=== PATIENT | female | born 1935 | race Caucasian/White ===

== ENCOUNTER 2017-06-28 10:56 | Inpatient (IN) | payer MEDICARE, BC ==
[2017-06-28] VITALS (40 sets, daily range): BP systolic 79–138; BP diastolic 46–86; PULSE 74–148; RESP 24–41; TEMP 97–100; O2SAT 89–98
[~2017-06-28] VITALS: Ht 152.4 cm; Wt 72.2 kg
--- NOTE | 2017-06-28 11:18 | PD ---
HPI Chief Complaint: Shortness of breath Time Seen by Provider: 11:01 Travel History International Travel<30 days: No Contact w/Intl Traveler<30days: No Traveled to known affect area: No History of Present Illness HPI 81-year-old female is here on vacation. She has had some trouble breathing since he had an episode of pneumonia about 4 5 years ago. She was told she had some scarring on her lungs. She has been on oxygen since then. She is on oxygen continuously at 3-4 L and her saturation was about 95-96%. She is here on vacation and using an oxygen concentrator. Last night the oxygen concentrator malfunctioned and she was short of breath at the night and was having some substernal chest pain. He got the concentrator effects which he continued to be short of breath so he paramedics were called. She is not having chest pain right now. She did smoke many years ago. She is not aware of any history of heart disease. She has been coughing a lot this morning. She does take aspirin every day but has not had it today PFSH Social History Tobacco Use: No Allergies-Medications (Allergen,Severity, Reaction): Coded Allergies: No Known Allergies (Unverified , 06/28/17) Reported Meds & Prescriptions Reported Meds & Active Scripts Active Reported Allopurinol 100 Mg Tab 100 Mg PO DAILY Detrol LA (Tolterodine Tartrate) 4 Mg Cap 4 Mg PO DAILY Melatonin 10 Mg-1 Mg Tab 10 Mg PO HS PRN Zolpidem (Zolpidem Tartrate) 5 Mg Tab 5 Mg PO HS PRN Cephalexin 250 Mg Cap 250 Mg PO BID Calcium 600 with Vitamin D (Calcium Carbonate-Cholecalciferol) 600-400 mg-Unit Tab 2 Tab PO DAILY Lasix (Furosemide) 20 Mg Tab 20 Mg PO DAILY Prednisone 5 Mg Tab 5 Mg PO DAILY Pramipexole (Pramipexole Dihydrochloride) 0.25 Mg Tab 0.25 Mg PO TID Proair Hfa 8.5 GM Inh (Albuterol Sulfate) 90 Mcg/Act Aer 2 Puff INH Q4-6H PRN 108 mcg/actuation Metoprolol Succinate ER 24 HR (Metoprolol Succinate) 50 Mg Tab 50 Mg PO DAILY Simvastatin 20 Mg Tab 20 Mg PO DAILY Amlodipine (Amlodipine Besylate) 10 Mg Tab 10 Mg PO DAILY Metformin (Metformin HCl) 500 Mg Tab 500 Mg PO BIDPC Review of Systems General / Constitutional: No: Fever, Chills Eyes: No: Diploplia, Blurred Vision HENT: No: Headaches Cardiovascular: Positive: Chest Pain or Discomfort, Tachycardia Respiratory: Positive: Cough Genitourinary: No: Frequency, Dysuria Musculoskeletal: No: Myalgias, Arthralgias Skin: No Rash, No Itching Endocrine: No: Heat Intolerance, Cold Intolerance Hematologic/Lymphatic: No: Easy Bruising Physical Exam Narrative GENERAL: Elderly female in moderate respiratory distress SKIN: Focused skin assessment warm/dry. Multiple purpuric areas HEAD: Atraumatic. Normocephalic. EYES: Pupils equal and round. No scleral icterus. No injection or drainage. ENT: No nasal bleeding or discharge. Mucous membranes pink and moist. NECK: Trachea midline. No JVD. CARDIOVASCULAR: Rapid irregular rate and rhythm. No murmur appreciated. RESPIRATORY: Coarse rales bilaterally GASTROINTESTINAL: Abdomen soft, non-tender, nondistended. Hepatic and splenic margins not palpable. MUSCULOSKELETAL: No obvious deformities. No clubbing. No cyanosis. No edema. NEUROLOGICAL: Awake and alert. No obvious cranial nerve deficits. Motor grossly within normal limits. Normal speech. PSYCHIATRIC: Appropriate mood and affect; insight and judgment normal. Data Data Last Documented VS Vital Signs Date Time Temp Pulse Resp B/P (MAP) Pulse Ox O2 Delivery O2 Flow Rate FiO2 06/28/17 11:30 94 90 06/28/17 11:22 Non-Rebreather 15.00 Orders Orders Electrocardiogram (06/28/17 11:03) Complete Blood Count With Diff (06/28/17 11:03) Comprehensive Metabolic Panel (06/28/17 11:03) Troponin I (06/28/17 11:03) B-Type Natriuretic Peptide (06/28/17 11:03) Prothrombin Time / Inr (Pt) (06/28/17 11:03) Act Partial Throm Time (Ptt) (06/28/17 11:03) Urinalysis - C+S If Indicated (06/28/17 11:03) Chest, Single Ap (06/28/17 11:03) Arterial Blood Gas (Abg) (06/28/17 ) Lactic Acid Sepsis Protocol (06/28/17 11:09) Blood Culture (06/28/17 11:09) Resp Bipap / Cpap Non Invas Vt (06/28/17 ) Ecg Monitoring (06/28/17 11:32) Blood Pressure (06/28/17 11:32) Iv Access Insert/Monitor (06/28/17 11:32) Oximetry (06/28/17 11:32) Vital Signs (06/28/17 11:32) Diltiazem Inj (Cardizem Inj) (06/28/17 11:45) Diltiazem Inj (Cardizem Inj) (06/28/17 11:45) Sodium Chloride 0.9% Flush (Ns Flush) (06/28/17 11:45) Admit Order (Ed Use Only) (06/28/17 11:39) Labs Laboratory Tests Test 06/28/17 11:00 06/28/17 11:16 White Blood Count 16.5 TH/MM3 Red Blood Count 3.98 MIL/MM3 Hemoglobin 10.8 GM/DL Hematocrit 32.9 % Mean Corpuscular Volume 82.5 FL Mean Corpuscular Hemoglobin 27.1 PG Mean Corpuscular Hemoglobin Concent 32.8 % Red Cell Distribution Width 16.9 % Platelet Count 249 TH/MM3 Mean Platelet Volume 10.7 FL Neutrophils (%) (Auto) 82.8 % Lymphocytes (%) (Auto) 6.3 % Monocytes (%) (Auto) 6.2 % Eosinophils (%) (Auto) 0.5 % Basophils (%) (Auto) 4.2 % Neutrophils # (Auto) 13.7 TH/MM3 Lymphocytes # (Auto) 1.0 TH/MM3 Monocytes # (Auto) 1.0 TH/MM3 Eosinophils # (Auto) 0.1 TH/MM3 Basophils # (Auto) 0.7 TH/MM3 CBC Comment AUTO DIFF Differential Comment AUTO DIFF CONFIRMED Platelet Estimate NORMAL Platelet Morphology Comment NORMAL Prothrombin Time 11.1 SEC Prothromb Time International Ratio 1.1 RATIO Activated Partial Thromboplast Time 19.4 SEC Blood Urea Nitrogen 47 MG/DL Creatinine 1.80 MG/DL Random Glucose 238 MG/DL Total Protein 7.3 GM/DL Albumin 3.2 GM/DL Calcium Level 10.0 MG/DL Alkaline Phosphatase 126 U/L Aspartate Amino Transf (AST/SGOT) 47 U/L Alanine Aminotransferase (ALT/SGPT) 109 U/L Total Bilirubin 0.7 MG/DL Sodium Level 138 MEQ/L Potassium Level 4.5 MEQ/L Chloride Level 105 MEQ/L Carbon Dioxide Level 24.1 MEQ/L Anion Gap 9 MEQ/L Estimat Glomerular Filtration Rate 27 ML/MIN Lactic Acid Level 4.6 mmol/L Troponin I 0.38 NG/ML B-Type Natriuretic Peptide 1307 PG/ML Blood Gas Puncture Site RT BRACHIAL Blood Gas Patient Temperature 98.6 Blood Gas HCO3 22 mmol/L Blood Gas Base Excess -2.6 mmol/L Blood Gas Oxygen Saturation 87 % Arterial Blood pH 7.38 Arterial Blood Partial Pressure CO2 38 mmHG Arterial Blood Partial Pressure O2 63 mmHG Arterial Blood Oxygen Content 12.9 Vol % Arterial Blood Carboxyhemoglobin 1.8 % Arterial Blood Methemoglobin 1.2 % Blood Gas Hemoglobin 10.5 G/DL Oxygen Delivery Device NRB Blood Gas Liter Flow 15 L/M Blood Gas Inspired Oxygen 100 % [facility] Medical Decision Making Medical Screen Exam Complete: Yes Emergency Medical Condition: Yes Medical Record Reviewed: Yes Differential Diagnosis Differential includes CHF, COPD exacerbation, pulmonary fibrosis Narrative Course Chest x-ray is read as showing bilateral diffuse interstitial opacities in both lungs and possible left pleural effusion. EKG shows atrial fibrillation with a rapid ventricular response. BNP is 1307. Her troponin level is 0.38. Her saturation has been only 90% in spite of 100%. We have initiated BiPAP. She has been started on Cardizem for rate control Diagnosis Primary Impression: Rapid atrial fibrillation Additional Impression: CHF (congestive heart failure) Admitting Information Admitting Physician Requests: Admit Maximiliano West MD Jun 28, 2017 11:18
[2017-06-28 11:35] LABS: CHLORIDE 105 MEQ/L (98-107); SODIUM (NA) 138 MEQ/L (136-145)
[2017-06-28] MEDS ORDERED: SODIUM CHLOR 0.9% 1000 ML INJ 1,000 ML IV SCH (11:38)
[2017-06-28 11:39] LABS: ALBUMIN 3.2 GM/DL (3.4-5.0); BICARBONATE 24.1 MEQ/L (21.0-32.0); BLOOD UREA NITROGEN 47 MG/DL (7-18); GLUCOSE,RANDOM 238 MG/DL (74-106)
[2017-06-28] MEDS ORDERED: METO1TAB9 PO (11:39)
[2017-06-28] MEDS ORDERED: ALBUAER3 INH (11:39)
[2017-06-28] MEDS ORDERED: MELA1TAB18 PO (11:39)
[2017-06-28] MEDS ORDERED: SIMV20TA PO (11:39)
[2017-06-28] MEDS ORDERED: PRED5TAB PO (11:39)
[2017-06-28] MEDS ORDERED: ZOLP5TAB3 PO (11:39)
[2017-06-28] MEDS ORDERED: FURO1TAB62 PO (11:39)
[2017-06-28] MEDS ORDERED: ALLO100T PO (11:39)
[2017-06-28] MEDS ORDERED: CALC1TAB87 PO (11:39)
[2017-06-28] MEDS ORDERED: PRAM0.25 PO (11:39)
[2017-06-28] MEDS ORDERED: CEPH250C PO (11:39)
[2017-06-28] MEDS ORDERED: METF500T PO (11:39)
[2017-06-28] MEDS ORDERED: DETR4CAP PO (11:39)
[2017-06-28] MEDS ORDERED: AMLO10TA2 PO (11:39)
[2017-06-28 11:42] LABS: ALT (GPT) 109 U/L (10-53); AST (GOT) 47 U/L (15-37); GLOMERULAR FILTRATION RATE 27 ML/MIN (>89)
[2017-06-28 11:43] LABS: AUTOMATED NEUTROPHIL # 13.7 TH/MM3 (1.8-7.7); BASOPHIL # 0.7 TH/MM3 (0-0.2); BASOPHIL % 4.2 % (0.0-2.0); EOSINOPHIL # 0.1 TH/MM3 (0-0.4); EOSINOPHIL % 0.5 % (0.0-4.0); HEMATOCRIT 32.9 % (35.0-46.0); HEMOGLOBIN 10.8 GM/DL (11.6-15.3); LYMPH % 6.3 % (9.0-44.0); MEAN CELL VOLUME 82.5 FL (80.0-100.0); MEAN CORPUSCULAR HEMOGLOBIN 27.1 PG (27.0-34.0); MEAN CORPUSCULAR HGB CONC 32.8 % (32.0-36.0); MEAN PLATELET VOLUME 10.7 FL (7.0-11.0); MONO % 6.2 % (0.0-8.0); NEUT % 82.8 % (16.0-70.0); PLATELET COUNT 249 TH/MM3 (150-450); RED BLOOD COUNT 3.98 MIL/MM3 (4.00-5.30); RED CELL DISTRIBUTION WIDTH 16.9 % (11.6-17.2); TOTAL BILIRUBIN ADULT 0.7 MG/DL (0.2-1.0); TOTAL PROTEIN 7.3 GM/DL (6.4-8.2); WHITE BLOOD COUNT 16.5 TH/MM3 (4.0-11.0)
[2017-06-28 11:45] LABS: ALKALINE PHOSPHATASE 126 U/L (45-117); INTERNATIONAL NORMALIZED RATIO 1.1 RATIO; PROTHROMBIN TIME - PATIENT 11.1 SEC (9.8-11.6)
[2017-06-28] MEDS ORDERED: CHLORHEXIDINE GLUCONATE 2 % 1 PACK (2 CLOTHS) TOP PRN (11:45)
[2017-06-28] MEDS ORDERED: ONDANSETRON HCL 4 MG/2 ML VIAL IV PUSH PRN (11:45)
[2017-06-28] MEDS ORDERED: POTASSIUM CHLOR 40 MEQ PREMIX 100 ML IV PRN ×2 (11:45)
[2017-06-28] MEDS ORDERED: POTASSIUM PHOSPHATE MONOBASIC 500 MG TAB PO PRN (11:45)
[2017-06-28] MEDS ORDERED: SENNOSIDES 8.6 MG TAB PO PRN (11:45)
[2017-06-28] MEDS ORDERED: MAGNESIUM SULFATE INJ 4 GM in SODIUM CHLORIDE 0.9% INJ 92 ML IV PRN (11:45)
[2017-06-28] MEDS ORDERED: MAGNESIUM HYDROXIDE SUSP 30 ML CUP PO PRN (11:45)
[2017-06-28] MEDS ORDERED: MAGNESIUM SULFATE INJ 2 GM in SODIUM CHLORIDE 0.9% INJ 96 ML IV PRN (11:45)
[2017-06-28] MEDS ORDERED: NURSING INFORMATION XX SCH (11:45)
[2017-06-28] MEDS ORDERED: DILTIAZEM HCL 25 MG/5 ML VIAL IV PUSH ONE (11:45)
[2017-06-28] MEDS ORDERED: BISACODYL 10 MG SUPP RECTAL PRN (11:45)
[2017-06-28] MEDS ORDERED: POTASSIUM PHOSPHATE MONOBASIC 500 MG TAB PO/TUBE PRN (11:45)
[2017-06-28] MEDS ORDERED: POTASSIUM PHOSPHATE INJ 30 MMOL in SODIUM CHLOR 0.9% 250 ML INJ 250 ML IV PRN (11:45)
[2017-06-28] MEDS ORDERED: POTASSIUM CHLOR 20 MEQ PREMIX 100 ML IV PRN ×2 (11:45)
[2017-06-28] MEDS ORDERED: MAGNESIUM OXIDE 400 MG TAB PO PRN (11:45)
[2017-06-28] MEDS ORDERED: POTASSIUM CHLORIDE 25 MEQ EFFERVESCENT TAB PO PRN (11:45)
[2017-06-28] MEDS ORDERED: SODIUM PHOSPHATE INJ 30 MMOL in SODIUM CHLOR 0.9% 250 ML INJ 240 ML IV PRN (11:45)
[2017-06-28 11:46] LABS: TROPONIN I 0.38 NG/ML (0.02-0.05)
--- NOTE | 2017-06-28 11:50 | RADRPT ---
EXAM DATE/TIME: 06/28/2017 11:29 [facility] COMPARISON: No previous studies available for comparison. INDICATIONS : Short of breath. MEDICAL HISTORY : Chronic obstructive pulmonary disease. Carcinoma, breast. Diabetes mellitus type II. Afib SURGICAL HISTORY : None. ENCOUNTER: Initial ACUITY: 2 days PAIN SCORE: 0/10 LOCATION: Bilateral chest FINDINGS: There are patchy interstitial opacities throughout both lungs, right greater than left. There is als o blunting of the costophrenic angle on the left side with possible meniscal interface suggesting sma ll moderate size left pleural effusion. The heart is upper limits normal in size. Mild scoliosis of the thoracolumbar spine convex towards the left with associated degenerative changes. CONCLUSION: Bilateral diffuse interstitial opacities in both lungs and possible left pleural effusion. Juan Carlos Stover MD on June 28, 2017 at 11:48 Board Certified Radiologist. This report was verified electronically.
[2017-06-28] MEDS: RESP: ALBUTEROL 2.5 MG/IPRATROPIUM 0.5 MG NEB (SCH) INH ×4 (12:00→22:59)
[2017-06-28 12:11] LABS: LACTIC ACID SEPSIS PROTOCOL 4.6 mmol/L (0.4-2.0)
[2017-06-28] MEDS ORDERED: FUROSEMIDE 20 MG/2 ML VIAL IV PUSH ONE (12:15)
[2017-06-28] MEDS: DILTIAZEM INJ 125 MG in SODIUM CHLORIDE 0.9% INJ 100 ML IV PRN ×2 (12:29→14:31)
[2017-06-28] MEDS ORDERED: ASPIRIN 81 MG CHEW TAB CHEW ONE (12:30)
--- NOTE | 2017-06-28 13:56 | HHI.HP ---
HPI Service Critical Care Medicine Primary Care Physician No Primary Care Physician Admission Diagnosis RAPID ATRIAL FIBRILLATION, HYPOXIA Diagnosis: Chief Complaint: shortness of breath Travel History International Travel<30 Days: No Contact w/Intl Traveler <30 Da: No Traveled to Known Affected Are: No History of Present Illness This is an 81yF who is vacationing from [place] with a history of o2 dependent COPD (2L continuous), who presents to the ED with complaints of SOB since last night. Per her and her son, her oxygen concentrator stopped working yesterday and she has not had any oxygen since that time. She has developed since that time progressive shortness of breath. Overnight, she also had intermittent substernal chest pain, though currently she is chest pain free. She denies any fever, chills, cough, sputum production, abdominal pain, n/v/c/d , or any other symptoms associated with the SOB and intermittent chest pain. No sick contacts. In the emergency department, she had spo2 89% on NRB and was placed on BIPAP and quickly increased fio2 to 90%. She was also found to be in rapid atrial fibrillation, but with no history of afib. Laboratory data significant for wbc 16k, Cr 1.8, lactate 4, Trop 0.33, BNP 1307. CXR demonstrates bilateral infiltrate suggestive of pulmonary edema. Review of Systems Constitutional: DENIES: Diaphoretic episodes, Fatigue, Fever, Chills Respiratory: COMPLAINS OF: Shortness of breath, DENIES: Apneas, Cough, Snoring , Wheezing, Hemoptysis, Sputum production Cardiovascular: COMPLAINS OF: Chest pain, DENIES: Palpitations, Syncope, Dyspnea on Exertion, PND, Lower Extremity Edema, Orthopnea, Claudication Gastrointestinal: DENIES: Abdominal pain, Black stools, Bloody stools, Constipation, Diarrhea, Nausea, Vomiting Musculoskeletal: DENIES: Muscle aches, Back pain, Neck pain Neurologic: DENIES: Abnormal gait, Headache Psychiatric: DENIES: Anxiety, Confusion Past Family Social History Allergies: Coded Allergies: No Known Allergies (Unverified , 06/28/17) Past Medical History o2 dependent COPD HTN HLD Diabetes Past Surgical History none Reported Medications Allopurinol 100 Mg Tab 100 Mg PO DAILY Detrol LA (Tolterodine Tartrate) 4 Mg Cap 4 Mg PO DAILY Melatonin 10 Mg-1 Mg Tab 10 Mg PO HS PRN Zolpidem (Zolpidem Tartrate) 5 Mg Tab 5 Mg PO HS PRN Cephalexin 250 Mg Cap 250 Mg PO BID Calcium 600 with Vitamin D (Calcium Carbonate-Cholecalciferol) 600-400 mg-Unit Tab 2 Tab PO DAILY Lasix (Furosemide) 20 Mg Tab 20 Mg PO DAILY Prednisone 5 Mg Tab 5 Mg PO DAILY Pramipexole (Pramipexole Dihydrochloride) 0.25 Mg Tab 0.25 Mg PO TID Proair Hfa 8.5 GM Inh (Albuterol Sulfate) 90 Mcg/Act Aer 2 Puff INH Q4-6H PRN 108 mcg/actuation Metoprolol Succinate ER 24 HR (Metoprolol Succinate) 50 Mg Tab 50 Mg PO DAILY Simvastatin 20 Mg Tab 20 Mg PO DAILY Amlodipine (Amlodipine Besylate) 10 Mg Tab 10 Mg PO DAILY Metformin (Metformin HCl) 500 Mg Tab 500 Mg PO BIDPC Active Ordered Medications See MAR Family History reviewed and found to be noncontributory to her acute illness Social History denies tob, etoh, doa. Physical Exam Vital Signs Vital Signs Date Time Temp Pulse Resp B/P (MAP) Pulse Ox O2 Delivery O2 Flow Rate FiO2 06/28/17 13:25 138/70 (92) 06/28/17 13:23 BiPAP 90 06/28/17 13:11 28 97 BiPAP 90 06/28/17 13:08 157 112/86 06/28/17 12:29 136 102/60 06/28/17 12:15 100.0 146 24 121/72 (88) 91 06/28/17 12:00 100.0 148 26 138/70 (92) 90 06/28/17 11:30 94 90 06/28/17 11:22 Non-Rebreather 15.00 Physical Exam gen: elderly female, lying in bed, in respiratory distress on BiPAP heent: nc. at. perrl. mucous membranes moist. neck: +jvd up to mid-neck. trachea midline. chest: tachypneic using accessory muscles to breath. BiPAP 90% fio2. cv: tachycardic rate in the 140s, irregularly irregular rhythm. on 15mg/hr diltiazem infusion abd: soft, nontender, nondistended. no guarding. extr: cool, poorly perfused. no edema. distal pulses 2+ neuro: RASS 0. CAM - . follows commands x 4. no focal deficits. Laboratory Laboratory Tests Test 06/28/17 11:00 06/28/17 11:16 White Blood Count 16.5 Red Blood Count 3.98 Hemoglobin 10.8 Hematocrit 32.9 Mean Corpuscular Volume 82.5 Mean Corpuscular Hemoglobin 27.1 Mean Corpuscular Hemoglobin Concent 32.8 Red Cell Distribution Width 16.9 Platelet Count 249 Mean Platelet Volume 10.7 Neutrophils (%) (Auto) 82.8 Lymphocytes (%) (Auto) 6.3 Monocytes (%) (Auto) 6.2 Eosinophils (%) (Auto) 0.5 Basophils (%) (Auto) 4.2 Neutrophils # (Auto) 13.7 Lymphocytes # (Auto) 1.0 Monocytes # (Auto) 1.0 Eosinophils # (Auto) 0.1 Basophils # (Auto) 0.7 CBC Comment AUTO DIFF Differential Comment AUTO DIFF CONFIRMED Platelet Estimate NORMAL Platelet Morphology Comment NORMAL Prothrombin Time 11.1 Prothromb Time International Ratio 1.1 Activated Partial Thromboplast Time 19.4 Blood Urea Nitrogen 47 Creatinine 1.80 Random Glucose 238 Total Protein 7.3 Albumin 3.2 Calcium Level 10.0 Alkaline Phosphatase 126 Aspartate Amino Transf (AST/SGOT) 47 Alanine Aminotransferase (ALT/SGPT) 109 Total Bilirubin 0.7 Sodium Level 138 Potassium Level 4.5 Chloride Level 105 Carbon Dioxide Level 24.1 Anion Gap 9 Estimat Glomerular Filtration Rate 27 Lactic Acid Level 4.6 Troponin I 0.38 B-Type Natriuretic Peptide 1307 Blood Gas Puncture Site RT BRACHIAL Blood Gas Patient Temperature 98.6 Blood Gas HCO3 22 Blood Gas Base Excess -2.6 Blood Gas Oxygen Saturation 87 Arterial Blood pH 7.38 Arterial Blood Partial Pressure CO2 38 Arterial Blood Partial Pressure O2 63 Arterial Blood Oxygen Content 12.9 Arterial Blood Carboxyhemoglobin 1.8 Arterial Blood Methemoglobin 1.2 Blood Gas Hemoglobin 10.5 Oxygen Delivery Device NRB Blood Gas Liter Flow 15 Blood Gas Inspired Oxygen 100 Date/Time Source Procedure Growth Status 06/28/17 12:00 Blood Peripheral Aerobic Blood Culture Pending Received 06/28/17 12:00 Blood Peripheral Anaerobic Blood Culture Pending Received 06/28/17 12:18 Nasal Aspirate Influenza Types A,B Antigen (TAE) - Final NEGATIVE FOR FLU A AND B ANTIGEN.... Complete Result Diagram: 06/28/17 1100 06/28/17 1100 Imaging Last Impressions Chest X-Ray 06/28/17 1103 Signed Impressions: Service Date/Time: Wednesday, June 28, 2017 11:29 - CONCLUSION: Bilateral diffuse interstitial opacities in both lungs and possible left pleural effusion. Juan Carlos Stover MD Septic Shock Reassessment Septic shock perfusion: reassessment completed Caprini VTE Risk Assessment Caprini VTE Risk Assessment: Mod/High Risk (score >= 2) Caprini Risk Assessment Model Point Value = 1 Point Value = 2 Point Value = 3 Point Value = 5 Age 41-60 Minor surgery BMI > 25 kg/m2 Swollen legs Varicose veins or History of unexplained or recurrent spontaneous Oral contraceptives or hormone replacement Sepsis (< 1 month) Serious lung disease, including pneumonia (< 1 month) Abnormal pulmonary function Acute myocardial infarction Congestive heart failure (< 1 month) History of inflammatory bowel disease Medical patient at bed rest Age 61-74 Arthroscopic surgery Major open surgery (> 45 min) Laparoscopic surgery (> 45 min) Malignancy Confined to bed (> 72 hours) Immobilizing plaster cast Central venous access Age >= 75 History of VTE Family history of VTE Factor V Leiden Prothrombin [id number] Lupus anticoagulant Anticardiolipin antibodies Elevated serum homocysteine Heparin-induced thrombocytopenia Other congenital or acquired thrombophilia Stroke (< 1 month) Elective arthroplasty Hip, pelvis, or leg fracture Acute spinal cord injury (< 1 month) Prophylaxis Regimen Total Risk Factor Score Risk Level Prophylaxis Regimen 0-1 Low Early ambulation 2 Moderate Order ONE of the following: *Sequential Compression Device (SCD) *Heparin 5000 units SQ BID 3-4 Higher Order ONE of the following medications: *Heparin 5000 units SQ TID *Enoxaparin/Lovenox 40 mg SQ daily (WT < 150 kg, CrCl > 30 mL/min) *Enoxaparin/Lovenox 30 mg SQ daily (WT < 150 kg, CrCl > 10-29 mL/min) *Enoxaparin/Lovenox 30 mg SQ BID (WT < 150 kg, CrCl > 30 mL/min) AND/OR *Sequential Compression Device (SCD) 5 or more Highest Order ONE of the following medications: *Heparin 5000 units SQ TID (Preferred with Epidurals) *Enoxaparin/Lovenox 40 mg SQ daily (WT < 150 kg, CrCl > 30 mL/min) *Enoxaparin/Lovenox 30 mg SQ daily (WT < 150 kg, CrCl > 10-29 mL/min) *Enoxaparin/Lovenox 30 mg SQ BID (WT < 150 kg, CrCl > 30 mL/min) AND *Sequential Compression Device (SCD) Assessment and Plan Assessment and Plan Assessment: 81yF with o2 dependent COPD who presents after acute dyspnea when her oxygen stopped working and now has acute NSTEMI, CHF exacerbation of unknown type, acute kidney injury, atrial fibrillation with rapid ventricular response, and acute hypoxic respiratory failure requiring NIPPV. Very critically ill. Overall, this appears to be secondary clinically to a loss of o2 which she chronically requires. Certainly, acute loss of supplemental oxygen can cause NSTEMI secondary to inadequate coronary oxygen supply, lactic acidosis from both poor o2 delivery as well as ensuing cardiogenic shock from myocardial dysfunction, subsequent CHF and pulmonary edema which then worsens o2 delivery. No evidence of infectious etiology, although we will coronado culture her to be sure. Certainly COPD exacerbation is a contributing factor, and we will keep her on iv steroids and nebs. Will aggressively work to rate control her given clear evidence of myocardial ischemia, and will require amiodarone in addition to diltiazem for rate control. Admit to ICU. very critically ill with [id number] organ dysfunction which is life-threatening. Plan by systems: Neurologic: Melatonin for sleep Respiratory: Oxygen dependent COPD Acute COPD exacerbation Acute CHF exacerbation, unknown type Acute pulmonary edema Acute hypoxic respiratory failure Continue BiPAP Wean FiO2 as tolerated for goal SPO2 greater than 92% given myocardial ischemia Nebs IV steroids Lasix Chest x-ray in the morning ABG in the morning Cardiovascular: Acute NSTEMI-likely type II secondary demand ischemia from poor oxygen delivery Acute CHF exacerbation, unknown type Atrial fib relation with rapid ventricular response, new onset Cardiogenic shock Trend troponins Heparin drip Diltiazem drip Amiodarone load and drip Cardiology consult Aspirin Unlikely to be ACS given overall clinical scenario. Much more likely to be demand ischemia from poor oxygen delivery from lack of oxygen in an oxygen dependent COPD patient Renal: Acute kidney injury -- Strict I/Os MOE likely secondary to poor oxygen delivery to the kidneys as well as likely component of cardiogenic shock from myocardial injury FEN/GI: Lactic acidosis Acute intravascular volume overload ICU electrolyte protocol N.p.o. advancing to gentle clear liquid diet if her respiratory status improves Aggressively replace electrolytes targeting potassium greater than 4, mag greater than 2 Trend lactates Diuresis Heme/ID: Leukocytosis Likely secondary to stress response. Unlikely to be infectious etiology. Sent blood cultures, sputum culture. Influenza swab negative We will hold off on starting antibiotics unless patient spikes fever, or clinically declines Endocrine: Diabetes Hyperglycemia of critical illness -- SSI Prophylaxis: GI Prophylaxis Pepcid DVT Prophylaxis -- SCDs Heparin drip Lines: Peripheral IVs Dispo: Admit to ICU. Critically ill. This patient remains critically ill with one or more organ systems which are or may become a threat to life. I have spent in excess of 51 minutes discontinuously in the care and management of this patient. This time is exclusive of procedures, and includes, but is not limited to, evaluation of the patient, review of the medical record, discussions with family, consultants, nursing staff, or respiratory therapy, and documentation in the medical record. Orlando Serrano MD Jun 28, 2017 13:55
[2017-06-28] MEDS ORDERED: FUROSEMIDE 100 MG/10 ML VIAL IV PUSH ONE (14:15)
[2017-06-28] MEDS ORDERED: AMIODARONE INJ 150 MG in DEXTROSE 5% IN WATER 100ML INJ 97 ML IV ONE ×2 (14:46)
[2017-06-28] MEDS: HEPARIN-D5W 25,000 U/250 ML 250 ML IV SCH (14:46)
[2017-06-28] MEDS ORDERED: AMIODARONE INJ 450 MG in DEXTROSE 5% IN WATE(EXCEL) INJ 241 ML IV PRN ×2 (14:56)
[2017-06-28] MEDS: DILTIAZEM HCL 60 MG TAB PO SCH ×2 (15:00→17:14)
[2017-06-28 17:03] LABS: FREE T4 1.37 NG/DL (0.76-1.46)
[2017-06-28] MEDS: AMIODARONE INJ 450 MG in D5W (EXCEL BAG) INJ 241 ML IV PRN (17:13)
[2017-06-28] MEDS ORDERED: LORazepam 2 MG/ML VIAL IV ONE (18:00)
--- NOTE | 2017-06-28 20:25 | EKG ---
Date Performed: 06/28/2017 Time Performed: 11:30:10 PTAGE: 81 years EKG: ATRIAL FIBRILLATION WITH RAPID VENTRICULAR RESPONSE NO PREVIOUS TRACING DOCTOR: Jerson Ron Interpretating Date/Time 06/28/2017 20:24:23
[2017-06-28] MEDS: methylPREDNISolone SOD SUCC 125 MG/2 ML VIAL IV PUSH SCH (22:23)
[2017-06-28] MEDS: DOCUSATE SODIUM 50 MG/SENNA 8.6 MG TAB PO SCH (22:23)
[2017-06-28] MEDS: MELATONIN 5 MG TAB PO SCH (22:23)
[2017-06-29] VITALS (47 sets, daily range): BP systolic 69–144; BP diastolic 49–85; PULSE 76–114; RESP 20–55; TEMP 97.1–99; O2SAT 90–97
[2017-06-29] MEDS: DILTIAZEM HCL 60 MG TAB PO SCH ×4 (01:17→17:59)
[2017-06-29] MEDS: RESP: ALBUTEROL 2.5 MG/IPRATROPIUM 0.5 MG NEB (SCH) INH ×6 (03:37→23:06)
[2017-06-29] MEDS: CHLORHEXIDINE GLUCONATE 2 % 1 PACK (2 CLOTHS) TOP SCH (04:00)
[2017-06-29] MEDS: AMIODARONE INJ 450 MG in D5W (EXCEL BAG) INJ 241 ML IV PRN (04:11)
[2017-06-29 04:48] LABS: HEMATOCRIT 28.7 % (35.0-46.0); HEMOGLOBIN 9.3 GM/DL (11.6-15.3); MEAN CELL VOLUME 82.3 FL (80.0-100.0); MEAN CORPUSCULAR HEMOGLOBIN 26.5 PG (27.0-34.0); MEAN CORPUSCULAR HGB CONC 32.2 % (32.0-36.0); MEAN PLATELET VOLUME 10.2 FL (7.0-11.0); PLATELET COUNT 219 TH/MM3 (150-450); RED BLOOD COUNT 3.49 MIL/MM3 (4.00-5.30); RED CELL DISTRIBUTION WIDTH 16.6 % (11.6-17.2)
[2017-06-29 05:05] LABS: BICARBONATE 24.9 MEQ/L (21.0-32.0); CALCIUM 8.9 MG/DL (8.5-10.1)
[2017-06-29 05:11] LABS: CREATININE 1.9 MG/DL (0.50-1.00)
--- NOTE | 2017-06-29 06:09 | RADRPT ---
EXAM DATE/TIME: 06/29/2017 05:16 [facility] COMPARISON: CHEST SINGLE AP, June 28, 2017, 11:29. INDICATIONS : Shortness of breath. MEDICAL HISTORY : Chronic obstructive pulmonary disease. Carcinoma, breast. Diabetes mellitus type II. Afib. SURGICAL HISTORY : None. ENCOUNTER: Subsequent ACUITY: 2 days PAIN SCORE: Non-responsive. LOCATION: Bilateral chest FINDINGS: A single view of the chest demonstrates persistent bilateral interstitial and airspace processes with worsening consolidation in the right mid chest. Possible associated bilateral pleural effusions, lef t greater than right. Heart size remains prominent. Degenerative spurring throughout the dorsal spine with a dextroscoliosis of the same. CONCLUSION: 1. Bilateral mixed interstitial and air space process with worsening consolidation in the lateral rig ht mid chest. 2. Possible associated bilateral pleural effusions, left worse than right. 3. Cardiomegaly. Tod Parker MD on June 29, 2017 at 6:06 Board Certified Radiologist. This report was verified electronically.
[2017-06-29 06:24] LABS: BILIRUBIN, URINE NEG (NEG); BLOOD, URINE TRACE (NEG); GLUCOSE,URINE NEG (NEG); KETONE, URINE NEG (NEG); NITRITE,URINE NEG (NEG); URINE COLOR YELLOW (YELLW/STRAW); URINE LEUKOCYTE ESTERASE NEG (NEG)
[2017-06-29 06:28] LABS: BACTERIA, URINE MANY /hpf; RBC, URINE 0-2 /hpf (0-3); SQUAMOUS EPITHELIAL CELL URINE 0-5 /hpf (0-5); WBC, URINE 0-2 /hpf (0-5)
[2017-06-29] MEDS ORDERED: FUROSEMIDE 40 MG/4 ML VIAL IV PUSH ONE (06:45)
[2017-06-29] MEDS ORDERED: ASPIRIN 325 MG TAB PO SCH (09:00)
[2017-06-29] MEDS ORDERED: ATORVASTATIN 80 MG TAB PO SCH (09:15)
--- NOTE | 2017-06-29 09:21 | HHI.CCPN ---
Subjective Remarks/Hospital Course Hospital Course: This is an 81yF who is vacationing from [place] with a history of o2 dependent COPD (2L continuous), who presents to the ED with complaints of SOB since last night. Per her and her son, her oxygen concentrator stopped working yesterday and she has not had any oxygen since that time. She has developed since that time progressive shortness of breath. Overnight, she also had intermittent substernal chest pain, though currently she is chest pain free. She denies any fever, chills, cough, sputum production, abdominal pain, n/v/c/d , or any other symptoms associated with the SOB and intermittent chest pain. No sick contacts. In the emergency department, she had spo2 89% on NRB and was placed on BIPAP and quickly increased fio2 to 90%. She was also found to be in rapid atrial fibrillation, but with no history of afib. Laboratory data significant for wbc 16k, Cr 1.8, lactate 4, Trop 0.33, BNP 1307. CXR demonstrates bilateral infiltrate suggestive of pulmonary edema. Subjective: 06/29: clinically beginning to improve. converted to NSR overnight. trop downtrending. still on high fio2, but breathing more comfortably. denies complaints. ROS negative. lactate cleared. Objective Vital Signs Date Time Temp Pulse Resp B/P (MAP) Pulse Ox O2 Delivery O2 Flow Rate FiO2 06/29/17 08:00 83 06/29/17 07:36 96 75 06/29/17 05:30 Bi-Pap 06/29/17 05:01 55 93/50 (64) 06/29/17 04:03 98.1 06/28/17 11:22 15.00 Intake and Output 06/29/17 06/29/17 06/29/17 07:59 15:59 23:59 Intake Total 120 ml Output Total 600 ml Balance -480 ml Result Diagram: 06/29/17 0416 06/29/17 0416 Other Results Microbiology Date/Time Source Procedure Growth Status 06/28/17 12:18 Nasal Aspirate Influenza Types A,B Antigen (TAE) - Final NEGATIVE FOR FLU A AND B ANTIGEN.... Complete Laboratory Tests Test 06/28/17 11:16 06/29/17 05:12 Blood Gas Puncture Site RT BRACHIAL RT BRACHIAL Blood Gas Patient Temperature 98.6 37.0 Blood Gas HCO3 22 mmol/L (22-26) 22 mmol/L (22-26) Blood Gas Base Excess -2.6 mmol/L (-2-2) -2.2 mmol/L (-2-2) Blood Gas Oxygen Saturation 87 % (90-100) 90 % (90-100) Arterial Blood pH 7.38 (7.380-7.420) 7.36 (7.380-7.420) Arterial Blood Partial Pressure CO2 38 mmHG (38-42) 40 mmHg (38-42) Arterial Blood Partial Pressure O2 63 mmHG (61-120) 69 mmHg (61-120) Arterial Blood Oxygen Content 12.9 Vol % (12.0-20.0) 11.9 Vol % (12.0-20.0) Arterial Blood Carboxyhemoglobin 1.8 % (0-4) 1.4 % (0-4) Arterial Blood Methemoglobin 1.2 % (0-2) 1.3 % (0-2) Blood Gas Hemoglobin 10.5 G/DL (12.0-16.0) 9.3 G/DL (12.0-16.0) Oxygen Delivery Device NRB BIPAP Blood Gas Liter Flow 15 L/M Blood Gas Inspired Oxygen 100 % 70 % Blood Gas Ventilator Setting IPAP10/[id number] Imaging Last Impressions Chest X-Ray 06/28/17 1103 Signed Impressions: Service Date/Time: Wednesday, June 28, 2017 11:29 - CONCLUSION: Bilateral diffuse interstitial opacities in both lungs and possible left pleural effusion. Juan Carlos Stover MD Objective Remarks gen: elderly female, lying in bed, on BiPAP heent: nc. at. perrl. mucous membranes moist. neck: - jvd. trachea midline. chest: no accessory muslce use today. BiPAP 75% fio2. cv: normal rate, regular rhythm. sinus. rate in the 70s. abd: soft, nontender, nondistended. no guarding. extr: warm, well perfused. no edema. distal pulses 2+ neuro: RASS 0. CAM - . follows commands x 4. no focal deficits. A/P Assessment and Plan Assessment: 81yF with o2 dependent COPD who presents after acute dyspnea when her oxygen stopped working and now has acute NSTEMI, CHF exacerbation of unknown type, acute kidney injury, atrial fibrillation with rapid ventricular response, and acute hypoxic respiratory failure requiring NIPPV. Clinically beginning to improve. Overall, this appears to be secondary clinically to a loss of o2 which she chronically requires. Certainly, acute loss of supplemental oxygen can cause NSTEMI secondary to inadequate coronary oxygen supply, lactic acidosis from both poor o2 delivery as well as ensuing cardiogenic shock from myocardial dysfunction, subsequent CHF and pulmonary edema which then worsens o2 delivery. Remain in ICU. remain on BiPAP. although some clinical improvements, remains with multi organ dysfunction and high risk for decompensation. Plan by systems: Neurologic: Anxiety Melatonin for sleep ativan iv 0.25mg prn for severe anxiety related to the BiPAP machine. Respiratory: Oxygen dependent COPD Acute COPD exacerbation Acute CHF exacerbation, unknown type Acute pulmonary edema Acute hypoxic respiratory failure Continue BiPAP Wean FiO2 as tolerated for goal SPO2 greater than 92% given myocardial ischemia Nebs IV steroids Lasix Cardiovascular: Acute NSTEMI-likely type II secondary demand ischemia from poor oxygen delivery Acute CHF exacerbation, unknown type Atrial fib relation with rapid ventricular response, new onset- converted to NSR Cardiogenic shock- resolved. trops downtrending. lactate cleared. Heparin drip transition to amiodarone PO once drip completed. Cardiology consult Aspirin Unlikely to be ACS given overall clinical scenario. Much more likely to be demand ischemia from poor oxygen delivery from lack of oxygen in an oxygen dependent COPD patient Renal: Acute kidney injury -- Strict I/Os MOE likely secondary to poor oxygen delivery to the kidneys as well as likely component of cardiogenic shock from myocardial injury - making adequate urine. continue forced diuresis. FEN/GI: Lactic acidosis- resolved Acute intravascular volume overload ICU electrolyte protocol clear liquid diet. Aggressively replace electrolytes targeting potassium greater than 4, mag greater than 2 Diuresis Heme/ID: Leukocytosis Likely secondary to stress response. Unlikely to be infectious etiology. Sent blood cultures, sputum culture. Influenza swab negative: patient has significant bilateral infiltrates. will send influenza PCR to confirm/rule out. u/a positive: will start Levaquin to cover empirically for UTI as well as severe COPD exacerbation until additional information is resulted. Endocrine: Diabetes Hyperglycemia of critical illness -- SSI Prophylaxis: GI Prophylaxis Pepcid DVT Prophylaxis -- SCDs Heparin drip Lines: Peripheral IVs Dispo: remain in ICU. Orlando Serrano MD June 29, 2017 09:21
--- NOTE | 2017-06-29 09:55 | MB ---
cc: Yousif Oleary MD DATE: 06/29/2017 HISTORY OF PRESENT ILLNESS: Ms. Torres is an 81-year-old white female with a history of severe COPD on 2 liters continuous oxygen, who is here on vacation from [place]. Her oxygen concentrator malfunctioned the day before and she was without oxygen the whole night. She developed progressive shortness of breath, a dull substernal chest discomfort and presented to the emergency room. She was hypoxemic and was started on a BiPAP. She was found to be in atrial fibrillation with a rapid ventricular response. She was also found to have renal insufficiency and mildly elevated troponin. Her chest x-ray was consistent with pulmonary edema. The patient has not had any chest pain since her admission. Her shortness of breath is gradually improving. She has not had any lower extremity edema. She has no previous history of atrial fibrillation. She has no previous history of heart disease. She had seen a icu rn and php lamp developer at home, but has not seen a metal mixer in the past. PAST MEDICAL HISTORY: Positive for O2 dependent COPD on 2 liters continuous oxygen, hypertension, dyslipidemia, diabetes mellitus, obesity, chronic kidney disease. MEDICATIONS AT HOME: 1. Allopurinol. 2. Detrol. 3. Melatonin. 4. Zolpidem. 5. Cephalexin. 6. Calcium. 7. Lasix. 8. Prednisone. 9. Pramipexole. 10. ProAir. 11. Metoprolol. 12. Simvastatin. 13. Amlodipine. 14. Metformin. 15. The patient was started on IV amiodarone, which is now switched to p.o. amiodarone. 16. She is also on aspirin. 17. She is now also on Levofloxacin. 18. Methylprednisolone. 19. Diltiazem p.o. for rate control. SOCIAL HISTORY: The patient does not smoke, but she smoked briefly in the remote past. She drinks wine several times a week. FAMILY HISTORY: Positive for coronary artery disease. REVIEW OF SYSTEMS: Otherwise negative. PHYSICAL EXAMINATION: VITAL SIGNS: Blood pressure 93/50, pulse 78 and regular, pulse oximetry 96%. HEENT: Negative. NECK: 2+ carotid strokes. No bruits. LUNGS: With a few rhonchi. HEART: Regular. No murmur, gallop or rub. ABDOMEN: Soft. No bruits. EXTREMITIES: Without edema. There are venous varicosities. 2+ distal pulses. NEUROLOGIC: Grossly nonfocal. The patient is obese. LABORATORY DATA: EKG was reviewed and showed atrial fibrillation with a rapid ventricular response and no acute changes. Telemetry now shows a normal sinus rhythm. LABORATORY DATA: Hemoglobin 9.3, potassium 4.5, creatinine 1.9, troponin 0.38, 1.19 and 1.14, BNP 1307 and 813. DIAGNOSES: 1. Acute exacerbation of chronic, oxygen dependent, chronic obstructive pulmonary disease. 2. Acute hypoxic respiratory failure. 3. Acute congestive heart failure exacerbation. 4. Atrial fibrillation with rapid ventricular response, new onset. 5. Acute exacerbation of chronic kidney disease. 6. Elevated troponin. 7. Hypertension. 8. Dyslipidemia. 9. Diabetes mellitus. 10. Obesity. DISPOSITION: Ms. Torres converted to sinus rhythm on amiodarone. I suspect her atrial fibrillation with rapid ventricular response contributed to her congestive heart failure. I recommend to continue amiodarone to keep her in sinus rhythm. She has mild troponin elevation, which may be related to her renal insufficiency. She has not had any recurrent angina. Cardiac catheterization at this time would have a high risk of contrast nephropathy, further exacerbation of her renal insufficiency and possible need for dialysis. We will obtain an echocardiogram to evaluate her left ventricular function. I recommend to continue current therapy and titrate aggressive modification of her cardiac risk factors including therapy for dyslipidemia. Recommend to continue daily aspirin. She will likely be a candidate for full anticoagulation long-term once her condition is stabilized. I recommended her to see a metal mixer as soon as she returns back to [place] for long-term cardiology care. The plan was discussed with the patient. Yousif Oleary MD OQ/DL , 09:04 AM , 09:54 AM JACQUES
[2017-06-29] MEDS: MAGNESIUM SULFATE 1 GM PREMIX 100 ML IV SCH ×2 (10:07→10:30)
[2017-06-29] MEDS: DOCUSATE SODIUM 50 MG/SENNA 8.6 MG TAB PO SCH ×2 (10:08→19:39)
[2017-06-29] MEDS: NYSTATIN 100,000 UNIT/GM CREAM 15 GM TOPICAL SCH ×2 (10:08→22:08)
[2017-06-29] MEDS: methylPREDNISolone SOD SUCC 125 MG/2 ML VIAL IV PUSH SCH ×2 (10:08→19:43)
[2017-06-29] MEDS: LEVOFLOXACIN 750 MG PREMIX INJ 150 ML IV SCH (10:10)
[2017-06-29] MEDS: AMIODARONE 200 MG TAB PO SCH ×2 (13:52→22:08)
[2017-06-29] MEDS: LORazepam 2 MG/ML VIAL IV PUSH PRN (17:17)
[2017-06-29] MEDS: MELATONIN 5 MG TAB PO SCH (19:39)
[2017-06-30] VITALS (41 sets, daily range): BP systolic 67–135; BP diastolic 46–73; PULSE 92–143; RESP 26–69; TEMP 97.1–98.3; O2SAT 87–99
[2017-06-30] MEDS: DILTIAZEM HCL 60 MG TAB PO SCH ×2 (00:16→05:08)
[2017-06-30] MEDS: RESP: ALBUTEROL 2.5 MG/IPRATROPIUM 0.5 MG NEB (SCH) INH ×6 (03:48→23:53)
[2017-06-30] MEDS: CHLORHEXIDINE GLUCONATE 2 % 1 PACK (2 CLOTHS) TOP SCH (04:00)
[2017-06-30] MEDS: LORazepam 2 MG/ML VIAL IV PUSH PRN ×3 (05:07→22:16)
[2017-06-30 05:16] LABS: HEMATOCRIT 26.7 % (35.0-46.0); HEMOGLOBIN 8.6 GM/DL (11.6-15.3); MEAN CELL VOLUME 83.1 FL (80.0-100.0); MEAN CORPUSCULAR HEMOGLOBIN 26.9 PG (27.0-34.0); MEAN CORPUSCULAR HGB CONC 32.4 % (32.0-36.0); MEAN PLATELET VOLUME 10.1 FL (7.0-11.0); PLATELET COUNT 227 TH/MM3 (150-450); RED BLOOD COUNT 3.21 MIL/MM3 (4.00-5.30); RED CELL DISTRIBUTION WIDTH 16.3 % (11.6-17.2); WHITE BLOOD COUNT 21.6 TH/MM3 (4.0-11.0)
[2017-06-30 05:21] LABS: BICARBONATE 23.2 MEQ/L (21.0-32.0); CALCIUM 8.3 MG/DL (8.5-10.1)
[2017-06-30 05:25] LABS: CREATININE 2.3 MG/DL (0.50-1.00)
--- NOTE | 2017-06-30 08:31 | HHI.CCPN ---
Subjective Remarks/Hospital Course Hospital Course: This is an 81yF who is vacationing from [place] with a history of o2 dependent COPD (2L continuous), who presents to the ED with complaints of SOB since last night. Per her and her son, her oxygen concentrator stopped working yesterday and she has not had any oxygen since that time. She has developed since that time progressive shortness of breath. Overnight, she also had intermittent substernal chest pain, though currently she is chest pain free. She denies any fever, chills, cough, sputum production, abdominal pain, n/v/c/d , or any other symptoms associated with the SOB and intermittent chest pain. No sick contacts. In the emergency department, she had spo2 89% on NRB and was placed on BIPAP and quickly increased fio2 to 90%. She was also found to be in rapid atrial fibrillation, but with no history of afib. Laboratory data significant for wbc 16k, Cr 1.8, lactate 4, Trop 0.33, BNP 1307. CXR demonstrates bilateral infiltrate suggestive of pulmonary edema. Subjective: 06/29: clinically beginning to improve. converted to NSR overnight. trop downtrending. still on high fio2, but breathing more comfortably. denies complaints. ROS negative. lactate cleared. 06/30: remains in intermittent afib, but mostly sinus rhythm. Cr increased slightly, although in talking with the patient, she has chronic kidney disease and sees a certified master safecracker, although she does not know what her baseline kidney function is. became tachypneic overnight and hypoxic requiring increased fio2. remains quite hypoxic and in respiratory distress at times. long discussion with her and her son about needing to clarify goals of intubation if she should continue to worsen. Objective Vital Signs Date Time Temp Pulse Resp B/P (MAP) Pulse Ox O2 Delivery O2 Flow Rate FiO2 06/30/17 07:56 91 55 06/30/17 07:07 116 33 91/55 (67) 06/30/17 04:11 Bi-Pap 06/30/17 04:00 98.0 06/29/17 19:15 40.00 Intake and Output 06/30/17 06/30/17 07/01/17 08:00 16:00 00:00 Intake Total 211 ml Output Total 300 ml Balance -89 ml Result Diagram: 06/30/17 0417 06/30/17 0417 Other Results Microbiology Date/Time Source Procedure Growth Status 06/28/17 12:18 Nasal Aspirate Influenza Types A,B Antigen (TAE) - Final NEGATIVE FOR FLU A AND B ANTIGEN.... Complete 06/29/17 06:15 Urine Catheterized Urine Legionella Antigen - Final PRESUMPTIVE NEGATIVE FOR LEGIONELLA P... Complete 06/29/17 06:15 Urine Catheterized Urine Streptococcus pneumoniae Antigen (M - Final PRESUMPTIVE NEGATIVE FOR STREPTOCOCCU... Complete Imaging Last Impressions Chest X-Ray 06/28/17 1103 Signed Impressions: Service Date/Time: Wednesday, June 28, 2017 11:29 - CONCLUSION: Bilateral diffuse interstitial opacities in both lungs and possible left pleural effusion. Juan Carlos Stover MD Objective Remarks gen: elderly female, lying in bed, on BiPAP heent: nc. at. perrl. mucous membranes moist. neck: - jvd. trachea midline. chest: no accessory muslce use. BiPAP 75% fio2. cv: normal rate, regular rhythm. sinus. rate in the 100s. abd: soft, nontender, nondistended. no guarding. extr: warm, well perfused. no edema. distal pulses 2+ neuro: RASS 0. CAM - . follows commands x 4. no focal deficits. A/P Assessment and Plan Assessment: 81yF with o2 dependent COPD who presents after acute dyspnea when her oxygen stopped working and now has acute NSTEMI, CHF exacerbation of unknown type, acute kidney injury, atrial fibrillation with rapid ventricular response, and acute hypoxic respiratory failure requiring NIPPV. clinically stable,although very high risk and still requiring high fio2 and support for her multiple organ dysfunction. Overall, this appears to be secondary clinically to a loss of o2 which she chronically requires. Certainly, acute loss of supplemental oxygen can cause NSTEMI secondary to inadequate coronary oxygen supply, lactic acidosis from both poor o2 delivery as well as ensuing cardiogenic shock from myocardial dysfunction, subsequent CHF and pulmonary edema which then worsens o2 delivery. Remain in ICU. remain on BiPAP. although some clinical improvements, remains with multi organ dysfunction and high risk for decompensation. Plan by systems: Neurologic: Anxiety Melatonin for sleep ativan iv 0.25mg prn for severe anxiety related to the BiPAP machine. Respiratory: Oxygen dependent COPD Acute COPD exacerbation Acute CHF exacerbation, unknown type Acute pulmonary edema Acute hypoxic respiratory failure Continue BiPAP Wean FiO2 as tolerated for goal SPO2 greater than 92% given myocardial ischemia Nebs IV steroids hold additional lasix today. Cardiovascular: Acute NSTEMI-likely type II secondary demand ischemia from poor oxygen delivery Acute CHF exacerbation, unknown type Atrial fib relation with rapid ventricular response, new onset- converted to NSR Cardiogenic shock- resolved. trops downtrending. lactate cleared. Heparin drip x another 24h, then can discontinue. PO amiodarone. Cardiology consult Aspirin Unlikely to be ACS given overall clinical scenario. Much more likely to be demand ischemia from poor oxygen delivery from lack of oxygen in an oxygen dependent COPD patient Renal: Acute kidney injury superimposed on chronic kidney disease, unknown stage -- Strict I/Os MOE likely secondary to poor oxygen delivery to the kidneys as well as likely component of cardiogenic shock from myocardial injury - making adequate urine. hold on further diuresis. FEN/GI: Lactic acidosis- resolved Acute intravascular volume overload ICU electrolyte protocol advance to heart healthy diet. Aggressively replace electrolytes targeting potassium greater than 4, mag greater than 2 hold further diuresis. Heme/ID: Leukocytosis Likely secondary to stress response. Unlikely to be infectious etiology. Sent blood cultures, sputum culture: currently NGTD. Influenza swab negative and influenza PCR negative. u/a positive: continue Levaquin to cover empirically for UTI as well as severe COPD exacerbation until additional information is resulted. urine culture ngtd. Endocrine: Diabetes Hyperglycemia of critical illness -- SSI Prophylaxis: GI Prophylaxis Pepcid DVT Prophylaxis -- SCDs Heparin drip Lines: Peripheral IVs Dispo: remain in ICU. Orlando Serrano MD June 30, 2017 08:31
[2017-06-30] MEDS: NYSTATIN 100,000 UNIT/GM CREAM 15 GM TOPICAL SCH ×2 (09:04→21:27)
[2017-06-30] MEDS: ATORVASTATIN 40 MG TAB PO SCH (09:05)
[2017-06-30] MEDS: methylPREDNISolone SOD SUCC 125 MG/2 ML VIAL IV PUSH SCH ×2 (09:05→21:27)
[2017-06-30] MEDS: AMIODARONE 200 MG TAB PO SCH ×2 (09:05→21:26)
[2017-06-30] MEDS: DOCUSATE SODIUM 50 MG/SENNA 8.6 MG TAB PO SCH ×2 (09:05→21:26)
[2017-06-30] MEDS: ASPIRIN EC 81 MG TABEC PO SCH (09:05)
[2017-06-30] MEDS: DILTIAZEM HCL 90 MG TAB PO SCH ×3 (12:06→23:49)
--- NOTE | 2017-06-30 13:06 | ECHRPT ---
Indication: Heart failure, unspecified CONCLUSIONS Technically difficult study. Normal left ventricular size. Mild concentric left ventricular hypert rophy. The left ventricular systolic function is normal with an estimated ejection fraction of 55%. No def inite wall motion abnormalities. Structurally normal mitral valve. Mild to moderate mitral valve regurgitation. Trileaflet aortic valve. No aortic valve regurgitation. Diffuse mild calcification of the aortic valve. There is mild tricuspid valve regurgitation. The estimated systolic pulmonary artery pressure is 45 mm Hg. Possible small pericardial effusion. BP: / HR: Rhythm: MEASUREMENTS (Male / Female) Normal Values Technical Quality: 2D ECHO LV Diastolic Diameter PLAX 4.5 cm 4.2 - 5.9 / 3.9 - 5.3 cm LV Systolic Diameter PLAX 3.4 cm IVS Diastolic Thickness 1.5 cm 0.6 - 1.0 / 0.6 - 0.9 cm LVPW Diastolic Thickness 1.2 cm 0.6 - 1.0 / 0.6 - 0.9 cm LV Relative Wall Thickness 0.6 M-MODE Aortic Root Diameter MM 3.1 cm LA Systolic Diameter MM 3.7 cm LA Ao Ratio MM 1.2 AV Cusp Separation MM 1.2 cm DOPPLER MV Peak Velocity 139.0 cm/s MV Peak Gradient 7.7 mmHg MV Mean Velocity 73.0 cm/s MV Mean Gradient 3.0 mmHg Mitral E Point Velocity 131.0 cm/s Mitral A Point Velocity 55.2 cm/s Mitral E to A Ratio 2.4 TR Peak Velocity 303.0 cm/s TR Peak Gradient 36.7 mmHg Right Atrial Pressure 10.0 mmHg Pulmonary Artery Systolic Pressu 46.7 mmHg Right Ventricular Systolic Press 46.7 mmHg FINDINGS LEFT VENTRICLE Technically difficult study. Normal left ventricular size. Mild concentric left ventricular hypertrophy. The left ventricular systolic function is normal with an estimated ejection fraction of 55%. No def inite wall motion abnormalities. RIGHT VENTRICLE Normal right ventricular size and systolic function. LEFT ATRIUM The left atrial size is normal. RIGHT ATRIUM The right atrial size is normal. ATRIAL SEPTUM Normal atrial septal thickness without atrial level shunting by limited color doppler interrogation. AORTA The aortic root and proximal ascending aorta are not well visualized. MITRAL VALVE Structurally normal mitral valve. Mild to moderate mitral valve regurgitation. AORTIC VALVE Trileaflet aortic valve. No aortic valve regurgitation. Diffuse mild calcification of the aortic valve. TRICUSPID VALVE Structurally normal tricuspid valve. There is mild tricuspid valve regurgitation. The estimated systolic pulmonary artery pressure is 45 mm Hg. PULMONARY VALVE Trivial pulmonary valve regurgitation. PERICARDIUM Possible small pericardial effusion. Tong Driscoll MD (Electronically Signed) Final Date:30 Jun 2017 13:05
[2017-06-30] MEDS: HEPARIN-D5W 25,000 U/250 ML 250 ML IV SCH (20:10)
[2017-06-30] MEDS: MELATONIN 5 MG TAB PO SCH (21:26)
[2017-07-01] VITALS (55 sets, daily range): BP systolic 99–149; BP diastolic 54–78; PULSE 106–142; RESP 23–66; TEMP 96.8–98.6; O2SAT 88–99
[2017-07-01] MEDS: CHLORHEXIDINE GLUCONATE 2 % 1 PACK (2 CLOTHS) TOP SCH (04:00)
[2017-07-01] MEDS: RESP: ALBUTEROL 2.5 MG/IPRATROPIUM 0.5 MG NEB (SCH) INH ×5 (04:14→19:21)
[2017-07-01 04:46] LABS: HEMATOCRIT 25.2 % (35.0-46.0); HEMOGLOBIN 8.6 GM/DL (11.6-15.3); MEAN CELL VOLUME 82.8 FL (80.0-100.0); MEAN CORPUSCULAR HEMOGLOBIN 28.1 PG (27.0-34.0); MEAN CORPUSCULAR HGB CONC 33.9 % (32.0-36.0); PLATELET COUNT 229 TH/MM3 (150-450); RED BLOOD COUNT 3.04 MIL/MM3 (4.00-5.30); WHITE BLOOD COUNT 20.8 TH/MM3 (4.0-11.0)
[2017-07-01 04:55] LABS: BICARBONATE 23.3 MEQ/L (21.0-32.0); CALCIUM 7.9 MG/DL (8.5-10.1)
[2017-07-01 04:58] LABS: CREATININE 2.7 MG/DL (0.50-1.00)
[2017-07-01] MEDS: DILTIAZEM HCL 90 MG TAB PO SCH ×4 (04:59→22:56)
[2017-07-01] MEDS: LEVOFLOXACIN 750 MG PREMIX INJ 150 ML IV SCH (06:01)
[2017-07-01] MEDS ORDERED: GLUCAGON 1 MG/ML VIAL IM/SQ PRN (07:15)
[2017-07-01] MEDS ORDERED: DEXTROSE 50% IN WATER 50 ML VIAL(D50) IV PRN (07:15)
[2017-07-01] MEDS: NYSTATIN 100,000 UNIT/GM CREAM 15 GM TOPICAL SCH ×2 (09:00→20:17)
[2017-07-01] MEDS: AMIODARONE 200 MG TAB PO SCH ×2 (09:32→20:17)
[2017-07-01] MEDS: ASPIRIN EC 81 MG TABEC PO SCH (09:32)
[2017-07-01] MEDS: DOCUSATE SODIUM 50 MG/SENNA 8.6 MG TAB PO SCH ×2 (09:32→20:17)
[2017-07-01] MEDS: methylPREDNISolone SOD SUCC 125 MG/2 ML VIAL IV PUSH SCH ×2 (09:32→20:18)
[2017-07-01] MEDS: INSULIN ASPART SUPPLEMENTAL SCALE SQ SCH ×4 (09:32→21:17)
[2017-07-01] MEDS: ATORVASTATIN 40 MG TAB PO SCH (09:32)
--- NOTE | 2017-07-01 14:16 | HHI.CCPN ---
Subjective Remarks/Hospital Course Hospital Course: This is an 81yF who is vacationing from [place] with a history of o2 dependent COPD (2L continuous), who presents to the ED with complaints of SOB since last night. Per her and her son, her oxygen concentrator stopped working yesterday and she has not had any oxygen since that time. She has developed since that time progressive shortness of breath. Overnight, she also had intermittent substernal chest pain, though currently she is chest pain free. She denies any fever, chills, cough, sputum production, abdominal pain, n/v/c/d , or any other symptoms associated with the SOB and intermittent chest pain. No sick contacts. In the emergency department, she had spo2 89% on NRB and was placed on BIPAP and quickly increased fio2 to 90%. She was also found to be in rapid atrial fibrillation, but with no history of afib. Laboratory data significant for wbc 16k, Cr 1.8, lactate 4, Trop 0.33, BNP 1307. CXR demonstrates bilateral infiltrate suggestive of pulmonary edema. Subjective: 06/29: clinically beginning to improve. converted to NSR overnight. trop downtrending. still on high fio2, but breathing more comfortably. denies complaints. ROS negative. lactate cleared. 06/30: remains in intermittent afib, but mostly sinus rhythm. Cr increased slightly, although in talking with the patient, she has chronic kidney disease and sees a vp data, although she does not know what her baseline kidney function is. became tachypneic overnight and hypoxic requiring increased fio2. remains quite hypoxic and in respiratory distress at times. long discussion with her and her son about needing to clarify goals of intubation if she should continue to worsen. 07/01: Remains on BiPAP currently. Awake and alert. Objective Vital Signs Date Time Temp Pulse Resp B/P (MAP) Pulse Ox O2 Delivery O2 Flow Rate FiO2 07/01/17 11:13 96 High Flow Nasal Cannula 40.00 100 07/01/17 06:11 134 35 114/60 (78) 07/01/17 04:11 96.8 Intake and Output 07/01/17 07/01/17 07/02/17 08:00 16:00 00:00 Intake Total 327 ml Output Total 250 ml Balance 77 ml Result Diagram: 07/01/17 0433 07/01/17 0433 Other Results Microbiology Date/Time Source Procedure Growth Status 06/29/17 06:15 Urine Catheterized Urine Urine Culture - Final Escherichia Coli Complete 06/29/17 06:15 Urine Catheterized Urine Legionella Antigen - Final PRESUMPTIVE NEGATIVE FOR LEGIONELLA P... Complete 06/29/17 06:15 Urine Catheterized Urine Streptococcus pneumoniae Antigen (M - Final PRESUMPTIVE NEGATIVE FOR STREPTOCOCCU... Complete Imaging Last Impressions Chest X-Ray 06/28/17 1103 Signed Impressions: Service Date/Time: Wednesday, June 28, 2017 11:29 - CONCLUSION: Bilateral diffuse interstitial opacities in both lungs and possible left pleural effusion. Juan Carlos Stover MD Objective Remarks gen: elderly female, lying in bed, on BiPAP heent: nc. at. perrl. mucous membranes moist. neck: - jvd. trachea midline. chest: no accessory muslce use. BiPAP 75% fio2. cv: normal rate, regular rhythm. sinus. rate in the 100s. abd: soft, nontender, nondistended. no guarding. extr: warm, well perfused. no edema. distal pulses 2+ neuro: RASS 0. CAM - . follows commands x 4. no focal deficits. A/P Assessment and Plan Assessment: 81yF with o2 dependent COPD who presents after acute dyspnea when her oxygen stopped working and now has acute NSTEMI, CHF exacerbation of unknown type, acute kidney injury, atrial fibrillation with rapid ventricular response, and acute hypoxic respiratory failure requiring NIPPV. clinically stable,although very high risk and still requiring high fio2 and support for her multiple organ dysfunction. Overall, this appears to be secondary clinically to a loss of o2 which she chronically requires. Certainly, acute loss of supplemental oxygen can cause NSTEMI secondary to inadequate coronary oxygen supply, lactic acidosis from both poor o2 delivery as well as ensuing cardiogenic shock from myocardial dysfunction, subsequent CHF and pulmonary edema which then worsens o2 delivery. Remain in ICU. remain on BiPAP. although some clinical improvements, remains with multi organ dysfunction and high risk for decompensation. Plan by systems: Neurologic: Anxiety Melatonin for sleep ativan iv 0.25mg prn for severe anxiety related to the BiPAP machine. Respiratory: Oxygen dependent COPD Acute COPD exacerbation Acute CHF exacerbation, unknown type Acute pulmonary edema Acute hypoxic respiratory failure Continue BiPAP Wean FiO2 as tolerated for goal SPO2 greater than 92% given myocardial ischemia Nebs IV steroids hold additional lasix today. Cardiovascular: Acute NSTEMI-likely type II secondary demand ischemia from poor oxygen delivery Acute CHF exacerbation, unknown type Atrial fib relation with rapid ventricular response, new onset- converted to NSR Cardiogenic shock- resolved. trops downtrending. lactate cleared. On heparin gtt for anticoagulation for Afib. Start coumadin PO amiodarone. Cardiology consult noted Aspirin Unlikely to be ACS given overall clinical scenario. Much more likely to be demand ischemia from poor oxygen delivery from lack of oxygen in an oxygen dependent COPD patient Renal: Acute kidney injury superimposed on chronic kidney disease, unknown stage -- Strict I/Os MOE likely secondary to poor oxygen delivery to the kidneys as well as likely component of cardiogenic shock from myocardial injury - making adequate urine. hold on further diuresis. FEN/GI: Lactic acidosis- resolved Acute intravascular volume overload ICU electrolyte protocol advance to heart healthy diet. Aggressively replace electrolytes targeting potassium greater than 4, mag greater than 2 hold further diuresis. Heme/ID: Leukocytosis Likely secondary to stress response. Unlikely to be infectious etiology. Sent blood cultures, sputum culture: currently NGTD. Influenza swab negative and influenza PCR negative. u/a positive: continue Levaquin to cover empirically for UTI as well as severe COPD exacerbation until additional information is resulted. urine culture ngtd. Endocrine: Diabetes Hyperglycemia of critical illness -- SSI Prophylaxis: GI Prophylaxis Pepcid DVT Prophylaxis -- SCDs Heparin drip Lines: Peripheral IVs Dispo: remain in ICU. Erasto Lind MD July 01, 2017 14:16
[2017-07-01 16:20] LABS: INTERNATIONAL NORMALIZED RATIO 1.1 RATIO
[2017-07-01] MEDS: WARFARIN SOD 2 MG TAB PO SCH (17:11)
[2017-07-01] MEDS: MELATONIN 5 MG TAB PO SCH (20:17)
[2017-07-01] MEDS: LORazepam 2 MG/ML VIAL IV PUSH PRN (22:56)
[2017-07-02] VITALS (51 sets, daily range): BP systolic 100–157; BP diastolic 54–92; PULSE 100–150; RESP 16–56; TEMP 97–98.9; O2SAT 89–100
[2017-07-02] MEDS: RESP: ALBUTEROL 2.5 MG/IPRATROPIUM 0.5 MG NEB (SCH) INH ×4 (00:14→11:00)
[2017-07-02] MEDS: HEPARIN-D5W 25,000 U/250 ML 250 ML IV SCH (00:55)
[2017-07-02] MEDS: CHLORHEXIDINE GLUCONATE 2 % 1 PACK (2 CLOTHS) TOP SCH (04:00)
[2017-07-02 04:48] LABS: HEMATOCRIT 28.3 % (35.0-46.0); MEAN CELL VOLUME 82.8 FL (80.0-100.0); MEAN CORPUSCULAR HEMOGLOBIN 26.2 PG (27.0-34.0); MEAN CORPUSCULAR HGB CONC 31.7 % (32.0-36.0); MEAN PLATELET VOLUME 9.4 FL (7.0-11.0); PLATELET COUNT 258 TH/MM3 (150-450); RED BLOOD COUNT 3.42 MIL/MM3 (4.00-5.30); RED CELL DISTRIBUTION WIDTH 16.6 % (11.6-17.2); WHITE BLOOD COUNT 18.7 TH/MM3 (4.0-11.0)
[2017-07-02 04:59] LABS: INTERNATIONAL NORMALIZED RATIO 1.1 RATIO
[2017-07-02 04:59] LABS: BICARBONATE 24.1 MEQ/L (21.0-32.0); CALCIUM 7.9 MG/DL (8.5-10.1)
[2017-07-02 05:08] LABS: CREATININE 3.1 MG/DL (0.50-1.00)
[2017-07-02] MEDS: DILTIAZEM HCL 90 MG TAB PO SCH ×3 (07:01→17:36)
[2017-07-02] MEDS ORDERED: GLUCAGON 1 MG/ML VIAL IM/SQ PRN (07:30)
[2017-07-02] MEDS ORDERED: DEXTROSE 50% IN WATER 50 ML VIAL(D50) IV PRN (07:30)
--- NOTE | 2017-07-02 09:09 | HHI.CCPN ---
Subjective Remarks/Hospital Course Hospital Course: This is an 81yF who is vacationing from [place] with a history of o2 dependent COPD (2L continuous), who presents to the ED with complaints of SOB since last night. Per her and her son, her oxygen concentrator stopped working yesterday and she has not had any oxygen since that time. She has developed since that time progressive shortness of breath. Overnight, she also had intermittent substernal chest pain, though currently she is chest pain free. She denies any fever, chills, cough, sputum production, abdominal pain, n/v/c/d , or any other symptoms associated with the SOB and intermittent chest pain. No sick contacts. In the emergency department, she had spo2 89% on NRB and was placed on BIPAP and quickly increased fio2 to 90%. She was also found to be in rapid atrial fibrillation, but with no history of afib. Laboratory data significant for wbc 16k, Cr 1.8, lactate 4, Trop 0.33, BNP 1307. CXR demonstrates bilateral infiltrate suggestive of pulmonary edema. Subjective: 06/29: clinically beginning to improve. converted to NSR overnight. trop downtrending. still on high fio2, but breathing more comfortably. denies complaints. ROS negative. lactate cleared. 06/30: remains in intermittent afib, but mostly sinus rhythm. Cr increased slightly, although in talking with the patient, she has chronic kidney disease and sees a industrial spray painter, although she does not know what her baseline kidney function is. became tachypneic overnight and hypoxic requiring increased fio2. remains quite hypoxic and in respiratory distress at times. long discussion with her and her son about needing to clarify goals of intubation if she should continue to worsen. 5: Remains on BiPAP currently. Awake and alert. 07/02: Awake and alert. Still requiring BiPAP. Gets episodes of significant tachycardia with A. fib however not sustained. Remains on anticoagulation with heparin and has been started on warfarin. Objective Vital Signs Date Time Temp Pulse Resp B/P (MAP) Pulse Ox O2 Delivery O2 Flow Rate FiO2 07/02/17 07:51 94 High Flow Nasal Cannula 30.00 80 07/02/17 04:00 97.0 125 07/02/17 04:00 16 07/02/17 03:11 109/58 (75) Intake and Output 5/407/02/17 07/03/17 08:00 16:00 00:00 Intake Total 200 ml Output Total 252 ml Balance -52 ml Result Diagram: 07/02/17 0416 07/02/17 0416 Imaging Last Impressions Chest X-Ray 06/28/17 1103 Signed Impressions: Service Date/Time: Wednesday, June 28, 2017 11:29 - CONCLUSION: Bilateral diffuse interstitial opacities in both lungs and possible left pleural effusion. Juan Carlos Stover MD Objective Remarks gen: elderly female, lying in bed, on BiPAP heent: nc. at. perrl. mucous membranes moist. neck: - jvd. trachea midline. chest: no accessory muslce use. BiPAP 75% fio2. cv: normal rate, regular rhythm. sinus. rate in the 100s. abd: soft, nontender, nondistended. no guarding. extr: warm, well perfused. no edema. distal pulses 2+ neuro: RASS 0. CAM - . follows commands x 4. no focal deficits. A/P Assessment and Plan Assessment: 81yF with o2 dependent COPD who presents after acute dyspnea when her oxygen stopped working and now has acute NSTEMI, CHF exacerbation of unknown type, acute kidney injury, atrial fibrillation with rapid ventricular response, and acute hypoxic respiratory failure requiring NIPPV. clinically stable,although very high risk and still requiring high fio2 and support for her multiple organ dysfunction. Overall, this appears to be secondary clinically to a loss of o2 which she chronically requires. Certainly, acute loss of supplemental oxygen can cause NSTEMI secondary to inadequate coronary oxygen supply, lactic acidosis from both poor o2 delivery as well as ensuing cardiogenic shock from myocardial dysfunction, subsequent CHF and pulmonary edema which then worsens o2 delivery. Remain in ICU. remain on BiPAP. although some clinical improvements, remains with multi organ dysfunction and high risk for decompensation. Plan by systems: Neurologic: Anxiety Melatonin for sleep ativan iv 0.25mg prn for severe anxiety related to the BiPAP machine. Respiratory: Oxygen dependent COPD Acute COPD exacerbation Acute CHF exacerbation, unknown type Acute pulmonary edema Acute hypoxic respiratory failure Continue BiPAP Wean FiO2 as tolerated for goal SPO2 greater than 92% given myocardial ischemia Nebs IV steroids Pulmonary consult requested. Cardiovascular: Acute NSTEMI-likely type II secondary demand ischemia from poor oxygen delivery Acute CHF exacerbation, unknown type Atrial fib relation with rapid ventricular response, new onset- converted to NSR Cardiogenic shock- resolved. trops downtrending. lactate cleared. On heparin gtt for anticoagulation for Afib. Started coumadin on 5/3 PO amiodarone. Cardiology consult noted Aspirin Unlikely to be ACS given overall clinical scenario. Much more likely to be demand ischemia from poor oxygen delivery from lack of oxygen in an oxygen dependent COPD patient Renal: Acute kidney injury superimposed on chronic kidney disease, unknown stage -- Strict I/Os MOE likely secondary to poor oxygen delivery to the kidneys as well as likely component of cardiogenic shock from myocardial injury - making adequate urine. hold on further diuresis. FEN/GI: Lactic acidosis- resolved Acute intravascular volume overload ICU electrolyte protocol advance to heart healthy diet. Aggressively replace electrolytes targeting potassium greater than 4, mag greater than 2 hold further diuresis. Heme/ID: Leukocytosis Possible sepsis Sent blood cultures, sputum culture: currently NGTD. Influenza swab negative and influenza PCR negative. u/a positive: continue Levaquin to cover empirically for UTI as well as severe COPD exacerbation until additional information is resulted. urine culture ngtd. Endocrine: Diabetes Hyperglycemia of critical illness -- SSI Prophylaxis: GI Prophylaxis Pepcid DVT Prophylaxis -- SCDs Heparin drip, warfarin Lines: Peripheral IVs Dispo: remain in ICU. Consulted palliative care to assist with deciding goals of therapy as long-term prognosis appears extremely poor. Erasto Lind MD July 02, 2017 09:09
[2017-07-02] MEDS: INSULIN ASPART SUPPLEMENTAL SCALE SQ SCH ×3 (09:26→17:37)
[2017-07-02] MEDS: LORazepam 2 MG/ML VIAL IV PUSH PRN ×2 (09:27→17:40)
[2017-07-02] MEDS: methylPREDNISolone SOD SUCC 125 MG/2 ML VIAL IV PUSH SCH ×2 (09:27→21:18)
[2017-07-02] MEDS: NYSTATIN 100,000 UNIT/GM CREAM 15 GM TOPICAL SCH ×2 (09:28→21:18)
[2017-07-02] MEDS: ASPIRIN EC 81 MG TABEC PO SCH (09:28)
[2017-07-02] MEDS: AMIODARONE 200 MG TAB PO SCH ×2 (09:28→21:18)
[2017-07-02] MEDS: ATORVASTATIN 40 MG TAB PO SCH (09:28)
[2017-07-02] MEDS: DOCUSATE SODIUM 50 MG/SENNA 8.6 MG TAB PO SCH ×2 (09:28→21:18)
--- NOTE | 2017-07-02 15:15 | PD.CONS ---
Consult Service Palliative Care Consult Requested By goals of therapy Primary Care Physician No Primary Care Physician Reason for Consultation a. To assist with evaluation and management of symptoms including:dyspnea, pain. b. To assist medical decision maker(s) with: better understanding of current medical conditions; weighing benefits/burdens of medical treatment options; making medical treatment decisions. HPI History of Present Illness Patient is a 81-year-old with hx of copd was here in [place] for vacation was brought in to the ER on 06/28/2017. Patient reportedly is on oxygen continuously 24 L and was using a concentrator. The night prior to hospitalization patient's oxygen concentrator malfunction, and she started experiencing dyspnea and substernal chest pain. Paramedics were called and patient was brought to the ER. In the ER: * Tablets 100, pulse is 140, respirations 26, blood pressure is 136/70, * WBC 16.5, hemoglobin is 10.8, hematocrit 32.9, glucose 249 * Sodium is 130, potassium 4.5, chloride is 105, bicarb 24.1, BUN 27, creatinine is 1.8 * AST is 47, ALT is 109, alk phos 126, troponin 0 0.38 * BNP is 03/03/2006 * Chest x-ray shows bilateral diffuse diffuse interstitial opacities in both lungs. * Patient was shown to be in A. fib. * Urine culture was obtained Patient transferred to the ICU, for pneumonia, COPD exacerbation, CHF, non- STEMI. Patient given IV steroids and nebulizers. Cardiac enzymes were followed, troponin I second set was 1.19, third set 1.14 06/29/2017 2D echo shows an EF of 55%. Mitral valve structurally normal. There is mild tricuspid regurgitation. Cardiology was consulted, feels cardiac catheterization at this time is high risk given renal insufficiency. She will likely be a candidate for full anticoagulation once her condition stabilized/ per cardiology. 06/30/2017-patient with intermittent A. fib. Creatinine of bit more elevated at 1.9. Canteen Manager had a conversation with patient and her son about needing to clarify goals of intubation should she continue to worsen. 07/01/2017-patient remains on BiPAP. Urine culture grew out E. coli. Patient continued to be on antibiotics including Levaquin. Patient on heparin 07/02/2017-patient remains on BiPAP in the morning, but on high flow nasal cannula by the afternoon. Creatinine has worsened to 3.1. White count remains elevated. Patient is dyspneic. Denies pain. On my visit patient is off from bipap. The past few days she has been off and on bipap. Spoke with patient about her clinical situation, that her copd is advance, and now there are multiple things affected including the heart and kidneys. Pt is alert, she did say she did not want intubation. She is unsure about cpr. I told her multiple times what that would ensue, and that for her it might be alot of trauma with none of the benefits. She is unsure, and ultimately decides yes to cpr. I called patient's family and they are supportive of whatever decision she makes. Understand that she may not bounce back, and make it through this. They are open should she decline or not improve in the next few days with comfort measure only. Both patient and family would want to continue treatment , pulmonolgy consult that has been ordered, antibiotics. Goals are aggressive for now short of intubation. Pt undertand as she is unsure about cpr, she would need to be an alternate code. pt and family want to see how she does in the next few days. Function/Cognitive Trajectory requires home O2. last hospitalization for pneumonia is 2 years ago. She endorse she usually can keep herself out of the hospital. She gets dyspneic but still takes care of her own adls. Review of Systems ROS Limitations: Clinical Condition Constitutional: COMPLAINS OF: Fatigue Endocrine: DENIES: Heat/cold intolerance, Polydipsia Eyes: DENIES: Diplopia, Eye inflammation Ears, nose, mouth, throat: DENIES: Hearing loss Respiratory: COMPLAINS OF: Wheezing, Shortness of breath Cardiovascular: DENIES: Palpitations, Syncope, Dyspnea on Exertion Gastrointestinal: DENIES: Bloody stools, Constipation, Diarrhea Genitourinary: DENIES: Dysmenorrhea, Dyspareunia Musculoskeletal: DENIES: Decreased range of motion Integumentary: DENIES: Abnormal pigmentation Hematologic/Lymphatics: COMPLAINS OF: Bruising Neurologic: DENIES: Speech Problems, Tremor Psychiatric: DENIES: Anxiety, Agitation Past Family Social History Coded Allergies: No Known Allergies (Unverified , 06/28/17) Past Medical History o2 dependent COPD HTN HLD Diabetes Reported Medications Allopurinol 100 Mg Tab 100 Mg PO DAILY Detrol LA (Tolterodine Tartrate) 4 Mg Cap 4 Mg PO DAILY Melatonin 10 Mg-1 Mg Tab 10 Mg PO HS PRN Zolpidem (Zolpidem Tartrate) 5 Mg Tab 5 Mg PO HS PRN Cephalexin 250 Mg Cap 250 Mg PO BID Calcium 600 with Vitamin D (Calcium Carbonate-Cholecalciferol) 600-400 mg-Unit Tab 2 Tab PO DAILY Lasix (Furosemide) 20 Mg Tab 20 Mg PO DAILY Prednisone 5 Mg Tab 5 Mg PO DAILY Pramipexole (Pramipexole Dihydrochloride) 0.25 Mg Tab 0.25 Mg PO TID Proair Hfa 8.5 GM Inh (Albuterol Sulfate) 90 Mcg/Act Aer 2 Puff INH Q4-6H PRN 108 mcg/actuation Metoprolol Succinate ER 24 HR (Metoprolol Succinate) 50 Mg Tab 50 Mg PO DAILY Simvastatin 20 Mg Tab 20 Mg PO DAILY Amlodipine (Amlodipine Besylate) 10 Mg Tab 10 Mg PO DAILY Current Medications Medications (Trade) Dose Ordered Sig/Ashley Route Start Time Stop Time Status Last Admin (NS Flush) 2 ml UNSCH PRN IV FLUSH 06/28/17 11:45 Potassium Chloride 100 ml @ 50 mls/hr Q2H PRN IV 06/28/17 11:45 Potassium Chloride 100 ml @ 50 mls/hr Q2H PRN IV 06/28/17 11:45 (K-Lyte Cl Eff) 50 meq UNSCH PRN PO 06/28/17 11:45 Potassium Chloride 100 ml @ 25 mls/hr UNSCH PRN IV 06/28/17 11:45 Potassium Chloride 100 ml @ 50 mls/hr Q2H PRN IV 06/28/17 11:45 Magnesium Sulfate 4 gm/Sodium Chloride 100 ml @ 50 mls/hr UNSCH PRN IV 06/28/17 11:45 (Mag-Ox) 800 mg UNSCH PRN PO 06/28/17 11:45 Magnesium Sulfate 2 gm/Sodium Chloride 100 ml @ 50 mls/hr UNSCH PRN IV 06/28/17 11:45 (K-Phos) 2,000 mg Q4H PRN PO 06/28/17 11:45 Sodium Phosphate 30 mmol/Sodium Chloride 250 ml @ 42 mls/hr UNSCH PRN IV 06/28/17 11:45 (K-Phos) 2,000 mg UNSCH PRN PO/TUBE 06/28/17 11:45 Potassium Phosphate 30 mmol/ Sodium Chloride 260 ml @ 42 mls/hr UNSCH PRN IV 06/28/17 11:45 (SoluMEDROL INJ) 60 mg Q12HR IV PUSH 06/28/17 21:00 07/02/17 09:27 (Duoneb Neb) 1 ampule Q2HR NEB PRN INH 06/28/17 11:45 (Zofran Inj) 4 mg Q6H PRN IV PUSH 06/28/17 11:45 ([facility]) 1 Q361D XX 06/28/17 11:45 (Chlorhexidine 2% Cloth) 3 pack Taper DAILY@04 TOP 06/29/17 04:00 06/25/18 03:59 07/01/17 04:00 (Chlorhexidine 2% Cloth) 3 pack UNSCH PRN TOP 06/28/17 11:45 (Elizabeth-Colace) 1 tab BID PO 06/28/17 21:00 07/02/17 09:28 (Milk Of Magnesia Liq) 30 ml Q12H PRN PO 06/28/17 11:45 (Senokot) 17.2 mg Q12H PRN PO 06/28/17 11:45 (Dulcolax Supp) 10 mg DAILY PRN RECTAL 06/28/17 11:45 (Lactulose Liq) 30 ml DAILY PRN PO 06/28/17 11:45 Heparin Sodium/ Dextrose 250 ml @ 9 mls/hr TITRATE IV 06/28/17 14:30 07/02/17 00:55 (Melatonin) 5 mg HS PO 06/28/17 21:00 07/01/17 20:17 (ZyPREXA ZYDIS ODT) 5 mg DAILY@2300 PRN PO 06/28/17 23:00 (Ativan Inj) 0.5 mg Q6H PRN IV PUSH 06/28/17 22:30 07/02/17 09:27 (Mycostatin Cream) 1 applic Q12HR TOPICAL 06/29/17 09:00 07/02/17 09:28 Levofloxacin/ Dextrose 150 ml @ 100 mls/hr Q48H IV 06/29/17 06:15 07/01/17 06:01 (Cordarone) 200 mg Q12HR PO 06/29/17 15:00 07/02/17 09:28 (Ecotrin Ec) 81 mg DAILY PO 06/30/17 09:00 07/02/17 09:28 (Lipitor) 40 mg DAILY PO 06/30/17 09:00 07/02/17 09:28 (Cardizem) 90 mg Q6HR PO 06/30/17 12:00 07/02/17 10:57 Pharmacy Profile Note 0 ml @ 0 mls/hr UNSCH OTHER 07/01/17 15:00 (Coumadin) 2 mg DAILY@16 PO 07/01/17 17:11 (NovoLOG SUPPLEMENTAL SCALE) 1 Q6HR SQ 07/02/17 07:45 07/02/17 12:35 (D50w (Vial) Inj) 25 ml UNSCH PRN IV 07/02/17 07:30 (Glucagon Inj) 1 mg UNSCH PRN IM/SQ 07/02/17 07:30 (Coumadin) 3 mg ONCE ONCE PO 07/02/17 16:00 07/02/17 16:01 Family History parents smoke parents had heart disease. Substance Use Tobacco:many years ago per patient. Alcohol:no Prescription med abuse:no Illicits:no Psychosocial History Is from [place] Spiritual/Cultural Factors Restorationist. Living Will: Completed, but not made available Health Care Surrogate: Completed, but not made available Durable Power of Door Opener: Completed, but not made available Physical Exam Vital Signs Date Time Temp Pulse Resp B/P (MAP) Pulse Ox O2 Delivery O2 Flow Rate FiO2 07/02/17 11:20 94 High Flow Nasal Cannula 30.00 100 07/02/17 11:20 94 70 07/02/17 07:51 94 High Flow Nasal Cannula 30.00 80 07/02/17 07:36 97 07/02/17 07:36 97 High Flow Nasal Cannula 30.00 100 07/02/17 04:31 97 70 07/02/17 04:00 97.0 125 100 07/02/17 04:00 134 07/02/17 04:00 134 16 100 07/02/17 04:00 98 Bi-Pap 40.00 55 07/02/17 03:45 128 17 100 07/02/17 03:30 128 17 100 07/02/17 03:15 130 20 100 07/02/17 03:11 130 19 109/58 (75) 100 5/4/18 03:00 100 19 100 518 02:45 130 40 98 5/418 02:30 132 50 94 5/18 02:15 124 28 100 5/18 02:11 122 17 100/60 (73) 99 18 02:00 128 5/18 02:00 128 38 99 518 01:45 128 39 99 07/02/17 01:30 134 39 99 18 01:15 106 41 99 18 01:11 106 41 117/60 (79) 99 07/02/17 01:00 106 39 99 07/02/17 00:45 128 43 97 07/02/17 00:30 96 70 07/02/17 00:30 150 38 89 07/02/17 00:15 148 28 97 07/02/17 00:00 106 /06/16 00:00 96 Bi-Pap 40.00 55 07/02/17 00:00 98.4 106 27 96 07/01/17 23:30 106 37 96 18 23:15 108 40 94 //18 23:11 132 61 132/65 (87) 95 5/18 23:00 132 41 95 5//18 22:45 130 30 97 /18 22:30 110 51 97 //18 22:15 108 31 96 5/3/18 22:11 108 35 143/58 (86) 96 5//18 22:00 92 70 5//18 22:00 126 34 88 /18 21:45 128 45 95 //18 21:30 138 40 97 5/3/18 21:27 132 41 118/62 (80) 95 5//18 21:15 124 27 98 5/3/18 21:00 142 40 91 5/3/18 20:45 106 61 99 5/3/18 20:30 110 49 93 5/3/18 20:15 110 54 97 5/3/18 20:11 108 46 131/61 (84) 99 5/18 20:00 96 Bi-Pap 40.00 55 5/18 20:00 135 5/3/18 20:00 108 65 98 5/3/18 20:00 97.7 135 98 5/3/18 19:21 97 High Flow Nasal Cannula 40.00 100 07/01/17 18:11 108 36 131/78 (95) 99 07/01/17 18:00 108 07/01/17 17:00 98.5 07/01/17 16:32 98 High Flow Nasal Cannula 35.00 100 07/01/17 16:11 112 39 149/74 (99) 96 07/01/17 16:00 108 07/01/17 16:00 98 Bi-Pap 40.00 55 07/01/17 15:11 108 40 126/58 (80) 97 07/01/17 15:11 108 07/02/17 07/03/17 19:00 07:00 Intake Total 240 ml Balance 240 ml Intake Oral 240 ml Exam CONSTITUTIONAL/GENERAL: This is an adequately nourished patient, elderly patient. Pleasant but has dyspnea. TUBES/LINES/DRAINS:on Nasal canula. piv/ montague. SKIN: No jaundice, rashes, or lesions. Ecchymoses on upper extremities. No wounds seen anteriorly. Skin temperature appropriate. Not diaphoretic. HEAD: Atraumatic. Normocephalic. EYES: Pupils equal and round and reactive. Extraocular motions intact. No scleral icterus. No injection or drainage. Fundi not examined. ENT: Hearing grossly normal. Nose without bleeding or purulent drainage. Throat without visible erythema, exudates, masses, or lesions. NECK: Trachea midline. Supple, nontender. No palpable thyroid enlargement or nodularity. CARDIOVASCULAR: Regular rate and rhythm without murmurs, gallops, or rubs. No JVD. Peripheral pulses symmetric. RESPIRATORY/CHEST: Wheezing hear on all lung isaac. GASTROINTESTINAL: Abdomen soft, non-tender, nondistended. No hepato-splenomegaly , or palpable masses. No guarding. Bowel sounds present. GENITOURINARY: Without palpable bladder distension. Montague catheter in place. MUSCULOSKELETAL: Extremities without clubbing, cyanosis, or edema. No joint tenderness or effusion noted. No calf tenderness. No mottling or clubbing. LYMPHATICS: No palpable cervical or supraclavicular adenopathy. NEUROLOGICAL: Awake and alert. Motor and sensory grossly within normal limits. Follows commands. Cognitively sharp. Moves all extremities. PSYCHIATRIC: No obvious anxiety/depression. no apparent hallucinations or other psychotic thought process. Diagnostic Tests Laboratory Laboratory Tests Test 06/29/17 17:10 06/30/17 04:17 07/01/17 04:33 07/01/17 15:50 Magnesium Level 2.9 MG/DL (1.5-2.5) White Blood Count 21.6 TH/MM3 (4.0-11.0) 20.8 TH/MM3 (4.0-11.0) Red Blood Count 3.21 MIL/MM3 (4.00-5.30) 3.04 MIL/MM3 (4.00-5.30) Hemoglobin 8.6 GM/DL (11.6-15.3) 8.6 GM/DL (11.6-15.3) Hematocrit 26.7 % (35.0-46.0) 25.2 % (35.0-46.0) Mean Corpuscular Volume 83.1 FL (80.0-100.0) 82.8 FL (80.0-100.0) Mean Corpuscular Hemoglobin 26.9 PG (27.0-34.0) 28.1 PG (27.0-34.0) Mean Corpuscular Hemoglobin Concent 32.4 % (32.0-36.0) 33.9 % (32.0-36.0) Red Cell Distribution Width 16.3 % (11.6-17.2) 17.0 % (11.6-17.2) Platelet Count 227 TH/MM3 (150-450) 229 TH/MM3 (150-450) Mean Platelet Volume 10.1 FL (7.0-11.0) 10.0 FL (7.0-11.0) Activated Partial Thromboplast Time 65.0 SEC (24.3-30.1) 45.3 SEC (24.3-30.1) Blood Urea Nitrogen 55 MG/DL (7-18) 64 MG/DL (7-18) Creatinine 2.30 MG/DL (0.50-1.00) 2.70 MG/DL (0.50-1.00) Random Glucose 248 MG/DL (74-106) 319 MG/DL (74-106) Calcium Level 8.3 MG/DL (8.5-10.1) 7.9 MG/DL (8.5-10.1) Sodium Level 137 MEQ/L (136-145) 135 MEQ/L (136-145) Potassium Level 3.7 MEQ/L (3.5-5.1) 3.6 MEQ/L (3.5-5.1) Chloride Level 102 MEQ/L (98-107) 102 MEQ/L (98-107) Carbon Dioxide Level 23.2 MEQ/L (21.0-32.0) 23.3 MEQ/L (21.0-32.0) Anion Gap 12 MEQ/L (5-15) 10 MEQ/L (5-15) Estimat Glomerular Filtration Rate 20 ML/MIN (>89) 17 ML/MIN (>89) Prothrombin Time 11.0 SEC (9.8-11.6) Prothromb Time International Ratio 1.1 RATIO Test 07/02/17 04:16 07/02/17 04:24 White Blood Count 18.7 TH/MM3 (4.0-11.0) Red Blood Count 3.42 MIL/MM3 (4.00-5.30) Hemoglobin 9.0 GM/DL (11.6-15.3) Hematocrit 28.3 % (35.0-46.0) Mean Corpuscular Volume 82.8 FL (80.0-100.0) Mean Corpuscular Hemoglobin 26.2 PG (27.0-34.0) Mean Corpuscular Hemoglobin Concent 31.7 % (32.0-36.0) Red Cell Distribution Width 16.6 % (11.6-17.2) Platelet Count 258 TH/MM3 (150-450) Mean Platelet Volume 9.4 FL (7.0-11.0) Activated Partial Thromboplast Time 53.4 SEC (24.3-30.1) Blood Urea Nitrogen 75 MG/DL (7-18) Creatinine 3.10 MG/DL (0.50-1.00) Random Glucose 264 MG/DL (74-106) Calcium Level 7.9 MG/DL (8.5-10.1) Sodium Level 135 MEQ/L (136-145) Potassium Level 4.1 MEQ/L (3.5-5.1) Chloride Level 102 MEQ/L (98-107) Carbon Dioxide Level 24.1 MEQ/L (21.0-32.0) Anion Gap 9 MEQ/L (5-15) Estimat Glomerular Filtration Rate 14 ML/MIN (>89) Prothrombin Time 11.0 SEC (9.8-11.6) Prothromb Time International Ratio 1.1 RATIO Result Diagram: 07/02/17 0416 07/02/17 0416 Patient/Family Conference Present at Family Conference: spoke with patient spoke with pt's spouse Jeff Torres, and son. Family Conference Time (mins): 45 Family Conference Location: Bedside, Telephone Issues Discussed: * Palliative care role, purpose, approach * Additional medical, psychosocial, and spiritual history * Patients general health, functional status, and cognitive changes in the months leading up to the current hospitalization * Patient/family understanding of the current medical problems * Patient/family understanding of prognosis * Patients goals of care as best understood from advance directives and/or conversations and/or values * Current medical treatment options and benefits/burdens of those options * Likely scenarios comparing ongoing aggressive care with a transition to comfort measures only * Questions answered to the best of my ability * Palliative care contact information provided Assessment and Plan Disease Oriented Problem List: (1) COPD (chronic obstructive pulmonary disease) (2) CHF (congestive heart failure) (3) Rapid atrial fibrillation Symptom Scale: (1) Dyspnea 0-10 Scale: Unable to quantify Pertinent Non-Medical Issues Psychosocial:From [place], to Jeff Torres. Spiritual:Restorationist Legal:had living will, but unavailable in [place]. Jeff Torres, pt's spouse would be health care proxy. Ethical issues impacting care: no Important Contacts Jeff Torres (spouse ) [phone] Yakvo Torres (son) [phone] Prognosis 81 year old with copd, now has now stemi, renal insufficiency. Cannnot stay stable of bipap. Prognosis appears to be poor. Code Status: Alternative Code Plan == capacity- pt alert and interactive. Has capacity to make medical decisions. == health care proxy- spouse Jeff Torres == code: Alternate code. No intubation, Yes to cpr/acls/ and bipap. == symptoms: dyspnea- 2nd to copd, copd exacerbation, cardiac. == Plan of dyspnea- continue bipap as needed, steroids, abx. She is awaiting pulmonary consult. == Goals of treatment. On my visit patient is off from bipap. The past few days she has been off and on bipap. Spoke with patient about her clinical situation, that her copd is advance, and now there are multiple things affected including the heart and kidneys. Pt is alert, she did say she did not want intubation. She is unsure about cpr. I told her multiple times what that would ensue, and that for her it might be alot of trauma with none of the benefits. She is unsure, and ultimately decides yes to cpr. I called patient's family and they are supportive of whatever decision she makes. We discussed code status and tthey understand no intubation. Understand that she may not bounce back, and make it through this. They are open should she decline or not improve in the next few days with comfort measure only but for now, both patient and family would want to continue treatment, await pulmonology consult that has been ordered, antibiotics. Goals are aggressive for now short of intubation for now.. Pt undertand as she is unsure about cpr, she would need to be an alternate code. pt and family want to see how she does in the next few days. They still remain hopeful she can go back to [place], but now aware she may decline and can' t. Palliative Care will not be available over the weekend. Will follow up. Thank you for the opportunity to participate in the care of Ms. Torres. Collaborating MD Comments To help prompt me to consider important information that might be impacting today's encounter and assessment, information from prior notes written by myself or my colleagues may have been "brought forward" into today's note. My signature on this note, however, is an attestation that I personally performed the exam, history, and/or decision-making noted today, and, unless otherwise indicated, the interactions with patient, family, and staff as well as the review of records all occurred today. I also attest that the listed assessment and stated plan reflect my best clinical judgment today based on the combination of historical information, prior notes, and today's exam/ interactions. When time spent is documented, it refers only to time spent today by the signer, or if indicated, combined time spent today by collaborating physician/nurse practitioner. Attestation To help prompt me to consider important information that might be impacting today's encounter and assessment, information from prior notes written by myself or my colleagues may have been "brought forward" into today's note. My signature on this note, however, is an attestation that I personally performed the exam, history, and/or decision-making noted today, and, unless otherwise indicated, the interactions with patient, family, and staff as well as the review of records all occurred today. I also attest that the listed assessment and stated plan reflect my best clinical judgment today based on the combination of historical information, prior notes, and today's exam/ interactions. When time spent is documented, it refers only to time spent today by the signer, or if indicated, combined time spent today by collaborating physician/nurse practitioner. Billy Rubalcava MD July 02, 2017 15:15
[2017-07-02] MEDS: RESP: ALBUTEROL 2.5 MG/IPRATROPIUM 0.5 MG NEB (PRN) INH ×2 (15:24→20:21)
--- NOTE | 2017-07-02 15:30 | RADRPT ---
EXAM DATE/TIME: 07/02/2017 13:49 [facility] COMPARISON: CHEST SINGLE AP, June 29, 2017, 5:16. INDICATIONS : Short of breath. MEDICAL HISTORY : Chronic obstructive pulmonary disease. Carcinoma, breast. Diabetes mellitustype II. Afib SURGICAL HISTORY : None. ENCOUNTER: Subsequent ACUITY: 1 week PAIN SCORE: 0/10 LOCATION: Bilateral chest FINDINGS: There is moderate cardiomegaly with minimal interstitial edema present and patchy airspace disease in both the right and left lungs worse in the right upper lobe. Findings have progressed in interval. There is no pleural effusion. There is no pneumothorax. CONCLUSION: Progression of airspace disease as described above. Akhil Chavez MD FACR on July 02, 2017 at 15:27 Board Certified Radiologist. This report was verified electronically.
[2017-07-02] MEDS ORDERED: WARFARIN SOD 3 MG TAB PO ONE (16:00)
[2017-07-02] MEDS: WARFARIN SOD 2 MG TAB PO SCH (17:36)
[2017-07-02] MEDS: INSULIN DETEMIR 100 UNITS/ML VIAL SQ SCH (17:37)
--- NOTE | 2017-07-02 18:07 | MB ---
cc: Tobias Lowe MD, Arjun D MD DATE: 07/02/2017 REQUESTING PHYSICIAN: Dr. Erasto Lind. REASON FOR CONSULTATION: Respiratory failure and COPD. HISTORY OF PRESENT ILLNESS: Ms. Torres is an 81-year-old female who is from [place]. She was visiting over here. She normally uses oxygen 3 liters nasal cannula. She ran out of her oxygen. They did not know that the concentrator was not working. She came to the hospital with progressive shortness of breath, did not have any fevers or chills, no night sweats. She was hypoxic. She was put on nonrebreather mask and then she required BiPAP mask. Currently, she is weaned down to 5 liters nasal cannula. She has mild shortness of breath. No wheezing, no chest pain. No fever or chills. No night sweats. LABORATORY DATA: WBC count is 18.7, hemoglobin 9000, hematocrit 28.3, MCV 82, platelet count 258. Sodium 135, potassium 4.1, chloride 102, CO2 of 24, BUN 75, creatinine 3.10. Blood gas - pH 7.36, pCO2 of 40, pO2 69 on 70% BiPAP. Her chest x-ray shows progressive airspace disease in the right upper lobe. PAST MEDICAL HISTORY: Significant for history of COPD, hypertension, diabetes mellitus, hyperlipidemia, history of CA of the breast status post lumpectomy. MEDICATIONS: 1. Levemir insulin 15 units q. 12 hours. 2. Coumadin 2 mg a day. 3. Diltiazem 90 mg q 6 hours. 4. Aspirin 81 mg a day. 5. Lipitor 40 mg a day. 6. Amiodarone 200 mg q 12 hours. 7. Lipitor 40 mg a day. 8. Nystatin topical 9. Levaquin 750 mg q. 48 hours. 10. Lorazepam 0.5 mg p.r.n. 11. Solu-Medrol 60 mg q. 12 hours. 12. Melatonin 5 mg a day. 13. Heparin drip. ALLERGIES: NO KNOWN DRUG ALLERGIES. SOCIAL HISTORY: She is and a homemaker. She has a history of smoking, which she quit. She drinks wine. FAMILY HISTORY: She has 2 children. REVIEW OF SYSTEMS: The patient uses oxygen 3 liters nasal cannula at home. She is able to ambulate. No DVT, pulmonary embolism. No seizure or epilepsy. PHYSICAL EXAMINATION: GENERAL: Obese female mild to moderately short of breath. VITAL SIGNS: Blood pressure 121/63, heart rate 114, respirations 24, temperature 98.4. HEENT: Pupils are equal and reactive to light. Oral mucosa and nasal mucosa normal. NECK: Supple. JVP not raised. CHEST: She has expiratory rhonchi and basal rales. HEART: S1, S2 normal. ABDOMEN: Soft, nondistended. Bowel sounds are present. EXTREMITIES: 1+ pedal edema. CENTRAL NERVOUS SYSTEM: She is alert, oriented x3. No focal deficits. IMPRESSION: 1. Respiratory failure. 2. Lung infiltrate, possible sepsis. 3. Diabetes mellitus. 4. Chronic obstructive pulmonary disease. 5. Non-ST elevation myocardial infarction. 6. Renal insufficiency. PLAN: The patient will be maintained on 4 liters nasal cannula. Use CPAP at nighttime and p.r.n. as needed. Continue aerosol treatment IV Solu-Medrol. Continue Levaquin. Monitor her renal function. Palliative care is consulted. Further treatment will depend on the course in the hospital. Thank you, Dr. Erasto Lind, for this consultation. MD MARIYA Duval/ , 05:42 PM , 06:06 PM
[2017-07-02] MEDS: MELATONIN 5 MG TAB PO SCH (21:18)
[2017-07-03] VITALS (33 sets, daily range): BP systolic 118–140; BP diastolic 56–83; PULSE 90–122; RESP 20–52; TEMP 97.6–98.4; O2SAT 92–99
[2017-07-03] MEDS: DILTIAZEM HCL 90 MG TAB PO SCH ×4 (00:42→17:54)
[2017-07-03] MEDS: INSULIN ASPART SUPPLEMENTAL SCALE SQ SCH ×4 (00:42→17:54)
[2017-07-03] MEDS: CHLORHEXIDINE GLUCONATE 2 % 1 PACK (2 CLOTHS) TOP SCH (04:00)
[2017-07-03] MEDS: INSULIN DETEMIR 100 UNITS/ML VIAL SQ SCH ×2 (06:29→17:54)
[2017-07-03] MEDS: LEVOFLOXACIN 750 MG PREMIX INJ 150 ML IV SCH (06:31)
[2017-07-03 06:58] LABS: HEMATOCRIT 27.6 % (35.0-46.0); HEMOGLOBIN 8.9 GM/DL (11.6-15.3); MEAN CELL VOLUME 82.6 FL (80.0-100.0); MEAN CORPUSCULAR HEMOGLOBIN 26.7 PG (27.0-34.0); MEAN CORPUSCULAR HGB CONC 32.4 % (32.0-36.0); MEAN PLATELET VOLUME 9.5 FL (7.0-11.0); PLATELET COUNT 227 TH/MM3 (150-450); RED BLOOD COUNT 3.35 MIL/MM3 (4.00-5.30); RED CELL DISTRIBUTION WIDTH 17.4 % (11.6-17.2); WHITE BLOOD COUNT 20.3 TH/MM3 (4.0-11.0)
[2017-07-03 07:08] LABS: INTERNATIONAL NORMALIZED RATIO 1.3 RATIO; PROTHROMBIN TIME - PATIENT 13.2 SEC (9.8-11.6)
[2017-07-03 07:11] LABS: CALCIUM 7.5 MG/DL (8.5-10.1)
[2017-07-03 07:12] LABS: BICARBONATE 24.8 MEQ/L (21.0-32.0)
[2017-07-03 07:17] LABS: CREATININE 3.2 MG/DL (0.50-1.00)
[2017-07-03] MEDS: RESP: ALBUTEROL 2.5 MG/IPRATROPIUM 0.5 MG NEB (PRN) INH (07:47)
[2017-07-03] MEDS: NYSTATIN 100,000 UNIT/GM CREAM 15 GM TOPICAL SCH ×2 (09:00→20:54)
[2017-07-03] MEDS: SODIUM CHLORIDE 0.9% FLUSH 10 ML FLUSH IV FLUSH PRN (09:27)
[2017-07-03] MEDS: DOCUSATE SODIUM 50 MG/SENNA 8.6 MG TAB PO SCH ×2 (09:27→20:54)
[2017-07-03] MEDS: AMIODARONE 200 MG TAB PO SCH ×2 (09:28→20:53)
[2017-07-03] MEDS: ASPIRIN EC 81 MG TABEC PO SCH (09:28)
[2017-07-03] MEDS: ATORVASTATIN 40 MG TAB PO SCH (09:28)
[2017-07-03] MEDS: methylPREDNISolone SOD SUCC 125 MG/2 ML VIAL IV PUSH SCH ×2 (09:29→20:54)
[2017-07-03] MEDS: LORazepam 2 MG/ML VIAL IV PUSH PRN (13:06)
[2017-07-03] MEDS ORDERED: guaiFENesin/DEXTROMETHORPHAN 200 MG/20 MG/10 ML CUP PO PRN (13:15)
[2017-07-03] MEDS: WARFARIN SOD 2 MG TAB PO SCH (15:05)
[2017-07-03] MEDS: ONDANSETRON HCL 4 MG/2 ML VIAL IV PUSH PRN ×2 (15:05→19:36)
[2017-07-03] MEDS: RESP: IPRATROPIUM 0.5 MG/2.5 ML NEB NEB SCH ×2 (15:07→21:08)
--- NOTE | 2017-07-03 17:46 | HHI.CCPN ---
Subjective Remarks/Hospital Course Hospital Course: This is an 81yF who is vacationing from [place] with a history of o2 dependent COPD (2L continuous), who presents to the ED with complaints of SOB since last night. Per her and her son, her oxygen concentrator stopped working yesterday and she has not had any oxygen since that time. She has developed since that time progressive shortness of breath. Overnight, she also had intermittent substernal chest pain, though currently she is chest pain free. She denies any fever, chills, cough, sputum production, abdominal pain, n/v/c/d , or any other symptoms associated with the SOB and intermittent chest pain. No sick contacts. In the emergency department, she had spo2 89% on NRB and was placed on BIPAP and quickly increased fio2 to 90%. She was also found to be in rapid atrial fibrillation, but with no history of afib. Laboratory data significant for wbc 16k, Cr 1.8, lactate 4, Trop 0.33, BNP 1307. CXR demonstrates bilateral infiltrate suggestive of pulmonary edema. Subjective: 06/29: clinically beginning to improve. converted to NSR overnight. trop downtrending. still on high fio2, but breathing more comfortably. denies complaints. ROS negative. lactate cleared. 5/: remains in intermittent afib, but mostly sinus rhythm. Cr increased slightly, although in talking with the patient, she has chronic kidney disease and sees a rn labor and delivery, although she does not know what her baseline kidney function is. became tachypneic overnight and hypoxic requiring increased fio2. remains quite hypoxic and in respiratory distress at times. long discussion with her and her son about needing to clarify goals of intubation if she should continue to worsen. 53: Remains on BiPAP currently. Awake and alert. 07/02: Awake and alert. Still requiring BiPAP. Gets episodes of significant tachycardia with A. fib however not sustained. Remains on anticoagulation with heparin and has been started on warfarin. 07/03: No overnight events. The patient complains of nausea Zofran added to medication regimen creatinine worsening now 3.1 and nephrology has been consulted. Patient continues on intermittent BiPAP and high flow nasal cannula with O2 saturations 94-95%. Heart rate controlled. Objective Vital Signs Date Time Temp Pulse Resp B/P (MAP) Pulse Ox O2 Delivery O2 Flow Rate FiO2 07/03/17 17:00 96 High Flow Nasal Cannula 30.00 100 07/03/17 16:00 110 07/03/17 13:00 46 139/68 (91) 07/03/17 12:00 98.4 Intake and Output 07/03/17 07/03/17 07/04/17 08:00 16:00 00:00 Intake Total 150 ml Output Total 900 ml 375 ml Balance -900 ml -225 ml Result Diagram: 07/03/17 0550 07/03/17 0550 Imaging Last Impressions Chest X-Ray 07/02/17 0913 Signed Impressions: Service Date/Time: Sunday, July 02, 2017 13:49 - CONCLUSION: Progression of airspace disease as described above. Akhil Chavez MD FACR Last Impressions Chest X-Ray 06/28/17 1103 Signed Impressions: Service Date/Time: Wednesday, June 28, 2017 11:29 - CONCLUSION: Bilateral diffuse interstitial opacities in both lungs and possible left pleural effusion. Juan Carlos Stover MD Objective Remarks gen: elderly female, lying in bed, on flow nasal cannula O2 saturation 94% heent: nc. at. perrl. mucous membranes moist. neck: - jvd. trachea midline. chest: no accessory muscle use. High flow nasal cannula fio2. cv: normal rate, regular rhythm. sinus. rate in the 100s. abd: soft, nontender, nondistended. no guarding. extr: warm, well perfused. no edema. distal pulses 2+ neuro: GCS 15 . RASS 0. CAM - . follows commands x 4. no focal deficits. A/P Assessment and Plan Assessment: 81yF with o2 dependent COPD who presents after acute dyspnea when her oxygen stopped working and now has acute NSTEMI, CHF exacerbation of unknown type, acute kidney injury, atrial fibrillation with rapid ventricular response, and acute hypoxic respiratory failure requiring NIPPV. clinically stable,although very high risk and still requiring high fio2 and support for her multiple organ dysfunction. Overall, this appears to be secondary clinically to a loss of o2 which she chronically requires. Certainly, acute loss of supplemental oxygen can cause NSTEMI secondary to inadequate coronary oxygen supply, lactic acidosis from both poor o2 delivery as well as ensuing cardiogenic shock from myocardial dysfunction, subsequent CHF and pulmonary edema which then worsens o2 delivery. Remain in ICU. remain on BiPAP. although some clinical improvements, remains with multi organ dysfunction and high risk for decompensation. Plan by systems: Neurologic: Anxiety Melatonin for sleep ativan iv 0.25mg prn for severe anxiety related to the BiPAP machine. Respiratory: Oxygen dependent COPD Acute COPD exacerbation Acute CHF exacerbation, unknown type Acute pulmonary edema Acute hypoxic respiratory failure Continue BiPAP and hiflow N/C Wean FiO2 as tolerated for goal SPO2 greater than 92% given myocardial ischemia Nebs IV steroids Pulmonary following Dr. Lowe Cardiovascular: Acute NSTEMI-likely type II secondary demand ischemia from poor oxygen delivery Acute CHF exacerbation, unknown type Atrial fib relation with rapid ventricular response, new onset- converted to NSR Cardiogenic shock- resolved. trops downtrending. lactate cleared. On heparin gtt for anticoagulation for Afib. Started coumadin on 07/01 PO amiodarone. Cardiology consult noted Aspirin Unlikely to be ACS given overall clinical scenario. Much more likely to be demand ischemia from poor oxygen delivery from lack of oxygen in an oxygen dependent COPD patient Renal: Acute kidney injury superimposed on chronic kidney disease, unknown stage -- Strict I/Os MOE likely secondary to poor oxygen delivery to the kidneys as well as likely component of cardiogenic shock from myocardial injury - making adequate urine. hold on further diuresis. FEN/GI: Lactic acidosis- resolved Acute intravascular volume overload ICU electrolyte protocol advance to heart healthy 1800 Jonny ADA diet Aggressively replace electrolytes targeting potassium greater than 4, mag greater than 2 hold further diuresis. Heme/ID: Leukocytosis Possible sepsis Sent blood cultures, sputum culture: currently NGTD. Influenza swab negative and influenza PCR negative. u/a positive: continue Levaquin to cover empirically for UTI as well as severe COPD exacerbation until additional information is resulted. urine culture ngtd. Endocrine: Diabetes Hyperglycemia of critical illness -- SSI Prophylaxis: GI Prophylaxis Pepcid DVT Prophylaxis -- SCDs Heparin drip, warfarin Lines: Peripheral IVs Dispo: remain in ICU. Consulted palliative care to assist with deciding goals of therapy as long-term prognosis appears extremely poor. 5/4 CODE STATUS changed to alternate code CPR and medications only. No Intubation Level 2 follow-up. Plan transfer to [facility] in a.. Physician Jess Alston MD July 03, 2017 17:46
[2017-07-03] MEDS ORDERED: FUROSEMIDE 40 MG/4 ML VIAL IV PUSH ONE (20:15)
--- NOTE | 2017-07-03 20:33 | PD.CONS ---
HPI Service Nephrology Consult Requested By Reason for Consult Acute renal failure Primary Care Physician No Primary Care Physician History of Present Illness Patient is a 81-year-old white female with history of COPD, oxygen dependent, diabetes, congestive heart failure who had increasing shortness of breath as her oxygen concentrator was malfunctioning, she had some chest pain as well and came to the emergency, seen by front counter clerk echocardiogram showed EF of 55% however. Pressures are high due to COPD 46.7 mmHg, patient did receive Lasix on 06/28 she had been diuresing however his creatinine gradually increased from 1.8-3.2, patient is dyspneic she is passing about 1.1 L a day she has peripheral edema, shortness of breath, she has been intermittently on BiPAP now and is about to go back on BiPAP. Chest x-ray showed bilateral infiltrates and congestive heart failure pattern with left pleural effusion. Review of Systems Constitutional: COMPLAINS OF: Fatigue Respiratory: COMPLAINS OF: Cough, Wheezing, Shortness of breath Cardiovascular: COMPLAINS OF: Chest pain, Lower Extremity Edema Musculoskeletal: COMPLAINS OF: Joint pain Neurologic: COMPLAINS OF: Abnormal gait Past Family Social History Allergies: Coded Allergies: No Known Allergies (Unverified , 06/28/17) Past Medical History Diabetes Hypertension COPD Oxygen dependent Hyperlipidemia Past Surgical History None Reported Medications Reported Meds & Active Scripts Active Reported Allopurinol 100 Mg Tab 100 Mg PO DAILY Detrol LA (Tolterodine Tartrate) 4 Mg Cap 4 Mg PO DAILY Melatonin 10 Mg-1 Mg Tab 10 Mg PO HS PRN Zolpidem (Zolpidem Tartrate) 5 Mg Tab 5 Mg PO HS PRN Cephalexin 250 Mg Cap 250 Mg PO BID Calcium 600 with Vitamin D (Calcium Carbonate-Cholecalciferol) 600-400 mg-Unit Tab 2 Tab PO DAILY Lasix (Furosemide) 20 Mg Tab 20 Mg PO DAILY Prednisone 5 Mg Tab 5 Mg PO DAILY Pramipexole (Pramipexole Dihydrochloride) 0.25 Mg Tab 0.25 Mg PO TID Proair Hfa 8.5 GM Inh (Albuterol Sulfate) 90 Mcg/Act Aer 2 Puff INH Q4-6H PRN 108 mcg/actuation Metoprolol Succinate ER 24 HR (Metoprolol Succinate) 50 Mg Tab 50 Mg PO DAILY Simvastatin 20 Mg Tab 20 Mg PO DAILY Amlodipine (Amlodipine Besylate) 10 Mg Tab 10 Mg PO DAILY Metformin (Metformin HCl) 500 Mg Tab 500 Mg PO BIDPC Active Ordered Medications Current Medications Medications (Trade) Dose Ordered Sig/Ashley Route Start Time Stop Time Status Last Admin (NS Flush) 2 ml UNSCH PRN IV FLUSH 06/28/17 11:45 07/03/17 09:27 Potassium Chloride 100 ml @ 50 mls/hr Q2H PRN IV 06/28/17 11:45 Potassium Chloride 100 ml @ 50 mls/hr Q2H PRN IV 06/28/17 11:45 (K-Lyte Cl Eff) 50 meq UNSCH PRN PO 06/28/17 11:45 Potassium Chloride 100 ml @ 25 mls/hr UNSCH PRN IV 06/28/17 11:45 Potassium Chloride 100 ml @ 50 mls/hr Q2H PRN IV 06/28/17 11:45 Magnesium Sulfate 4 gm/Sodium Chloride 100 ml @ 50 mls/hr UNSCH PRN IV 06/28/17 11:45 (Mag-Ox) 800 mg UNSCH PRN PO 06/28/17 11:45 Magnesium Sulfate 2 gm/Sodium Chloride 100 ml @ 50 mls/hr UNSCH PRN IV 06/28/17 11:45 (K-Phos) 2,000 mg Q4H PRN PO 06/28/17 11:45 Sodium Phosphate 30 mmol/Sodium Chloride 250 ml @ 42 mls/hr UNSCH PRN IV 06/28/17 11:45 (K-Phos) 2,000 mg UNSCH PRN PO/TUBE 06/28/17 11:45 Potassium Phosphate 30 mmol/ Sodium Chloride 260 ml @ 42 mls/hr UNSCH PRN IV 06/28/17 11:45 (SoluMEDROL INJ) 60 mg Q12HR IV PUSH 06/28/17 21:00 07/03/17 09:29 (Duoneb Neb) 1 ampule Q2HR NEB PRN INH 06/28/17 11:45 07/03/17 07:47 ([facility]) 1 Q361D XX 06/28/17 11:45 (Chlorhexidine 2% Cloth) 3 pack Taper DAILY@04 TOP 06/29/17 04:00 06/25/18 03:59 07/03/17 04:00 (Chlorhexidine 2% Cloth) 3 pack UNSCH PRN TOP 06/28/17 11:45 (Elizabeth-Colace) 1 tab BID PO 06/28/17 21:00 07/03/17 09:27 (Milk Of Magnesia Liq) 30 ml Q12H PRN PO 06/28/17 11:45 (Senokot) 17.2 mg Q12H PRN PO 06/28/17 11:45 (Dulcolax Supp) 10 mg DAILY PRN RECTAL 06/28/17 11:45 (Lactulose Liq) 30 ml DAILY PRN PO 06/28/17 11:45 Heparin Sodium/ Dextrose 250 ml @ 9 mls/hr TITRATE IV 06/28/17 14:30 07/02/17 00:55 (Melatonin) 5 mg HS PO 06/28/17 21:00 07/02/17 21:18 (ZyPREXA ZYDIS ODT) 5 mg DAILY@2300 PRN PO 06/28/17 23:00 (Ativan Inj) 0.5 mg Q6H PRN IV PUSH 06/28/17 22:30 07/03/17 13:06 (Mycostatin Cream) 1 applic Q12HR TOPICAL 06/29/17 09:00 07/03/17 09:00 Levofloxacin/ Dextrose 150 ml @ 100 mls/hr Q48H IV 06/29/17 06:15 07/03/17 06:31 (Cordarone) 200 mg Q12HR PO 06/29/17 15:00 07/03/17 09:28 (Ecotrin Ec) 81 mg DAILY PO 06/30/17 09:00 07/03/17 09:28 (Lipitor) 40 mg DAILY PO 06/30/17 09:00 07/03/17 09:28 (Cardizem) 90 mg Q6HR PO 06/30/17 12:00 07/03/17 17:54 Pharmacy Profile Note 0 ml @ 0 mls/hr UNSCH OTHER 07/01/17 15:00 (Coumadin) 2 mg DAILY@16 PO 07/01/17 17:11 07/03/17 15:05 (NovoLOG SUPPLEMENTAL SCALE) 1 Q6HR SQ 07/02/17 07:45 07/03/17 17:54 (D50w (Vial) Inj) 25 ml UNSCH PRN IV 07/02/17 07:30 (Glucagon Inj) 1 mg UNSCH PRN IM/SQ 07/02/17 07:30 (Levemir Inj) 15 units Q12H SQ 07/02/17 18:00 07/03/17 17:54 (Robitussin Dm 200-20 Mg/10 ml Liq) 10 ml Q6H PRN PO 07/03/17 13:15 07/03/17 17:54 (Atrovent Neb) 0.5 mg Q6HR NEB NEB 07/03/17 16:00 07/03/17 15:07 (Zofran Inj) 4 mg Q6H PRN IV PUSH 07/03/17 14:30 07/03/17 19:36 Family History Noncontributory Social History Denies smoking or alcohol use Physical Exam Vital Signs Vital Signs Date Time Temp Pulse Resp B/P (MAP) Pulse Ox O2 Delivery O2 Flow Rate FiO2 07/03/17 19:00 97.6 94 43 140/60 (86) 95 07/03/17 18:00 100 07/03/17 18:00 100 33 137/58 (84) 97 07/03/17 17:00 96 High Flow Nasal Cannula 30.00 100 07/03/17 17:00 98 39 133/60 (84) 96 07/03/17 16:00 110 07/03/17 16:00 97.8 110 39 131/64 (86) 97 07/03/17 16:00 97 Bi-Pap 55 07/03/17 15:22 96 70 07/03/17 15:00 112 51 128/67 (87) 95 07/03/17 14:00 110 07/03/17 14:00 110 52 131/64 (86) 94 07/03/17 13:00 116 46 139/68 (91) 92 07/03/17 12:00 112 07/03/17 12:00 96 Nasal Cannula 30.00 100 Humidified 07/03/17 12:00 98.4 112 45 131/60 (83) 96 07/03/17 11:00 110 24 138/60 (86) 96 07/03/17 10:00 112 07/03/17 10:00 112 42 121/57 (78) 97 07/03/17 09:00 112 46 140/62 (88) 96 07/03/17 08:00 92 Nasal Cannula 30.00 100 Humidified 07/03/17 08:00 98.1 120 47 134/62 (86) 92 07/03/17 08:00 120 07/03/17 07:43 98 High Flow Nasal Cannula 30.00 07/03/17 07:00 120 28 133/60 (84) 95 07/03/17 06:08 109 07/03/17 06:00 102 29 134/66 (88) 95 07/03/17 05:00 102 29 127/77 (94) 94 07/03/17 04:30 96 70 07/03/17 04:00 98.0 100 20 134/64 (87) 94 07/03/17 04:00 97 Bi-Pap 55 07/03/17 04:00 103 07/03/17 03:00 108 26 121/67 (85) 96 07/03/17 02:25 96 70 07/03/17 02:00 115 07/03/17 02:00 115 28 128/59 (82) 97 07/03/17 01:00 122 25 124/58 (80) 96 07/03/17 00:14 98.0 120 23 126/56 (79) 97 07/03/17 00:14 Bi-Pap 55 07/03/17 00:12 114 07/02/17 22:50 91 70 07/02/17 22:40 112 32 117/92 (100) 96 07/02/17 22:00 112 07/02/17 21:12 122 20 111/64 (80) 98 07/02/17 20:21 94 High Flow Nasal Cannula 30.00 100 Physical Exam GENERAL: Well-nourished, well-developed patient. SKIN: Warm and dry. HEAD: Normocephalic. EYES: No scleral icterus. No injection or drainage. NECK: Supple, trachea midline. No JVD or lymphadenopathy. CARDIOVASCULAR: Tachycardia RESPIRATORY: Breath diminished at bases with rales and rhonchi all over chest GASTROINTESTINAL: Abdomen soft, non-tender, nondistended. EXTREMITIES: No cyanosis, 2+ edema. NEUROLOGICAL: Awake, alert, and oriented x 3. Non-focal. Laboratory Laboratory Tests Test 07/03/17 05:50 White Blood Count 20.3 Red Blood Count 3.35 Hemoglobin 8.9 Hematocrit 27.6 Mean Corpuscular Volume 82.6 Mean Corpuscular Hemoglobin 26.7 Mean Corpuscular Hemoglobin Concent 32.4 Red Cell Distribution Width 17.4 Platelet Count 227 Mean Platelet Volume 9.5 Prothrombin Time 13.2 Prothromb Time International Ratio 1.3 Activated Partial Thromboplast Time 55.8 Blood Urea Nitrogen 86 Creatinine 3.20 Random Glucose 207 Calcium Level 7.5 Sodium Level 133 Potassium Level 4.2 Chloride Level 101 Carbon Dioxide Level 24.8 Anion Gap 7 Estimat Glomerular Filtration Rate 14 Date/Time Source Procedure Growth Status 06/28/17 12:00 Blood Peripheral Aerobic Blood Culture - Final NO GROWTH IN 5 DAYS Complete 06/28/17 12:00 Blood Peripheral Anaerobic Blood Culture - Final NO GROWTH IN 5 DAYS Complete 06/28/17 12:18 Nasal Aspirate Influenza Types A,B Antigen (TAE) - Final NEGATIVE FOR FLU A AND B ANTIGEN.... Complete 06/29/17 06:15 Urine Catheterized Urine Urine Culture - Final Escherichia Coli Complete Result Diagram: 07/03/17 0550 07/03/17 0550 Imaging Last Impressions Chest X-Ray 07/02/17 0913 Signed Impressions: Service Date/Time: Sunday, July 02, 2017 13:49 - CONCLUSION: Progression of airspace disease as described above. Akhil Chavez MD FACR Assessment and Plan Problem List: (1) Acute renal failure ICD Codes: N17.9 - Acute kidney failure, unspecified Plan: Patient has developed multiorgan failure and urine output is fair She needs diuresis and I will give Lasix 40 mg IV now and 40 mg in the morning Monitor renal functions She is in multiorgan failure due to underlying COPD exacerbation right sided heart failure As her right-sided pressures are high on echocardiogram Patient needs diuretics to decrease the preload on cardiopulmonary system This is likely cardiopulmonary failure leading to cardiorenal syndrome Check urine sodium Follow BMP Phosphorus and magnesium as ordered UTI with E. coli treated with Levaquin (2) CHF (congestive heart failure) ICD Codes: I50.9 - Heart failure, unspecified Status: Acute Plan: Diuretics as above (3) COPD (chronic obstructive pulmonary disease) ICD Codes: J44.9 - Chronic obstructive pulmonary disease, unspecified Plan: Patient is getting IV antibiotics steroids and pulmonary care with nebulization (4) Rapid atrial fibrillation ICD Codes: I48.91 - Unspecified atrial fibrillation Status: Acute Plan: On amiodarone (5) UTI (lower urinary tract infection) ICD Codes: N39.0 - Urinary tract infection, site not specified Plan: On Levaquin (6) Diabetes ICD Codes: E11.9 - Type 2 diabetes mellitus without complications Plan: Continue to monitor blood sugars patient is getting steroid Problem Qualifiers (1) Acute renal failure: Qualified Codes: N17.0 - Acute kidney failure with tubular necrosis (2) CHF (congestive heart failure): (3) Diabetes: Celia Galvan MD July 03, 2017 20:33
[2017-07-03] MEDS: MELATONIN 5 MG TAB PO SCH (21:24)
[2017-07-04] VITALS (44 sets, daily range): BP systolic 97–138; BP diastolic 45–64; PULSE 90–104; RESP 13–51; TEMP 97.2–98.1; O2SAT 91–99
[2017-07-04] MEDS: DILTIAZEM HCL 90 MG TAB PO SCH ×4 (00:33→17:25)
[2017-07-04] MEDS: INSULIN ASPART SUPPLEMENTAL SCALE SQ SCH ×4 (00:33→16:39)
[2017-07-04] MEDS: LORazepam 2 MG/ML VIAL IV PUSH PRN (03:25)
[2017-07-04] MEDS: CHLORHEXIDINE GLUCONATE 2 % 1 PACK (2 CLOTHS) TOP SCH (03:28)
--- NOTE | 2017-07-04 03:38 | RADRPT ---
EXAM DATE/TIME: 07/04/2017 03:12 [facility] COMPARISON: CHEST SINGLE AP, July 02, 2017, 13:49. INDICATIONS : Respiratory failure. MEDICAL HISTORY : Chronic obstructive pulmonary disease. Carcinoma, breast. Diabetes mellitustype II. Afib SURGICAL HISTORY : None. ENCOUNTER: Subsequent ACUITY: 1 week PAIN SCORE: 0/10 LOCATION: Bilateral chest FINDINGS: There has been slight improvement in aeration with increase in lung volumes and decrease in confluenc e of bilateral infiltrates. Cardiac contours are grossly stable. CONCLUSION: Slight improvement in aeration Timothy Sharpe MD on July 04, 2017 at 3:36 Board Certified Radiologist. This report was verified electronically.
[2017-07-04] MEDS: RESP: IPRATROPIUM 0.5 MG/2.5 ML NEB NEB SCH ×5 (03:47→21:49)
[2017-07-04] MEDS: INSULIN DETEMIR 100 UNITS/ML VIAL SQ SCH ×2 (06:27→17:25)
[2017-07-04 06:31] LABS: HEMATOCRIT 28.2 % (35.0-46.0); HEMOGLOBIN 8.8 GM/DL (11.6-15.3); MEAN CELL VOLUME 83.8 FL (80.0-100.0); MEAN CORPUSCULAR HEMOGLOBIN 26.3 PG (27.0-34.0); MEAN CORPUSCULAR HGB CONC 31.4 % (32.0-36.0); MEAN PLATELET VOLUME 9.2 FL (7.0-11.0); PLATELET COUNT 211 TH/MM3 (150-450); RED BLOOD COUNT 3.36 MIL/MM3 (4.00-5.30); RED CELL DISTRIBUTION WIDTH 16.7 % (11.6-17.2); WHITE BLOOD COUNT 23.8 TH/MM3 (4.0-11.0)
[2017-07-04 06:42] LABS: INTERNATIONAL NORMALIZED RATIO 3.1 RATIO; PROTHROMBIN TIME - PATIENT 30.9 SEC (9.8-11.6)
[2017-07-04 06:45] LABS: BANDS 9 % (0-6); CORRECTED NUCLEATED RBC 1 /100 WBC (0-0); LYMPHOCYTES 5 % (9-44); MONOCYTES 2 % (0-8); NEUTROPHIL # MANUAL DIFF 22.1 TH/MM3 (1.8-7.7); NUCLEATED RED BLOOD CELL 1 (0-0); OVALOCYTES 1+ (NORMAL); POLYS (SEG NEUTROPHILS) 84 % (16-70)
[2017-07-04 06:49] LABS: BICARBONATE 25.6 MEQ/L (21.0-32.0); CALCIUM 7.1 MG/DL (8.5-10.1); CREATININE 3.1 MG/DL (0.50-1.00); PHOSPHORUS 4.7 MG/DL (2.5-4.9)
[2017-07-04 07:44] LABS: CALCIUM-PROTEIN CORRECTED 7.8 MG/DL (8.5-10.1); TOTAL PROTEIN 5.8 GM/DL (6.4-8.2)
[2017-07-04] MEDS: RESP: ALBUTEROL 2.5 MG/IPRATROPIUM 0.5 MG NEB (PRN) INH (08:32)
[2017-07-04] MEDS ORDERED: FUROSEMIDE 40 MG/4 ML VIAL IV PUSH SCH (09:00)
[2017-07-04] MEDS: ASPIRIN EC 81 MG TABEC PO SCH (09:24)
[2017-07-04] MEDS: DOCUSATE SODIUM 50 MG/SENNA 8.6 MG TAB PO SCH ×2 (09:24→21:21)
[2017-07-04] MEDS: AMIODARONE 200 MG TAB PO SCH ×2 (09:24→21:21)
[2017-07-04] MEDS: ATORVASTATIN 40 MG TAB PO SCH (09:25)
[2017-07-04] MEDS: NYSTATIN 100,000 UNIT/GM CREAM 15 GM TOPICAL SCH ×2 (09:25→21:22)
[2017-07-04] MEDS: methylPREDNISolone SOD SUCC 125 MG/2 ML VIAL IV PUSH SCH (09:25)
--- NOTE | 2017-07-04 12:16 | RADRPT ---
EXAM DATE/TIME: 07/04/2017 10:58 [facility] COMPARISON: No previous studies available for comparison. INDICATIONS : Increased lab values. MEDICAL HISTORY : Chronic obstructive pulmonary disease. Hypertension. Hypercholesterolemia. Diabetes. SURGICAL HISTORY : None. ENCOUNTER: Initial ACUITY: 1 day PAIN SCORE: 0/10 LOCATION: Bilateral flank MEASUREMENTS: RIGHT KIDNEY: 11.9 x 5.2 x 6.9 cm LEFT KIDNEY: 12.1 x 4.7 x 6.0 cm FINDINGS: RIGHT KIDNEY: There is increased echotexture of the renal parenchyma. No hydronephrosis or solid mass is identified . In the upper pole there is a simple cystic lesion measuring 3.7 cm. In the midportion there is a 2. 4 cm simple cystic lesion. LEFT KIDNEY: There is increased echotexture of the renal parenchyma. No hydronephrosis or solid mass is identified . There are 3 anechoic to hypoechoic avascular lesions identified consistent with cysts. These measur e 2.1 cm and 1.5 cm at the upper pole and 2.8 cm in the mid origin. BLADDER: Decompressed with a Wyatt catheter present. CONCLUSION: 1. Abnormal increased echotexture of the renal parenchyma indicating medical renal disease. There is no hydronephrosis. 2. Bilateral renal cysts are identified, as above. Timothy Johnston MD on July 04, 2017 at 12:10 Board Certified Radiologist. This report was verified electronically.
--- NOTE | 2017-07-04 14:15 | HHI.PR ---
Subjective Remarks The patient was resting in bed. She said that her breathing seemed stable. She was wondering how we were removing the fluid from her body. She said she received something to help her with a bowel movement today. Discussed with nursing. Objective Vitals Vital Signs Date Time Temp Pulse Resp B/P (MAP) Pulse Ox O2 Delivery O2 Flow Rate FiO2 07/04/17 12:45 91 High Flow Nasal Cannula 30.00 75 07/04/17 12:01 98.1 98 34 113/53 (73) 96 07/04/17 12:00 98 07/04/17 12:00 96 Nasal Cannula 75 Humidified 07/04/17 11:57 96 High Flow Nasal Cannula 30.00 75 07/04/17 11:01 98 28 114/51 (72) 94 07/04/17 11:01 98 07/04/17 10:01 94 35 118/54 (75) 96 07/04/17 10:00 92 07/04/17 09:01 92 33 113/53 (73) 95 07/04/17 08:58 94 High Flow Nasal Cannula 30.00 85 07/04/17 08:35 97 High Flow Nasal Cannula 30.00 90 07/04/17 08:35 97.5 98 31 122/59 (80) 93 07/04/17 08:20 97 50 /08/16 08:09 92 25 97/49 (65) 97 07/04/17 08:01 92 25 97/45 (62) 97 07/04/17 08:00 92 Nasal Cannula 90 Humidified 07/04/17 08:00 92 07/04/17 07:24 99 60 07/04/17 07:01 90 26 100/47 (64) 98 07/04/17 06:17 93 /18 06:01 92 24 104/53 (70) 96 07/04/17 05:01 92 13 115/58 (77) 99 07/04/17 04:35 94 Bi-Pap 60 07/04/17 04:11 93 60 07/04/17 04:01 97.2 92 34 123/61 (81) 99 07/04/17 04:00 90 07/04/17 03:01 90 23 124/64 (84) 94 07/04/17 02:00 92 32 127/61 (83) 96 07/04/17 02:00 93 07/04/17 01:59 96 60 07/04/17 01:00 94 28 129/59 (82) 94 07/04/17 00:21 94 Bi-Pap 60 07/04/17 00:20 92 07/04/17 00:00 97.4 94 28 122/60 (80) 98 07/03/17 23:35 99 60 07/03/17 23:00 92 30 125/58 (80) 99 07/03/17 22:00 92 24 118/79 (92) 97 07/03/17 22:00 90 07/03/17 21:05 96 70 07/03/17 21:00 96 51 121/83 (96) 93 07/03/17 20:30 95 High Flow Nasal Cannula 30.00 95 07/03/17 20:00 93 Humidified 30.00 100 07/03/17 20:00 97 07/03/17 20:00 92 31 125/59 (81) 96 07/03/17 19:00 97.6 94 43 140/60 (86) 95 07/03/17 18:00 100 07/03/17 18:00 100 33 137/58 (84) 97 07/03/17 17:00 96 High Flow Nasal Cannula 30.00 100 07/03/17 17:00 98 39 133/60 (84) 96 07/03/17 16:00 110 07/03/17 16:00 97.8 110 39 131/64 (86) 97 07/03/17 16:00 97 Bi-Pap 55 07/03/17 15:22 96 70 07/03/17 15:00 112 51 128/67 (87) 95 I/O 07/03/17 07/03/17 07/03/17 07/04/17 07/04/17 07/04/17 07:00 15:00 23:00 07:00 15:00 23:00 Intake Total 150 ml 1051 ml Output Total 900 ml 875 ml 525 ml Balance -900 ml 150 ml 176 ml -525 ml Intake Oral 500 ml IV Total 150 ml 551 ml Output Urine Total 900 ml 875 ml 525 ml # Bowel Movements 0 Result Diagram: 07/04/17 0607/04/17599 Imaging Last Impressions Chest X-Ray 07/04/17599 Signed Impressions: Service Date/Time: Tuesday, July 04, 2017 03:12 - CONCLUSION: Slight improvement in aeration Timothy Sharpe MD Renal Ultrasound 07/04/17 0000 Signed Impressions: Service Date/Time: Tuesday, July 04, 2017 10:58 - CONCLUSION: 1. Abnormal increased echotexture of the renal parenchyma indicating medical renal disease. There is no hydronephrosis. 2. Bilateral renal cysts are identified, as above. Timothy Johnston MD Objective Remarks gen: elderly female, lying in bed, on high flow nasal cannula heent: nc. at. perrl. mucous membranes moist. neck: - jvd. trachea midline. chest: no accessory muscle use. coarse anterior breath sounds. cv: normal rate, regular rhythm. sinus. abd: soft, nontender, distended. no guarding. extr: warm, well perfused. no edema. distal pulses 2+ neuro: follows commands x 4. no focal deficits. Medications and IVs Current Medications Medications (Trade) Dose Ordered Sig/Ashley Route Start Time Stop Time Status Last Admin (NS Flush) 2 ml UNSCH PRN IV FLUSH 06/28/17 11:45 07/03/17 09:27 Potassium Chloride 100 ml @ 50 mls/hr Q2H PRN IV 06/28/17 11:45 Potassium Chloride 100 ml @ 50 mls/hr Q2H PRN IV 06/28/17 11:45 (K-Lyte Cl Eff) 50 meq UNSCH PRN PO 06/28/17 11:45 Potassium Chloride 100 ml @ 25 mls/hr UNSCH PRN IV 06/28/17 11:45 Potassium Chloride 100 ml @ 50 mls/hr Q2H PRN IV 06/28/17 11:45 Magnesium Sulfate 4 gm/Sodium Chloride 100 ml @ 50 mls/hr UNSCH PRN IV 06/28/17 11:45 (Mag-Ox) 800 mg UNSCH PRN PO 06/28/17 11:45 Magnesium Sulfate 2 gm/Sodium Chloride 100 ml @ 50 mls/hr UNSCH PRN IV 06/28/17 11:45 (K-Phos) 2,000 mg Q4H PRN PO 06/28/17 11:45 Sodium Phosphate 30 mmol/Sodium Chloride 250 ml @ 42 mls/hr UNSCH PRN IV 06/28/17 11:45 (K-Phos) 2,000 mg UNSCH PRN PO/TUBE 06/28/17 11:45 Potassium Phosphate 30 mmol/ Sodium Chloride 260 ml @ 42 mls/hr UNSCH PRN IV 06/28/17 11:45 (SoluMEDROL INJ) 60 mg Q12HR IV PUSH 06/28/17 21:00 07/04/17 09:25 (Duoneb Neb) 1 ampule Q2HR NEB PRN INH 06/28/17 11:45 07/04/17 08:32 ([facility] Nursing Information) 1 Q361D XX 06/28/17 11:45 (Chlorhexidine 2% Cloth) Taper DAILY@04 TOP 06/29/17 04:00 06/25/18 03:59 07/04/17 03:28 (Chlorhexidine 2% Cloth) 3 pack UNSCH PRN TOP 06/28/17 11:45 (Elizabeth-Colace) 1 tab BID PO 06/28/17 21:00 07/04/17 09:24 (Milk Of Magnesia Liq) 30 ml Q12H PRN PO 06/28/17 11:45 (Senokot) 17.2 mg Q12H PRN PO 06/28/17 11:45 (Dulcolax Supp) 10 mg DAILY PRN RECTAL 06/28/17 11:45 07/04/17 09:25 (Lactulose Liq) 30 ml DAILY PRN PO 06/28/17 11:45 (Melatonin) 5 mg HS PO 06/28/17 21:00 07/03/17 21:24 (ZyPREXA ZYDIS ODT) 5 mg DAILY@2300 PRN PO 06/28/17 23:00 (Ativan Inj) 0.5 mg Q6H PRN IV PUSH 06/28/17 22:30 07/04/17 03:25 (Mycostatin Cream) 1 applic Q12HR TOPICAL 06/29/17 09:00 07/04/17 09:25 Levofloxacin/ Dextrose 150 ml @ 100 mls/hr Q48H IV 06/29/17 06:15 07/03/17 06:31 (Cordarone) 200 mg Q12HR PO 06/29/17 15:00 07/04/17 09:24 (Ecotrin Ec) 81 mg DAILY PO 06/30/17 09:00 07/04/17 09:24 (Lipitor) 40 mg DAILY PO 06/30/17 09:00 07/04/17 09:25 (Cardizem) 90 mg Q6HR PO 06/30/17 12:00 07/04/17 13:17 Pharmacy Profile Note 0 ml @ 0 mls/hr UNSCH OTHER 07/01/17 15:00 (Coumadin) 2 mg DAILY@16 PO 07/01/17 17:11 Future Hold 07/03/17 15:05 (NovoLOG SUPPLEMENTAL SCALE) 1 Q6HR SQ 07/02/17 07:45 07/04/17 13:18 (D50w (Vial) Inj) 25 ml UNSCH PRN IV 07/02/17 07:30 (Glucagon Inj) 1 mg UNSCH PRN IM/SQ 07/02/17 07:30 (Levemir Inj) 15 units Q12H SQ 07/02/17 18:00 07/04/17 06:27 (Robitussin Dm 200-20 Mg/10 ml Liq) 10 ml Q6H PRN PO 07/03/17 13:15 07/03/17 17:54 (Atrovent Neb) 0.5 mg Q6HR NEB NEB 07/03/17 16:00 07/04/17 12:47 (Zofran Inj) 4 mg Q6H PRN IV PUSH 07/03/17 14:30 07/03/17 19:36 (Lasix Inj) 40 mg DAILY IV PUSH 07/04/17 09:00 07/04/17 09:25 A/P Assessment and Plan Acute respiratory failure Oxygen dependent COPD. - Continue BiPAP and hiflow N/C. - Wean FiO2 as tolerated for goal SPO2 greater than 92% given myocardial ischemia. - Nebs. - change IV steroids to po prednisone. - Pulmonary following Dr. Lowe. - PT/ OT. Acute NSTEMI/ Acute CHF exacerbation, unknown type/ Atrial fib with rapid ventricular response Cardiology consult appreciated. Likely demand ischemia. - On heparin gtt for anticoagulation for Afib. Started Coumadin on 07/01. D/c heparin. - PO amiodarone and aspirin. Acute kidney injury Superimposed on chronic kidney disease. MOE likely secondary to poor oxygen delivery to the kidneys as well as likely component of cardiogenic shock from myocardial injury. - Lasix IV daily. - follow up with nephrology. Appreciate consult. Possible sepsis Influenza swab negative and influenza PCR negative. UA positive. - continue Levaquin to cover empirically for UTI as well as severe COPD exacerbation. Diabetes Glucose has been elevated. - MARBELLA, Armida. PPx: Bill Hough DO July 04, 2017 14:15
--- NOTE | 2017-07-04 20:29 | HHI.NPPN ---
Subjective History of Present Illness 81-year-old with COPD oxygen dependent and increasing shortness of breath with acute renal failure Additional Remarks Patient feels better Objective Data Data 07/04/17 07/05/17 19:00 07:00 Output Total 1100 ml Balance -1100 ml Output Urine Total 1100 ml Vital Signs Date Time Temp Pulse Resp B/P (MAP) Pulse Ox O2 Delivery O2 Flow Rate FiO2 07/04/17 19:01 98 39 121/58 (79) 96 07/04/17 18:01 100 51 117/57 (77) 95 07/04/17 18:01 100 07/04/17 17:01 102 41 118/54 (75) 95 07/04/17 16:01 97.9 102 34 114/56 (75) 97 07/04/17 16:00 96 Nasal Cannula 75 Humidified 07/04/17 16:00 102 07/04/17 15:01 104 38 138/64 (88) 96 07/04/17 14:01 102 40 123/61 (81) 96 07/04/17 14:00 98 07/04/17 13:01 100 31 116/56 (76) 98 07/04/17 12:45 91 High Flow Nasal Cannula 30.00 75 07/04/17 12:01 98.1 98 34 113/53 (73) 96 07/04/17 12:00 98 07/04/17 12:00 96 Nasal Cannula 75 Humidified 07/04/17 11:57 96 High Flow Nasal Cannula 30.00 75 07/04/17 11:01 98 28 114/51 (72) 94 07/04/17 11:01 98 07/04/17 10:01 94 35 118/54 (75) 96 07/04/17 10:00 92 07/04/17 09:01 92 33 113/53 (73) 95 07/04/17 08:58 94 High Flow Nasal Cannula 30.00 85 07/04/17 08:35 97 High Flow Nasal Cannula 30.00 90 07/04/17 08:35 97.5 98 31 122/59 (80) 93 07/04/17 08:20 97 50 07/04/17 08:09 92 25 97/49 (65) 97 07/04/17 08:01 92 25 97/45 (62) 97 07/04/17 08:00 92 Nasal Cannula 90 Humidified 07/04/17 08:00 92 07/04/17 07:24 99 60 07/04/17 07:01 90 26 100/47 (64) 98 07/04/17 06:17 93 07/04/17 06:01 92 24 104/53 (70) 96 07/04/17 05:01 92 13 115/58 (77) 99 07/04/17 04:35 94 Bi-Pap 60 07/04/17 04:11 93 60 07/04/17 04:01 97.2 92 34 123/61 (81) 99 07/04/17 04:00 90 07/04/17 03:01 90 23 124/64 (84) 94 07/04/17 02:00 92 32 127/61 (83) 96 07/04/17 02:00 93 07/04/17 01:59 96 60 07/04/17 01:00 94 28 129/59 (82) 94 07/04/17 00:21 94 Bi-Pap 60 07/04/17 00:20 92 07/04/17 00:00 97.4 94 28 122/60 (80) 98 07/03/17 23:35 99 60 07/03/17 23:00 92 30 125/58 (80) 99 07/03/17 22:00 92 24 118/79 (92) 97 07/03/17 22:00 90 07/03/17 21:05 96 70 07/03/17 21:00 96 51 121/83 (96) 93 07/03/17 20:30 95 High Flow Nasal Cannula 30.00 95 -: 07/04/17 0600 07/04/17 0600 Physical Exam General Appearance: Well Developed, Well Nourished Neck Neck Exam: Neck Supple Pulmonary Resp Exam: Decreased Bases Cardiology CV Exam: Arrhythmia Gastrointestinal/Abdomen GI Exam: Soft, Non-Tender, Bowel Sounds Present Musculoskeletal MS Exam: Joints Intact Integumentary Skin Exam: Clear Extremeties Extremities Exam: Trace Edema Assessment/Plan Problem List: (1) Acute renal failure ICD Codes: N17.9 - Acute kidney failure, unspecified Plan: Patient has improved urine output with Lasix Monitor renal functions Respond well to Lasix 40 mg I will change it to p.o. Creatinine is stable slightly improved UTI with E. coli treated with Levaquin (2) CHF (congestive heart failure) ICD Codes: I50.9 - Heart failure, unspecified Status: Acute Plan: Diuretics as above (3) COPD (chronic obstructive pulmonary disease) ICD Codes: J44.9 - Chronic obstructive pulmonary disease, unspecified Plan: Patient is getting IV antibiotics steroids and pulmonary care with nebulization (4) Rapid atrial fibrillation ICD Codes: I48.91 - Unspecified atrial fibrillation Status: Acute Plan: On amiodarone (5) UTI (lower urinary tract infection) ICD Codes: N39.0 - Urinary tract infection, site not specified Plan: On Levaquin (6) Diabetes ICD Codes: E11.9 - Type 2 diabetes mellitus without complications Plan: Continue to monitor blood sugars patient is getting steroid Problem Qualifiers (1) Acute renal failure: Qualified Codes: N17.0 - Acute kidney failure with tubular necrosis (2) CHF (congestive heart failure): (3) Diabetes: Celia Galvan MD July 04, 2017 20:29
[2017-07-04] MEDS: predniSONE 20 MG TAB PO SCH (21:21)
[2017-07-04] MEDS: MELATONIN 5 MG TAB PO SCH (21:21)
[2017-07-05] VITALS (35 sets, daily range): BP systolic 113–153; BP diastolic 51–111; PULSE 90–124; RESP 6–43; TEMP 97.6–98.8; O2SAT 83–97
[2017-07-05] MEDS: INSULIN ASPART SUPPLEMENTAL SCALE SQ SCH ×5 (01:02→23:45)
[2017-07-05] MEDS: DILTIAZEM HCL 90 MG TAB PO SCH ×5 (01:02→23:45)
[2017-07-05] MEDS: RESP: IPRATROPIUM 0.5 MG/2.5 ML NEB NEB SCH ×4 (03:19→21:32)
[2017-07-05] MEDS: CHLORHEXIDINE GLUCONATE 2 % 1 PACK (2 CLOTHS) TOP SCH (04:00)
[2017-07-05 05:12] LABS: MEAN CORPUSCULAR HEMOGLOBIN 26.8 PG (27.0-34.0); MEAN CORPUSCULAR HGB CONC 32.3 % (32.0-36.0); MEAN PLATELET VOLUME 9.1 FL (7.0-11.0); PLATELET COUNT 205 TH/MM3 (150-450); RED BLOOD COUNT 3.37 MIL/MM3 (4.00-5.30); RED CELL DISTRIBUTION WIDTH 16.8 % (11.6-17.2); WHITE BLOOD COUNT 27.3 TH/MM3 (4.0-11.0)
[2017-07-05 05:26] LABS: INTERNATIONAL NORMALIZED RATIO 5.1 RATIO
[2017-07-05 05:30] LABS: BICARBONATE 27.9 MEQ/L (21.0-32.0); CALCIUM 6.9 MG/DL (8.5-10.1)
[2017-07-05 05:34] LABS: CREATININE 2.7 MG/DL (0.50-1.00)
[2017-07-05 05:47] LABS: CALCIUM-PROTEIN CORRECTED 7.7 MG/DL (8.5-10.1); TOTAL PROTEIN 5.5 GM/DL (6.4-8.2)
[2017-07-05] MEDS: LEVOFLOXACIN 750 MG PREMIX INJ 150 ML IV SCH (06:14)
[2017-07-05] MEDS: INSULIN DETEMIR 100 UNITS/ML VIAL SQ SCH ×2 (06:14→18:51)
[2017-07-05] MEDS: NYSTATIN 100,000 UNIT/GM CREAM 15 GM TOPICAL SCH ×2 (09:00→21:00)
[2017-07-05] MEDS: AMIODARONE 200 MG TAB PO SCH ×2 (09:28→21:08)
[2017-07-05] MEDS: predniSONE 20 MG TAB PO SCH ×2 (09:28→21:08)
[2017-07-05] MEDS: ASPIRIN EC 81 MG TABEC PO SCH (09:29)
[2017-07-05] MEDS: ATORVASTATIN 40 MG TAB PO SCH (09:29)
[2017-07-05] MEDS: DOCUSATE SODIUM 50 MG/SENNA 8.6 MG TAB PO SCH ×2 (09:29→21:08)
[2017-07-05] MEDS: FUROSEMIDE 40 MG TAB PO SCH (09:29)
[2017-07-05] MEDS: LACTULOSE SYRUP 20 GM/30 ML CUP PO PRN (09:33)
--- NOTE | 2017-07-05 13:40 | HHI.PR ---
Subjective Remarks The patient was resting comfortably in bed. She had just finished lunch. She said she still has not had a bowel movement and has some abdominal discomfort. She says she has not been passing any gas. Discussed with nursing. Objective Vitals Vital Signs Date Time Temp Pulse Resp B/P (MAP) Pulse Ox O2 Delivery O2 Flow Rate FiO2 07/05/17 12:01 98.4 102 6 140/63 (88) 96 07/05/17 12:00 102 07/05/17 11:01 104 20 119/62 (81) 95 07/05/17 10:43 94 High Flow Nasal Cannula 30.00 70 07/05/17 10:01 112 33 153/111 (125) 90 07/05/17 10:00 108 07/05/17 09:01 102 25 124/51 (75) 96 07/05/17 08:03 91 High Flow Nasal Cannula 30.00 60 07/05/17 08:01 98.2 102 25 124/59 (80) 93 07/05/17 08:00 102 07/05/17 07:01 100 26 113/57 (75) 95 07/05/17 06:01 98 22 120/60 (80) 95 07/05/17 06:00 90 07/05/17 04:01 97.6 94 22 121/60 (80) 93 07/05/17 04:00 95 07/05/17 04:00 96 Nasal Cannula 60 Humidified 07/05/17 03:19 97 High Flow Nasal Cannula 30.00 60 07/05/17 03:01 96 24 121/60 (80) 95 07/05/17 03:00 98 07/05/17 02:01 96 38 119/58 (78) 95 07/05/17 01:01 98 21 113/58 (76) 97 07/05/17 00:42 96 Nasal Cannula 75 Humidified 07/05/17 00:01 98.8 98 28 117/66 (83) 95 07/05/17 00:00 97 07/04/17 23:01 98 30 124/56 (78) 95 07/04/17 22:12 98 07/04/17 22:01 98 29 117/57 (77) 96 07/04/17 21:50 97 High Flow Nasal Cannula 30.00 80 07/04/17 21:01 100 27 119/59 (79) 98 07/04/17 20:01 98.1 100 42 119/57 (77) 94 07/04/17 20:00 96 Nasal Cannula 75 Humidified 07/04/17 20:00 101 07/04/17 19:01 98 39 121/58 (79) 96 07/04/17 18:01 100 51 117/57 (77) 95 07/04/17 18:01 100 07/04/17 17:01 102 41 118/54 (75) 95 07/04/17 16:01 97.9 102 34 114/56 (75) 97 07/04/17 16:00 96 Nasal Cannula 75 Humidified 07/04/17 16:00 102 07/04/17 15:01 104 38 138/64 (88) 96 07/04/17 14:01 102 40 123/61 (81) 96 07/04/17 14:00 98 I/O 07/04/17 07/04/17 07/04/17 07/05/17 07/05/17 07/05/17 07:00 15:00 23:00 07:00 15:00 23:00 Intake Total 150 ml Output Total 525 ml 1100 ml 1100 ml Balance -525 ml -1100 ml -1100 ml 150 ml IV Total 150 ml Output Urine Total 525 ml 1100 ml 1100 ml Result Diagram: 07/05/17 0432 07/05/17 0432 Imaging Last Impressions Chest X-Ray 07/04/17 0600 Signed Impressions: Service Date/Time: Tuesday, July 04, 2017 03:12 - CONCLUSION: Slight improvement in aeration Timothy Sharpe MD Renal Ultrasound 07/04/17 0000 Signed Impressions: Service Date/Time: Tuesday, July 04, 2017 10:58 - CONCLUSION: 1. Abnormal increased echotexture of the renal parenchyma indicating medical renal disease. There is no hydronephrosis. 2. Bilateral renal cysts are identified, as above. Timothy Johnston MD Objective Remarks gen: elderly female, lying in bed, on high flow nasal cannula heent: nc. at. perrl. mucous membranes moist. neck: - jvd. trachea midline. chest: no accessory muscle use. coarse anterior breath sounds. cv: normal rate, regular rhythm. sinus. abd: soft, nontender, distended. no guarding. extr: warm, well perfused. no edema. distal pulses 2+ neuro: follows commands x 4. no focal deficits. A/P Assessment and Plan Acute respiratory failure Oxygen dependent COPD. - Continue BiPAP and hiflow N/C. - Wean FiO2 as tolerated for goal SPO2 greater than 92% given myocardial ischemia. - Nebs. - change IV steroids to po prednisone. - Pulmonary following Dr. Lowe. - PT/ OT. - incentive spirometry. Acute NSTEMI/ Acute CHF exacerbation, unknown type/ Atrial fib with rapid ventricular response Cardiology consult appreciated. Likely demand ischemia. - On heparin gtt for anticoagulation for Afib. Started Coumadin on 07/01. D/c heparin. Holding Coumadin for elevated INR. - PO amiodarone and aspirin. Acute kidney injury Superimposed on chronic kidney disease. MOE likely secondary to poor oxygen delivery to the kidneys as well as likely component of cardiogenic shock from myocardial injury. - Lasix PO daily. - follow up with nephrology. Appreciate consult. Possible sepsis Influenza swab negative and influenza PCR negative. UA positive. - continue Levaquin to cover empirically for UTI as well as severe COPD exacerbation. Diabetes Glucose has been elevated. - SSI, Levemir. Constipation Still has not had a bowel movement. - continue aggressive bowel regimen. Add mineral oil enema. - KUB. PPx: Bill Hough DO July 05, 2017 13:40
--- NOTE | 2017-07-05 14:00 | HHI.PR ---
Subjective Remarks Alert , NAD C/O no bowel movement Objective Vital Signs Date Time Temp Pulse Resp B/P (MAP) Pulse Ox O2 Delivery O2 Flow Rate FiO2 07/05/17 12:01 98.4 102 6 140/63 (88) 96 07/05/17 12:00 102 07/05/17 11:01 104 20 119/62 (81) 95 07/05/17 10:43 94 High Flow Nasal Cannula 30.00 70 07/05/17 10:01 112 33 153/111 (125) 90 07/05/17 10:00 108 07/05/17 09:01 102 25 124/51 (75) 96 07/05/17 08:03 91 High Flow Nasal Cannula 30.00 60 07/05/17 08:01 98.2 102 25 124/59 (80) 93 07/05/17 08:00 102 07/05/17 07:01 100 26 113/57 (75) 95 07/05/17 06:01 98 22 120/60 (80) 95 07/05/17 06:00 90 07/05/17 04:01 97.6 94 22 121/60 (80) 93 07/05/17 04:00 95 07/05/17 04:00 96 Nasal Cannula 60 Humidified 07/05/17 03:19 97 High Flow Nasal Cannula 30.00 60 07/05/17 03:01 96 24 121/60 (80) 95 07/05/17 03:00 98 07/05/17 02:01 96 38 119/58 (78) 95 07/05/17 01:01 98 21 113/58 (76) 97 07/05/17 00:42 96 Nasal Cannula 75 Humidified 07/05/17 00:01 98.8 98 28 117/66 (83) 95 07/05/17 00:00 97 07/04/17 23:01 98 30 124/56 (78) 95 07/04/17 22:12 98 07/04/17 22:01 98 29 117/57 (77) 96 07/04/17 21:50 97 High Flow Nasal Cannula 30.00 80 07/04/17 21:01 100 27 119/59 (79) 98 07/04/17 20:01 98.1 100 42 119/57 (77) 94 07/04/17 20:00 96 Nasal Cannula 75 Humidified 07/04/17 20:00 101 07/04/17 19:01 98 39 121/58 (79) 96 07/04/17 18:01 100 51 117/57 (77) 95 07/04/17 18:01 100 07/04/17 17:01 102 41 118/54 (75) 95 07/04/17 16:01 97.9 102 34 114/56 (75) 97 07/04/17 16:00 96 Nasal Cannula 75 Humidified 07/04/17 16:00 102 07/04/17 15:01 104 38 138/64 (88) 96 07/04/17 14:01 102 40 123/61 (81) 96 07/04/17 14:00 98 I/O 07/04/17 07/04/17 07/04/17 07/05/17 07/05/17 07/05/17 07:00 15:00 23:00 07:00 15:00 23:00 Intake Total 150 ml Output Total 525 ml 1100 ml 1100 ml Balance -525 ml -1100 ml -1100 ml 150 ml IV Total 150 ml Output Urine Total 525 ml 1100 ml 1100 ml Result Diagram: 07/05/17 0432 07/05/17 043 Objective Remarks GENERAL: SKIN: Warm and dry. HEAD: Atraumatic. Normocephalic. EYES: Pupils equal and round. No scleral icterus. No injection or drainage. ENT: No nasal bleeding or discharge. Mucous membranes pink and moist. NECK: Trachea midline. No JVD. CARDIOVASCULAR: Regular rate and rhythm. RESPIRATORY: No accessory muscle use. Clear to auscultation. Breath sounds equal bilaterally. GASTROINTESTINAL: Abdomen soft, non-tender, nondistended. Hepatic and splenic margins not palpable. MUSCULOSKELETAL: Extremities without clubbing, cyanosis, or edema. No obvious deformities. NEUROLOGICAL: Awake and alert. No obvious cranial nerve deficits. Motor grossly within normal limits. Five out of 5 muscle strength in the arms and legs. Normal speech. PSYCHIATRIC: Appropriate mood and affect; insight and judgment normal. Assessment and Plan Assessment and Plan impression RESPIRATORY FAILURE COPD PNA CHF CAD RENAL INSUFFICIENCY PLAN O2 NEEDED ANTIBX BRONCHODILATOR THERAPY\ DR BALES TO FOLLOW Lynn Bailey MD July 05, 2017 14:00
[2017-07-05] MEDS ORDERED: MINERAL OIL ENEMA 118 ML BTL RECTAL ONE (15:00)
[2017-07-05] MEDS ORDERED: CALCIUM GLUCONATE INJ 1 GM in SODIUM CHLORIDE 0.9% INJ 100 ML IV ONE (15:00)
--- NOTE | 2017-07-05 16:46 | HHI.NPPN ---
Subjective History of Present Illness 81-year-old with COPD oxygen dependent and increasing shortness of breath with acute renal failure Additional Remarks Patient feels better Objective Data Data 07/05/17 07/06/17 19:00 07:00 Intake Total 150 ml Balance 150 ml IV Total 150 ml Vital Signs Date Time Temp Pulse Resp B/P (MAP) Pulse Ox O2 Delivery O2 Flow Rate FiO2 07/05/17 12:01 98.4 102 6 140/63 (88) 96 07/05/17 12:00 102 07/05/17 11:01 104 20 119/62 (81) 95 07/05/17 10:43 94 High Flow Nasal Cannula 30.00 70 07/05/17 10:01 112 33 153/111 (125) 90 07/05/17 10:00 108 07/05/17 09:01 102 25 124/51 (75) 96 07/05/17 08:03 91 High Flow Nasal Cannula 30.00 60 07/05/17 08:01 98.2 102 25 124/59 (80) 93 07/05/17 08:00 102 07/05/17 07:01 100 26 113/57 (75) 95 07/05/17 06:01 98 22 120/60 (80) 95 07/05/17 06:00 90 07/05/17 04:01 97.6 94 22 121/60 (80) 93 07/05/17 04:00 95 07/05/17 04:00 96 Nasal Cannula 60 Humidified 07/05/17 03:19 97 High Flow Nasal Cannula 30.00 60 07/05/17 03:01 96 24 121/60 (80) 95 07/05/17 03:00 98 07/05/17 02:01 96 38 119/58 (78) 95 07/05/17 01:01 98 21 113/58 (76) 97 07/05/17 00:42 96 Nasal Cannula 75 Humidified 07/05/17 00:01 98.8 98 28 117/66 (83) 95 07/05/17 00:00 97 07/04/17 23:01 98 30 124/56 (78) 95 07/04/17 22:12 98 07/04/17 22:01 98 29 117/57 (77) 96 07/04/17 21:50 97 High Flow Nasal Cannula 30.00 80 07/04/17 21:01 100 27 119/59 (79) 98 07/04/17 20:01 98.1 100 42 119/57 (77) 94 07/04/17 20:00 96 Nasal Cannula 75 Humidified 07/04/17 20:00 101 07/04/17 19:01 98 39 121/58 (79) 96 07/04/17 18:01 100 51 117/57 (77) 95 07/04/17 18:01 100 07/04/17 17:01 102 41 118/54 (75) 95 -: 07/05/17 0432 07/05/17 0432 Physical Exam General Appearance: Well Developed, Well Nourished Neck Neck Exam: Neck Supple Pulmonary Resp Exam: Decreased Bases Cardiology CV Exam: Arrhythmia Gastrointestinal/Abdomen GI Exam: Soft, Non-Tender, Bowel Sounds Present Musculoskeletal MS Exam: Joints Intact Integumentary Skin Exam: Clear Extremeties Extremities Exam: Trace Edema Assessment/Plan Problem List: (1) Acute renal failure ICD Codes: N17.9 - Acute kidney failure, unspecified Plan: Patient has improved urine output with Lasix Monitor renal functions Creatinine declined to 2.7, urine output improved to 2.2 L Continue with current treatment UTI with E. coli treated with Levaquin (2) CHF (congestive heart failure) ICD Codes: I50.9 - Heart failure, unspecified Status: Acute Plan: Diuretics as above (3) COPD (chronic obstructive pulmonary disease) ICD Codes: J44.9 - Chronic obstructive pulmonary disease, unspecified Plan: Patient is getting IV antibiotics steroids and pulmonary care with nebulization (4) Rapid atrial fibrillation ICD Codes: I48.91 - Unspecified atrial fibrillation Status: Acute Plan: On amiodarone (5) UTI (lower urinary tract infection) ICD Codes: N39.0 - Urinary tract infection, site not specified Plan: On Levaquin (6) Diabetes ICD Codes: E11.9 - Type 2 diabetes mellitus without complications Plan: Continue to monitor blood sugars patient is getting steroid Problem Qualifiers (1) Acute renal failure: Qualified Codes: N17.0 - Acute kidney failure with tubular necrosis (2) CHF (congestive heart failure): (3) Diabetes: Celia Galvan MD July 05, 2017 16:45
--- NOTE | 2017-07-05 17:00 | RADRPT ---
EXAM DATE/TIME: 07/05/2017 16:08 [facility] COMPARISON: No previous studies available for comparison. INDICATIONS : Evaluate for ileus. MEDICAL HISTORY : Hypertension. Chronic obstructive pulmonary disease. Hypercholesterolemia. Diabetes. SURGICAL HISTORY : None. ENCOUNTER: Initial ACUITY: 3 days PAIN SCORE: Non-responsive. LOCATION: abdomen, all quadrants. FINDINGS: Supine view of the abdomen was performed. The abdominal bowel gas pattern is unremarkable. Air seen within the colon especially the transverse colon. There is stool in the rectum. There is degenerative change throughout the lumbar spine. There is a left hip prosthesis. CONCLUSION: Negative KUB. Timothy Cummings MD on July 05, 2017 at 16:48 Board Certified Radiologist. This report was verified electronically.
--- NOTE | 2017-07-05 18:55 | HHI.HCPN ---
Reason for visit a. To assist with evaluation and management of symptoms including:dyspnea, pain. b. To assist medical decision maker(s) with: better understanding of current medical conditions; weighing benefits/burdens of medical treatment options; making medical treatment decisions. Subjective/Interval History Patient seen to evaluate symptom management for dyspnea and pain. She has been weaned from the BiPAP and is now tolerating high flow nasal cannula at 70% FiO2. She feels she is at her baseline dyspnea at this time. She is chronically on hyxly-[place] oxygen, however her oxygen concentrator malfunctioned. She remains on furosemide, prednisone, Atrovent, Robitussin and Levaquin for treatment of her pneumonia. She had previously refused intubation , making her an alternate code, as she would except cardiac resuscitation to include shock, compressions and ACLS drugs. This was reviewed and the patient remains committed to that CODE STATUS. On admission she complained of chest pain, however denies any at this time. She did state that she had been coughing quite a bit previously and that makes the pain worse. Her troponin was elevated on admission up to 1.19 and was evaluated by cardiology, who opined that the elevation in her troponin was secondary to her renal insufficiency, however declined cardiac catheterization due to renal insufficiency which could place patient at elevated risk of contrast nephropathy. As she describes her chest pain to occur with cough and deep breath, there may be some element of costochondritis to this, however she has multiple risk factors for coronary artery disease to include hypertension, dyslipidemia, diabetes mellitus and obesity. She also had atrial fibrillation with rapid ventricular response which could also have contributed to her chest discomfort. . Family/friend interactions There is no family at bedside at this time. Patient states she is here with her but he is not available at this time. . Advance Directives Living Will: Completed, but not made available Health Care Surrogate: Completed, but not made available Durable Power of Traffic Operator: Completed, but not made available Advance Directive Specifics Health Care Surrogate(s): Not completed. . Documented care wishes: No living will available. . Significant change in goals: No significant change in goals at this time. She remains an alternate code. Objective Vital Signs Date Time Temp Pulse Resp B/P (MAP) Pulse Ox O2 Delivery O2 Flow Rate FiO2 07/05/17 16:57 95 30.00 70 07/05/17 12:01 98.4 102 6 140/63 (88) 96 07/05/17 12:00 102 07/05/17 11:01 104 20 119/62 (81) 95 07/05/17 10:43 94 High Flow Nasal Cannula 30.00 70 07/05/17 10:01 112 33 153/111 (125) 90 07/05/17 10:00 108 07/05/17 09:01 102 25 124/51 (75) 96 07/05/17 08:03 91 High Flow Nasal Cannula 30.00 60 07/05/17 08:01 98.2 102 25 124/59 (80) 93 07/05/17 08:00 102 07/05/17 07:01 100 26 113/57 (75) 95 07/05/17 06:01 98 22 120/60 (80) 95 07/05/17 06:00 90 07/05/17 04:01 97.6 94 22 121/60 (80) 93 07/05/17 04:00 95 07/05/17 04:00 96 Nasal Cannula 60 Humidified 07/05/17 03:19 97 High Flow Nasal Cannula 30.00 60 07/05/17 03:01 96 24 121/60 (80) 95 07/05/17 03:00 98 07/05/17 02:01 96 38 119/58 (78) 95 07/05/17 01:01 98 21 113/58 (76) 97 07/05/17 00:42 96 Nasal Cannula 75 Humidified 07/05/17 00:01 98.8 98 28 117/66 (83) 95 07/05/17 00:00 97 07/04/17 23:01 98 30 124/56 (78) 95 07/04/17 22:12 98 07/04/17 22:01 98 29 117/57 (77) 96 07/04/17 21:50 97 High Flow Nasal Cannula 30.00 80 07/04/17 21:01 100 27 119/59 (79) 98 07/04/17 20:01 98.1 100 42 119/57 (77) 94 07/04/17 20:00 96 Nasal Cannula 75 Humidified 07/04/17 20:00 101 07/04/17 19:01 98 39 121/58 (79) 96 Intake & Output 18 07/05/17 07:00 19:00 Intake Total 150 ml Output Total 1100 ml Balance -1100 ml 150 ml IV Total 150 ml Output Urine Total 1100 ml Physical Exam CONSTITUTIONAL/GENERAL: This is an elderly, obese patient, sitting up in bed in no acute distress. TUBES/LINES/DRAINS:on high flow nasal canula. piv/ montague. SKIN: No jaundice, rashes, or lesions. Ecchymoses on upper extremities and chest. No wounds seen anteriorly. Skin temperature appropriate. Not diaphoretic. HEAD: Atraumatic. Normocephalic. EYES: Pupils equal and round and reactive. Extraocular motions intact. No scleral icterus. No injection or drainage. Fundi not examined. ENT: Hearing grossly normal. Nose without bleeding or purulent drainage. Throat without visible erythema, exudates, masses, or lesions. NECK: Trachea midline. Supple, nontender. No palpable thyroid enlargement or nodularity. CARDIOVASCULAR: Regular rate and rhythm without murmurs, gallops, or rubs. No JVD. Peripheral pulses symmetric. RESPIRATORY/CHEST: Scattered wheezes and rhonchi throughout all lung isaac GASTROINTESTINAL: Abdomen soft, non-tender, nondistended. No hepato-splenomegaly , or palpable masses. No guarding. Bowel sounds present. GENITOURINARY: Without palpable bladder distension. Montague catheter in place. MUSCULOSKELETAL: Extremities without clubbing, cyanosis, or edema. No joint tenderness or effusion noted. No calf tenderness. No mottling or clubbing. LYMPHATICS: No palpable cervical or supraclavicular adenopathy. NEUROLOGICAL: Awake and alert. Motor and sensory grossly within normal limits. Follows commands. Cognitively sharp. Moves all extremities. PSYCHIATRIC: No obvious anxiety/depression. no apparent hallucinations or other psychotic thought process. . Diagnostic Tests Laboratory Laboratory Tests Test 07/03/17 05:50 07/04/17 06:00 07/05/17 04:32 White Blood Count 20.3 TH/MM3 (4.0-11.0) 23.8 TH/MM3 (4.0-11.0) 27.3 TH/MM3 (4.0-11.0) Red Blood Count 3.35 MIL/MM3 (4.00-5.30) 3.36 MIL/MM3 (4.00-5.30) 3.37 MIL/MM3 (4.00-5.30) Hemoglobin 8.9 GM/DL (11.6-15.3) 8.8 GM/DL (11.6-15.3) 9.0 GM/DL (11.6-15.3) Hematocrit 27.6 % (35.0-46.0) 28.2 % (35.0-46.0) 28.0 % (35.0-46.0) Mean Corpuscular Volume 82.6 FL (80.0-100.0) 83.8 FL (80.0-100.0) 83.0 FL (80.0-100.0) Mean Corpuscular Hemoglobin 26.7 PG (27.0-34.0) 26.3 PG (27.0-34.0) 26.8 PG (27.0-34.0) Mean Corpuscular Hemoglobin Concent 32.4 % (32.0-36.0) 31.4 % (32.0-36.0) 32.3 % (32.0-36.0) Red Cell Distribution Width 17.4 % (11.6-17.2) 16.7 % (11.6-17.2) 16.8 % (11.6-17.2) Platelet Count 227 TH/MM3 (150-450) 211 TH/MM3 (150-450) 205 TH/MM3 (150-450) Mean Platelet Volume 9.5 FL (7.0-11.0) 9.2 FL (7.0-11.0) 9.1 FL (7.0-11.0) Prothrombin Time 13.2 SEC (9.8-11.6) 30.9 SEC (9.8-11.6) 51.0 SEC (9.8-11.6) Prothromb Time International Ratio 1.3 RATIO 3.1 RATIO 5.1 RATIO Activated Partial Thromboplast Time 55.8 SEC (24.3-30.1) 81.5 SEC (24.3-30.1) Blood Urea Nitrogen 86 MG/DL (7-18) 92 MG/DL (7-18) 85 MG/DL (7-18) Creatinine 3.20 MG/DL (0.50-1.00) 3.10 MG/DL (0.50-1.00) 2.70 MG/DL (0.50-1.00) Random Glucose 207 MG/DL (74-106) 190 MG/DL (74-106) 179 MG/DL (74-106) Calcium Level 7.5 MG/DL (8.5-10.1) 7.1 MG/DL (8.5-10.1) 6.9 MG/DL (8.5-10.1) Sodium Level 133 MEQ/L (136-145) 133 MEQ/L (136-145) 137 MEQ/L (136-145) Potassium Level 4.2 MEQ/L (3.5-5.1) 4.6 MEQ/L (3.5-5.1) 4.7 MEQ/L (3.5-5.1) Chloride Level 101 MEQ/L (98-107) 100 MEQ/L (98-107) 103 MEQ/L (98-107) Carbon Dioxide Level 24.8 MEQ/L (21.0-32.0) 25.6 MEQ/L (21.0-32.0) 27.9 MEQ/L (21.0-32.0) Anion Gap 7 MEQ/L (5-15) 7 MEQ/L (5-15) 6 MEQ/L (5-15) Estimat Glomerular Filtration Rate 14 ML/MIN (>89) 14 ML/MIN (>89) 17 ML/MIN (>89) CBC Comment AUTO DIFF Differential Total Cells Counted 100 Neutrophils % (Manual) 84 % (16-70) Band Neutrophils % 9 % (0-6) Lymphocytes % 5 % (9-44) Monocytes % 2 % (0-8) Neutrophils # (Manual) 22.1 TH/MM3 (1.8-7.7) Nucleated Red Blood Cells 1 /100 WBC (0-0) Differential Comment FINAL DIFF MANUAL Platelet Estimate NORMAL (NORMAL) Platelet Morphology Comment NORMAL (NORMAL) Ovalocytes 1+ (NORMAL) Total Protein 5.8 GM/DL (6.4-8.2) 5.5 GM/DL (6.4-8.2) Phosphorus Level 4.7 MG/DL (2.5-4.9) Magnesium Level 3.0 MG/DL (1.5-2.5) 3.0 MG/DL (1.5-2.5) Protein Corrected Calcium 7.8 MG/DL (8.5-10.1) 7.7 MG/DL (8.5-10.1) Result Diagram: 07/05/17 0432 07/05/17 0432 Microbiology Microbiology Date/Time Source Procedure Growth Status 06/28/17 12:00 Blood Peripheral Aerobic Blood Culture - Final NO GROWTH IN 5 DAYS Complete 06/28/17 12:00 Blood Peripheral Anaerobic Blood Culture - Final NO GROWTH IN 5 DAYS Complete 06/28/17 12:18 Nasal Aspirate Influenza Types A,B Antigen (TAE) - Final NEGATIVE FOR FLU A AND B ANTIGEN.... Complete 06/29/17 06:15 Urine Catheterized Urine Urine Culture - Final Escherichia Coli Complete Imaging Last Impressions Abdomen X-Ray 07/05/17 0000 Signed Impressions: Service Date/Time: Wednesday, July 05, 2017 16:08 - CONCLUSION: Negative KUB. Timothy Cummings MD Chest X-Ray 07/04/17 0600 Signed Impressions: Service Date/Time: Tuesday, July 04, 2017 03:12 - CONCLUSION: Slight improvement in aeration Timothy Sharpe MD Renal Ultrasound 07/04/17 0000 Signed Impressions: Service Date/Time: Tuesday, July 04, 2017 10:58 - CONCLUSION: 1. Abnormal increased echotexture of the renal parenchyma indicating medical renal disease. There is no hydronephrosis. 2. Bilateral renal cysts are identified, as above. Timothy Johnston MD Assessment and Plan Disease Oriented Problem List: (1) COPD (chronic obstructive pulmonary disease) (2) CHF (congestive heart failure) (3) Rapid atrial fibrillation Symptom Scale: (1) Dyspnea 0-10 Scale: Unable to quantify Pertinent Non-Medical Issues Psychosocial:From [place], to Jeff [place]. Spiritual:Quaker Legal:had living will, but unavailable in [place]. Jeff Melissa, pt's spouse would be health care proxy. Ethical issues impacting care: no Important Contacts Jeff Torres (spouse ) [phone] Yakov Torres (son) [phone] Prognosis 81 year old with copd, now has now stemi, renal insufficiency. Cannnot stay stable of bipap. Prognosis appears to be poor. Code Status: Alternative Code Plan PLAN: Legal decision maker: Patient is capacitated for decision-making but has been made aware that her , Jeff, would be the legal decision making proxy by [place] statutes if she became incapacitated. She states this would be her wish if she were to choose. Goals: Aggressive short of intubation. CODE STATUS: Alternate code, no intubation, okay for shock, CPR, drugs. SYMPTOMS: * Dyspnea: She is on chronic oxygen at home. Her dyspnea is likely multifactorial to include atrial fibrillation, pneumonia, COPD, congestive heart failure and obesity. She is currently tolerating high flow oxygen at 70% and is being weaned. She is tolerating this well without visible signs of dyspnea. She is currently receiving albuterol, Robitussin, Ativan as needed and prednisone. She remains at risk for decline as her disease is approaching end-stage and she has multiple comorbidities to exacerbate lung function. * Pain: Her initial complaint was chest pain, which is likely multifactorial to include frequent cough, pneumonia, atrial fibrillation, COPD, CHF and, felt to be less likely, ischemia. Her chest pain has resolved at this time and is requiring no other pain medication. No further recommendations at this time. Palliative care will continue to follow the patient during hospital course as condition evolves, to assist patient/decision-maker with understanding of their medical conditions, weighing benefits/burdens of treatment options, for clarification of goals of treatment. Additionally will assist with any symptoms of palliative concern. . Attestation To help prompt me to consider important information that might be impacting today's encounter and assessment, information from prior notes written by myself or my colleagues may have been "brought forward" into today's note. My signature on this note, however, is an attestation that I personally performed the exam, history, and/or decision-making noted today, and, unless otherwise indicated, the interactions with patient, family, and staff as well as the review of records all occurred today. I also attest that the listed assessment and stated plan reflect my best clinical judgment today based on the combination of historical information, prior notes, and today's exam/ interactions. When time spent is documented, it refers only to time spent today by the signer, or if indicated, combined time spent today by collaborating physician/nurse practitioner. . Aleja Rai July 05, 2017 6:55 pm
[2017-07-05] MEDS: MELATONIN 5 MG TAB PO SCH (21:08)
[2017-07-06] VITALS (59 sets, daily range): BP systolic 90–151; BP diastolic 57–75; PULSE 90–132; RESP 14–56; TEMP 97.7–98.5; O2SAT 85–98
[2017-07-06] MEDS: RESP: IPRATROPIUM 0.5 MG/2.5 ML NEB NEB SCH ×4 (03:09→21:13)
[2017-07-06] MEDS: CHLORHEXIDINE GLUCONATE 2 % 1 PACK (2 CLOTHS) TOP SCH (03:10)
[2017-07-06 05:11] LABS: HEMATOCRIT 28.6 % (35.0-46.0); HEMOGLOBIN 8.9 GM/DL (11.6-15.3); MEAN CORPUSCULAR HEMOGLOBIN 26.3 PG (27.0-34.0); MEAN CORPUSCULAR HGB CONC 31.3 % (32.0-36.0); MEAN PLATELET VOLUME 9.2 FL (7.0-11.0); PLATELET COUNT 188 TH/MM3 (150-450); RED CELL DISTRIBUTION WIDTH 17.4 % (11.6-17.2)
[2017-07-06 05:22] LABS: INTERNATIONAL NORMALIZED RATIO 5.1 RATIO; PROTHROMBIN TIME - PATIENT 50.8 SEC (9.8-11.6)
[2017-07-06 05:30] LABS: BICARBONATE 29.3 MEQ/L (21.0-32.0); CREATININE 2.4 MG/DL (0.50-1.00); MAGNESIUM 3.1 MG/DL (1.5-2.5)
[2017-07-06 05:45] LABS: CALCIUM-PROTEIN CORRECTED 7.9 MG/DL (8.5-10.1); TOTAL PROTEIN 5.3 GM/DL (6.4-8.2)
[2017-07-06] MEDS: DILTIAZEM HCL 90 MG TAB PO SCH ×4 (05:52→23:49)
[2017-07-06] MEDS: INSULIN DETEMIR 100 UNITS/ML VIAL SQ SCH ×2 (05:53→17:20)
[2017-07-06] MEDS: INSULIN ASPART SUPPLEMENTAL SCALE SQ SCH ×4 (06:04→23:49)
[2017-07-06] MEDS: AMIODARONE 200 MG TAB PO SCH ×2 (09:09→20:33)
[2017-07-06] MEDS: DOCUSATE SODIUM 50 MG/SENNA 8.6 MG TAB PO SCH ×2 (09:09→20:33)
[2017-07-06] MEDS: NYSTATIN 100,000 UNIT/GM CREAM 15 GM TOPICAL SCH ×2 (09:10→20:33)
[2017-07-06] MEDS: ASPIRIN EC 81 MG TABEC PO SCH (09:10)
[2017-07-06] MEDS: predniSONE 20 MG TAB PO SCH (09:10)
[2017-07-06] MEDS: ATORVASTATIN 40 MG TAB PO SCH (09:10)
[2017-07-06] MEDS: FUROSEMIDE 40 MG TAB PO SCH (09:10)
--- NOTE | 2017-07-06 15:13 | HHI.PR ---
Subjective Remarks The patient wanted to know how her oxygen saturation was. She denied any chest pain or palpitations. She said she has not been doing much. Discussed with nursing. Objective Vitals Vital Signs Date Time Temp Pulse Resp B/P (MAP) Pulse Ox O2 Delivery O2 Flow Rate FiO2 07/06/17 12:00 91 Nasal Cannula 30.00 70 Humidified 07/06/17 11:01 98 14 135/58 (83) 92 07/06/17 10:01 94 29 125/60 (81) 93 07/06/17 10:00 94 07/06/17 09:01 102 33 146/71 (96) 88 07/06/17 08:15 91 Nasal Cannula 30.00 65 Humidified 07/06/17 08:01 98.1 90 19 133/59 (83) 94 07/06/17 08:00 95 High Flow Nasal Cannula 70 07/06/17 08:00 94 Nasal Cannula 30.00 70 Humidified 07/06/17 08:00 90 07/06/17 07:01 94 15 120/57 (78) 95 07/06/17 06:15 120 26 91 07/06/17 06:01 116 33 143/63 (89) 85 07/06/17 06:00 94 07/06/17 06:00 118 28 86 07/06/17 05:45 120 21 94 07/06/17 05:30 118 25 90 07/06/17 05:15 114 19 93 07/06/17 05:01 114 19 134/59 (84) 93 07/06/17 05:00 114 28 94 07/06/17 04:45 114 30 90 07/06/17 04:30 114 33 93 07/06/17 04:15 120 56 94 07/06/17 04:01 114 31 117/65 (82) 96 07/06/17 04:00 112 07/06/17 04:00 120 30 96 07/06/17 04:00 96 Nasal Cannula 30.00 70 Humidified 07/06/17 03:30 116 31 98 07/06/17 03:15 114 45 94 07/06/17 03:10 96 60 07/06/17 03:01 122 32 139/59 (85) 96 07/06/17 03:00 116 35 96 07/06/17 03:00 116 26 96 07/06/17 02:45 120 31 98 07/06/17 02:45 120 26 98 07/06/17 02:30 122 30 98 07/06/17 02:30 122 30 98 07/06/17 02:15 124 30 97 07/06/17 02:15 124 30 97 07/06/17 02:01 118 50 134/67 (89) 95 07/06/17 02:01 118 50 134/67 (89) 95 07/06/17 02:00 100 07/06/17 02:00 118 50 96 07/06/17 02:00 118 50 96 07/06/17 01:45 122 30 97 07/06/17 01:45 122 30 97 07/06/17 01:30 120 42 96 07/06/17 01:30 120 42 96 07/06/17 01:15 116 24 95 07/06/17 01:15 116 24 95 07/06/17 01:01 116 26 125/64 (84) 96 07/06/17 01:01 116 26 125/64 (84) 96 07/06/17 01:00 122 21 96 07/06/17 01:00 122 21 96 07/06/17 01:00 113 07/06/17 00:45 122 21 95 07/06/17 00:45 122 21 95 07/06/17 00:30 122 29 89 07/06/17 00:30 93 70 07/06/17 00:30 122 29 89 07/06/17 00:15 124 26 91 07/06/17 00:15 124 26 91 07/06/17 00:01 122 25 125/63 (83) 91 07/06/17 00:01 122 25 125/63 (83) 91 07/06/17 00:00 120 26 90 07/06/17 00:00 120 26 90 07/06/17 00:00 103 07/06/17 00:00 98.5 103 20 125/63 (83) 91 07/06/17 00:00 96 Nasal Cannula 30.00 70 Humidified 07/05/17 21:35 93 High Flow Nasal Cannula 30.00 70 07/05/17 20:00 96 Nasal Cannula 30.00 70 Humidified 07/05/17 20:00 124 07/05/17 20:00 98.5 124 20 114/63 (80) 96 07/05/17 19:01 106 07/05/17 19:01 106 43 127/68 (87) 93 07/05/17 18:01 102 43 148/64 (92) 93 07/05/17 18:00 102 07/05/17 17:01 102 26 139/60 (86) 94 07/05/17 16:57 95 30.00 70 07/05/17 16:01 98.4 100 33 140/57 (84) 95 07/05/17 16:00 100 07/05/17 16:00 96 Nasal Cannula 30.00 70 Humidified 07/05/17 15:10 108 34 145/59 (87) 83 I/O 07/05/17 07/05/17 07/05/17 07/06/17 07/06/17 07/06/17 07:00 15:00 23:00 07:00 15:00 23:00 Intake Total 150 ml 500 ml 360 ml Output Total 1100 ml 1000 ml 800 ml 250 ml Balance -1100 ml 150 ml -500 ml -440 ml -250 ml Intake Oral 500 ml 360 ml IV Total 150 ml Output Urine Total 1100 ml 1000 ml 800 ml 250 ml # Bowel Movements 0 1 Result Diagram: 07/06/17 0427 07/06/17 0427 Imaging Last Impressions Abdomen X-Ray 07/05/17 0000 Signed Impressions: Service Date/Time: Wednesday, July 05, 2017 16:08 - CONCLUSION: Negative KUB. Timothy Cummings MD Chest X-Ray 07/04/17 0600 Signed Impressions: Service Date/Time: Tuesday, July 04, 2017 03:12 - CONCLUSION: Slight improvement in aeration Timothy Sharpe MD Renal Ultrasound 07/04/17 0000 Signed Impressions: Service Date/Time: Tuesday, July 04, 2017 10:58 - CONCLUSION: 1. Abnormal increased echotexture of the renal parenchyma indicating medical renal disease. There is no hydronephrosis. 2. Bilateral renal cysts are identified, as above. Timothy Johnston MD Objective Remarks gen: elderly female, lying in bed, on high flow nasal cannula heent: nc. at. perrl. mucous membranes moist. neck: - jvd. trachea midline. chest: no accessory muscle use. coarse anterior breath sounds. cv: Irregularly irregular. abd: soft, nontender, distended. no guarding. extr: warm, well perfused. no edema. distal pulses 2+ neuro: follows commands x 4. no focal deficits. A/P Assessment and Plan Acute respiratory failure Oxygen dependent COPD. - Continue BiPAP and hiflow N/C. - Wean FiO2 as tolerated for goal SPO2 greater than 92% given myocardial ischemia. - Nebs. - change IV steroids to po prednisone. - Pulmonary following Dr. Lowe. - PT/ OT. - incentive spirometry. Acute NSTEMI/ Acute CHF exacerbation, unknown type/ Atrial fib with rapid ventricular response Cardiology consult appreciated. Likely demand ischemia. - On heparin gtt for anticoagulation for Afib. Started Coumadin on 07/01. D/c heparin. Holding Coumadin for elevated INR. - PO amiodarone, Cardizem and aspirin. - repeat EKG. - telemetry. Acute kidney injury Superimposed on chronic kidney disease. MOE likely secondary to poor oxygen delivery to the kidneys as well as likely component of cardiogenic shock from myocardial injury. - Lasix PO daily. - follow up with nephrology. Appreciate consult. Sepsis Influenza swab negative and influenza PCR negative. UA positive. Leukocytosis is worsening, possibly from steroids. - continue Levaquin to cover empirically for UTI as well as severe COPD exacerbation. - repeat CXR. - wean steroids. - follow CBC. Diabetes Glucose well controlled. - SSI, Levemir. Constipation Seems resolved. - continue aggressive bowel regimen. PPx: Bill Hough DO July 06, 2017 15:13
[2017-07-06] MEDS ORDERED: CALCIUM GLUCONATE INJ 2 GM in SODIUM CHLORIDE 0.9% INJ 100 ML IV ONE (16:00)
--- NOTE | 2017-07-06 17:12 | RADRPT ---
EXAM DATE/TIME: 07/06/2017 16:43 [facility] COMPARISON: CHEST SINGLE AP, June 28, 2017, 11:29. INDICATIONS : Short of breath. MEDICAL HISTORY : Chronic obstructive pulmonary disease. Hypertension. Hypercholesterolemia. Diabetes. SURGICAL HISTORY : None. ENCOUNTER: Subsequent ACUITY: 4 - 6 days PAIN SCORE: 0/10 LOCATION: Bilateral chest FINDINGS: There is extensive interstitial lung disease, probably underlying pulmonary fibrosis. Blunting of the costophrenic angles is similar to June 28. Cardiomegaly is stable. No pneumothorax or new consolida tion. CONCLUSION: 1. Interstitial lung disease, probably pulmonary fibrosis with mild blunting at costophrenic angles. Cardiomegaly. John Warner MD on July 06, 2017 at 17:08 Board Certified Radiologist. This report was verified electronically.
[2017-07-06] MEDS ORDERED: SODIUM CHLOR 0.9% 250 ML INJ 250 ML IV ONE (17:45)
--- NOTE | 2017-07-06 19:44 | HHI.NPPN ---
Subjective History of Present Illness 81-year-old with COPD oxygen dependent and increasing shortness of breath with acute renal failure Additional Remarks Patient feels better Objective Data Data 07/06/17 07/07/17 18:59 06:59 Intake Total 230 ml Output Total 250 ml Balance -20 ml IV Total 230 ml Output Urine Total 250 ml Vital Signs Date Time Temp Pulse Resp B/P (MAP) Pulse Ox O2 Delivery O2 Flow Rate FiO2 07/06/17 18:01 124 15 147/74 (98) 94 07/06/17 18:00 126 07/06/17 17:01 132 30 138/75 (96) 91 07/06/17 16:01 122 29 90/62 (71) 93 07/06/17 16:00 89 Nasal Cannula 30.00 70 Humidified 07/06/17 16:00 124 07/06/17 15:01 126 25 129/74 (92) 90 07/06/17 14:01 126 26 134/67 (89) 92 07/06/17 14:00 128 07/06/17 13:01 128 19 151/61 (91) 91 07/06/17 12:01 132 39 121/64 (83) 92 07/06/17 12:00 130 07/06/17 12:00 91 Nasal Cannula 30.00 70 Humidified 07/06/17 11:01 98 14 135/58 (83) 92 07/06/17 10:01 94 29 125/60 (81) 93 07/06/17 10:00 94 07/06/17 09:01 102 33 146/71 (96) 88 07/06/17 08:15 91 Nasal Cannula 30.00 65 Humidified 07/06/17 08:01 98.1 90 19 133/59 (83) 94 07/06/17 08:00 95 High Flow Nasal Cannula 70 07/06/17 08:00 94 Nasal Cannula 30.00 70 Humidified 07/06/17 08:00 90 07/06/17 07:01 94 15 120/57 (78) 95 07/06/17 06:15 120 26 91 07/06/17 06:01 116 33 143/63 (89) 85 07/06/17 06:00 94 07/06/17 06:00 118 28 86 07/06/17 05:45 120 21 94 07/06/17 05:30 118 25 90 07/06/17 05:15 114 19 93 07/06/17 05:01 114 19 134/59 (84) 93 07/06/17 05:00 114 28 94 07/06/17 04:45 114 30 90 07/06/17 04:30 114 33 93 07/06/17 04:15 120 56 94 07/06/17 04:01 114 31 117/65 (82) 96 07/06/17 04:00 112 07/06/17 04:00 120 30 96 07/06/17 04:00 96 Nasal Cannula 30.00 70 Humidified 07/06/17 03:30 116 31 98 07/06/17 03:15 114 45 94 07/06/17 03:10 96 60 07/06/17 03:01 122 32 139/59 (85) 96 07/06/17 03:00 116 35 96 07/06/17 03:00 116 26 96 07/06/17 02:45 120 31 98 07/06/17 02:45 120 26 98 07/06/17 02:30 122 30 98 07/06/17 02:30 122 30 98 07/06/17 02:15 124 30 97 07/06/17 02:15 124 30 97 07/06/17 02:01 118 50 134/67 (89) 95 18 02:01 118 50 134/67 (89) 95 07/06/17 02:00 100 07/06/17 02:00 118 50 96 07/06/17 02:00 118 50 96 07/06/17 01:45 122 30 97 07/06/17 01:45 122 30 97 07/06/17 01:30 120 42 96 07/06/17 01:30 120 42 96 18 01:15 116 24 95 18 01:15 116 24 95 18 01:01 116 26 125/64 (84) 96 18 01:01 116 26 125/64 (84) 96 07/06/17 01:00 122 21 96 18 01:00 122 21 96 07/06/17 01:00 113 07/06/17 00:45 122 21 95 18 00:45 122 21 95 07/06/17 00:30 122 29 89 07/06/17 00:30 93 70 07/06/17 00:30 122 29 89 07/06/17 00:15 124 26 91 07/06/17 00:15 124 26 91 07/06/17 00:01 122 25 125/63 (83) 91 07/06/17 00:01 122 25 125/63 (83) 91 07/06/17 00:00 120 26 90 07/06/17 00:00 120 26 90 07/06/17 00:00 103 07/06/17 00:00 98.5 103 20 125/63 (83) 91 07/06/17 00:00 96 Nasal Cannula 30.00 70 Humidified 07/05/17 21:35 93 High Flow Nasal Cannula 30.00 70 07/05/17 20:00 96 Nasal Cannula 30.00 70 Humidified 07/05/17 20:00 124 07/05/17 20:00 98.5 124 20 114/63 (80) 96 -: 07/06/17 0427 07/06/17 0427 Physical Exam General Appearance: Well Developed, Well Nourished Neck Neck Exam: Neck Supple Pulmonary Resp Exam: Decreased Bases Cardiology CV Exam: Arrhythmia Gastrointestinal/Abdomen GI Exam: Soft, Non-Tender, Bowel Sounds Present Musculoskeletal MS Exam: Joints Intact Integumentary Skin Exam: Clear Extremeties Extremities Exam: Trace Edema Assessment/Plan Problem List: (1) Acute renal failure ICD Codes: N17.9 - Acute kidney failure, unspecified Plan: Patient has improved urine output with Lasix Monitor renal functions Creatinine declined to 2.4, urine output 1.8 L Continue with current treatment UTI with E. coli treated with Levaquin (2) CHF (congestive heart failure) ICD Codes: I50.9 - Heart failure, unspecified Status: Acute Plan: Diuretics as above (3) COPD (chronic obstructive pulmonary disease) ICD Codes: J44.9 - Chronic obstructive pulmonary disease, unspecified Plan: Patient is getting IV antibiotics steroids and pulmonary care with nebulization (4) Rapid atrial fibrillation ICD Codes: I48.91 - Unspecified atrial fibrillation Status: Acute Plan: On amiodarone (5) UTI (lower urinary tract infection) ICD Codes: N39.0 - Urinary tract infection, site not specified Plan: On Levaquin (6) Diabetes ICD Codes: E11.9 - Type 2 diabetes mellitus without complications Plan: Continue to monitor blood sugars patient is getting steroid Problem Qualifiers (1) Acute renal failure: Qualified Codes: N17.0 - Acute kidney failure with tubular necrosis (2) CHF (congestive heart failure): (3) Diabetes: Celia Galvan MD July 06, 2017 19:44
[2017-07-06] MEDS ORDERED: FUROSEMIDE 20 MG/2 ML VIAL IV PUSH ONE (20:15)
--- NOTE | 2017-07-06 20:16 | HHI.PR ---
Subjective Remarks 81 YOWF [place] with RF,Hypoxia On High flow 02 70% Does't tolerate weaning Fi02 Weak, mild sob Eats ok No fever or chills Objective Vital Signs Vital Signs Date Time Temp Pulse Resp B/P (MAP) Pulse Ox O2 Delivery O2 Flow Rate FiO2 07/06/17 18:01 124 15 147/74 (98) 94 07/06/17 18:00 126 07/06/17 17:01 132 30 138/75 (96) 91 07/06/17 16:01 122 29 90/62 (71) 93 07/06/17 16:00 89 Nasal Cannula 30.00 70 Humidified 07/06/17 16:00 124 07/06/17 15:01 126 25 129/74 (92) 90 07/06/17 14:01 126 26 134/67 (89) 92 07/06/17 14:00 128 07/06/17 13:01 128 19 151/61 (91) 91 07/06/17 12:01 132 39 121/64 (83) 92 07/06/17 12:00 130 07/06/17 12:00 91 Nasal Cannula 30.00 70 Humidified 07/06/17 11:01 98 14 135/58 (83) 92 07/06/17 10:01 94 29 125/60 (81) 93 07/06/17 10:00 94 07/06/17 09:01 102 33 146/71 (96) 88 07/06/17 08:15 91 Nasal Cannula 30.00 65 Humidified 07/06/17 08:01 98.1 90 19 133/59 (83) 94 07/06/17 08:00 95 High Flow Nasal Cannula 70 07/06/17 08:00 94 Nasal Cannula 30.00 70 Humidified 07/06/17 08:00 90 07/06/17 07:01 94 15 120/57 (78) 95 07/06/17 06:15 120 26 91 07/06/17 06:01 116 33 143/63 (89) 85 07/06/17 06:00 94 07/06/17 06:00 118 28 86 07/06/17 05:45 120 21 94 07/06/17 05:30 118 25 90 07/06/17 05:15 114 19 93 07/06/17 05:01 114 19 134/59 (84) 93 07/06/17 05:00 114 28 94 18 04:45 114 30 90 07/06/17 04:30 114 33 93 18 04:15 120 56 94 07/06/17 04:01 114 31 117/65 (82) 96 18 04:00 112 07/06/17 04:00 120 30 96 07/06/17 04:00 96 Nasal Cannula 30.00 70 Humidified 07/06/17 03:30 116 31 98 07/06/17 03:15 114 45 94 07/06/17 03:10 96 60 07/06/17 03:01 122 32 139/59 (85) 96 07/06/17 03:00 116 35 96 07/06/17 03:00 116 26 96 07/06/17 02:45 120 31 98 07/06/17 02:45 120 26 98 07/06/17 02:30 122 30 98 07/06/17 02:30 122 30 98 07/06/17 02:15 124 30 97 07/06/17 02:15 124 30 97 07/06/17 02:01 118 50 134/67 (89) 95 18 02:01 118 50 134/67 (89) 95 18 02:00 100 07/06/17 02:00 118 50 96 07/06/17 02:00 118 50 96 07/06/17 01:45 122 30 97 07/06/17 01:45 122 30 97 07/06/17 01:30 120 42 96 07/06/17 01:30 120 42 96 07/06/17 01:15 116 24 95 18 01:15 116 24 95 07/06/17 01:01 116 26 125/64 (84) 96 18 01:01 116 26 125/64 (84) 96 18 01:00 122 21 96 18 01:00 122 21 96 07/06/17 01:00 113 07/06/17 00:45 122 21 95 18 00:45 122 21 95 18 00:30 122 29 89 818 00:30 93 70 18 00:30 122 29 89 18 00:15 124 26 91 18 00:15 124 26 91 07/06/17 00:01 122 25 125/63 (83) 91 07/06/17 00:01 122 25 125/63 (83) 91 07/06/17 00:00 120 26 90 07/06/17 00:00 120 26 90 07/06/17 00:00 103 07/06/17 00:00 98.5 103 20 125/63 (83) 91 07/06/17 00:00 96 Nasal Cannula 30.00 70 Humidified 07/05/17 21:35 93 High Flow Nasal Cannula 30.00 70 I/O 07/05/17 07/05/17 07/05/17 07/06/17 07/06/17 07/06/17 07:00 15:00 23:00 07:00 15:00 23:00 Intake Total 150 ml 500 ml 360 ml 710 ml Output Total 1100 ml 1000 ml 800 ml 250 ml 1350 ml Balance -1100 ml 150 ml -500 ml -440 ml -250 ml -640 ml Intake Oral 500 ml 360 ml 480 ml IV Total 150 ml 230 ml Output Urine Total 1100 ml 1000 ml 800 ml 250 ml 1350 ml # Bowel Movements 0 1 0 Result Diagram: 07/06/1742607/06/17426 Objective Remarks GENERAL: Frail elderly WF, SOB, on high flow SKIN: Warm and dry. HEAD: Normocephalic. EYES: No scleral icterus. No injection or drainage. NECK: Supple, trachea midline. No JVD or lymphadenopathy. CARDIOVASCULAR: Regular rate and rhythm without murmurs, gallops, or rubs. RESPIRATORY: Breath sounds equal bilaterally. No accessory muscle use. GASTROINTESTINAL: Abdomen soft, non-tender, nondistended. MUSCULOSKELETAL: No cyanosis, ++ edema. BACK: Nontender without obvious deformity. No CVA tenderness. A/P Assessment and Plan IMPRESSION: 1. Respiratory failure. 2. Lung infiltrate, possible sepsis. 3. Diabetes mellitus. 4. Chronic obstructive pulmonary disease. 5. Non-ST elevation myocardial infarction. 6. Renal insufficiency. PLAN: Supplement 02 with high flow 02 Diurease with Lasix prednisone 20 mg daily Aerosol nebs Cont Abx Tobias Lowe MD July 06, 2017 20:16
[2017-07-06] MEDS: MELATONIN 5 MG TAB PO SCH (20:32)
[2017-07-06] MEDS: OLANZapine ODT 5 MG TAB PO PRN (23:48)
[2017-07-07] VITALS (44 sets, daily range): BP systolic 88–157; BP diastolic 54–80; PULSE 122–140; RESP 14–48; TEMP 97.7–99.2; O2SAT 83–98
[2017-07-07] MEDS: RESP: IPRATROPIUM 0.5 MG/2.5 ML NEB NEB SCH ×4 (03:09→21:02)
[2017-07-07] MEDS: CHLORHEXIDINE GLUCONATE 2 % 1 PACK (2 CLOTHS) TOP SCH (04:00)
[2017-07-07 05:41] LABS: HEMATOCRIT 28.4 % (35.0-46.0); HEMOGLOBIN 9.1 GM/DL (11.6-15.3); MEAN CORPUSCULAR HEMOGLOBIN 26.9 PG (27.0-34.0); MEAN PLATELET VOLUME 9.4 FL (7.0-11.0); PLATELET COUNT 152 TH/MM3 (150-450); RED BLOOD COUNT 3.38 MIL/MM3 (4.00-5.30); RED CELL DISTRIBUTION WIDTH 17.5 % (11.6-17.2); WHITE BLOOD COUNT 25.2 TH/MM3 (4.0-11.0)
[2017-07-07 05:49] LABS: INTERNATIONAL NORMALIZED RATIO 3.7 RATIO; PROTHROMBIN TIME - PATIENT 36.9 SEC (9.8-11.6)
[2017-07-07 05:56] LABS: BICARBONATE 30.6 MEQ/L (21.0-32.0); CALCIUM 7.2 MG/DL (8.5-10.1); MAGNESIUM 2.7 MG/DL (1.5-2.5)
[2017-07-07] MEDS: INSULIN ASPART SUPPLEMENTAL SCALE SQ SCH ×3 (06:00→18:00)
[2017-07-07 06:11] LABS: CALCIUM-PROTEIN CORRECTED 8.2 MG/DL (8.5-10.1); TOTAL PROTEIN 5.3 GM/DL (6.4-8.2)
[2017-07-07] MEDS: DILTIAZEM HCL 90 MG TAB PO SCH (06:16)
[2017-07-07] MEDS: LEVOFLOXACIN 750 MG PREMIX INJ 150 ML IV SCH (06:17)
[2017-07-07] MEDS: AMIODARONE 200 MG TAB PO SCH ×2 (08:20→20:49)
[2017-07-07] MEDS: DOCUSATE SODIUM 50 MG/SENNA 8.6 MG TAB PO SCH ×2 (08:20→20:48)
[2017-07-07] MEDS: ASPIRIN EC 81 MG TABEC PO SCH (08:20)
[2017-07-07] MEDS: FUROSEMIDE 40 MG TAB PO SCH (08:20)
[2017-07-07] MEDS: ATORVASTATIN 40 MG TAB PO SCH (08:20)
[2017-07-07] MEDS: NYSTATIN 100,000 UNIT/GM CREAM 15 GM TOPICAL SCH ×2 (08:21→20:49)
[2017-07-07] MEDS: INSULIN DETEMIR 100 UNITS/ML VIAL SQ SCH ×2 (08:26→18:22)
[2017-07-07] MEDS ORDERED: predniSONE 20 MG TAB PO SCH (09:00)
--- NOTE | 2017-07-07 09:26 | EKG ---
Date Performed: 07/06/2017 Time Performed: 16:36:24 PTAGE: 81 years EKG: ATRIAL FIBRILLATION WITH RAPID VENTRICULAR RESPONSE MODERATE VOLTAGE CRITERIA FOR LVH, CONS IDER NORMAL VARIANT NONSPECIFIC ST & T-WAVE ABNORMALITY ABNORMAL RHYTHM ECG PREVIOUS TRACING : 06/28/2017 11.30 DOCTOR: José Miguel Jones Interpretating Date/Time 07/07/2017 09:19:47
--- NOTE | 2017-07-07 10:41 | HHI.NPPN ---
Subjective History of Present Illness 81-year-old with COPD oxygen dependent and increasing shortness of breath with acute renal failure Additional Remarks Patient on Bipap Objective Data Data Vital Signs Date Time Temp Pulse Resp B/P (MAP) Pulse Ox O2 Delivery O2 Flow Rate FiO2 07/07/17 07:50 96 70 07/07/17 06:25 94 70 07/07/17 06:20 84 Bi-Pap 70 07/07/17 06:01 134 23 120/69 (86) 89 07/07/17 06:00 134 07/07/17 05:01 132 24 88/60 (69) 90 07/07/17 04:01 97.8 130 15 134/60 (84) 91 07/07/17 04:00 93 Nasal Cannula 30.00 70 Humidified 07/07/17 04:00 130 07/07/17 03:01 128 14 144/72 (96) 92 07/07/17 02:01 130 18 131/66 (87) 93 07/07/17 02:00 122 07/07/17 01:01 134 20 110/67 (81) 94 07/07/17 00:01 97.7 130 26 130/64 (86) 91 07/07/17 00:00 130 07/07/17 00:00 91 Nasal Cannula 30.00 70 Humidified 07/06/17 23:01 124 22 138/69 (92) 92 07/06/17 22:01 122 16 137/69 (91) 93 07/06/17 22:00 122 07/06/17 21:01 128 17 147/65 (92) 90 07/06/17 20:01 97.7 124 43 124/61 (82) 86 07/06/17 20:00 124 07/06/17 20:00 93 Nasal Cannula 30.00 70 Humidified 07/06/17 19:45 91 High Flow Nasal Cannula 30.00 70 07/06/17 19:01 126 26 144/64 (90) 93 07/06/17 18:01 124 15 147/74 (98) 94 07/06/17 18:00 126 07/06/17 17:01 132 30 138/75 (96) 91 07/06/17 16:01 122 29 90/62 (71) 93 07/06/17 16:00 89 Nasal Cannula 30.00 70 Humidified 07/06/17 16:00 124 07/06/17 15:01 126 25 129/74 (92) 90 07/06/17 14:01 126 26 134/67 (89) 92 07/06/17 14:00 128 07/06/17 13:01 128 19 151/61 (91) 91 07/06/17 12:01 132 39 121/64 (83) 92 07/06/17 12:00 130 07/06/17 12:00 91 Nasal Cannula 30.00 70 Humidified 07/06/17 11:01 98 14 135/58 (83) 92 -: 07/07/17 0420 07/07/17 0420 Physical Exam General Appearance: Well Developed, Well Nourished Neck Neck Exam: Neck Supple Pulmonary Resp Exam: Rhonchi, Decreased Bases Cardiology CV Exam: Arrhythmia Gastrointestinal/Abdomen GI Exam: Soft, Non-Tender, Bowel Sounds Present Musculoskeletal MS Exam: Joints Intact Integumentary Skin Exam: Clear Extremeties Extremities Exam: Trace Edema Assessment/Plan Problem List: (1) Acute renal failure ICD Codes: N17.9 - Acute kidney failure, unspecified Plan: Patient has improved urine output with Lasix Monitor renal functions Creatinine declined to 2, urine output 2.5 L Continue with Lasix 20 mg IV Q 12 Afib on Diltiazem/Amiodarone UTI with E. coli treated with Levaquin (2) CHF (congestive heart failure) ICD Codes: I50.9 - Heart failure, unspecified Status: Acute Plan: Diuretics as above (3) COPD (chronic obstructive pulmonary disease) ICD Codes: J44.9 - Chronic obstructive pulmonary disease, unspecified Plan: Patient is getting IV antibiotics steroids and pulmonary care with nebulization (4) Rapid atrial fibrillation ICD Codes: I48.91 - Unspecified atrial fibrillation Status: Acute Plan: On amiodarone/Diltiazem (5) UTI (lower urinary tract infection) ICD Codes: N39.0 - Urinary tract infection, site not specified Plan: On Levaquin (6) Diabetes ICD Codes: E11.9 - Type 2 diabetes mellitus without complications Plan: Continue to monitor blood sugars patient is getting steroid Problem Qualifiers (1) Acute renal failure: Qualified Codes: N17.0 - Acute kidney failure with tubular necrosis (2) CHF (congestive heart failure): (3) Diabetes: Celia Galvan MD July 07, 2017 10:41
[2017-07-07] MEDS: DILTIAZEM HCL 60 MG TAB PO SCH ×3 (11:39→23:07)
--- NOTE | 2017-07-07 17:20 | HHI.PR ---
Subjective Remarks The patient had no acute complaints. Her family was at the bedside and had questions about moving her back to [place]. The patient has been having bowel movements. She denies any palpitations. Discussed with nursing. Objective Vitals Vital Signs Date Time Temp Pulse Resp B/P (MAP) Pulse Ox O2 Delivery O2 Flow Rate FiO2 07/07/17 16:01 98.2 128 32 104/80 (88) 93 07/07/17 16:00 93 Nasal Cannula 30.00 80 07/07/17 16:00 130 07/07/17 15:01 122 28 123/61 (81) 95 07/07/17 14:35 95 High Flow Nasal Cannula 35.00 80 07/07/17 14:01 122 26 134/64 (87) 98 07/07/17 14:00 128 07/07/17 14:00 96 High Flow Nasal Cannula 35.00 100 07/07/17 13:01 128 35 144/54 (84) 89 07/07/17 13:00 83 High Flow Nasal Cannula 30.00 70 07/07/17 12:01 99.2 132 22 133/61 (85) 97 07/07/17 12:00 95 Nasal Cannula 35.00 70 07/07/17 12:00 130 07/07/17 11:23 97 70 07/07/17 11:01 130 30 140/64 (89) 97 07/07/17 10:01 124 36 140/67 (91) 96 07/07/17 10:00 130 07/07/17 09:01 130 29 144/56 (85) 90 07/07/17 08:30 95 Nasal Cannula 35.00 70 Humidified 07/07/17 08:09 98.8 130 37 124/57 (79) 95 07/07/17 08:00 131 07/07/17 07:50 96 70 07/07/17 07:01 132 48 146/74 (98) 96 07/07/17 06:25 94 70 07/07/17 06:20 84 Bi-Pap 70 07/07/17 06:01 134 23 120/69 (86) 89 07/07/17 06:00 134 07/07/17 05:01 132 24 88/60 (69) 90 07/07/17 04:01 97.8 130 15 134/60 (84) 91 07/07/17 04:00 93 Nasal Cannula 30.00 70 Humidified 07/07/17 04:00 130 07/07/17 03:01 128 14 144/72 (96) 92 07/07/17 02:01 130 18 131/66 (87) 93 07/07/17 02:00 122 07/07/17 01:01 134 20 110/67 (81) 94 07/07/17 00:01 97.7 130 26 130/64 (86) 91 07/07/17 00:00 130 07/07/17 00:00 91 Nasal Cannula 30.00 70 Humidified 07/06/17 23:01 124 22 138/69 (92) 92 07/06/17 22:01 122 16 137/69 (91) 93 07/06/17 22:00 122 07/06/17 21:01 128 17 147/65 (92) 90 07/06/17 20:01 97.7 124 43 124/61 (82) 86 07/06/17 20:00 124 07/06/17 20:00 93 Nasal Cannula 30.00 70 Humidified 07/06/17 19:45 91 High Flow Nasal Cannula 30.00 70 07/06/17 19:01 126 26 144/64 (90) 93 07/06/17 18:01 124 15 147/74 (98) 94 07/06/17 18:00 126 I/O 07/06/17 07/06/17 07/06/17 07/07/17 07/07/17 07/07/17 07:00 15:00 23:00 07:00 15:00 23:00 Intake Total 360 ml 710 ml 120 ml Output Total 800 ml 250 ml 1350 ml 925 ml Balance -440 ml -250 ml -640 ml -805 ml Intake Oral 360 ml 480 ml 120 ml IV Total 230 ml Output Urine Total 800 ml 250 ml 1350 ml 925 ml # Bowel Movements 1 0 1 Result Diagram: 07/07/17 0420 07/07/17 0420 Imaging Last Impressions Chest X-Ray 07/06/17 0000 Signed Impressions: Service Date/Time: Thursday, July 06, 2017 16:43 - CONCLUSION: 1. Interstitial lung disease, probably pulmonary fibrosis with mild blunting at costophrenic angles. Cardiomegaly. John Warner MD Abdomen X-Ray 07/05/17 0000 Signed Impressions: Service Date/Time: Wednesday, July 05, 2017 16:08 - CONCLUSION: Negative KUB. Timothy Cummings MD Renal Ultrasound 07/04/17 0000 Signed Impressions: Service Date/Time: Tuesday, July 04, 2017 10:58 - CONCLUSION: 1. Abnormal increased echotexture of the renal parenchyma indicating medical renal disease. There is no hydronephrosis. 2. Bilateral renal cysts are identified, as above. Timothy Johnston MD Objective Remarks gen: elderly female, lying in bed, on high flow nasal cannula heent: nc. at. perrl. mucous membranes moist. neck: - jvd. trachea midline. chest: no accessory muscle use. coarse anterior breath sounds. cv: Irregularly irregular. abd: soft, nontender, distended. no guarding. extr: warm, well perfused. no edema. distal pulses 2+ neuro: follows commands x 4. no focal deficits. A/P Assessment and Plan Acute respiratory failure Oxygen dependent COPD. Repeat chest x-ray indicating possible pulmonary fibrosis. - Continue BiPAP and hiflow N/C. - Wean FiO2 as tolerated for goal SPO2 greater than 92% given myocardial ischemia. - Nebs. - change IV steroids to po prednisone twice daily. - Pulmonary following Dr. Lowe. - PT/ OT. - incentive spirometry. Acute NSTEMI/ Acute CHF exacerbation, unknown type/ Atrial fib with rapid ventricular response Cardiology consult appreciated. Likely demand ischemia. - On heparin gtt for anticoagulation for Afib. Started Coumadin on 07/01. D/c heparin. Holding Coumadin for elevated INR. - PO amiodarone, Cardizem and aspirin. Cardizem increased by cardiology 07/07. - telemetry. Acute kidney injury Superimposed on chronic kidney disease. MOE likely secondary to poor oxygen delivery to the kidneys as well as likely component of cardiogenic shock from myocardial injury. - Continue Lasix. - follow up with nephrology. Appreciate consult. Sepsis Influenza swab negative and influenza PCR negative. UA positive. Leukocytosis is worsening, possibly from steroids. - continue Levaquin to cover empirically for UTI as well as severe COPD exacerbation. - wean steroids. - follow CBC. Diabetes Glucose well controlled. - SSI, Levemir. Constipation Seems resolved. - continue aggressive bowel regimen. PPx: Bill Hough DO July 07, 2017 17:20
[2017-07-07] MEDS: FUROSEMIDE 20 MG/2 ML VIAL IV PUSH SCH (18:22)
--- NOTE | 2017-07-07 20:29 | HHI.PR ---
Subjective Remarks 81 YOWF [place] with RF,Hypoxia On High flow 02 80% Does't tolerate weaning Fi02 Weak, mild sob HR still high No fever or chills Objective Vital Signs Vital Signs Date Time Temp Pulse Resp B/P (MAP) Pulse Ox O2 Delivery O2 Flow Rate FiO2 07/07/17 18:00 136 07/07/17 18:00 138 29 157/62 (93) 94 07/07/17 17:01 130 26 156/74 (101) 95 07/07/17 16:01 98.2 128 32 104/80 (88) 93 07/07/17 16:00 93 Nasal Cannula 30.00 80 07/07/17 16:00 130 07/07/17 15:01 122 28 123/61 (81) 95 07/07/17 14:35 95 High Flow Nasal Cannula 35.00 80 07/07/17 14:01 122 26 134/64 (87) 98 07/07/17 14:00 128 07/07/17 14:00 96 High Flow Nasal Cannula 35.00 100 07/07/17 13:01 128 35 144/54 (84) 89 07/07/17 13:00 83 High Flow Nasal Cannula 30.00 70 07/07/17 12:01 99.2 132 22 133/61 (85) 97 07/07/17 12:00 95 Nasal Cannula 35.00 70 07/07/17 12:00 130 07/07/17 11:23 97 70 07/07/17 11:01 130 30 140/64 (89) 97 07/07/17 10:01 124 36 140/67 (91) 96 07/07/17 10:00 130 07/07/17 09:01 130 29 144/56 (85) 90 07/07/17 08:30 95 Nasal Cannula 35.00 70 Humidified 07/07/17 08:09 98.8 130 37 124/57 (79) 95 07/07/17 08:00 131 07/07/17 07:50 96 70 07/07/17 07:01 132 48 146/74 (98) 96 07/07/17 06:25 94 70 07/07/17 06:20 84 Bi-Pap 70 07/07/17 06:01 134 23 120/69 (86) 89 07/07/17 06:00 134 07/07/17 05:01 132 24 88/60 (69) 90 07/07/17 04:01 97.8 130 15 134/60 (84) 91 07/07/17 04:00 93 Nasal Cannula 30.00 70 Humidified 07/07/17 04:00 130 07/07/17 03:01 128 14 144/72 (96) 92 07/07/17 02:01 130 18 131/66 (87) 93 07/07/17 02:00 122 07/07/17 01:01 134 20 110/67 (81) 94 07/07/17 00:01 97.7 130 26 130/64 (86) 91 07/07/17 00:00 130 07/07/17 00:00 91 Nasal Cannula 30.00 70 Humidified 07/06/17 23:01 124 22 138/69 (92) 92 07/06/17 22:01 122 16 137/69 (91) 93 07/06/17 22:00 122 07/06/17 21:01 128 17 147/65 (92) 90 I/O 07/06/17 07/06/17 07/06/17 07/07/17 07/07/17 07/07/17 07:00 15:00 23:00 07:00 15:00 23:00 Intake Total 360 ml 710 ml 120 ml 600 ml Output Total 800 ml 250 ml 1350 ml 925 ml 1000 ml Balance -440 ml -250 ml -640 ml -805 ml -400 ml Intake Oral 360 ml 480 ml 120 ml 600 ml IV Total 230 ml Output Urine Total 800 ml 250 ml 1350 ml 925 ml 1000 ml # Bowel Movements 1 0 1 0 Result Diagram: 07/07/1741907/07/17419 Objective Remarks GENERAL: Frail elderly WF, SOB, on high flow SKIN: Warm and dry. HEAD: Normocephalic. EYES: No scleral icterus. No injection or drainage. NECK: Supple, trachea midline. No JVD or lymphadenopathy. CARDIOVASCULAR: Regular rate and rhythm without murmurs, gallops, or rubs. RESPIRATORY: Breath sounds equal bilaterally. No accessory muscle use. GASTROINTESTINAL: Abdomen soft, non-tender, nondistended. MUSCULOSKELETAL: No cyanosis, ++ edema. BACK: Nontender without obvious deformity. No CVA tenderness. A/P Assessment and Plan IMPRESSION: 1. Respiratory failure. 2. Lung infiltrate, possible sepsis. 3. Diabetes mellitus. 4. Chronic obstructive pulmonary disease. 5. Non-ST elevation myocardial infarction. 6. Renal insufficiency. PLAN: Supplement 02 with high flow 02 Diurease with Lasix prednisone 20 mg daily Aerosol nebs Cont Abx Controll HR with Cardiazem Prognosis Tobias Mcneill MD July 07, 2017 20:29
[2017-07-07] MEDS: MELATONIN 5 MG TAB PO SCH (20:48)
[2017-07-07] MEDS: predniSONE 20 MG TAB PO SCH (20:49)
[2017-07-07] MEDS: OLANZapine ODT 5 MG TAB PO PRN (23:07)
[2017-07-08] VITALS (39 sets, daily range): BP systolic 96–196; BP diastolic 44–85; PULSE 100–138; RESP 14–44; TEMP 97.7–98.3; O2SAT 88–99
[2017-07-08] MEDS: CHLORHEXIDINE GLUCONATE 2 % 1 PACK (2 CLOTHS) TOP SCH (04:00)
[2017-07-08] MEDS: RESP: IPRATROPIUM 0.5 MG/2.5 ML NEB NEB SCH ×4 (04:18→21:50)
[2017-07-08] MEDS: DILTIAZEM HCL 60 MG TAB PO SCH ×4 (05:13→23:55)
[2017-07-08 05:43] LABS: HEMATOCRIT 26.2 % (35.0-46.0); HEMOGLOBIN 8.5 GM/DL (11.6-15.3); MEAN CELL VOLUME 84.1 FL (80.0-100.0); MEAN CORPUSCULAR HEMOGLOBIN 27.3 PG (27.0-34.0); MEAN CORPUSCULAR HGB CONC 32.4 % (32.0-36.0); MEAN PLATELET VOLUME 9.4 FL (7.0-11.0); PLATELET COUNT 120 TH/MM3 (150-450); RED BLOOD COUNT 3.12 MIL/MM3 (4.00-5.30); RED CELL DISTRIBUTION WIDTH 18.1 % (11.6-17.2); WHITE BLOOD COUNT 25.1 TH/MM3 (4.0-11.0)
[2017-07-08 05:51] LABS: INTERNATIONAL NORMALIZED RATIO 2.5 RATIO
[2017-07-08 05:56] LABS: BICARBONATE 29.5 MEQ/L (21.0-32.0); CALCIUM 7.2 MG/DL (8.5-10.1); CREATININE 1.9 MG/DL (0.50-1.00); MAGNESIUM 2.7 MG/DL (1.5-2.5)
[2017-07-08] MEDS: INSULIN ASPART SUPPLEMENTAL SCALE SQ SCH ×5 (06:00→23:55)
[2017-07-08] MEDS: INSULIN DETEMIR 100 UNITS/ML VIAL SQ SCH ×2 (06:03→17:43)
[2017-07-08 06:39] LABS: CALCIUM-PROTEIN CORRECTED 8.3 MG/DL (8.5-10.1)
[2017-07-08] MEDS: NYSTATIN 100,000 UNIT/GM CREAM 15 GM TOPICAL SCH ×2 (09:19→21:39)
[2017-07-08] MEDS: DOCUSATE SODIUM 50 MG/SENNA 8.6 MG TAB PO SCH ×2 (09:19→21:37)
[2017-07-08] MEDS: ATORVASTATIN 40 MG TAB PO SCH (09:19)
[2017-07-08] MEDS: FUROSEMIDE 20 MG/2 ML VIAL IV PUSH SCH ×2 (09:19→17:45)
[2017-07-08] MEDS: AMIODARONE 200 MG TAB PO SCH ×2 (09:19→21:38)
[2017-07-08] MEDS: ASPIRIN EC 81 MG TABEC PO SCH (09:20)
[2017-07-08] MEDS: SODIUM CHLORIDE 0.9% FLUSH 10 ML FLUSH IV FLUSH PRN (09:20)
[2017-07-08] MEDS: predniSONE 20 MG TAB PO SCH ×2 (09:20→21:37)
--- NOTE | 2017-07-08 12:35 | HHI.HCPN ---
Reason for visit a. To assist with evaluation and management of symptoms including:dyspnea, anxiety. b. To assist medical decision maker(s) with: better understanding of current medical conditions; weighing benefits/burdens of medical treatment options; making medical treatment decisions. Subjective/Interval History Patient seen to evaluate symptom management for dyspnea and anxiety. She remains on high flow nasal cannula oxygen at 30 L/min and oxygen had to be increased to percent FiO2. She requires intermittent BiPAP for rest at night and intermittently throughout the day. She wants to know when she can go home. She flew down from [place] with her ,however, her oxygen requirements preclude her returning home that way. She states that she is not feeling particularly poor but is seen from 26-40 times per minute, increased with speech or repositioning. Her oxygen requirements are increasing, in spite of diuresis and maximum treatment. She has increased her oxygen requirement from 70% to 90% during her stay. She remains in atrial fibrillation with rapid ventricular response in spite of maximum doses of diltiazem and amiodarone. She is anticoagulated on Coumadin with a therapeutic INR of 2.5. She states she has difficulty catching her breath with any activity or conversation, the duration is constant, of moderate severity, worsening with reclining. She is complaining of some anxiety due to the dyspnea, being away from home and her hospitalization. She does have Ativan available, but takes it sparingly due to her poor respiratory status. She is seen to be mildly tremulous and this may be a contributing factor to her tachypnea. She states the anxiety is intermittent worsened by activity, which exacerbates her shortness of breath and tremulousness . Family/friend interactions Spoke with her son today at noon and arranged a family meeting for 3 PM today. 15: 00 met with patient's son and in conference room, as patient had been placed on BiPAP by respiratory therapist due to decline during respiratory treatment. Reviewed continued decline in spite of maximal medical therapy and family understood that it is unlikely that she will never make it back to [place]. The son had investigated the possibility of medical transport back to [place] which he states was over $5000 and out of their financial reach. We reviewed CODE STATUS and logistics of CPR which would likely break ribs and, as the patient has consistently and vehemently declined intubation, have virtually no chance of success. and son both agreed that CPR would cause more harm would benefit, as it would at best resuscitate her to worse condition than she was currently in with no hope of recovery. I reviewed with them the option of hospice care center for comfort medication and end-of- life care, which they were expressing some interest in, but deferred to the patient for her opinion. Respiratory therapy was contacted and asked to change patient back to high flow nasal cannula for the discussion, if stable, which was done. Also reviewed with the patient the mechanics of CPR to include the benefits and burdens and she also agreed that this was futile and would cause her more harm than good. Patient and family agreed to a DO NOT RESUSCITATE status. Patient at this time he is unwilling to convert to hospice as she is to hold some hope that she can recover from this. Given her air hunger and tremulousness, this was discussed with Dr. Pretty and Ativan 0.5 mg IV twice daily was added to her daily regimen to try to balance her anxiety versus respiratory depression if she tolerates this well, he will consider up titration. I did discuss the 5 wishes booklet with the family and will deliver a copy to them to further assist them in defining their goals. Advance Directives Living Will: Completed, but not made available Health Care Surrogate: Completed, but not made available Durable Power of Fixer Supervisor: Completed, but not made available Advance Directive Specifics Health Care Surrogate(s): Not completed. . Documented care wishes: No living will available. . Objective Vital Signs Date Time Temp Pulse Resp B/P (MAP) Pulse Ox O2 Delivery O2 Flow Rate FiO2 07/08/17 10:00 138 30 134/48 (76) 94 07/08/17 10:00 126 07/08/17 09:54 90 High Flow Nasal Cannula 30.00 80 07/08/17 09:00 120 34 127/51 (76) 96 07/08/17 08:00 114 07/08/17 08:00 97.8 118 29 112/54 (73) 94 07/08/17 08:00 Nasal Cannula 30.00 80 07/08/17 07:00 116 29 129/56 (80) 95 07/08/17 06:08 120 31 133/50 (77) 98 07/08/17 06:00 116 07/08/17 05:02 126 32 134/64 (87) 94 07/08/17 05:00 Nasal Cannula 30.00 80 Humidified 07/08/17 04:40 97 70 07/08/17 04:01 97.7 128 18 111/59 (76) 97 07/08/17 04:00 128 07/08/17 04:00 Bi-Pap 70 07/08/17 03:01 128 24 127/63 (84) 98 07/08/17 02:01 128 20 103/62 (76) 97 07/08/17 02:00 Bi-Pap 70 07/08/17 02:00 128 07/08/17 02:00 97 70 07/08/17 01:01 132 17 121/64 (83) 94 07/08/17 00:01 97.8 130 22 112/71 (85) 90 07/08/17 00:00 90 Nasal Cannula 30.00 80 Humidified 07/08/17 00:00 124 07/07/17 23:04 134 34 135/63 (87) 97 07/07/17 23:02 98 High Flow Nasal Cannula 30.00 80 07/07/17 22:01 128 22 143/59 (87) 98 07/07/17 22:00 128 07/07/17 21:12 98 70 07/07/17 21:01 134 15 116/60 (78) 90 07/07/17 21:00 Bi-Pap 70 07/07/17 20:01 98.2 140 24 145/55 (85) 91 07/07/17 20:00 138 07/07/17 20:00 91 Nasal Cannula 30.00 80 Humidified 07/07/17 19:19 92 High Flow Nasal Cannula 30.00 80 07/07/17 19:01 134 27 139/65 (89) 94 07/07/17 19:00 130 34 95 07/07/17 18:00 136 07/07/17 18:00 138 29 157/62 (93) 94 07/07/17 17:01 130 26 156/74 (101) 95 07/07/17 16:01 98.2 128 32 104/80 (88) 93 07/07/17 16:00 93 Nasal Cannula 30.00 80 07/07/17 16:00 130 07/07/17 15:01 122 28 123/61 (81) 95 07/07/17 14:35 95 High Flow Nasal Cannula 35.00 80 07/07/17 14:01 122 26 134/64 (87) 98 07/07/17 14:00 128 07/07/17 14:00 96 High Flow Nasal Cannula 35.00 100 07/07/17 13:01 128 35 144/54 (84) 89 07/07/17 13:00 83 High Flow Nasal Cannula 30.00 70 Intake & Output 07/08/17 07/08/17 07:00 19:00 Intake Total 240 ml Output Total 300 ml Balance -60 ml Intake Oral 240 ml Output Urine Total 300 ml # Bowel Movements 0 Physical Exam CONSTITUTIONAL/GENERAL: This is an elderly, obese patient, sitting up in bed in no acute distress. TUBES/LINES/DRAINS:on high flow nasal canula, now increased to 90%. piv/ montague. SKIN: No jaundice, rashes, or lesions. Ecchymoses on upper extremities and chest. No wounds seen anteriorly. Skin temperature appropriate. Not diaphoretic. HEAD: Atraumatic. Normocephalic. EYES: Pupils equal and round and reactive. Extraocular motions intact. No scleral icterus. No injection or drainage. Fundi not examined. ENT: Hearing grossly normal. Nose without bleeding or purulent drainage. Throat without visible erythema, exudates, masses, or lesions. NECK: Trachea midline. Supple, nontender. No palpable thyroid enlargement or nodularity. CARDIOVASCULAR: S1, S2, irregular rhythm, tachycardic rate, 2/6 systolic ejection murmur at LSB. RESPIRATORY/CHEST: Lungs sounds coarse with scattered wheezes both inspiratory and expiratory. GASTROINTESTINAL: Abdomen soft, non-tender, nondistended. No hepato-splenomegaly , or palpable masses. No guarding. Bowel sounds present. GENITOURINARY: Without palpable bladder distension. Montague catheter in place. MUSCULOSKELETAL: Extremities without clubbing, cyanosis, or edema. No joint tenderness or effusion noted. No calf tenderness. No mottling or clubbing. LYMPHATICS: No palpable cervical or supraclavicular adenopathy. NEUROLOGICAL: Awake and alert. Motor and sensory grossly within normal limits. Follows commands. Cognitively sharp. Moves all extremities. PSYCHIATRIC: Visibly anxious. no apparent hallucinations or other psychotic thought process. . Diagnostic Tests Laboratory Laboratory Tests Test 07/06/17 04:27 07/07/17 04:20 07/08/17 04:53 White Blood Count 29.0 TH/MM3 (4.0-11.0) 25.2 TH/MM3 (4.0-11.0) 25.1 TH/MM3 (4.0-11.0) Red Blood Count 3.40 MIL/MM3 (4.00-5.30) 3.38 MIL/MM3 (4.00-5.30) 3.12 MIL/MM3 (4.00-5.30) Hemoglobin 8.9 GM/DL (11.6-15.3) 9.1 GM/DL (11.6-15.3) 8.5 GM/DL (11.6-15.3) Hematocrit 28.6 % (35.0-46.0) 28.4 % (35.0-46.0) 26.2 % (35.0-46.0) Mean Corpuscular Volume 84.0 FL (80.0-100.0) 84.0 FL (80.0-100.0) 84.1 FL (80.0-100.0) Mean Corpuscular Hemoglobin 26.3 PG (27.0-34.0) 26.9 PG (27.0-34.0) 27.3 PG (27.0-34.0) Mean Corpuscular Hemoglobin Concent 31.3 % (32.0-36.0) 32.0 % (32.0-36.0) 32.4 % (32.0-36.0) Red Cell Distribution Width 17.4 % (11.6-17.2) 17.5 % (11.6-17.2) 18.1 % (11.6-17.2) Platelet Count 188 TH/MM3 (150-450) 152 TH/MM3 (150-450) 120 TH/MM3 (150-450) Mean Platelet Volume 9.2 FL (7.0-11.0) 9.4 FL (7.0-11.0) 9.4 FL (7.0-11.0) Prothrombin Time 50.8 SEC (9.8-11.6) 36.9 SEC (9.8-11.6) 25.0 SEC (9.8-11.6) Prothromb Time International Ratio 5.1 RATIO 3.7 RATIO 2.5 RATIO Blood Urea Nitrogen 86 MG/DL (7-18) 76 MG/DL (7-18) 79 MG/DL (7-18) Creatinine 2.40 MG/DL (0.50-1.00) 2.00 MG/DL (0.50-1.00) 1.90 MG/DL (0.50-1.00) Random Glucose 162 MG/DL (74-106) 101 MG/DL (74-106) 148 MG/DL (74-106) Total Protein 5.3 GM/DL (6.4-8.2) 5.3 GM/DL (6.4-8.2) 5.0 GM/DL (6.4-8.2) Calcium Level 7.0 MG/DL (8.5-10.1) 7.2 MG/DL (8.5-10.1) 7.2 MG/DL (8.5-10.1) Magnesium Level 3.1 MG/DL (1.5-2.5) 2.7 MG/DL (1.5-2.5) 2.7 MG/DL (1.5-2.5) Sodium Level 138 MEQ/L (136-145) 141 MEQ/L (136-145) 139 MEQ/L (136-145) Potassium Level 4.7 MEQ/L (3.5-5.1) 4.4 MEQ/L (3.5-5.1) 5.2 MEQ/L (3.5-5.1) Chloride Level 103 MEQ/L (98-107) 105 MEQ/L (98-107) 104 MEQ/L (98-107) Carbon Dioxide Level 29.3 MEQ/L (21.0-32.0) 30.6 MEQ/L (21.0-32.0) 29.5 MEQ/L (21.0-32.0) Anion Gap 6 MEQ/L (5-15) 5 MEQ/L (5-15) 6 MEQ/L (5-15) Estimat Glomerular Filtration Rate 19 ML/MIN (>89) 24 ML/MIN (>89) 25 ML/MIN (>89) Protein Corrected Calcium 7.9 MG/DL (8.5-10.1) 8.2 MG/DL (8.5-10.1) 8.3 MG/DL (8.5-10.1) Result Diagram: 07/08/17 0453 07/08/17 0453 Microbiology Microbiology Date/Time Source Procedure Growth Status 06/28/17 12:00 Blood Peripheral Aerobic Blood Culture - Final NO GROWTH IN 5 DAYS Complete 06/28/17 12:00 Blood Peripheral Anaerobic Blood Culture - Final NO GROWTH IN 5 DAYS Complete 06/28/17 12:18 Nasal Aspirate Influenza Types A,B Antigen (TAE) - Final NEGATIVE FOR FLU A AND B ANTIGEN.... Complete 06/29/17 06:15 Urine Catheterized Urine Urine Culture - Final Escherichia Coli Complete Imaging Last Impressions Chest X-Ray 07/06/17 0000 Signed Impressions: Service Date/Time: Thursday, July 06, 2017 16:43 - CONCLUSION: 1. Interstitial lung disease, probably pulmonary fibrosis with mild blunting at costophrenic angles. Cardiomegaly. John Warner MD Abdomen X-Ray 07/05/17 0000 Signed Impressions: Service Date/Time: Wednesday, July 05, 2017 16:08 - CONCLUSION: Negative KUB. Timothy Cummings MD Renal Ultrasound 07/04/17 0000 Signed Impressions: Service Date/Time: Tuesday, July 04, 2017 10:58 - CONCLUSION: 1. Abnormal increased echotexture of the renal parenchyma indicating medical renal disease. There is no hydronephrosis. 2. Bilateral renal cysts are identified, as above. Timothy Johnston MD Assessment and Plan Disease Oriented Problem List: (1) COPD (chronic obstructive pulmonary disease) (2) CHF (congestive heart failure) (3) Rapid atrial fibrillation Symptom Scale: (1) Dyspnea 0-10 Scale: Unable to quantify Pertinent Non-Medical Issues Psychosocial:From [place], to [place]. Spiritual:Restorationism Legal:had living will, but unavailable in [place]. [place], pt's spouse would be health care proxy. Ethical issues impacting care: no Important Contacts Jeff Torres (spouse ) [phone] Yakov Torres (son) [phone] Prognosis Prognosis is very poor. 81 year old with end-stage COPD, admitted with NSTEMI, renal insufficiency, uncontrolled atrial fibrillation in spite of maximum medication. Requiring high flow oxygen with frequent rests on BiPAP and continually escalating oxygen requirements. She is now requiring 90% FiO2 on high flow nasal cannula and maintaining saturations of 90-92. Code Status: No Code Plan PLAN: Legal decision maker: Patient is capacitated for decision-making but has been made aware that her , Jeff, would be the legal decision making proxy by [place] statutes if she became incapacitated. She states this would be her wish if she were to choose. Goals: Aggressive short of no code CODE STATUS: DNR SYMPTOMS: * Dyspnea: She is on chronic oxygen at home. Her dyspnea is likely multifactorial to include atrial fibrillation, end-stage COPD, congestive heart failure and obesity. She is currently requiring high flow oxygen at 90% and is not tolerating weaning. She is currently receiving albuterol, Robitussin, Ativan as needed and prednisone. She remains at risk for decline as her disease appears to be end-stage and she has multiple comorbidities to exacerbate lung function. Ativan has now been scheduled twice daily as a baseline to evaluate her tolerance given her very fragile respiratory status. She has additional medication for as needed symptoms. As we have approached the limit of medical therapy, would recommend treating her symptoms with benzodiazepines and opiates as tolerated, as the family's request is that she be made comfortable . * Anxiety: Complaining of some anxiety related to her extended hospital stay, worsening condition, dyspnea and tachycardia. Ativan is available at 0.5 mg IV every 6 hours, however has not been given in several days due to concern about her fragile respiratory status. Her anxiety is likely to worsen as her dyspnea increases. Dr. Pretty has initiated low-dose scheduled Ativan with continued available PRN dosing. Palliative care will continue to follow the patient during hospital course as condition evolves, to assist patient/decision-maker with understanding of their medical conditions, weighing benefits/burdens of treatment options, for clarification of goals of treatment. Additionally will assist with any symptoms of palliative concern. . Attestation To help prompt me to consider important information that might be impacting today's encounter and assessment, information from prior notes written by myself or my colleagues may have been "brought forward" into today's note. My signature on this note, however, is an attestation that I personally performed the exam, history, and/or decision-making noted today, and, unless otherwise indicated, the interactions with patient, family, and staff as well as the review of records all occurred today. I also attest that the listed assessment and stated plan reflect my best clinical judgment today based on the combination of historical information, prior notes, and today's exam/ interactions. When time spent is documented, it refers only to time spent today by the signer, or if indicated, combined time spent today by collaborating physician/nurse practitioner. . Aleja Rai July 08, 2017 12:35 pm
--- NOTE | 2017-07-08 14:20 | HHI.PR ---
Subjective Remarks The patient was on BiPAP. She said an hour ago she started having difficulty breathing. She said her family was gong to have a meeting with the palliative care team soon. She did endorse anxiety. Discussed with nursing. Objective Vitals Vital Signs Date Time Temp Pulse Resp B/P (MAP) Pulse Ox O2 Delivery O2 Flow Rate FiO2 07/08/17 13:35 94 Bi-Pap 70 07/08/17 13:33 98 Bi-Pap 100 07/08/17 13:00 126 44 140/59 (86) 88 07/08/17 12:00 108 07/08/17 12:00 98.0 108 19 119/48 (71) 98 07/08/17 12:00 Nasal Cannula 30.00 90 07/08/17 11:00 120 33 134/61 (85) 94 07/08/17 10:00 138 30 134/48 (76) 94 07/08/17 10:00 126 07/08/17 09:54 90 High Flow Nasal Cannula 30.00 80 07/08/17 09:30 Nasal Cannula 30.00 90 07/08/17 09:00 120 34 127/51 (76) 96 07/08/17 08:00 114 07/08/17 08:00 97.8 118 29 112/54 (73) 94 07/08/17 08:00 Nasal Cannula 30.00 80 07/08/17 07:00 116 29 129/56 (80) 95 07/08/17 06:08 120 31 133/50 (77) 98 07/08/17 06:00 116 07/08/17 05:02 126 32 134/64 (87) 94 07/08/17 05:00 Nasal Cannula 30.00 80 Humidified 07/08/17 04:40 97 70 07/08/17 04:01 97.7 128 18 111/59 (76) 97 07/08/17 04:00 128 07/08/17 04:00 Bi-Pap 70 07/08/17 03:01 128 24 127/63 (84) 98 07/08/17 02:01 128 20 103/62 (76) 97 07/08/17 02:00 Bi-Pap 70 07/08/17 02:00 128 07/08/17 02:00 97 70 07/08/17 01:01 132 17 121/64 (83) 94 07/08/17 00:01 97.8 130 22 112/71 (85) 90 07/08/17 00:00 90 Nasal Cannula 30.00 80 Humidified 07/08/17 00:00 124 07/07/17 23:04 134 34 135/63 (87) 97 07/07/17 23:02 98 High Flow Nasal Cannula 30.00 80 07/07/17 22:01 128 22 143/59 (87) 98 07/07/17 22:00 128 07/07/17 21:12 98 70 07/07/17 21:01 134 15 116/60 (78) 90 07/07/17 21:00 Bi-Pap 70 07/07/17 20:01 98.2 140 24 145/55 (85) 91 07/07/17 20:00 138 07/07/17 20:00 91 Nasal Cannula 30.00 80 Humidified 07/07/17 19:19 92 High Flow Nasal Cannula 30.00 80 07/07/17 19:01 134 27 139/65 (89) 94 07/07/17 19:00 130 34 95 07/07/17 18:00 136 07/07/17 18:00 138 29 157/62 (93) 94 07/07/17 17:01 130 26 156/74 (101) 95 07/07/17 16:01 98.2 128 32 104/80 (88) 93 07/07/17 16:00 93 Nasal Cannula 30.00 80 07/07/17 16:00 130 07/07/17 15:01 122 28 123/61 (81) 95 07/07/17 14:35 95 High Flow Nasal Cannula 35.00 80 I/O 07/07/17 07/07/17 07/07/17 07/08/17 07/08/17 07/08/17 07:00 15:00 23:00 07:00 15:00 23:00 Intake Total 120 ml 600 ml 240 ml Output Total 925 ml 1000 ml 300 ml Balance -805 ml -400 ml -60 ml Intake Oral 120 ml 600 ml 240 ml Output Urine Total 925 ml 1000 ml 300 ml # Bowel Movements 1 0 0 Result Diagram: 07/08/17 0453 07/08/17 0453 Imaging Last Impressions Chest X-Ray 07/06/17 0000 Signed Impressions: Service Date/Time: Thursday, July 06, 2017 16:43 - CONCLUSION: 1. Interstitial lung disease, probably pulmonary fibrosis with mild blunting at costophrenic angles. Cardiomegaly. John Warner MD Abdomen X-Ray 07/05/17 0000 Signed Impressions: Service Date/Time: Wednesday, July 05, 2017 16:08 - CONCLUSION: Negative KUB. Timothy Cummings MD Renal Ultrasound 07/04/17 0000 Signed Impressions: Service Date/Time: Tuesday, July 04, 2017 10:58 - CONCLUSION: 1. Abnormal increased echotexture of the renal parenchyma indicating medical renal disease. There is no hydronephrosis. 2. Bilateral renal cysts are identified, as above. Timothy Johnston MD Objective Remarks gen: elderly female, lying in bed, on BiPAP. heent: nc. at. perrl. mucous membranes moist. neck: - jvd. trachea midline. chest: no accessory muscle use. coarse anterior breath sounds. cv: Irregularly irregular. abd: soft, nontender, distended. no guarding. extr: warm, well perfused. no edema. distal pulses 2+ neuro: follows commands x 4. no focal deficits. A/P Assessment and Plan Acute respiratory failure Oxygen dependent COPD. Repeat chest x-ray indicating possible pulmonary fibrosis. - Continue BiPAP and hiflow N/C. - Wean FiO2 as tolerated for goal SPO2 greater than 92% given myocardial ischemia. - Nebs. - change IV steroids to po prednisone twice daily. - Pulmonary following Dr. Lowe. - PT/ OT. - incentive spirometry. - palliative care consult appreciated. Family meeting this afternoon. Acute NSTEMI/ Acute CHF exacerbation, unknown type/ Atrial fib with rapid ventricular response Cardiology consult appreciated. Likely demand ischemia. - was on heparin gtt for anticoagulation for Afib. Coumadin per pharmacy. - PO amiodarone, Cardizem and aspirin. Cardizem increased by cardiology 07/07. - telemetry. Acute kidney injury Superimposed on chronic kidney disease. MOE likely secondary to poor oxygen delivery to the kidneys as well as likely component of cardiogenic shock from myocardial injury. - Continue Lasix. - follow up with nephrology. Appreciate consult. Sepsis Influenza swab negative and influenza PCR negative. UA positive. Leukocytosis is worsening, possibly from steroids. - continue Levaquin to cover empirically for UTI as well as severe COPD exacerbation. - wean steroids. - follow CBC. Diabetes Glucose well controlled. - SSI, Levemir. Constipation Seems resolved. - continue aggressive bowel regimen. PPx: Bill Hough DO July 08, 2017 14:20
[2017-07-08] MEDS ORDERED: SODIUM POLYSTYRENE SULFONATE SUSP 15 GM/60 ML CUP PO ONE (15:00)
[2017-07-08] MEDS: LORazepam 2 MG/ML VIAL IV PUSH SCH ×2 (15:23→21:38)
[2017-07-08] MEDS: WARFARIN SOD 2 MG TAB PO SCH (16:00)
--- NOTE | 2017-07-08 16:38 | HHI.NPPN ---
Subjective History of Present Illness 81-year-old with COPD oxygen dependent and increasing shortness of breath with acute renal failure Additional Remarks Patient on 100% O2 Objective Data Data Vital Signs Date Time Temp Pulse Resp B/P (MAP) Pulse Ox O2 Delivery O2 Flow Rate FiO2 07/08/17 16:09 102 33 124/56 (78) 92 07/08/17 16:00 98.3 104 34 96/52 (67) 94 07/08/17 16:00 95 Nasal Cannula 30.00 100 07/08/17 16:00 100 07/08/17 15:00 104 28 124/51 (75) 98 07/08/17 14:17 116 28 114/45 (68) 98 07/08/17 14:08 118 27 96/47 (63) 96 07/08/17 14:00 124 07/08/17 14:00 120 30 102/44 (63) 96 07/08/17 13:35 94 Bi-Pap 70 07/08/17 13:33 98 Bi-Pap 100 07/08/17 13:00 126 44 140/59 (86) 88 07/08/17 12:00 108 07/08/17 12:00 98.0 108 19 119/48 (71) 98 07/08/17 12:00 Nasal Cannula 30.00 90 07/08/17 11:00 120 33 134/61 (85) 94 07/08/17 10:00 138 30 134/48 (76) 94 07/08/17 10:00 126 07/08/17 09:54 90 High Flow Nasal Cannula 30.00 80 07/08/17 09:30 Nasal Cannula 30.00 90 07/08/17 09:00 120 34 127/51 (76) 96 07/08/17 08:00 114 07/08/17 08:00 97.8 118 29 112/54 (73) 94 07/08/17 08:00 Nasal Cannula 30.00 80 07/08/17 07:00 116 29 129/56 (80) 95 07/08/17 06:08 120 31 133/50 (77) 98 07/08/17 06:00 116 07/08/17 05:02 126 32 134/64 (87) 94 07/08/17 05:00 Nasal Cannula 30.00 80 Humidified 07/08/17 04:40 97 70 07/08/17 04:01 97.7 128 18 111/59 (76) 97 07/08/17 04:00 128 07/08/17 04:00 Bi-Pap 70 07/08/17 03:01 128 24 127/63 (84) 98 07/08/17 02:01 128 20 103/62 (76) 97 07/08/17 02:00 Bi-Pap 70 07/08/17 02:00 128 07/08/17 02:00 97 70 07/08/17 01:01 132 17 121/64 (83) 94 07/08/17 00:01 97.8 130 22 112/71 (85) 90 07/08/17 00:00 90 Nasal Cannula 30.00 80 Humidified 07/08/17 00:00 124 07/07/17 23:04 134 34 135/63 (87) 97 07/07/17 23:02 98 High Flow Nasal Cannula 30.00 80 07/07/17 22:01 128 22 143/59 (87) 98 07/07/17 22:00 128 07/07/17 21:12 98 70 07/07/17 21:01 134 15 116/60 (78) 90 07/07/17 21:00 Bi-Pap 70 07/07/17 20:01 98.2 140 24 145/55 (85) 91 07/07/17 20:00 138 07/07/17 20:00 91 Nasal Cannula 30.00 80 Humidified 07/07/17 19:19 92 High Flow Nasal Cannula 30.00 80 07/07/17 19:01 134 27 139/65 (89) 94 07/07/17 19:00 130 34 95 07/07/17 18:00 136 07/07/17 18:00 138 29 157/62 (93) 94 07/07/17 17:01 130 26 156/74 (101) 95 -: 07/08/17 0453 07/08/17 0453 Physical Exam General Appearance: Well Developed, Well Nourished Neck Neck Exam: Neck Supple Pulmonary Resp Exam: Rhonchi, Decreased Bases Cardiology CV Exam: Arrhythmia Gastrointestinal/Abdomen GI Exam: Soft, Non-Tender, Bowel Sounds Present Musculoskeletal MS Exam: Joints Intact Integumentary Skin Exam: Clear Extremeties Extremities Exam: Trace Edema Assessment/Plan Problem List: (1) Acute renal failure ICD Codes: N17.9 - Acute kidney failure, unspecified Plan: Patient has improved urine output with Lasix Monitor renal functions Creatinine declined to 1.9, urine output 1.3 L Continue with Lasix 20 mg IV Q 12 k 5.2 Kayexalate 15 gm ordered Afib on Diltiazem/Amiodarone poor prognosis Palliative care following DNR now UTI with E. coli treated with Levaquin (2) CHF (congestive heart failure) ICD Codes: I50.9 - Heart failure, unspecified Status: Acute Plan: Diuretics as above (3) COPD (chronic obstructive pulmonary disease) ICD Codes: J44.9 - Chronic obstructive pulmonary disease, unspecified Plan: Patient is getting IV antibiotics steroids and pulmonary care with nebulization (4) Rapid atrial fibrillation ICD Codes: I48.91 - Unspecified atrial fibrillation Status: Acute Plan: On amiodarone/Diltiazem (5) UTI (lower urinary tract infection) ICD Codes: N39.0 - Urinary tract infection, site not specified Plan: On Levaquin (6) Diabetes ICD Codes: E11.9 - Type 2 diabetes mellitus without complications Plan: Continue to monitor blood sugars patient is getting steroid Problem Qualifiers (1) Acute renal failure: Qualified Codes: N17.0 - Acute kidney failure with tubular necrosis (2) CHF (congestive heart failure): (3) Diabetes: Celia Galvan MD July 08, 2017 16:37
--- NOTE | 2017-07-08 18:02 | HHI.PR ---
Subjective Remarks 81 YOWF [place] with RF,Hypoxia On High flow 02 100% Does't tolerate weaning Fi02 Weak, mild sob HR still high required BIPAP No fever or chills Objective Vital Signs Vital Signs Date Time Temp Pulse Resp B/P (MAP) Pulse Ox O2 Delivery O2 Flow Rate FiO2 07/08/17 17:00 102 30 128/54 (78) 90 07/08/17 16:09 102 33 124/56 (78) 92 07/08/17 16:00 98.3 104 34 96/52 (67) 94 07/08/17 16:00 95 Nasal Cannula 30.00 100 07/08/17 16:00 100 07/08/17 15:00 104 28 124/51 (75) 98 07/08/17 14:17 116 28 114/45 (68) 98 07/08/17 14:08 118 27 96/47 (63) 96 07/08/17 14:00 124 07/08/17 14:00 120 30 102/44 (63) 96 07/08/17 13:35 94 Bi-Pap 70 07/08/17 13:33 98 Bi-Pap 100 07/08/17 13:00 126 44 140/59 (86) 88 07/08/17 12:00 108 07/08/17 12:00 98.0 108 19 119/48 (71) 98 07/08/17 12:00 Nasal Cannula 30.00 90 07/08/17 11:00 120 33 134/61 (85) 94 07/08/17 10:00 138 30 134/48 (76) 94 07/08/17 10:00 126 07/08/17 09:54 90 High Flow Nasal Cannula 30.00 80 07/08/17 09:30 Nasal Cannula 30.00 90 07/08/17 09:00 120 34 127/51 (76) 96 07/08/17 08:00 114 07/08/17 08:00 97.8 118 29 112/54 (73) 94 07/08/17 08:00 Nasal Cannula 30.00 80 07/08/17 07:00 116 29 129/56 (80) 95 07/08/17 06:08 120 31 133/50 (77) 98 07/08/17 06:00 116 07/08/17 05:02 126 32 134/64 (87) 94 07/08/17 05:00 Nasal Cannula 30.00 80 Humidified 07/08/17 04:40 97 70 07/08/17 04:01 97.7 128 18 111/59 (76) 97 07/08/17 04:00 128 07/08/17 04:00 Bi-Pap 70 07/08/17 03:01 128 24 127/63 (84) 98 07/08/17 02:01 128 20 103/62 (76) 97 07/08/17 02:00 Bi-Pap 70 07/08/17 02:00 128 07/08/17 02:00 97 70 07/08/17 01:01 132 17 121/64 (83) 94 07/08/17 00:01 97.8 130 22 112/71 (85) 90 07/08/17 00:00 90 Nasal Cannula 30.00 80 Humidified 07/08/17 00:00 124 07/07/17 23:04 134 34 135/63 (87) 97 07/07/17 23:02 98 High Flow Nasal Cannula 30.00 80 07/07/17 22:01 128 22 143/59 (87) 98 07/07/17 22:00 128 07/07/17 21:12 98 70 07/07/17 21:01 134 15 116/60 (78) 90 07/07/17 21:00 Bi-Pap 70 07/07/17 20:01 98.2 140 24 145/55 (85) 91 07/07/17 20:00 138 07/07/17 20:00 91 Nasal Cannula 30.00 80 Humidified 07/07/17 19:19 92 High Flow Nasal Cannula 30.00 80 07/07/17 19:01 134 27 139/65 (89) 94 07/07/17 19:00 130 34 95 I/O 07/07/17 07/07/17 07/07/17 07/08/17 07/08/17 07/08/17 07:00 15:00 23:00 07:00 15:00 23:00 Intake Total 120 ml 600 ml 240 ml Output Total 925 ml 1000 ml 300 ml Balance -805 ml -400 ml -60 ml Intake Oral 120 ml 600 ml 240 ml Output Urine Total 925 ml 1000 ml 300 ml # Bowel Movements 1 0 0 Result Diagram: 07/08/1745207/08/17452 Objective Remarks GENERAL: Frail elderly WF, SOB, on high flow SKIN: Warm and dry. HEAD: Normocephalic. EYES: No scleral icterus. No injection or drainage. NECK: Supple, trachea midline. No JVD or lymphadenopathy. CARDIOVASCULAR: Regular rate and rhythm without murmurs, gallops, or rubs. RESPIRATORY: Breath sounds equal bilaterally. No accessory muscle use. GASTROINTESTINAL: Abdomen soft, non-tender, nondistended. MUSCULOSKELETAL: No cyanosis, ++ edema. BACK: Nontender without obvious deformity. No CVA tenderness. A/P Assessment and Plan IMPRESSION: 1. Respiratory failure. 2. Lung infiltrate, possible sepsis. 3. Diabetes mellitus. 4. Chronic obstructive pulmonary disease. 5. Non-ST elevation myocardial infarction. 6. Renal insufficiency. PLAN: Supplement 02 with high flow 02 Use BIPAP prn Diurease with Lasix prednisone 20 mg daily Aerosol nebs Cont Abx Controll HR with Cardiazem Prognosis gaurded DNR Tobias Lowe MD July 08, 2017 18:02
[2017-07-08] MEDS: MELATONIN 5 MG TAB PO SCH (21:37)
[2017-07-09] VITALS (44 sets, daily range): BP systolic 93–153; BP diastolic 48–112; PULSE 98–136; RESP 15–35; TEMP 97.8–99; O2SAT 89–100
[2017-07-09] MEDS: CHLORHEXIDINE GLUCONATE 2 % 1 PACK (2 CLOTHS) TOP SCH (04:00)
[2017-07-09] MEDS: RESP: IPRATROPIUM 0.5 MG/2.5 ML NEB NEB SCH ×4 (04:11→21:24)
[2017-07-09 05:25] LABS: HEMATOCRIT 23.8 % (35.0-46.0); HEMOGLOBIN 7.6 GM/DL (11.6-15.3); MEAN CELL VOLUME 83.4 FL (80.0-100.0); MEAN CORPUSCULAR HEMOGLOBIN 26.8 PG (27.0-34.0); MEAN CORPUSCULAR HGB CONC 32.2 % (32.0-36.0); MEAN PLATELET VOLUME 9.5 FL (7.0-11.0); PLATELET COUNT 114 TH/MM3 (150-450); RED BLOOD COUNT 2.85 MIL/MM3 (4.00-5.30); RED CELL DISTRIBUTION WIDTH 17.8 % (11.6-17.2); WHITE BLOOD COUNT 22.3 TH/MM3 (4.0-11.0)
[2017-07-09 05:26] LABS: INTERNATIONAL NORMALIZED RATIO 2.5 RATIO; PROTHROMBIN TIME - PATIENT 24.8 SEC (9.8-11.6)
[2017-07-09 05:37] LABS: BICARBONATE 31.8 MEQ/L (21.0-32.0); CALCIUM 6.9 MG/DL (8.5-10.1); MAGNESIUM 2.6 MG/DL (1.5-2.5)
[2017-07-09 05:56] LABS: CALCIUM-PROTEIN CORRECTED 8.1 MG/DL (8.5-10.1); TOTAL PROTEIN 4.9 GM/DL (6.4-8.2)
[2017-07-09] MEDS: INSULIN ASPART SUPPLEMENTAL SCALE SQ SCH ×4 (06:12→23:14)
[2017-07-09] MEDS: INSULIN DETEMIR 100 UNITS/ML VIAL SQ SCH ×2 (06:13→17:35)
[2017-07-09] MEDS: LEVOFLOXACIN 750 MG PREMIX INJ 150 ML IV SCH (06:13)
[2017-07-09] MEDS: DILTIAZEM HCL 60 MG TAB PO SCH ×4 (06:13→23:14)
[2017-07-09] MEDS: AMIODARONE 200 MG TAB PO SCH ×2 (08:34→21:39)
[2017-07-09] MEDS: DOCUSATE SODIUM 50 MG/SENNA 8.6 MG TAB PO SCH ×2 (08:34→21:39)
[2017-07-09] MEDS: ATORVASTATIN 40 MG TAB PO SCH (08:34)
[2017-07-09] MEDS: predniSONE 20 MG TAB PO SCH ×2 (08:34→21:39)
[2017-07-09] MEDS: ASPIRIN EC 81 MG TABEC PO SCH (08:34)
[2017-07-09] MEDS: LORazepam 2 MG/ML VIAL IV PUSH SCH ×2 (08:35→21:39)
[2017-07-09] MEDS: NYSTATIN 100,000 UNIT/GM CREAM 15 GM TOPICAL SCH ×2 (08:35→21:39)
[2017-07-09] MEDS: FUROSEMIDE 20 MG/2 ML VIAL IV PUSH SCH ×2 (08:35→17:36)
[2017-07-09] MEDS: LACTULOSE SYRUP 20 GM/30 ML CUP PO PRN (08:35)
--- NOTE | 2017-07-09 13:35 | HHI.NPPN ---
Subjective History of Present Illness 81-year-old with COPD oxygen dependent and increasing shortness of breath with acute renal failure Additional Remarks Patient on 75% O2 Objective Data Data 07/09/17 07/10/17 19:00 07:00 Intake Total 150 ml Output Total 200 ml Balance -50 ml IV Total 150 ml Output Urine Total 200 ml Vital Signs Date Time Temp Pulse Resp B/P (MAP) Pulse Ox O2 Delivery O2 Flow Rate FiO2 07/09/17 13:02 122 24 100/68 (79) 93 07/09/17 12:10 92 Nasal Cannula 30.00 75 07/09/17 12:02 97.9 128 25 127/59 (81) 90 07/09/17 12:00 128 07/09/17 11:05 94 High Flow Nasal Cannula 30.00 80 07/09/17 11:02 120 21 133/65 (87) 100 07/09/17 10:40 98 High Flow Nasal Cannula 30.00 100 07/09/17 10:02 108 17 121/51 (74) 99 07/09/17 10:00 116 07/09/17 09:02 116 28 112/72 (85) 98 07/09/17 09:00 116 07/09/17 08:02 98.1 122 16 119/85 (96) 99 07/09/17 08:00 99 Nasal Cannula 30.00 75 07/09/17 08:00 122 07/09/17 07:02 126 17 137/53 (81) 99 07/09/17 06:02 126 27 133/59 (83) 98 07/09/17 06:00 99 Bi-Pap 30.00 70 07/09/17 06:00 123 07/09/17 05:01 128 20 111/72 (85) 99 07/09/17 04:25 99 70 07/09/17 04:01 97.8 124 15 104/70 (81) 99 07/09/17 04:00 99 Bi-Pap 30 07/09/17 04:00 131 07/09/17 03:01 124 15 124/48 (73) 99 07/09/17 02:01 130 15 125/85 (98) 99 07/09/17 02:00 118 07/09/17 01:37 99 70 07/09/17 01:01 124 16 146/87 (106) 99 07/09/17 00:01 98.2 126 15 93/83 (86) 99 07/09/17 00:00 99 Bi-Pap 30 07/09/17 00:00 98 07/08/17 23:01 120 14 127/85 (99) 99 07/08/17 22:10 99 70 07/08/17 22:01 126 19 122/73 (89) 96 07/08/17 22:00 127 07/08/17 21:01 116 31 150/61 (90) 94 07/08/17 20:15 97 High Flow Nasal Cannula 30.00 100 07/08/17 20:01 98.1 102 22 150/58 (88) 98 07/08/17 20:00 96 Bi-Pap 30.00 30 07/08/17 20:00 122 07/08/17 19:01 112 25 148/57 (87) 97 07/08/17 18:10 128 34 140/67 (91) 92 07/08/17 18:08 126 36 196/65 (108) 90 07/08/17 18:00 122 07/08/17 18:00 118 31 183/63 (103) 92 07/08/17 17:00 102 30 128/54 (78) 90 07/08/17 16:09 102 33 124/56 (78) 92 07/08/17 16:00 98.3 104 34 96/52 (67) 94 07/08/17 16:00 95 Nasal Cannula 30.00 100 07/08/17 16:00 100 07/08/17 15:00 104 28 124/51 (75) 98 07/08/17 14:17 116 28 114/45 (68) 98 07/08/17 14:08 118 27 96/47 (63) 96 07/08/17 14:00 124 07/08/17 14:00 120 30 102/44 (63) 96 07/08/17 13:35 94 Bi-Pap 70 -: 07/09/17 0444 07/09/17 0444 Physical Exam General Appearance: Well Developed, Well Nourished Neck Neck Exam: Neck Supple Pulmonary Resp Exam: Rhonchi, Decreased Bases Cardiology CV Exam: Arrhythmia Gastrointestinal/Abdomen GI Exam: Soft, Non-Tender, Bowel Sounds Present Musculoskeletal MS Exam: Joints Intact Integumentary Skin Exam: Clear Extremeties Extremities Exam: Trace Edema Assessment/Plan Problem List: (1) Acute renal failure ICD Codes: N17.9 - Acute kidney failure, unspecified Plan: Patient has improved urine output with Lasix Monitor renal functions Creatinine 2, Bun higher due to steroids, urine output 2.3 L Continue with Lasix 20 mg IV Q 12 Afib on Diltiazem/Amiodarone poor prognosis Palliative care following DNR now UTI with E. coli treated with Levaquin (2) CHF (congestive heart failure) ICD Codes: I50.9 - Heart failure, unspecified Status: Acute Plan: Diuretics as above (3) COPD (chronic obstructive pulmonary disease) ICD Codes: J44.9 - Chronic obstructive pulmonary disease, unspecified Plan: Patient is getting IV antibiotics steroids and pulmonary care with nebulization (4) Rapid atrial fibrillation ICD Codes: I48.91 - Unspecified atrial fibrillation Status: Acute Plan: On amiodarone/Diltiazem (5) UTI (lower urinary tract infection) ICD Codes: N39.0 - Urinary tract infection, site not specified Plan: On Levaquin (6) Diabetes ICD Codes: E11.9 - Type 2 diabetes mellitus without complications Plan: Continue to monitor blood sugars patient is getting steroid Problem Qualifiers (1) Acute renal failure: Qualified Codes: N17.0 - Acute kidney failure with tubular necrosis (2) CHF (congestive heart failure): (3) Diabetes: Celia Galvan MD July 09, 2017 13:35
--- NOTE | 2017-07-09 15:18 | HHI.PR ---
Subjective Remarks The patient was on high flow oxygen. She was resting comfortably. She said she has been talking with her family. She denies any pain. Discussed with nursing. Objective Vitals Vital Signs Date Time Temp Pulse Resp B/P (MAP) Pulse Ox O2 Delivery O2 Flow Rate FiO2 07/09/17 13:02 122 24 100/68 (79) 93 07/09/17 12:10 92 Nasal Cannula 30.00 75 07/09/17 12:02 97.9 128 25 127/59 (81) 90 07/09/17 12:00 128 07/09/17 11:05 94 High Flow Nasal Cannula 30.00 80 07/09/17 11:02 120 21 133/65 (87) 100 07/09/17 10:40 98 High Flow Nasal Cannula 30.00 100 07/09/17 10:02 108 17 121/51 (74) 99 07/09/17 10:00 116 07/09/17 09:02 116 28 112/72 (85) 98 07/09/17 09:00 116 07/09/17 08:02 98.1 122 16 119/85 (96) 99 07/09/17 08:00 99 Nasal Cannula 30.00 75 07/09/17 08:00 122 07/09/17 07:02 126 17 137/53 (81) 99 07/09/17 06:02 126 27 133/59 (83) 98 07/09/17 06:00 99 Bi-Pap 30.00 70 07/09/17 06:00 123 07/09/17 05:01 128 20 111/72 (85) 99 07/09/17 04:25 99 70 07/09/17 04:01 97.8 124 15 104/70 (81) 99 07/09/17 04:00 99 Bi-Pap 30 07/09/17 04:00 131 07/09/17 03:01 124 15 124/48 (73) 99 07/09/17 02:01 130 15 125/85 (98) 99 07/09/17 02:00 118 07/09/17 01:37 99 70 07/09/17 01:01 124 16 146/87 (106) 99 07/09/17 00:01 98.2 126 15 93/83 (86) 99 07/09/17 00:00 99 Bi-Pap 30 07/09/17 00:00 98 07/08/17 23:01 120 14 127/85 (99) 99 07/08/17 22:10 99 70 07/08/17 22:01 126 19 122/73 (89) 96 07/08/17 22:00 127 07/08/17 21:01 116 31 150/61 (90) 94 07/08/17 20:15 97 High Flow Nasal Cannula 30.00 100 07/08/17 20:01 98.1 102 22 150/58 (88) 98 07/08/17 20:00 96 Bi-Pap 30.00 30 07/08/17 20:00 122 07/08/17 19:01 112 25 148/57 (87) 97 07/08/17 18:10 128 34 140/67 (91) 92 07/08/17 18:08 126 36 196/65 (108) 90 07/08/17 18:00 122 07/08/17 18:00 118 31 183/63 (103) 92 07/08/17 17:00 102 30 128/54 (78) 90 07/08/17 16:09 102 33 124/56 (78) 92 07/08/17 16:00 98.3 104 34 96/52 (67) 94 07/08/17 16:00 95 Nasal Cannula 30.00 100 07/08/17 16:00 100 I/O 07/08/17 07/08/17 07/08/17 07/09/17 07/09/17 07/09/17 07:00 15:00 23:00 07:00 15:00 23:00 Intake Total 240 ml 960 ml 480 ml 150 ml Output Total 300 ml 1700 ml 600 ml 200 ml Balance -60 ml -740 ml -120 ml -50 ml Intake Oral 240 ml 960 ml 480 ml IV Total 150 ml Output Urine Total 300 ml 1700 ml 600 ml 200 ml # Bowel Movements 0 0 0 Result Diagram: 07/09/174 07/09/17 0444 Imaging Last Impressions Chest X-Ray 07/06/17 0000 Signed Impressions: Service Date/Time: Thursday, July 06, 2017 16:43 - CONCLUSION: 1. Interstitial lung disease, probably pulmonary fibrosis with mild blunting at costophrenic angles. Cardiomegaly. John Warner MD Abdomen X-Ray 07/05/17 0000 Signed Impressions: Service Date/Time: Wednesday, July 05, 2017 16:08 - CONCLUSION: Negative KUB. Timothy Cummings MD Renal Ultrasound 07/04/17 0000 Signed Impressions: Service Date/Time: Tuesday, July 04, 2017 10:58 - CONCLUSION: 1. Abnormal increased echotexture of the renal parenchyma indicating medical renal disease. There is no hydronephrosis. 2. Bilateral renal cysts are identified, as above. Timothy Johnston MD Objective Remarks gen: elderly female, lying in bed, on highflow. heent: nc. at. perrl. mucous membranes moist. neck: - jvd. trachea midline. chest: no accessory muscle use. coarse anterior breath sounds. cv: Irregularly irregular, tachycardic. abd: soft, nontender, distended. no guarding. extr: warm, well perfused. no edema. distal pulses 2+ neuro: follows commands x 4. no focal deficits. A/P Assessment and Plan Acute respiratory failure Oxygen dependent COPD. Repeat chest x-ray indicating possible pulmonary fibrosis. - Continue BiPAP and hiflow N/C. - Wean FiO2 as tolerated for goal SPO2 greater than 92% given myocardial ischemia. - Nebs. - changed IV steroids to po prednisone twice daily. - Pulmonary following Dr. Lowe. - PT/ OT. - incentive spirometry. - palliative care consult appreciated. Pt now DNR. Consider hospice. Acute NSTEMI/ Acute CHF exacerbation, unknown type/ Atrial fib with rapid ventricular response Cardiology consult appreciated. Likely demand ischemia. - was on heparin gtt for anticoagulation for Afib. Coumadin per pharmacy. - PO amiodarone, Cardizem and aspirin. Cardizem increased by cardiology 07/07. - telemetry. Acute kidney injury Superimposed on chronic kidney disease. MOE likely secondary to poor oxygen delivery to the kidneys as well as likely component of cardiogenic shock from myocardial injury. - Continue Lasix. - follow up with nephrology. Appreciate consult. Sepsis Influenza swab negative and influenza PCR negative. UA positive. Leukocytosis is worsening, possibly from steroids. - continue Levaquin to cover empirically for UTI as well as severe COPD exacerbation. - wean steroids. - follow CBC. Diabetes Glucose well controlled. - SSI, Levemir. Constipation Seems resolved. - continue aggressive bowel regimen. Anemia Hgb has been downtrending. - would transfuse 1 unit in AM if repeat CBC continues trend. PPx: SCDs Discharge Planning On highflow and still with A fib with RVR. Family met with palliative care . Continue current management but hospice may be an option in the near future. Bill Pretty DO July 09, 2017 15:18
[2017-07-09] MEDS: WARFARIN SOD 2 MG TAB PO SCH (17:35)
--- NOTE | 2017-07-09 18:03 | HHI.PR ---
Subjective Remarks 81 YOWF [place] with RF,Hypoxia On High flow 02 75% Does't tolerate weaning Fi02 Weak, mild sob No fever or chills family at Objective Vital Signs Vital Signs Date Time Temp Pulse Resp B/P (MAP) Pulse Ox O2 Delivery O2 Flow Rate FiO2 07/09/17 17:02 136 31 131/72 (91) 94 07/09/17 16:17 91 Nasal Cannula 30.00 75 07/09/17 16:02 98.5 130 31 131/70 (90) 92 07/09/17 16:02 130 07/09/17 15:23 93 High Flow Nasal Cannula 30.00 90 07/09/17 15:02 134 30 149/70 (96) 91 07/09/17 15:02 134 07/09/17 14:02 128 35 129/58 (81) 91 07/09/17 14:00 128 07/09/17 13:02 122 24 100/68 (79) 93 07/09/17 12:10 92 Nasal Cannula 30.00 75 07/09/17 12:02 97.9 128 25 127/59 (81) 90 07/09/17 12:00 128 07/09/17 11:05 94 High Flow Nasal Cannula 30.00 80 07/09/17 11:02 120 21 133/65 (87) 100 07/09/17 10:40 98 High Flow Nasal Cannula 30.00 100 07/09/17 10:02 108 17 121/51 (74) 99 07/09/17 10:00 116 07/09/17 09:02 116 28 112/72 (85) 98 07/09/17 09:00 116 07/09/17 08:02 98.1 122 16 119/85 (96) 99 07/09/17 08:00 99 Nasal Cannula 30.00 75 07/09/17 08:00 122 07/09/17 07:02 126 17 137/53 (81) 99 07/09/17 06:02 126 27 133/59 (83) 98 07/09/17 06:00 99 Bi-Pap 30.00 70 07/09/17 06:00 123 07/09/17 05:01 128 20 111/72 (85) 99 07/09/17 04:25 99 70 07/09/17 04:01 97.8 124 15 104/70 (81) 99 07/09/17 04:00 99 Bi-Pap 30 07/09/17 04:00 131 07/09/17 03:01 124 15 124/48 (73) 99 07/09/17 02:01 130 15 125/85 (98) 99 07/09/17 02:00 118 07/09/17 01:37 99 70 07/09/17 01:01 124 16 146/87 (106) 99 07/09/17 00:01 98.2 126 15 93/83 (86) 99 07/09/17 00:00 99 Bi-Pap 30 07/09/17 00:00 98 07/08/17 23:01 120 14 127/85 (99) 99 07/08/17 22:10 99 70 07/08/17 22:01 126 19 122/73 (89) 96 07/08/17 22:00 127 07/08/17 21:01 116 31 150/61 (90) 94 07/08/17 20:15 97 High Flow Nasal Cannula 30.00 100 07/08/17 20:01 98.1 102 22 150/58 (88) 98 07/08/17 20:00 96 Bi-Pap 30.00 30 07/08/17 20:00 122 07/08/17 19:01 112 25 148/57 (87) 97 07/08/17 18:10 128 34 140/67 (91) 92 07/08/17 18:08 126 36 196/65 (108) 90 I/O 07/08/17 07/08/17 07/08/17 07/09/17 07/09/17 07/09/17 07:00 15:00 23:00 07:00 15:00 23:00 Intake Total 240 ml 960 ml 480 ml 150 ml Output Total 300 ml 1700 ml 600 ml 200 ml Balance -60 ml -740 ml -120 ml -50 ml Intake Oral 240 ml 960 ml 480 ml IV Total 150 ml Output Urine Total 300 ml 1700 ml 600 ml 200 ml # Bowel Movements 0 0 0 Result Diagram: 07/09/1744307/09/17443 Objective Remarks GENERAL: Frail elderly WF, SOB, on high flow SKIN: Warm and dry. HEAD: Normocephalic. EYES: No scleral icterus. No injection or drainage. NECK: Supple, trachea midline. No JVD or lymphadenopathy. CARDIOVASCULAR: Regular rate and rhythm without murmurs, gallops, or rubs. RESPIRATORY: Breath sounds equal bilaterally. No accessory muscle use. GASTROINTESTINAL: Abdomen soft, non-tender, nondistended. MUSCULOSKELETAL: No cyanosis, ++ edema. BACK: Nontender without obvious deformity. No CVA tenderness. A/P Assessment and Plan IMPRESSION: 1. Respiratory failure. 2. Lung infiltrate, possible sepsis. 3. Diabetes mellitus. 4. Chronic obstructive pulmonary disease. 5. Non-ST elevation myocardial infarction. 6. Renal insufficiency. PLAN: Supplement 02 with high flow 02 Use BIPAP prn Diurease with Lasix prednisone 20 mg daily Aerosol nebs Cont Abx Controll HR with Cardiazem Prognosis gaurded DNR DW Family at Tobias Lowe MD July 09, 2017 18:03
[2017-07-09] MEDS: MELATONIN 5 MG TAB PO SCH (21:39)
[2017-07-10] VITALS (42 sets, daily range): BP systolic 105–154; BP diastolic 44–86; PULSE 100–130; RESP 13–37; TEMP 97.5–98.4; O2SAT 83–98
[2017-07-10] MEDS: RESP: IPRATROPIUM 0.5 MG/2.5 ML NEB NEB SCH ×2 (03:44→10:07)
[2017-07-10] MEDS: CHLORHEXIDINE GLUCONATE 2 % 1 PACK (2 CLOTHS) TOP SCH (03:52)
[2017-07-10] MEDS: INSULIN ASPART SUPPLEMENTAL SCALE SQ SCH ×5 (05:45→23:44)
[2017-07-10] MEDS: INSULIN DETEMIR 100 UNITS/ML VIAL SQ SCH ×2 (05:45→18:01)
[2017-07-10] MEDS: DILTIAZEM HCL 60 MG TAB PO SCH ×4 (05:45→23:44)
[2017-07-10 06:19] LABS: HEMOGLOBIN 7.3 GM/DL (11.6-15.3); MEAN CELL VOLUME 83.1 FL (80.0-100.0); MEAN CORPUSCULAR HEMOGLOBIN 26.5 PG (27.0-34.0); MEAN CORPUSCULAR HGB CONC 31.9 % (32.0-36.0); MEAN PLATELET VOLUME 9.7 FL (7.0-11.0); PLATELET COUNT 110 TH/MM3 (150-450); RED BLOOD COUNT 2.76 MIL/MM3 (4.00-5.30); RED CELL DISTRIBUTION WIDTH 18.3 % (11.6-17.2)
[2017-07-10 06:30] LABS: INTERNATIONAL NORMALIZED RATIO 2.5 RATIO
[2017-07-10 06:38] LABS: BICARBONATE 30.8 MEQ/L (21.0-32.0); CALCIUM 6.8 MG/DL (8.5-10.1); CREATININE 1.8 MG/DL (0.50-1.00); MAGNESIUM 2.6 MG/DL (1.5-2.5)
[2017-07-10 06:53] LABS: CALCIUM-PROTEIN CORRECTED 7.9 MG/DL (8.5-10.1)
[2017-07-10] MEDS: NYSTATIN 100,000 UNIT/GM CREAM 15 GM TOPICAL SCH ×2 (09:00→19:55)
[2017-07-10] MEDS: AMIODARONE 200 MG TAB PO SCH ×2 (09:05→19:55)
[2017-07-10] MEDS: LORazepam 2 MG/ML VIAL IV PUSH SCH ×2 (09:05→19:54)
[2017-07-10] MEDS: predniSONE 20 MG TAB PO SCH ×2 (09:28→19:55)
[2017-07-10] MEDS: ASPIRIN EC 81 MG TABEC PO SCH (09:28)
[2017-07-10] MEDS: ATORVASTATIN 40 MG TAB PO SCH (09:28)
[2017-07-10] MEDS: DOCUSATE SODIUM 50 MG/SENNA 8.6 MG TAB PO SCH ×2 (09:29→19:54)
[2017-07-10] MEDS: FUROSEMIDE 20 MG/2 ML VIAL IV PUSH SCH (09:32)
--- NOTE | 2017-07-10 13:52 | HHI.PR ---
Subjective Remarks Patient seen and examined today for follow-up on acute respiratory failure, non- ST elevated myocardial infarction, acute renal failure. Patient without any significant improvement. Still on high flow oxygen. Still with very easy desaturations. Heart rate still 108-118. Patient has remained afebrile Objective Vitals Vital Signs Date Time Temp Pulse Resp B/P (MAP) Pulse Ox O2 Delivery O2 Flow Rate FiO2 07/10/17 13:16 94 80 07/10/17 07:40 96 High Flow Nasal Cannula 30.00 90 07/10/17 06:02 118 29 109/75 (86) 92 07/10/17 06:00 116 07/10/17 05:02 118 24 115/58 (77) 96 07/10/17 04:40 98 55 07/10/17 04:02 97.5 114 19 151/60 (90) 96 07/10/17 04:00 108 07/10/17 04:00 Bi-Pap 60 07/10/17 03:02 110 24 137/59 (85) 98 07/10/17 02:02 110 18 131/58 (82) 98 07/10/17 02:00 108 07/10/17 01:10 98 60 07/10/17 01:02 106 26 121/54 (76) 97 07/10/17 00:02 98.4 108 17 117/59 (78) 98 07/10/17 00:00 114 07/10/17 00:00 Bi-Pap 65 07/09/17 23:02 110 16 109/53 (71) 98 07/09/17 22:15 99 65 07/09/17 22:02 108 22 120/56 (77) 96 07/09/17 22:00 118 07/09/17 21:02 120 17 103/48 (66) 97 07/09/17 20:20 100 70 07/09/17 20:02 99.0 116 128/55 (79) 100 07/09/17 20:00 Bi-Pap 70 07/09/17 20:00 118 07/09/17 19:10 93 80 07/09/17 19:02 116 21 127/50 (75) 90 07/09/17 18:02 136 29 153/112 (126) 89 07/09/17 18:00 132 07/09/17 17:02 136 31 131/72 (91) 94 07/09/17 16:17 91 Nasal Cannula 30.00 75 07/09/17 16:02 98.5 130 31 131/70 (90) 92 07/09/17 16:02 130 07/09/17 15:23 93 High Flow Nasal Cannula 30.00 90 07/09/17 15:02 134 30 149/70 (96) 91 07/09/17 15:02 134 07/09/17 14:02 128 35 129/58 (81) 91 07/09/17 14:00 128 I/O 07/09/17 07/09/17 07/09/17 07/10/17 07/10/17 07/10/17 07:00 15:00 23:00 07:00 15:00 23:00 Intake Total 480 ml 150 ml Output Total 600 ml 200 ml 1000 ml 650 ml Balance -120 ml -50 ml -1000 ml -650 ml Intake Oral 480 ml IV Total 150 ml Output Urine Total 600 ml 200 ml 1000 ml 650 ml # Bowel Movements 0 Result Diagram: 07/10/17 0544 07/10/17 0544 Imaging Last Impressions Chest X-Ray 07/06/17 0000 Signed Impressions: Service Date/Time: Thursday, July 06, 2017 16:43 - CONCLUSION: 1. Interstitial lung disease, probably pulmonary fibrosis with mild blunting at costophrenic angles. Cardiomegaly. John Warner MD Abdomen X-Ray 07/05/17 0000 Signed Impressions: Service Date/Time: Wednesday, July 05, 2017 16:08 - CONCLUSION: Negative KUB. Timothy Cummings MD Renal Ultrasound 07/04/17 0000 Signed Impressions: Service Date/Time: Tuesday, July 04, 2017 10:58 - CONCLUSION: 1. Abnormal increased echotexture of the renal parenchyma indicating medical renal disease. There is no hydronephrosis. 2. Bilateral renal cysts are identified, as above. Timothy Johnston MD Objective Remarks GENERAL: Well-developed, well-nourished, currently in respiratory failure. alert and hard of hearing HEENT: Head is normocephalic without any lesions or masses noted. Facial features are symmetric. Eyes: Extraocular muscles are intact. Conjunctivae were clear. NECK: Supple without any masses. Trachea midline no deviation. No JVD, CARDIAC: Regular rhythm, regular rate. S1/S2 are heard. No murmurs gallops or rubs. LUNGS: Diminished breath sounds noted throughout. No wheeze, rhonchi or rales. No use of accessory muscles on inspiration or expiration. ABDOMEN: Soft, nontender. Nondistended. Bowel sounds heard in all 4 quadrants. No organomegaly or masses. Negative rebound, negative guarding EXTREMITIES: No edema, pulses are equal bilaterally. No cyanosis or clubbing NEUROLOGY: Mood and affect appear appropriate. Cranial nerves II through XII grossly intact. Moving all extremities, speech is clear Urinary Catheter: Yes Assessment to: Continue Wyatt insert reason: Measure Accurate Output Vascular Central Line Catheter: No A/P Assessment and Plan Acute on chronic hypoxic respiratory failure, with history of bony fibrosis, chronic objective pulmonary disease -Continue BiPAP at night and hiflow N/C. -Wean FiO2 as tolerated for goal SPO2 greater than 92% given myocardial ischemia. -Duo nebs every 6 hours while awake and every 2 hours as needed. -Currently on prednisone 20 mg twice daily -[employer], Dr. Lowe. Following the patient -incentive spirometry. -PT/ OT. -palliative care consult. Pt now DNR. Consider hospice in future, currently wants current treatment Acute non-ST elevated myocardial infarction -Cardiology consult appreciated. Likely demand ischemia. -Cardiac intervention is not feasible at this time due to renal failure, respiratory failure -Echocardiogram was performed and indicated normal systolic function, ejection fraction 55%, mild pulmonary hypertension with PA peak pressure 45 -Cardioprotection with aspirin, added beta juana, statin Atrial fibrillation with RVR versus multifocal atrial tachycardia -Current rate control medication amiodarone 200 mg every 12 hours Cardizem 120 mg every 6 hours Will add low-dose Lopressor 12.5 mg twice daily -If heart rate continues to be uncontrolled on above medication, consider digoxin -Anticoagulated with Coumadin managed by pharmacy Acute on chronic diastolic congestive heart failure -Chest x-ray with bilateral pleural effusions -BNP trending [id number] -Currently on Lasix 20 mg IV twice daily, changed to p.o. Acute renal failure superimposed on chronic kidney disease -Multifocal with episodes of hypotension, cardiac infarction, tachycardia, diuretic use, -Renal bladder ultrasound was performed which did show increased echotexture indicating medical renal disease no obstructive process -Nephrology consulted and following the patient Sepsis likely secondary to urinary tract infection -Blood cultures negative for 5 days, influenza testing was negative, Legionella , streptococcal antigens were negative -Urine culture with E. coli influenza swab negative and influenza PCR negative. UA positive. Leukocytosis is worsening, possibly from steroids. -Currently on Levaquin 750 mg every 48 hours -Repeat urine culture Persistent leukocytosis -Multifactorial with urinary tract infection, steroid use, reactive to respiratory failure, acute myocardial infarction -Continue monitor CBC Diabetes -Accu-Cheks with sliding scale insulin -Diabetic diet Constipation -Continue bowel regimen Anemia -Likely from acute illness, sepsis, chronic kidney disease -Continue monitor hemoglobin hematocrit and transfuse if hemoglobin below 7.0 DVT prevention -Patient is on Coumadin with INR 2.5 Discharge Planning Presently there cannot be concluded and anticipated discharge date. Patient is being followed by palliative care. Patient is almost maximized all treatment modalities that can be done to correct her condition. Dominic Hargrove July 10, 2017 13:52
[2017-07-10] MEDS: RESP: ALBUTEROL 2.5 MG/IPRATROPIUM 0.5 MG NEB (SCH) NEB ×2 (14:22→20:11)
[2017-07-10] MEDS: METOPROLOL TARTRATE 25 MG TAB PO SCH ×2 (15:32→19:54)
[2017-07-10] MEDS: WARFARIN SOD 2 MG TAB PO SCH (15:35)
[2017-07-10] MEDS: FUROSEMIDE 20 MG TAB PO SCH (18:00)
[2017-07-10 18:58] LABS: BILIRUBIN, URINE NEG (NEG); BLOOD, URINE MOD (NEG); GLUCOSE,URINE NEG (NEG); KETONE, URINE NEG (NEG); NITRITE,URINE NEG (NEG); PH, URINE 5.5 (5.0-8.5); URINE LEUKOCYTE ESTERASE LARGE (NEG)
--- NOTE | 2017-07-10 18:59 | HHI.NPPN ---
Subjective History of Present Illness 81-year-old with COPD oxygen dependent and increasing shortness of breath with acute renal failure Additional Remarks Patient seen, alert, with BIPAP and in moderate resp. distress. Objective Data Data 07/10/17 07/11/17 19:00 07:00 Intake Total 720 ml Output Total 950 ml Balance -230 ml Intake Oral 720 ml Output Urine Total 950 ml # Bowel Movements 0 Vital Signs Date Time Temp Pulse Resp B/P (MAP) Pulse Ox O2 Delivery O2 Flow Rate FiO2 07/10/17 18:02 104 33 145/60 (88) 91 07/10/17 18:00 106 07/10/17 17:02 104 37 125/54 (77) 92 07/10/17 17:00 92 High Flow Nasal Cannula 30.00 90 07/10/17 16:02 97.7 112 22 139/48 (78) 98 07/10/17 16:00 118 07/10/17 16:00 Bi-Pap 80 07/10/17 15:02 108 13 135/45 (75) 98 07/10/17 14:02 110 20 119/61 (80) 97 07/10/17 14:00 118 07/10/17 13:16 94 80 07/10/17 13:02 130 26 154/49 (84) 83 07/10/17 13:00 Bi-Pap 80 07/10/17 12:02 98.0 120 37 151/46 (81) 93 07/10/17 12:00 118 07/10/17 11:02 120 31 140/48 (78) 94 07/10/17 10:02 118 33 122/46 (71) 94 07/10/17 10:00 122 07/10/17 09:02 112 30 117/44 (68) 96 07/10/17 08:02 97.8 112 34 111/54 (73) 94 07/10/17 08:00 96 Nasal Cannula 30.00 90 07/10/17 08:00 110 07/10/17 07:40 96 High Flow Nasal Cannula 30.00 90 07/10/17 07:02 108 27 110/51 (70) 96 07/10/17 06:02 118 29 109/75 (86) 92 07/10/17 06:00 116 07/10/17 05:02 118 24 115/58 (77) 96 07/10/17 04:40 98 55 07/10/17 04:02 97.5 114 19 151/60 (90) 96 07/10/17 04:00 108 07/10/17 04:00 Bi-Pap 60 07/10/17 03:02 110 24 137/59 (85) 98 07/10/17 02:02 110 18 131/58 (82) 98 07/10/17 02:00 108 07/10/17 01:10 98 60 07/10/17 01:02 106 26 121/54 (76) 97 07/10/17 00:02 98.4 108 17 117/59 (78) 98 07/10/17 00:00 114 07/10/17 00:00 Bi-Pap 65 07/09/17 23:02 110 16 109/53 (71) 98 07/09/17 22:15 99 65 07/09/17 22:02 108 22 120/56 (77) 96 07/09/17 22:00 118 07/09/17 21:02 120 17 103/48 (66) 97 07/09/17 20:20 100 70 07/09/17 20:02 99.0 116 128/55 (79) 100 07/09/17 20:00 Bi-Pap 70 07/09/17 20:00 118 07/09/17 19:10 93 80 07/09/17 19:02 116 21 127/50 (75) 90 -: 07/10/17 0544 07/10/17 0544 Physical Exam General Appearance: Well Nourished, Anxious Neck Neck Exam: Neck Supple Pulmonary Resp Exam: Crackles, Rhonchi, Sputum, Decreased Bases Cardiology CV Exam: Arrhythmia Gastrointestinal/Abdomen GI Exam: Soft, Non-Tender, Bowel Sounds Present Musculoskeletal MS Exam: Joints Intact Integumentary Skin Exam: Clear Extremeties Extremities Exam: Trace Edema Neurologic Neuro Exam: Alert, Awake Assessment/Plan Problem List: (1) Acute renal failure ICD Codes: N17.9 - Acute kidney failure, unspecified Plan: Patient has improved urine output with Lasix Monitor renal functions Continue with Lasix 20 mg IV Q 12 Afib on Diltiazem/Amiodarone poor prognosis Palliative care following DNR now UTI with E. coli treated with Levaquin. Creatinine is stable, continue diuretics. (2) CHF (congestive heart failure) ICD Codes: I50.9 - Heart failure, unspecified Status: Acute Plan: Diuretics as above (3) COPD (chronic obstructive pulmonary disease) ICD Codes: J44.9 - Chronic obstructive pulmonary disease, unspecified Plan: Patient is getting IV antibiotics steroids and pulmonary care with nebulization (4) Rapid atrial fibrillation ICD Codes: I48.91 - Unspecified atrial fibrillation Status: Acute Plan: On amiodarone/Diltiazem (5) UTI (lower urinary tract infection) ICD Codes: N39.0 - Urinary tract infection, site not specified Plan: On Levaquin (6) Diabetes ICD Codes: E11.9 - Type 2 diabetes mellitus without complications Plan: Continue to monitor blood sugars patient is getting steroid Problem Qualifiers (1) Acute renal failure: Qualified Codes: N17.0 - Acute kidney failure with tubular necrosis (2) CHF (congestive heart failure): (3) Diabetes: Becky Ceballos MD July 10, 2017 18:59
[2017-07-10 19:04] LABS: RENAL EPITHELIAL CELLS 0-5 /hpf; SQUAMOUS EPITHELIAL CELL URINE 0-5 /hpf (0-5); WBC, URINE INNUM /hpf (0-5)
[2017-07-10] MEDS: MELATONIN 5 MG TAB PO SCH (19:55)
[2017-07-10] MEDS ORDERED: LORazepam 2 MG/ML VIAL IV PUSH ONE (23:45)
[2017-07-11] VITALS (49 sets, daily range): BP systolic 77–136; BP diastolic 44–75; PULSE 69–108; RESP 12–38; TEMP 88.4–98.7; O2SAT 82–100
[2017-07-11] MEDS: CHLORHEXIDINE GLUCONATE 2 % 1 PACK (2 CLOTHS) TOP SCH (03:46)
--- NOTE | 2017-07-11 04:00 | RADRPT ---
EXAM DATE/TIME: 07/11/2017 03:24 [facility] COMPARISON: CHEST SINGLE AP, July 04, 2017, 3:12. CHEST SINGLE AP, July 06, 2017, 16:43. INDICATIONS : Respiratory failure. MEDICAL HISTORY : Chronic obstructive pulmonary disease. Hypertension. Hypercholesterolemia. Diabetes. SURGICAL HISTORY : None. ENCOUNTER: Subsequent ACUITY: 2 weeks PAIN SCORE: Non-responsive. LOCATION: Bilateral chest FINDINGS: A single AP semierect portable view of the chest was obtained. The patient is now rotated to the left . Interstitial opacities remain in both lungs. The study is Midinspiratory. Both costophrenic angles appear mildly blunted. The heart size is mildly enlarged. The bony thorax remains intact with overlyi ng electrocardiogram leads. CONCLUSION: Chronic interstitial opacities remain in both lungs. Bill Lopes MD on July 11, 2017 at 3:55 Board Certified Radiologist. This report was verified electronically.
[2017-07-11] MEDS: LEVOFLOXACIN 750 MG PREMIX INJ 150 ML IV SCH (05:05)
[2017-07-11] MEDS: INSULIN ASPART SUPPLEMENTAL SCALE SQ SCH ×3 (05:17→17:53)
[2017-07-11] MEDS: INSULIN DETEMIR 100 UNITS/ML VIAL SQ SCH ×2 (05:18→17:22)
[2017-07-11] MEDS: DILTIAZEM HCL 60 MG TAB PO SCH ×3 (05:18→17:54)
[2017-07-11 06:29] LABS: INTERNATIONAL NORMALIZED RATIO 2.9 RATIO; PROTHROMBIN TIME - PATIENT 29.7 SEC (9.8-11.6)
[2017-07-11 06:39] LABS: AUTOMATED NEUTROPHIL # 20.2 TH/MM3 (1.8-7.7); BASOPHIL # 0.4 TH/MM3 (0-0.2); BASOPHIL % 1.9 % (0.0-2.0); LYMPH % 1.3 % (9.0-44.0); LYMPHOCYTE # 0.3 TH/MM3 (1.0-4.8); MEAN CELL VOLUME 82.9 FL (80.0-100.0); MEAN CORPUSCULAR HEMOGLOBIN 27.9 PG (27.0-34.0); MEAN CORPUSCULAR HGB CONC 33.7 % (32.0-36.0); MEAN PLATELET VOLUME 9.7 FL (7.0-11.0); MONO % 3.2 % (0.0-8.0); MONOCYTE # 0.7 TH/MM3 (0-0.9); NEUT % 93.6 % (16.0-70.0); PLATELET COUNT 115 TH/MM3 (150-450); RED BLOOD COUNT 2.52 MIL/MM3 (4.00-5.30); RED CELL DISTRIBUTION WIDTH 18.4 % (11.6-17.2); WHITE BLOOD COUNT 21.6 TH/MM3 (4.0-11.0)
[2017-07-11 06:49] LABS: HEMATOCRIT 20.9 % (35.0-46.0)
[2017-07-11 06:54] LABS: ALBUMIN 2.1 GM/DL (3.4-5.0); BICARBONATE 30.8 MEQ/L (21.0-32.0); CALCIUM 6.6 MG/DL (8.5-10.1); CALCIUM-PROTEIN CORRECTED 7.7 MG/DL (8.5-10.1); CREATININE 1.8 MG/DL (0.50-1.00); MAGNESIUM 2.7 MG/DL (1.5-2.5); TOTAL BILIRUBIN ADULT 0.5 MG/DL (0.2-1.0); TOTAL PROTEIN 4.9 GM/DL (6.4-8.2)
[2017-07-11] MEDS: RESP: ALBUTEROL 2.5 MG/IPRATROPIUM 0.5 MG NEB (SCH) NEB ×3 (07:35→19:37)
[2017-07-11] MEDS: METOPROLOL TARTRATE 25 MG TAB PO SCH ×2 (08:26→20:03)
[2017-07-11] MEDS: ASPIRIN EC 81 MG TABEC PO SCH (08:27)
[2017-07-11] MEDS: DOCUSATE SODIUM 50 MG/SENNA 8.6 MG TAB PO SCH ×2 (08:27→20:03)
[2017-07-11] MEDS: predniSONE 20 MG TAB PO SCH ×2 (08:27→20:03)
[2017-07-11] MEDS: FUROSEMIDE 20 MG TAB PO SCH ×2 (08:27→17:54)
[2017-07-11] MEDS: ATORVASTATIN 40 MG TAB PO SCH (08:27)
[2017-07-11] MEDS: AMIODARONE 200 MG TAB PO SCH ×2 (08:27→20:03)
[2017-07-11] MEDS: LORazepam 2 MG/ML VIAL IV PUSH SCH ×2 (08:27→20:02)
[2017-07-11] MEDS: NYSTATIN 100,000 UNIT/GM CREAM 15 GM TOPICAL SCH ×2 (08:28→20:03)
--- NOTE | 2017-07-11 09:35 | HHI.NPPN ---
Subjective History of Present Illness 81-year-old with COPD oxygen dependent and increasing shortness of breath with acute renal failure Additional Remarks Patient is alert, now with high flow O2, breathing is better. Objective Data Data Vital Signs Date Time Temp Pulse Resp B/P (MAP) Pulse Ox O2 Delivery O2 Flow Rate FiO2 07/11/17 09:02 104 31 111/52 (71) 93 07/11/17 08:20 91 High Flow Nasal Cannula 30.00 90 07/11/17 08:02 97.1 106 32 81/61 (68) 96 07/11/17 08:00 Bi-Pap 80 07/11/17 08:00 104 07/11/17 07:02 100 17 116/56 (76) 99 07/11/17 06:02 102 18 99/58 (72) 98 07/11/17 06:00 102 07/11/17 05:02 102 17 77/68 (71) 99 07/11/17 04:02 97.4 98 17 93/66 (75) 99 07/11/17 04:00 Bi-Pap 80 07/11/17 04:00 99 80 07/11/17 04:00 100 07/11/17 03:02 98 23 88/57 (67) 96 07/11/17 02:02 102 19 104/67 (79) 94 07/11/17 02:00 94 07/11/17 01:02 108 22 94/61 (72) 100 07/11/17 01:00 98 80 07/11/17 00:02 97.3 104 12 113/64 (80) 92 07/11/17 00:00 Bi-Pap 90 07/11/17 00:00 106 07/10/17 23:02 102 18 105/58 (74) 96 07/10/17 22:02 100 28 132/47 (75) 94 07/10/17 22:00 106 07/10/17 22:00 95 80 07/10/17 21:02 108 19 111/51 (71) 96 07/10/17 20:02 98.2 102 29 127/86 (100) 93 07/10/17 20:00 Bi-Pap 80 07/10/17 20:00 104 07/10/17 19:02 104 19 149/51 (83) 91 07/10/17 18:55 90 80 07/10/17 18:02 104 33 145/60 (88) 91 07/10/17 18:00 106 07/10/17 17:02 104 37 125/54 (77) 92 07/10/17 17:00 92 High Flow Nasal Cannula 30.00 90 07/10/17 16:02 97.7 112 22 139/48 (78) 98 07/10/17 16:00 118 07/10/17 16:00 Bi-Pap 80 07/10/17 15:02 108 13 135/45 (75) 98 07/10/17 14:02 110 20 119/61 (80) 97 07/10/17 14:00 118 07/10/17 13:16 94 80 07/10/17 13:02 130 26 154/49 (84) 83 07/10/17 13:00 Bi-Pap 80 07/10/17 12:02 98.0 120 37 151/46 (81) 93 07/10/17 12:00 118 07/10/17 11:02 120 31 140/48 (78) 94 07/10/17 10:02 118 33 122/46 (71) 94 07/10/17 10:00 122 -: 07/11/17 0541 07/11/17 0541 Microbiology 07/10/17 Urine Culture, Received Pending Physical Exam General Appearance: Well Nourished, Anxious Neck Neck Exam: Neck Supple Pulmonary Resp Exam: Crackles, Rhonchi, Sputum, Decreased Bases Cardiology CV Exam: Arrhythmia Gastrointestinal/Abdomen GI Exam: Soft, Non-Tender, Bowel Sounds Present Musculoskeletal MS Exam: Joints Intact Integumentary Skin Exam: Clear Extremeties Extremities Exam: Trace Edema Neurologic Neuro Exam: Alert, Awake Assessment/Plan Problem List: (1) Acute renal failure ICD Codes: N17.9 - Acute kidney failure, unspecified Plan: Patient has improved urine output with Lasix Monitor renal functions Continue with Lasix 20 mg IV Q 12 Afib on Diltiazem/Amiodarone poor prognosis Palliative care following DNR now UTI with E. coli treated with Levaquin. Creatinine is same 1.8, urine out put is adequate. Continue Lasix, CXR noted. (2) CHF (congestive heart failure) ICD Codes: I50.9 - Heart failure, unspecified Status: Acute Plan: Diuretics as above (3) COPD (chronic obstructive pulmonary disease) ICD Codes: J44.9 - Chronic obstructive pulmonary disease, unspecified Plan: Patient is getting IV antibiotics steroids and pulmonary care with nebulization (4) Rapid atrial fibrillation ICD Codes: I48.91 - Unspecified atrial fibrillation Status: Acute Plan: On amiodarone/Diltiazem (5) UTI (lower urinary tract infection) ICD Codes: N39.0 - Urinary tract infection, site not specified Plan: On Levaquin (6) Diabetes ICD Codes: E11.9 - Type 2 diabetes mellitus without complications Plan: Continue to monitor blood sugars patient is getting steroid Problem Qualifiers (1) Acute renal failure: Qualified Codes: N17.0 - Acute kidney failure with tubular necrosis (2) CHF (congestive heart failure): (3) Diabetes: Becky Ceballos MD July 11, 2017 09:35
--- NOTE | 2017-07-11 13:23 | HHI.PR ---
Subjective Remarks Patient seen and examined today for follow-up on respiratory failure, atrial fibrillation. Patient resting comfortably in bed. No significant change in status with current treatment regimen. Patient still on high flow oxygen with difficulty of weaning. Heart rate has had some minimal improvement. Patient still with easy desaturation. Objective Vitals Vital Signs Date Time Temp Pulse Resp B/P (MAP) Pulse Ox O2 Delivery O2 Flow Rate FiO2 07/11/17 11:02 100 29 127/53 (77) 92 07/11/17 10:35 92 High Flow Nasal Cannula 30.00 100 07/11/17 10:28 86 High Flow Nasal Cannula 30.00 90 07/11/17 10:02 100 32 121/55 (77) 89 07/11/17 10:00 96 07/11/17 09:02 104 31 111/52 (71) 93 07/11/17 08:20 91 High Flow Nasal Cannula 30.00 90 07/11/17 08:02 97.1 106 32 81/61 (68) 96 07/11/17 08:00 Bi-Pap 80 07/11/17 08:00 104 07/11/17 07:02 100 17 116/56 (76) 99 07/11/17 06:02 102 18 99/58 (72) 98 07/11/17 06:00 102 07/11/17 05:02 102 17 77/68 (71) 99 07/11/17 04:02 97.4 98 17 93/66 (75) 99 07/11/17 04:00 Bi-Pap 80 07/11/17 04:00 99 80 07/11/17 04:00 100 07/11/17 03:02 98 23 88/57 (67) 96 07/11/17 02:02 102 19 104/67 (79) 94 07/11/17 02:00 94 07/11/17 01:02 108 22 94/61 (72) 100 07/11/17 01:00 98 80 07/11/17 00:02 97.3 104 12 113/64 (80) 92 07/11/17 00:00 Bi-Pap 90 07/11/17 00:00 106 07/10/17 23:02 102 18 105/58 (74) 96 07/10/17 22:02 100 28 132/47 (75) 94 07/10/17 22:00 106 07/10/17 22:00 95 80 07/10/17 21:02 108 19 111/51 (71) 96 07/10/17 20:02 98.2 102 29 127/86 (100) 93 07/10/17 20:00 Bi-Pap 80 07/10/17 20:00 104 07/10/17 19:02 104 19 149/51 (83) 91 07/10/17 18:55 90 80 07/10/17 18:02 104 33 145/60 (88) 91 07/10/17 18:00 106 07/10/17 17:02 104 37 125/54 (77) 92 07/10/17 17:00 92 High Flow Nasal Cannula 30.00 90 07/10/17 16:02 97.7 112 22 139/48 (78) 98 07/10/17 16:00 118 07/10/17 16:00 Bi-Pap 80 07/10/17 15:02 108 13 135/45 (75) 98 07/10/17 14:02 110 20 119/61 (80) 97 07/10/17 14:00 118 I/O 07/10/17 07/10/17 07/10/17 07/11/17 07/11/17 07/11/17 06:59 14:59 22:59 06:59 14:59 22:59 Intake Total 720 ml 340 ml Output Total 650 ml 950 ml 700 ml Balance -650 ml -230 ml -360 ml Intake Oral 720 ml 240 ml IV Total 100 ml Output Urine Total 650 ml 950 ml 700 ml # Bowel Movements 0 Result Diagram: 07/11/17 0541 07/11/17 0541 Objective Remarks GENERAL: Well-developed, well-nourished, currently in respiratory failure. alert and hard of hearing HEENT: Head is normocephalic without any lesions or masses noted. Facial features are symmetric. Eyes: Extraocular muscles are intact. Conjunctivae were clear. NECK: Supple without any masses. Trachea midline no deviation. No JVD, CARDIAC: Regular rhythm, regular rate. S1/S2 are heard. No murmurs gallops or rubs. LUNGS: Diminished breath sounds noted throughout. No wheeze, rhonchi or rales. No use of accessory muscles on inspiration or expiration. ABDOMEN: Soft, nontender. Nondistended. Bowel sounds heard in all 4 quadrants. No organomegaly or masses. Negative rebound, negative guarding EXTREMITIES: No edema, pulses are equal bilaterally. No cyanosis or clubbing NEUROLOGY: Mood and affect appear appropriate. Cranial nerves II through XII grossly intact. Moving all extremities, speech is clear Urinary Catheter: Yes Assessment to: Continue Date of Insertion: June 29, 2017 Vascular Central Line Catheter: No A/P Assessment and Plan Acute on chronic hypoxic respiratory failure, with history of bony fibrosis, chronic obstructive pulmonary disease, no significant change -Continue BiPAP at night and hiflow N/C. -Wean FiO2 as tolerated for goal SPO2 greater than 92% given myocardial ischemia. -Duo nebs every 6 hours while awake and every 2 hours as needed. -Currently on prednisone 20 mg twice daily -[employer] Worker, Dr. Lowe. Following the patient -incentive spirometry. -PT/ OT. -palliative care consult. Pt now DNR. Consider hospice in future, currently wants current treatment Acute non-ST elevated myocardial infarction -Cardiology consult appreciated. Likely demand ischemia. -Cardiac intervention is not feasible at this time due to renal failure, respiratory failure -Echocardiogram was performed and indicated normal systolic function, ejection fraction 55%, mild pulmonary hypertension with PA peak pressure 45 -Cardioprotection with aspirin, beta juana, statin Atrial fibrillation with RVR versus multifocal atrial tachycardia -Current rate control medication amiodarone 200 mg every 12 hours Cardizem 120 mg every 6 hours Lopressor 12.5 mg twice daily -If heart rate continues to be uncontrolled on above medication, consider digoxin -Anticoagulated with Coumadin managed by pharmacy Acute on chronic diastolic congestive heart failure -Chest x-ray with bilateral pleural effusions -BNP trending [id number] -Currently on Lasix 20 mg p.o. twice daily Acute renal failure superimposed on chronic kidney disease -Multifocal with episodes of hypotension, cardiac infarction, tachycardia, diuretic use, -Renal bladder ultrasound was performed which did show increased echotexture indicating medical renal disease no obstructive process -Nephrology consulted and following the patient Sepsis likely secondary to urinary tract infection -Blood cultures negative for 5 days, influenza testing was negative, Legionella , streptococcal antigens were negative -Urine culture with E. coli influenza swab negative and influenza PCR negative. UA positive. Leukocytosis is worsening, possibly from steroids. -Discontinue Levaquin 750 mg every 48 hours -Repeat urinalysis showing yeast species. -We will give fluconazole -We will need to discontinue Wyatt, start external urine collection device Persistent leukocytosis -Multifactorial with urinary tract infection, steroid use, reactive to respiratory failure, acute myocardial infarction -Continue monitor CBC Diabetes -Accu-Cheks with sliding scale insulin -Diabetic diet Constipation -Continue bowel regimen Anemia -Likely from acute illness, sepsis, chronic kidney disease -Continue monitor hemoglobin hematocrit and transfuse if hemoglobin below 7.0 -We will transfuse 1 unit of packed red blood cells, considering patient had an STEMI and could also help with her oxygenation status DVT prevention -Patient is on Coumadin with INR 2.5 Discharge Planning Presently there cannot be concluded and anticipated discharge date. Patient is being followed by palliative care. Patient is almost maximized all treatment modalities that can be done to correct her condition. Dominic Hargrove July 11, 2017 13:23
[2017-07-11] MEDS ORDERED: diphenhydrAMINE HCL 25 MG CAP PO PRN (13:30)
[2017-07-11] MEDS ORDERED: SODIUM CHLOR 0.9% 250 ML INJ 250 ML IV ONE (13:30)
[2017-07-11] MEDS ORDERED: ACETAMINOPHEN 325 MG TAB PO PRN (13:30)
[2017-07-11] MEDS ORDERED: FUROSEMIDE 20 MG/2 ML VIAL IV PUSH PRN (13:30)
[2017-07-11] MEDS: FLUCONAZOLE 200 MG TAB PO SCH (17:21)
[2017-07-11] MEDS: MELATONIN 5 MG TAB PO SCH (20:03)
[2017-07-12] VITALS (45 sets, daily range): BP systolic 117–156; BP diastolic 51–89; PULSE 72–94; RESP 15–41; TEMP 96.1–99.2; O2SAT 82–99
[2017-07-12] MEDS: INSULIN ASPART SUPPLEMENTAL SCALE SQ SCH ×4 (00:48→18:07)
[2017-07-12] MEDS: CHLORHEXIDINE GLUCONATE 2 % 1 PACK (2 CLOTHS) TOP SCH (00:49)
[2017-07-12] MEDS: INSULIN DETEMIR 100 UNITS/ML VIAL SQ SCH ×2 (05:14→18:07)
[2017-07-12] MEDS: DILTIAZEM HCL 60 MG TAB PO SCH ×4 (05:15→18:06)
[2017-07-12 05:35] LABS: AUTOMATED NEUTROPHIL # 21.4 TH/MM3 (1.8-7.7); BASOPHIL # 0.6 TH/MM3 (0-0.2); BASOPHIL % 2.4 % (0.0-2.0); EOSINOPHIL % 0.1 % (0.0-4.0); HEMOGLOBIN 8.9 GM/DL (11.6-15.3); LYMPH % 0.7 % (9.0-44.0); LYMPHOCYTE # 0.2 TH/MM3 (1.0-4.8); MEAN CELL VOLUME 82.7 FL (80.0-100.0); MEAN CORPUSCULAR HEMOGLOBIN 27.1 PG (27.0-34.0); MEAN CORPUSCULAR HGB CONC 32.7 % (32.0-36.0); MEAN PLATELET VOLUME 9.5 FL (7.0-11.0); MONO % 3.3 % (0.0-8.0); MONOCYTE # 0.8 TH/MM3 (0-0.9); NEUT % 93.5 % (16.0-70.0); PLATELET COUNT 108 TH/MM3 (150-450); RED BLOOD COUNT 3.27 MIL/MM3 (4.00-5.30); RED CELL DISTRIBUTION WIDTH 16.4 % (11.6-17.2)
[2017-07-12 05:50] LABS: INTERNATIONAL NORMALIZED RATIO 3.2 RATIO; PROTHROMBIN TIME - PATIENT 32.7 SEC (9.8-11.6)
[2017-07-12 05:54] LABS: BICARBONATE 30.7 MEQ/L (21.0-32.0); CALCIUM 7.1 MG/DL (8.5-10.1); CREATININE 1.8 MG/DL (0.50-1.00); MAGNESIUM 2.6 MG/DL (1.5-2.5)
[2017-07-12 06:29] LABS: TOTAL PROTEIN 5.4 GM/DL (6.4-8.2)
[2017-07-12] MEDS: RESP: ALBUTEROL 2.5 MG/IPRATROPIUM 0.5 MG NEB (SCH) NEB ×3 (07:54→20:23)
[2017-07-12] MEDS: ASPIRIN EC 81 MG TABEC PO SCH (09:00)
[2017-07-12] MEDS: FUROSEMIDE 20 MG TAB PO SCH ×2 (09:00→18:06)
[2017-07-12] MEDS: LORazepam 2 MG/ML VIAL IV PUSH SCH ×2 (09:00→22:55)
[2017-07-12] MEDS: predniSONE 20 MG TAB PO SCH ×2 (09:00→19:43)
[2017-07-12] MEDS: DOCUSATE SODIUM 50 MG/SENNA 8.6 MG TAB PO SCH ×2 (09:00→19:43)
[2017-07-12] MEDS: AMIODARONE 200 MG TAB PO SCH ×2 (09:00→19:43)
[2017-07-12] MEDS: NYSTATIN 100,000 UNIT/GM CREAM 15 GM TOPICAL SCH ×2 (09:00→22:55)
[2017-07-12] MEDS: METOPROLOL TARTRATE 25 MG TAB PO SCH ×2 (09:01→19:43)
[2017-07-12] MEDS: FLUCONAZOLE 200 MG TAB PO SCH (09:01)
[2017-07-12] MEDS: ATORVASTATIN 40 MG TAB PO SCH (09:01)
--- NOTE | 2017-07-12 09:59 | HHI.PR ---
Subjective Remarks Patient seen and examined today for follow-up on respiratory failure, atrial fibrillation. Patient's heart rate much improved after transfusion yesterday. Patient still hypoxic requiring BiPAP/high flow oxygen. Patient denies any new complaints today. Patient remains afebrile Objective Vitals Vital Signs Date Time Temp Pulse Resp B/P (MAP) Pulse Ox O2 Delivery O2 Flow Rate FiO2 07/12/17 09:02 82 32 149/57 (87) 93 07/12/17 09:00 82 07/12/17 08:02 96.5 72 15 140/55 (83) 99 07/12/17 08:00 72 07/12/17 07:54 98 80 07/12/17 07:02 72 15 141/51 (81) 97 07/12/17 06:02 74 24 155/61 (92) 96 07/12/17 06:00 72 07/12/17 05:02 72 19 139/59 (85) 94 07/12/17 04:02 96.1 74 27 128/61 (83) 96 07/12/17 04:00 96 80 07/12/17 04:00 74 07/12/17 04:00 Bi-Pap 80 07/12/17 03:03 74 24 125/57 (79) 96 07/12/17 02:02 76 25 135/60 (85) 96 07/12/17 02:00 76 07/12/17 01:30 96 80 07/12/17 01:02 78 28 117/53 (74) 91 07/12/17 00:02 96.6 74 23 127/52 (77) 91 07/12/17 00:00 74 07/12/17 00:00 Bi-Pap 80 07/11/17 23:02 84 18 115/60 (78) 95 07/11/17 22:30 92 80 07/11/17 22:02 88 29 113/60 (77) 93 07/11/17 22:00 94 07/11/17 21:02 86 27 117/50 (72) 92 07/11/17 20:30 96.5 69 23 126/59 93 07/11/17 20:02 97.9 92 27 107/67 (80) 95 07/11/17 20:00 Bi-Pap 80 07/11/17 20:00 90 07/11/17 19:02 90 21 118/57 (77) 93 07/11/17 18:45 97.9 88 24 111/75 91 07/11/17 18:40 90 80 07/11/17 18:30 98.7 90 28 118/44 89 07/11/17 18:30 98.7 90 38 118/44 (68) 82 07/11/17 18:15 98.7 88 35 116/50 (72) 90 07/11/17 18:15 98.7 88 35 116/50 90 07/11/17 18:02 94 37 132/57 (82) 86 07/11/17 18:00 94 07/11/17 17:02 98 38 107/74 (85) 92 07/11/17 16:15 93 High Flow Nasal Cannula 30.00 100 07/11/17 16:02 97.9 94 20 97/60 (72) 99 07/11/17 16:00 Nasal Cannula 30.00 80 07/11/17 16:00 98 07/11/17 15:02 92 30 91/73 (79) 98 07/11/17 14:02 94 28 94/59 (71) 96 07/11/17 14:00 Bi-Pap 80 07/11/17 14:00 94 07/11/17 13:15 92 80 07/11/17 13:15 Nasal Cannula 30.00 80 07/11/17 13:02 94 35 121/56 (77) 86 07/11/17 12:02 97.7 102 33 136/59 (84) 90 07/11/17 12:00 104 07/11/17 11:02 100 29 127/53 (77) 92 07/11/17 11:00 Nasal Cannula 30.00 100 Bi-Pap 07/11/17 10:35 92 High Flow Nasal Cannula 30.00 100 07/11/17 10:28 86 High Flow Nasal Cannula 30.00 90 07/11/17 10:02 100 32 121/55 (77) 89 07/11/17 10:00 96 I/O 07/11/17 07/11/17 07/11/17 07/12/17 07/12/17 07/12/17 06:59 14:59 22:59 06:59 14:59 22:59 Intake Total 340 ml 1025 ml Output Total 700 ml 550 ml 1000 ml Balance -360 ml 475 ml -1000 ml Intake Oral 240 ml 600 ml IV Total 100 ml Packed Cells 400 ml Blood Product IV Normal Saline Flush 25 ml Output Urine Total 700 ml 550 ml 1000 ml # Bowel Movements 0 Result Diagram: 07/12/1742607/12/17426 Objective Remarks GENERAL: Well-developed, well-nourished, currently in respiratory failure. alert and hard of hearing HEENT: Head is normocephalic without any lesions or masses noted. Facial features are symmetric. Eyes: Extraocular muscles are intact. Conjunctivae were clear. NECK: Supple without any masses. Trachea midline no deviation. No JVD, CARDIAC: Regular rhythm, regular rate. S1/S2 are heard. No murmurs gallops or rubs. LUNGS: Diminished breath sounds noted throughout. No wheeze, rhonchi or rales. No use of accessory muscles on inspiration or expiration. ABDOMEN: Soft, nontender. Nondistended. Bowel sounds heard in all 4 quadrants. No organomegaly or masses. Negative rebound, negative guarding EXTREMITIES: No edema, pulses are equal bilaterally. No cyanosis or clubbing NEUROLOGY: Mood and affect appear appropriate. Cranial nerves II through XII grossly intact. Moving all extremities, speech is clear Urinary Catheter: No Date of Insertion: June 29, 2017 Date of Removal: July 11, 2017 Vascular Central Line Catheter: No A/P Assessment and Plan Acute on chronic hypoxic respiratory failure, with history of bony fibrosis, chronic obstructive pulmonary disease, no significant change -Continue BiPAP at night and hiflow N/C. -Wean FiO2 as tolerated for goal SPO2 greater than 92% given myocardial ischemia. -Duo nebs every 6 hours while awake and every 2 hours as needed. -Currently on prednisone 20 mg twice daily -[employer], Dr. Lowe. Following the patient -incentive spirometry. -PT/ OT. -palliative care consulted and following. Pt now DNR. Consider hospice in future, currently wants current treatment Acute non-ST elevated myocardial infarction -Cardiology consult appreciated. Likely demand ischemia. -Cardiac intervention is not feasible at this time due to renal failure, respiratory failure -Echocardiogram was performed and indicated normal systolic function, ejection fraction 55%, mild pulmonary hypertension with PA peak pressure 45 -Cardioprotection with aspirin, beta juana, statin Atrial fibrillation with RVR versus multifocal atrial tachycardia -Current rate control medication amiodarone 200 mg every 12 hours Cardizem 120 mg every 6 hours Lopressor 12.5 mg twice daily -Anticoagulated with Coumadin managed by pharmacy Acute on chronic diastolic congestive heart failure -Chest x-ray with bilateral pleural effusions -BNP trending [id number] -Currently on Lasix 20 mg p.o. twice daily Acute renal failure superimposed on chronic kidney disease -Multifocal with episodes of hypotension, cardiac infarction, tachycardia, diuretic use, -Renal bladder ultrasound was performed which did show increased echotexture indicating medical renal disease no obstructive process -Nephrology consulted and following the patient Sepsis likely secondary to urinary tract infection -Blood cultures negative for 5 days, influenza testing was negative, Legionella , streptococcal antigens were negative -Urine culture with E. coli influenza swab negative and influenza PCR negative. UA positive. Leukocytosis is worsening, possibly from steroids. -Discontinue Levaquin 750 mg every 48 hours -Repeat urinalysis showing yeast species. Could be from indwelling Wyatt -Started fluconazole, repeat urinalysis after Wyatt removed, if no longer showing yeast species discontinue fluconazole -Discontinued Wyatt, maintain external urine collection device Persistent leukocytosis -Multifactorial with urinary tract infection, steroid use, reactive to respiratory failure, acute myocardial infarction -Continue monitor CBC Diabetes -Accu-Cheks with sliding scale insulin -Diabetic diet Constipation -Continue bowel regimen Anemia -Likely from acute illness, sepsis, chronic kidney disease -Continue monitor hemoglobin hematocrit and transfuse if hemoglobin below 7.0 -Status post transfusion 1 unit of packed red blood cells, considering patient had an STEMI and could also help with her oxygenation status DVT prevention -Patient is on Coumadin with INR 3.2 Discharge Planning Presently there cannot be concluded and anticipated discharge date. Patient is being followed by palliative care. Patient is almost maximized all treatment modalities that can be done to correct her condition. Dominic Hargrove July 12, 2017 09:59
[2017-07-12 13:19] LABS: BILIRUBIN, URINE NEG (NEG); BLOOD, URINE TRACE (NEG); GLUCOSE,URINE NEG (NEG); KETONE, URINE NEG (NEG); NITRITE,URINE NEG (NEG); PH, URINE 5.5 (5.0-8.5); URINE COLOR YELLOW (YELLW/STRAW); URINE LEUKOCYTE ESTERASE SMALL (NEG)
[2017-07-12 13:23] LABS: RBC, URINE 0-3 /hpf (0-3)
[2017-07-12 13:24] LABS: BACTERIA, URINE FEW /hpf; SQUAMOUS EPITHELIAL CELL URINE 0-5 /hpf (0-5)
--- NOTE | 2017-07-12 14:09 | HHI.NPPN ---
Subjective History of Present Illness 81-year-old with COPD oxygen dependent and increasing shortness of breath with acute renal failure Additional Remarks Patient is alert, now with high flow O2, BiPAP 80% FiO2 Objective Data Data Vital Signs Date Time Temp Pulse Resp B/P (MAP) Pulse Ox O2 Delivery O2 Flow Rate FiO2 07/12/17 13:56 95 07/12/17 11:02 78 41 145/59 (87) 88 07/12/17 11:00 78 07/12/17 10:02 78 31 131/54 (79) 91 07/12/17 10:00 78 07/12/17 09:02 82 32 149/57 (87) 93 07/12/17 09:00 82 07/12/17 08:02 96.5 72 15 140/55 (83) 99 07/12/17 08:00 99 Nasal Cannula 30.00 80 07/12/17 08:00 72 07/12/17 07:54 98 80 07/12/17 07:02 72 15 141/51 (81) 97 07/12/17 06:02 74 24 155/61 (92) 96 07/12/17 06:00 72 07/12/17 05:02 72 19 139/59 (85) 94 07/12/17 04:02 96.1 74 27 128/61 (83) 96 07/12/17 04:00 96 80 07/12/17 04:00 74 07/12/17 04:00 Bi-Pap 80 07/12/17 03:03 74 24 125/57 (79) 96 07/12/17 02:02 76 25 135/60 (85) 96 07/12/17 02:00 76 07/12/17 01:30 96 80 07/12/17 01:02 78 28 117/53 (74) 91 07/12/17 00:02 96.6 74 23 127/52 (77) 91 07/12/17 00:00 74 07/12/17 00:00 Bi-Pap 80 07/11/17 23:02 84 18 115/60 (78) 95 07/11/17 22:30 92 80 07/11/17 22:02 88 29 113/60 (77) 93 07/11/17 22:00 94 07/11/17 21:02 86 27 117/50 (72) 92 07/11/17 20:30 96.5 69 23 126/59 93 07/11/17 20:02 97.9 92 27 107/67 (80) 95 07/11/17 20:00 Bi-Pap 80 07/11/17 20:00 90 07/11/17 19:02 90 21 118/57 (77) 93 07/11/17 18:45 97.9 88 24 111/75 91 07/11/17 18:40 90 80 07/11/17 18:30 98.7 90 28 118/44 89 07/11/17 18:30 98.7 90 38 118/44 (68) 82 07/11/17 18:15 98.7 88 35 116/50 (72) 90 07/11/17 18:15 98.7 88 35 116/50 90 07/11/17 18:02 94 37 132/57 (82) 86 07/11/17 18:00 94 07/11/17 17:02 98 38 107/74 (85) 92 07/11/17 16:15 93 High Flow Nasal Cannula 30.00 100 07/11/17 16:02 97.9 94 20 97/60 (72) 99 07/11/17 16:00 Nasal Cannula 30.00 80 07/11/17 16:00 98 07/11/17 15:02 92 30 91/73 (79) 98 -: 07/12/17 0427 07/12/17 0427 Physical Exam General Appearance: Well Nourished, Anxious Neck Neck Exam: Neck Supple Pulmonary Resp Exam: Crackles, Rhonchi, Sputum, Decreased Bases Cardiology CV Exam: Arrhythmia Gastrointestinal/Abdomen GI Exam: Soft, Non-Tender, Bowel Sounds Present Musculoskeletal MS Exam: Joints Intact Integumentary Skin Exam: Clear Extremeties Extremities Exam: Trace Edema Neurologic Neuro Exam: Alert, Awake Assessment/Plan Problem List: (1) Acute renal failure ICD Codes: N17.9 - Acute kidney failure, unspecified Plan: Patient has improved urine output with Lasix Monitor renal functions Continue with Lasix 20 mg PO Q 12 Afib on Diltiazem/Amiodarone poor prognosis Palliative care following DNR now UTI with E. coli treated with Levaquin. Creatinine is same 1.8, urine out put is adequate. Continue Lasix, poor prognosis due to COPD Palliative following (2) CHF (congestive heart failure) ICD Codes: I50.9 - Heart failure, unspecified Status: Acute Plan: Diuretics as above (3) COPD (chronic obstructive pulmonary disease) ICD Codes: J44.9 - Chronic obstructive pulmonary disease, unspecified Plan: Patient is getting IV antibiotics steroids and pulmonary care with nebulization (4) Rapid atrial fibrillation ICD Codes: I48.91 - Unspecified atrial fibrillation Status: Acute Plan: On amiodarone/Diltiazem (5) UTI (lower urinary tract infection) ICD Codes: N39.0 - Urinary tract infection, site not specified Plan: On Levaquin (6) Diabetes ICD Codes: E11.9 - Type 2 diabetes mellitus without complications Plan: Continue to monitor blood sugars patient is getting steroid Problem Qualifiers (1) Acute renal failure: Qualified Codes: N17.0 - Acute kidney failure with tubular necrosis (2) CHF (congestive heart failure): (3) Diabetes: Celia Galvan MD July 12, 2017 14:09
[2017-07-12] MEDS ORDERED: LORazepam 2 MG/ML VIAL IV PUSH ONE (19:00)
[2017-07-12] MEDS ORDERED: MICONAZOLE NITRATE 2% VAG CREAM 45 GM VAGINAL PRN (19:00)
--- NOTE | 2017-07-12 20:36 | HHI.PR ---
Subjective Remarks 81 YOWF [place] with RF,Hypoxia On High flow 02 75% Does't tolerate weaning Fi02 Weak, mild sob No fever or chills Using BIPAP Objective Vital Signs Vital Signs Date Time Temp Pulse Resp B/P (MAP) Pulse Ox O2 Delivery O2 Flow Rate FiO2 07/12/17 20:22 93 80 07/12/17 19:44 99.2 84 35 136/57 (83) 92 07/12/17 19:02 86 40 141/59 (86) 92 07/12/17 18:15 89 80 07/12/17 18:02 92 38 156/60 (92) 83 07/12/17 18:00 94 07/12/17 17:02 82 27 132/53 (79) 87 07/12/17 16:02 98.8 84 33 141/54 (83) 89 07/12/17 16:00 84 07/12/17 16:00 95 Nasal Cannula 30.00 80 07/12/17 15:02 84 29 152/64 (93) 90 07/12/17 14:30 95 Nasal Cannula 30.00 80 07/12/17 14:02 80 26 138/61 (86) 95 07/12/17 14:00 78 07/12/17 13:56 95 07/12/17 13:02 76 27 150/89 (109) 95 07/12/17 12:02 97.6 84 36 151/78 (102) 82 07/12/17 12:00 85 Bi-Pap 80 07/12/17 12:00 84 07/12/17 11:02 78 41 145/59 (87) 88 07/12/17 11:00 78 07/12/17 10:02 78 31 131/54 (79) 91 07/12/17 10:00 78 07/12/17 09:02 82 32 149/57 (87) 93 07/12/17 09:00 82 07/12/17 08:02 96.5 72 15 140/55 (83) 99 07/12/17 08:00 99 Nasal Cannula 30.00 80 07/12/17 08:00 72 07/12/17 07:54 98 80 07/12/17 07:02 72 15 141/51 (81) 97 07/12/17 06:02 74 24 155/61 (92) 96 07/12/17 06:00 72 07/12/17 05:02 72 19 139/59 (85) 94 07/12/17 04:02 96.1 74 27 128/61 (83) 96 07/12/17 04:00 96 80 07/12/17 04:00 74 07/12/17 04:00 Bi-Pap 80 07/12/17 03:03 74 24 125/57 (79) 96 07/12/17 02:02 76 25 135/60 (85) 96 07/12/17 02:00 76 07/12/17 01:30 96 80 07/12/17 01:02 78 28 117/53 (74) 91 07/12/17 00:02 96.6 74 23 127/52 (77) 91 07/12/17 00:00 74 07/12/17 00:00 Bi-Pap 80 07/11/17 23:02 84 18 115/60 (78) 95 07/11/17 22:30 92 80 07/11/17 22:02 88 29 113/60 (77) 93 07/11/17 22:00 94 07/11/17 21:02 86 27 117/50 (72) 92 I/O 07/11/17 07/11/17 07/11/17 07/12/17 07/12/17 07/12/17 07:00 15:00 23:00 07:00 15:00 23:00 Intake Total 340 ml 1025 ml 480 ml Output Total 700 ml 550 ml 1000 ml 800 ml Balance -360 ml 475 ml -1000 ml -320 ml Intake Oral 240 ml 600 ml 480 ml IV Total 100 ml Packed Cells 400 ml Blood Product IV Normal Saline Flush 25 ml Output Urine Total 700 ml 550 ml 1000 ml 800 ml # Bowel Movements 0 0 Result Diagram: 07/12/17 0427 07/12/17 042 Objective Remarks GENERAL: Frail elderly WF, SOB, on high flow SKIN: Warm and dry. HEAD: Normocephalic. EYES: No scleral icterus. No injection or drainage. NECK: Supple, trachea midline. No JVD or lymphadenopathy. CARDIOVASCULAR: Regular rate and rhythm without murmurs, gallops, or rubs. RESPIRATORY: Breath sounds equal bilaterally. No accessory muscle use. GASTROINTESTINAL: Abdomen soft, non-tender, nondistended. MUSCULOSKELETAL: No cyanosis, ++ edema. BACK: Nontender without obvious deformity. No CVA tenderness. A/P Assessment and Plan IMPRESSION: 1. Respiratory failure. 2. Lung infiltrate, possible sepsis. 3. Diabetes mellitus. 4. Chronic obstructive pulmonary disease. 5. Non-ST elevation myocardial infarction. 6. Renal insufficiency. PLAN: Supplement 02 with high flow 02 Use BIPAP at night and prn Diurease with Lasix prednisone 20 mg daily Aerosol nebs Cont Abx monitor renal functions Prognosis gaurded DNR DW Family at Tobias Lowe MD July 12, 2017 20:36
[2017-07-12] MEDS: MELATONIN 5 MG TAB PO SCH (22:54)
[2017-07-13] VITALS (46 sets, daily range): BP systolic 104–157; BP diastolic 43–84; PULSE 70–96; RESP 16–44; TEMP 97.2–98.7; O2SAT 80–97
[2017-07-13] MEDS: DILTIAZEM HCL 60 MG TAB PO SCH ×4 (00:36→17:35)
[2017-07-13] MEDS: CHLORHEXIDINE GLUCONATE 2 % 1 PACK (2 CLOTHS) TOP SCH (04:00)
[2017-07-13 05:24] LABS: INTERNATIONAL NORMALIZED RATIO 2.5 RATIO; PROTHROMBIN TIME - PATIENT 24.8 SEC (9.8-11.6)
[2017-07-13] MEDS: LEVOFLOXACIN 750 MG PREMIX INJ 150 ML IV SCH (05:35)
[2017-07-13] MEDS: INSULIN DETEMIR 100 UNITS/ML VIAL SQ SCH ×2 (07:39→17:36)
[2017-07-13] MEDS: INSULIN ASPART SUPPLEMENTAL SCALE SQ SCH ×4 (07:39→17:36)
[2017-07-13] MEDS: RESP: ALBUTEROL 2.5 MG/IPRATROPIUM 0.5 MG NEB (SCH) NEB ×3 (08:06→20:19)
[2017-07-13] MEDS: METOPROLOL TARTRATE 25 MG TAB PO SCH ×2 (08:54→20:43)
[2017-07-13] MEDS: LORazepam 2 MG/ML VIAL IV PUSH SCH ×2 (08:54→21:00)
[2017-07-13] MEDS: predniSONE 20 MG TAB PO SCH ×2 (08:55→20:43)
[2017-07-13] MEDS: AMIODARONE 200 MG TAB PO SCH ×2 (08:55→20:47)
[2017-07-13] MEDS: FUROSEMIDE 20 MG TAB PO SCH ×2 (08:55→17:37)
[2017-07-13] MEDS: DOCUSATE SODIUM 50 MG/SENNA 8.6 MG TAB PO SCH ×2 (08:55→20:43)
[2017-07-13] MEDS: ATORVASTATIN 40 MG TAB PO SCH (08:55)
[2017-07-13] MEDS: ASPIRIN EC 81 MG TABEC PO SCH (09:00)
[2017-07-13] MEDS: NYSTATIN 100,000 UNIT/GM CREAM 15 GM TOPICAL SCH ×2 (09:00→21:00)
--- NOTE | 2017-07-13 11:32 | HHI.PR ---
Subjective Remarks Patient seen and examined today for follow-up on respiratory failure, atrial fibrillation. Patient seen and examined, lying in bed on BIPAP. Denies any pain. Does admit to intermittent shortness of breath. BIPAP was placed this am, unable to keep O2 saturations above 88% with. Currently requiring 80% FiO2. Vitals are stable. Heart rate stable. In NSR. Spoke to family today, requesting to speak with palliative care team again. Will obtain ABG, patient tachypneic and ashen. Follow. Objective Vitals Vital Signs Date Time Temp Pulse Resp B/P (MAP) Pulse Ox O2 Delivery O2 Flow Rate FiO2 07/13/17 10:30 74 27 88 07/13/17 10:20 84 80 07/13/17 10:02 81 25 123/55 (77) 96 07/13/17 09:02 97.5 82 33 109/49 (69) 87 07/13/17 08:06 93 High Flow Nasal Cannula 30.00 100 07/13/17 08:02 72 23 104/48 (66) 94 07/13/17 08:00 91 07/13/17 08:00 92 30.00 100 07/13/17 07:02 72 24 106/53 (70) 97 07/13/17 06:13 72 07/13/17 06:02 70 24 106/51 (69) 96 07/13/17 06:00 88 Bi-Pap 80 07/13/17 05:02 72 17 127/55 (79) 93 07/13/17 04:36 75 07/13/17 04:21 97 Bi-Pap 70 07/13/17 04:06 96 80 07/13/17 04:02 97.3 72 17 118/56 (76) 97 07/13/17 03:02 72 22 113/57 (75) 94 07/13/17 02:02 76 17 140/63 (88) 94 07/13/17 01:02 74 23 131/60 (83) 93 07/13/17 00:02 97.9 76 23 130/61 (84) 97 07/13/17 00:00 76 07/13/17 00:00 94 Bi-Pap 80 07/12/17 23:41 97 80 07/12/17 23:02 98.0 76 29 128/62 (84) 92 07/12/17 22:02 78 18 129/57 (81) 95 07/12/17 22:00 80 07/12/17 21:02 80 18 126/55 (78) 95 07/12/17 20:22 93 80 07/12/17 20:02 82 29 133/63 (86) 92 07/12/17 20:00 92 Bi-Pap 80 07/12/17 20:00 81 07/12/17 19:44 99.2 84 35 136/57 (83) 92 07/12/17 19:02 86 40 141/59 (86) 92 07/12/17 18:15 89 80 07/12/17 18:02 92 38 156/60 (92) 83 07/12/17 18:00 94 07/12/17 17:02 82 27 132/53 (79) 87 07/12/17 16:02 98.8 84 33 141/54 (83) 89 07/12/17 16:00 84 07/12/17 16:00 95 Nasal Cannula 30.00 80 07/12/17 15:02 84 29 152/64 (93) 90 07/12/17 14:30 95 Nasal Cannula 30.00 80 07/12/17 14:02 80 26 138/61 (86) 95 07/12/17 14:00 78 07/12/17 13:56 95 07/12/17 13:02 76 27 150/89 (109) 95 07/12/17 12:02 97.6 84 36 151/78 (102) 82 07/12/17 12:00 85 Bi-Pap 80 07/12/17 12:00 84 I/O 07/12/17 07/12/17 07/12/17 07/13/17 07/13/17 07/13/17 07:00 15:00 23:00 07:00 15:00 23:00 Intake Total 480 ml 250 ml Output Total 1000 ml 800 ml 700 ml Balance -1000 ml -320 ml -450 ml Intake Oral 480 ml 250 ml Output Urine Total 1000 ml 800 ml 700 ml # Bowel Movements 0 0 Result Diagram: 07/12/1742607/12/17426 Imaging Last Impressions Chest X-Ray 07/11/17 0600 Signed Impressions: Service Date/Time: Tuesday, July 11, 2017 03:24 - CONCLUSION: Chronic interstitial opacities remain in both lungs. Bill Lopes MD Abdomen X-Ray 07/05/17 0000 Signed Impressions: Service Date/Time: Wednesday, July 05, 2017 16:08 - CONCLUSION: Negative KUB. Timothy Cummings MD Renal Ultrasound 07/04/17 0000 Signed Impressions: Service Date/Time: Tuesday, July 04, 2017 10:58 - CONCLUSION: 1. Abnormal increased echotexture of the renal parenchyma indicating medical renal disease. There is no hydronephrosis. 2. Bilateral renal cysts are identified, as above. Timothy Johnston MD Objective Remarks GENERAL: Well-developed, well-nourished, currently in respiratory failure on BIPAP. alert and hard of hearing HEENT: Head is normocephalic without any lesions or masses noted. Facial features are symmetric. Eyes: Extraocular muscles are intact. Conjunctivae were clear. NECK: Supple without any masses. Trachea midline no deviation. No JVD, CARDIAC: Regular rhythm, regular rate. S1/S2 are heard. No gallops or rubs. LUNGS: Diminished breath sounds noted throughout. No wheeze, rhonchi or rales. No use of accessory muscles on inspiration or expiration. ABDOMEN: Soft, nontender. Nondistended. Bowel sounds heard in all 4 quadrants. No organomegaly or masses. Negative rebound, negative guarding EXTREMITIES: No edema, pulses are equal bilaterally. No cyanosis or clubbing NEUROLOGY: Mood and affect appear appropriate. Cranial nerves II through XII grossly intact. Moving all extremities, speech is clear Urinary Catheter: No Assessment to: Continue Date of Insertion: June 29, 2017 Date of Removal: July 11, 2017 Vascular Central Line Catheter: No A/P Assessment and Plan Acute on chronic hypoxic respiratory failure, with history of bony fibrosis, chronic obstructive pulmonary disease, no significant change -Continue BiPAP and hiflow NC. -Wean FiO2 as tolerated for goal SPO2 greater than 92% given myocardial ischemia. -Duo nebs every 6 hours while awake and every 2 hours as needed. -Currently on prednisone 20 mg twice daily -[employer], Dr. Lowe. Following the patient, appreciate input and recommendations. -incentive spirometry. -PT/ OT. -palliative care consulted and following. Pt now DNR. Consider hospice in future, currently wants current treatment Acute non-ST elevated myocardial infarction -Cardiology consult appreciated. Likely demand ischemia. -Cardiac intervention is not feasible at this time due to renal failure, respiratory failure -Echocardiogram was performed and indicated normal systolic function, ejection fraction 55%, mild pulmonary hypertension with PA peak pressure 45 -Cardioprotection with aspirin, beta juana, statin Atrial fibrillation with RVR versus multifocal atrial tachycardia -Current rate control medication amiodarone 200 mg every 12 hours Cardizem 120 mg every 6 hours Lopressor 12.5 mg twice daily -Anticoagulated with Coumadin managed by pharmacy Acute on chronic diastolic congestive heart failure -Chest x-ray with bilateral pleural effusions -BNP trending downward 1307-->813 -Currently on Lasix 20 mg p.o. twice daily. Continue. Acute renal failure superimposed on chronic kidney disease -Multifocal with episodes of hypotension, cardiac infarction, tachycardia, diuretic use, -Renal bladder ultrasound was performed which did show increased echotexture indicating medical renal disease no obstructive process -Nephrology consulted and following the patient, creatinine now at baseline. Sepsis likely secondary to urinary tract infection -Blood cultures negative to date, influenza testing was negative, Legionella, streptococcal antigens were negative -Urine culture with E. coli. influenza swab negative and influenza PCR negative. UA positive. Leukocytosis is worsening, possibly from steroids. -Discontinue Levaquin 750 mg every 48 hours. -Repeat urinalysis showing yeast species. Could be from indwelling Wyatt -Status post fluconazole. -Discontinued Wyatt, maintain external urine collection device Persistent leukocytosis -Multifactorial with urinary tract infection, steroid use, reactive to respiratory failure, acute myocardial infarction -Continue monitor CBC Diabetes -Accu-Cheks with sliding scale insulin -Diabetic diet Constipation -Continue bowel regimen Anemia -Likely from acute illness, sepsis, chronic kidney disease -Continue monitor hemoglobin hematocrit and transfuse if hemoglobin below 7.0 -Status post transfusion 1 unit of packed red blood cells, considering patient had an STEMI and could also help with her oxygenation status. Has improved slightly. DVT prevention -Patient is on Coumadin with INR WNL. Pharmacy following. Discharge Planning Presently there cannot be concluded and anticipated discharge date. Patient is being followed by palliative care. Patient is almost maximized all treatment modalities that can be done to correct her condition. Chen Perry July 13, 2017 11:32
--- NOTE | 2017-07-13 14:51 | HHI.NPPN ---
Subjective History of Present Illness 81-year-old with COPD oxygen dependent and increasing shortness of breath with acute renal failure Additional Remarks Patient is alert, now with high flow O2, BiPAP 80% FiO2 Objective Data Data Vital Signs Date Time Temp Pulse Resp B/P (MAP) Pulse Ox O2 Delivery O2 Flow Rate FiO2 07/13/17 14:19 92 80 07/13/17 14:02 80 34 114/62 (79) 90 07/13/17 14:00 89 07/13/17 13:00 97.9 84 43 130/65 (86) 80 07/13/17 12:02 76 30 113/70 (84) 89 07/13/17 12:00 96 07/13/17 12:00 93 Bi-Pap 15.00 80 07/13/17 11:02 74 24 110/55 (73) 92 07/13/17 10:30 74 27 88 07/13/17 10:20 84 80 07/13/17 10:02 78 36 118/43 (68) 80 07/13/17 10:02 81 25 123/55 (77) 96 07/13/17 10:00 83 07/13/17 09:02 97.5 82 33 109/49 (69) 87 07/13/17 08:06 93 High Flow Nasal Cannula 30.00 100 07/13/17 08:02 72 23 104/48 (66) 94 07/13/17 08:00 91 07/13/17 08:00 92 30.00 100 07/13/17 07:02 72 24 106/53 (70) 97 07/13/17 06:13 72 07/13/17 06:02 70 24 106/51 (69) 96 07/13/17 06:00 88 Bi-Pap 80 07/13/17 05:02 72 17 127/55 (79) 93 07/13/17 04:36 75 07/13/17 04:21 97 Bi-Pap 70 07/13/17 04:06 96 80 07/13/17 04:02 97.3 72 17 118/56 (76) 97 07/13/17 03:02 72 22 113/57 (75) 94 07/13/17 02:02 76 17 140/63 (88) 94 07/13/17 01:02 74 23 131/60 (83) 93 07/13/17 00:02 97.9 76 23 130/61 (84) 97 07/13/17 00:00 76 07/13/17 00:00 94 Bi-Pap 80 07/12/17 23:41 97 80 07/12/17 23:02 98.0 76 29 128/62 (84) 92 07/12/17 22:02 78 18 129/57 (81) 95 07/12/17 22:00 80 07/12/17 21:02 80 18 126/55 (78) 95 07/12/17 20:22 93 80 07/12/17 20:02 82 29 133/63 (86) 92 07/12/17 20:00 92 Bi-Pap 80 07/12/17 20:00 81 07/12/17 19:44 99.2 84 35 136/57 (83) 92 07/12/17 19:02 86 40 141/59 (86) 92 07/12/17 18:15 89 80 07/12/17 18:02 92 38 156/60 (92) 83 07/12/17 18:00 94 07/12/17 17:02 82 27 132/53 (79) 87 07/12/17 16:02 98.8 84 33 141/54 (83) 89 07/12/17 16:00 84 07/12/17 16:00 95 Nasal Cannula 30.00 80 07/12/17 15:02 84 29 152/64 (93) 90 -: 07/12/17 0427 07/12/17 0427 Physical Exam General Appearance: Well Nourished, Anxious Neck Neck Exam: Neck Supple Pulmonary Resp Exam: Crackles, Rhonchi, Sputum, Decreased Bases Cardiology CV Exam: Arrhythmia Gastrointestinal/Abdomen GI Exam: Soft, Non-Tender, Bowel Sounds Present Musculoskeletal MS Exam: Joints Intact Integumentary Skin Exam: Clear Extremeties Extremities Exam: Trace Edema Neurologic Neuro Exam: Alert, Awake Assessment/Plan Problem List: (1) Acute renal failure ICD Codes: N17.9 - Acute kidney failure, unspecified Plan: Patient has improved urine output with Lasix Monitor renal functions Continue with Lasix 20 mg PO Q 12 doing poorly Afib on Diltiazem/Amiodarone poor prognosis Palliative care following DNR now UTI with E. coli treated with Levaquin finished Creatinine is same 1.8, urine out put is adequate. Continue Lasix, poor prognosis due to COPD Palliative following possible Hospice to take over her care I will sign off (2) CHF (congestive heart failure) ICD Codes: I50.9 - Heart failure, unspecified Status: Acute Plan: Diuretics as above (3) COPD (chronic obstructive pulmonary disease) ICD Codes: J44.9 - Chronic obstructive pulmonary disease, unspecified Plan: Patient is getting IV antibiotics steroids and pulmonary care with nebulization (4) Rapid atrial fibrillation ICD Codes: I48.91 - Unspecified atrial fibrillation Status: Acute Plan: On amiodarone/Diltiazem (5) UTI (lower urinary tract infection) ICD Codes: N39.0 - Urinary tract infection, site not specified Plan: On Levaquin (6) Diabetes ICD Codes: E11.9 - Type 2 diabetes mellitus without complications Plan: Continue to monitor blood sugars patient is getting steroid Problem Qualifiers (1) Acute renal failure: Qualified Codes: N17.0 - Acute kidney failure with tubular necrosis (2) CHF (congestive heart failure): (3) Diabetes: Celia Galvan MD July 13, 2017 14:51
--- NOTE | 2017-07-13 17:11 | HHI.HCPN ---
Reason for visit a. To assist with evaluation and management of symptoms including:dyspnea, anxiety. b. To assist medical decision maker(s) with: better understanding of current medical conditions; weighing benefits/burdens of medical treatment options; making medical treatment decisions. Subjective/Interval History Patient seen to evaluate symptom management for dyspnea and anxiety. Patient requiring more time on BiPAP and not tolerating high flow nasal cannula O2 at 100% for as long. She is only tolerating it for a few hours at a time. She becomes tachypneic quickly, exhausts more easily and color shows some cyanosis. Staff reports today that she stopped eating. While her initial goal was weaning of the oxygen, she is requiring more support, more frequently. Her anxiety from air hunger and dyspnea is increasing. In addition to her baseline dose of Ativan 1/2 mg IV twice daily, she also required an additional 0.5 mg dose for breakthrough symptoms today. . Family/friend interactions I was contacted by her family requesting a family meeting to discuss withdrawal of life support and the logistics to go with that. Patient had previously stated that she did not wish to leave the hospital due to the anxiety of transport and it is not likely that she would survive even the short trip to the care center given her fragile respiratory status. It is the plan of the family to withdraw life support once her son from [place] arrives, which is expected in the next 24-36 hours. This was discussed with Dr. Paige and LINO Jewell, who have been providing her primary medical care this week and they are in agreement with and support of this plan due to the patient' s discomfort, failure to thrive and progressively increasing oxygen requirements. Her they feel that family states they feel she is exhausted and uncomfortable in spite of excellent care. I did discuss the logistics of withdrawal and gave anticipatory guidance. This will provide her the most comfort while she is clearly at the end of her days. Consents have been placed on the chart for family and physicians to review and sign. Contact information was confirmed with the family and requested that it be provided to the son in [place] in case of any estrogens or concerns. Plan to withdraw life support in the next 24-36 hours at the family's convenience. . Advance Directives Living Will: Completed, but not made available Health Care Surrogate: Completed, but not made available Durable Power of [employer]: Completed, but not made available Advance Directive Specifics Health Care Surrogate(s): Not completed. . Documented care wishes: No living will available. . Objective Vital Signs Date Time Temp Pulse Resp B/P (MAP) Pulse Ox O2 Delivery O2 Flow Rate FiO2 07/13/17 15:02 98.3 80 16 117/57 (77) 94 07/13/17 14:19 92 80 07/13/17 14:02 80 34 114/62 (79) 90 07/13/17 14:02 80 34 114/62 (79) 90 07/13/17 14:00 89 07/13/17 13:45 82 35 90 07/13/17 13:02 86 35 130/65 (86) 81 07/13/17 13:00 97.9 84 43 130/65 (86) 80 07/13/17 12:45 84 39 81 07/13/17 12:02 76 30 113/70 (84) 89 07/13/17 12:02 76 30 113/70 (84) 89 07/13/17 12:00 96 07/13/17 12:00 93 Bi-Pap 15.00 80 07/13/17 11:45 78 38 87 07/13/17 11:02 74 24 110/55 (73) 92 07/13/17 10:30 74 27 88 07/13/17 10:20 84 80 07/13/17 10:02 78 36 118/43 (68) 80 07/13/17 10:02 81 25 123/55 (77) 96 07/13/17 10:00 83 07/13/17 09:02 97.5 82 33 109/49 (69) 87 07/13/17 08:06 93 High Flow Nasal Cannula 30.00 100 07/13/17 08:02 72 23 104/48 (66) 94 07/13/17 08:00 91 07/13/17 08:00 92 30.00 100 07/13/17 07:02 72 24 106/53 (70) 97 07/13/17 06:13 72 07/13/17 06:02 70 24 106/51 (69) 96 07/13/17 06:00 88 Bi-Pap 80 07/13/17 05:02 72 17 127/55 (79) 93 07/13/17 04:36 75 07/13/17 04:21 97 Bi-Pap 70 5/15/18 04:06 96 80 07/13/17 04:02 97.3 72 17 118/56 (76) 97 07/13/17 03:02 72 22 113/57 (75) 94 07/13/17 02:02 76 17 140/63 (88) 94 07/13/17 01:02 74 23 131/60 (83) 93 07/13/17 00:02 97.9 76 23 130/61 (84) 97 07/13/17 00:00 76 07/13/17 00:00 94 Bi-Pap 80 07/12/17 23:41 97 80 07/12/17 23:02 98.0 76 29 128/62 (84) 92 07/12/17 22:02 78 18 129/57 (81) 95 07/12/17 22:00 80 07/12/17 21:02 80 18 126/55 (78) 95 07/12/17 20:22 93 80 07/12/17 20:02 82 29 133/63 (86) 92 07/12/17 20:00 92 Bi-Pap 80 07/12/17 20:00 81 07/12/17 19:44 99.2 84 35 136/57 (83) 92 07/12/17 19:02 86 40 141/59 (86) 92 07/12/17 18:15 89 80 07/12/17 18:02 92 38 156/60 (92) 83 07/12/17 18:00 94 07/12/17 17:02 82 27 132/53 (79) 87 Intake & Output 07/13/17 07/13/17 07:00 19:00 Intake Total 250 ml Output Total 700 ml Balance -450 ml Intake Oral 250 ml Output Urine Total 700 ml # Bowel Movements 0 Physical Exam CONSTITUTIONAL/GENERAL: This is an elderly, obese patient, sitting up in bed on a BiPAP mask, arousable, lethargic. TUBES/LINES/DRAINS:on BiPAP, piv/ montague. SKIN: No jaundice, rashes, or lesions. Ecchymoses on upper extremities and chest. No wounds seen anteriorly. Skin temperature appropriate. Not diaphoretic. HEAD: Atraumatic. Normocephalic. EYES: Pupils equal and round and reactive. Extraocular motions intact. No scleral icterus. No injection or drainage. Fundi not examined. ENT: Hearing grossly normal. Nose without bleeding or purulent drainage. Throat without visible erythema, exudates, masses, or lesions. NECK: Trachea midline. Supple, nontender. No palpable thyroid enlargement or nodularity. CARDIOVASCULAR: S1, S2, irregular rhythm, tachycardic rate, 2/6 systolic ejection murmur at LSB. RESPIRATORY/CHEST: Lungs sounds coarse with scattered wheezes both inspiratory and expiratory. GASTROINTESTINAL: Abdomen soft, non-tender, nondistended. No hepato-splenomegaly , or palpable masses. No guarding. Bowel sounds present. GENITOURINARY: Without palpable bladder distension. Montague catheter in place. MUSCULOSKELETAL: Extremities without clubbing, cyanosis, or edema. No joint tenderness or effusion noted. No calf tenderness. No mottling or clubbing. LYMPHATICS: No palpable cervical or supraclavicular adenopathy. NEUROLOGICAL: Arousable, lethargic at this visit. Moves all extremities. PSYCHIATRIC: Mildly anxious with arousal. . Diagnostic Tests Laboratory Laboratory Tests Test 07/11/17 05:41 07/12/17 04:27 07/12/17 13:10 07/13/17 04:27 White Blood Count 21.6 TH/MM3 (4.0-11.0) 23.0 TH/MM3 (4.0-11.0) Red Blood Count 2.52 MIL/MM3 (4.00-5.30) 3.27 MIL/MM3 (4.00-5.30) Hemoglobin 7.0 GM/DL (11.6-15.3) 8.9 GM/DL (11.6-15.3) Hematocrit 20.9 % (35.0-46.0) 27.0 % (35.0-46.0) Mean Corpuscular Volume 82.9 FL (80.0-100.0) 82.7 FL (80.0-100.0) Mean Corpuscular Hemoglobin 27.9 PG (27.0-34.0) 27.1 PG (27.0-34.0) Mean Corpuscular Hemoglobin Concent 33.7 % (32.0-36.0) 32.7 % (32.0-36.0) Red Cell Distribution Width 18.4 % (11.6-17.2) 16.4 % (11.6-17.2) Platelet Count 115 TH/MM3 (150-450) 108 TH/MM3 (150-450) Mean Platelet Volume 9.7 FL (7.0-11.0) 9.5 FL (7.0-11.0) Neutrophils (%) (Auto) 93.6 % (16.0-70.0) 93.5 % (16.0-70.0) Lymphocytes (%) (Auto) 1.3 % (9.0-44.0) 0.7 % (9.0-44.0) Monocytes (%) (Auto) 3.2 % (0.0-8.0) 3.3 % (0.0-8.0) Eosinophils (%) (Auto) 0.0 % (0.0-4.0) 0.1 % (0.0-4.0) Basophils (%) (Auto) 1.9 % (0.0-2.0) 2.4 % (0.0-2.0) Neutrophils # (Auto) 20.2 TH/MM3 (1.8-7.7) 21.4 TH/MM3 (1.8-7.7) Lymphocytes # (Auto) 0.3 TH/MM3 (1.0-4.8) 0.2 TH/MM3 (1.0-4.8) Monocytes # (Auto) 0.7 TH/MM3 (0-0.9) 0.8 TH/MM3 (0-0.9) Eosinophils # (Auto) 0.0 TH/MM3 (0-0.4) 0.0 TH/MM3 (0-0.4) Basophils # (Auto) 0.4 TH/MM3 (0-0.2) 0.6 TH/MM3 (0-0.2) CBC Comment DIFF FINAL DIFF FINAL Differential Comment Prothrombin Time 29.7 SEC (9.8-11.6) 32.7 SEC (9.8-11.6) 24.8 SEC (9.8-11.6) Prothromb Time International Ratio 2.9 RATIO 3.2 RATIO 2.5 RATIO Blood Urea Nitrogen 83 MG/DL (7-18) 84 MG/DL (7-18) Creatinine 1.80 MG/DL (0.50-1.00) 1.80 MG/DL (0.50-1.00) Random Glucose 192 MG/DL (74-106) 149 MG/DL (74-106) Total Protein 4.9 GM/DL (6.4-8.2) 5.4 GM/DL (6.4-8.2) Albumin 2.1 GM/DL (3.4-5.0) Calcium Level 6.6 MG/DL (8.5-10.1) 7.1 MG/DL (8.5-10.1) Magnesium Level 2.7 MG/DL (1.5-2.5) 2.6 MG/DL (1.5-2.5) Alkaline Phosphatase 102 U/L (45-117) Aspartate Amino Transf (AST/SGOT) 35 U/L (15-37) Alanine Aminotransferase (ALT/SGPT) 39 U/L (10-53) Total Bilirubin 0.5 MG/DL (0.2-1.0) Sodium Level 139 MEQ/L (136-145) 138 MEQ/L (136-145) Potassium Level 4.7 MEQ/L (3.5-5.1) 4.9 MEQ/L (3.5-5.1) Chloride Level 103 MEQ/L (98-107) 103 MEQ/L (98-107) Carbon Dioxide Level 30.8 MEQ/L (21.0-32.0) 30.7 MEQ/L (21.0-32.0) Anion Gap 5 MEQ/L (5-15) 4 MEQ/L (5-15) Estimat Glomerular Filtration Rate 27 ML/MIN (>89) 27 ML/MIN (>89) Protein Corrected Calcium 7.7 MG/DL (8.5-10.1) 8.0 MG/DL (8.5-10.1) Urine Collection Type CLEAN CATCH Urine Color YELLOW (YELLW/STRAW) Urine Turbidity CLEAR (CLEAR) Urine pH 5.5 (5.0-8.5) Urine Specific Montague 1.010 (1.002-1.035) Urine Protein NEG mg/dL (NEG-TRACE) Urine Glucose (UA) NEG mg/dL (NEG) Urine Ketones NEG mg/dL (NEG) Urine Occult Blood TRACE (NEG) Urine Nitrite NEG (NEG) Urine Bilirubin NEG (NEG) Urine Urobilinogen 0.2 MG/DL (LESS THAN Urine Leukocyte Esterase SMALL (NEG) Urine RBC 0-3 /hpf (0-3) Urine WBC 3-5 /hpf (0-5) Urine Squamous Epithelial Cells 0-5 /hpf (0-5) Urine Bacteria FEW /hpf (NONE) Microscopic Urinalysis Comment CULT NOT INDICATED Urine Collection Time 13:10 Test 07/13/17 13:55 Blood Gas Puncture Site RT BRACHIAL Blood Gas Patient Temperature 37.0 Blood Gas HCO3 29 mmol/L (22-26) Blood Gas Base Excess 4.2 mmol/L (-2-2) Blood Gas Oxygen Saturation 88 % (90-100) Arterial Blood pH 7.42 (7.380-7.420) Arterial Blood Partial Pressure CO2 45 mmHg (38-42) Arterial Blood Partial Pressure O2 60 mmHg (61-120) Arterial Blood Oxygen Content 11.0 Vol % (12.0-20.0) Arterial Blood Carboxyhemoglobin 2.5 % (0-4) Arterial Blood Methemoglobin 1.4 % (0-2) Blood Gas Hemoglobin 8.8 G/DL (12.0-16.0) Oxygen Delivery Device BiPAP Blood Gas Ventilator Setting IPAP 15 EPAP5 Blood Gas Inspired Oxygen 80 % Result Diagram: 07/12/17 0427 07/12/17 0427 Microbiology Microbiology Date/Time Source Procedure Growth Status 06/28/17 12:00 Blood Peripheral Aerobic Blood Culture - Final NO GROWTH IN 5 DAYS Complete 06/28/17 12:00 Blood Peripheral Anaerobic Blood Culture - Final NO GROWTH IN 5 DAYS Complete 06/28/17 12:18 Nasal Aspirate Influenza Types A,B Antigen (TAE) - Final NEGATIVE FOR FLU A AND B ANTIGEN.... Complete 07/10/17 15:45 Urine Clean Catch Urine Culture - Final Keli Albicans Complete Imaging Last Impressions Chest X-Ray 07/11/17 0600 Signed Impressions: Service Date/Time: Tuesday, July 11, 2017 03:24 - CONCLUSION: Chronic interstitial opacities remain in both lungs. Bill Lopes MD Abdomen X-Ray 07/05/17 0000 Signed Impressions: Service Date/Time: Wednesday, July 05, 2017 16:08 - CONCLUSION: Negative KUB. Timothy Cummings MD Renal Ultrasound 07/04/17 0000 Signed Impressions: Service Date/Time: Tuesday, July 04, 2017 10:58 - CONCLUSION: 1. Abnormal increased echotexture of the renal parenchyma indicating medical renal disease. There is no hydronephrosis. 2. Bilateral renal cysts are identified, as above. Timothy Johnston MD Assessment and Plan Disease Oriented Problem List: (1) COPD (chronic obstructive pulmonary disease) (2) CHF (congestive heart failure) (3) Rapid atrial fibrillation Symptom Scale: (1) Dyspnea 0-10 Scale: Unable to quantify Pertinent Non-Medical Issues Psychosocial:From [place], to [place]. Spiritual:[employer] Legal:had living will, but unavailable in [place]. Jeff Melissa, pt's spouse would be health care proxy. Ethical issues impacting care: no Important Contacts Jeff Torres (spouse ) [phone] Yakov Torres (son) [phone] Prognosis Prognosis is very poor. 81 year old with end-stage COPD, admitted with NSTEMI, renal insufficiency, uncontrolled atrial fibrillation in spite of maximum medication. Requiring high flow oxygen with frequent rests on BiPAP and continually escalating oxygen requirements. She is now requiring 90% FiO2 on high flow nasal cannula and maintaining saturations of 90-92. Code Status: No Code Plan PLAN: Legal decision maker: Patient is capacitated for decision-making but has been made aware that her , Jeff, would be the legal decision making proxy by [place] statutes if she became incapacitated. She states this would be her wish if she were to choose. Goals: Aggressive short of no code CODE STATUS: DNR SYMPTOMS: * Dyspnea: She is on chronic oxygen at home. Her dyspnea is likely multifactorial to include atrial fibrillation, end-stage COPD, congestive heart failure and obesity. She is currently requiring high flow oxygen at 90% and is not tolerating weaning. She is currently receiving albuterol, Robitussin, Ativan as needed and prednisone. She remains at risk for decline as her disease appears to be end-stage and she has multiple comorbidities to exacerbate lung function. Ativan has now been scheduled twice daily as a baseline to evaluate her tolerance given her very fragile respiratory status. She has additional medication for as needed symptoms. As we have approached the limit of medical therapy, would recommend treating her symptoms with benzodiazepines and opiates as tolerated, as the family's request is that she be made comfortable. Plan for withdrawal of life support in the next 24-36 hours. . * Anxiety: Complaining of some anxiety related to her extended hospital stay, worsening condition, dyspnea and tachycardia. She is receiving Ativan 0.5 mg IV twice daily. As needed dosing is being requested through the physician for each necessary dose due to her extremely fragile respiratory condition to monitor for respiratory depression. Her anxiety is likely to worsen as her dyspnea increases. Palliative care will continue to follow the patient during hospital course as condition evolves, to assist patient/decision-maker with understanding of their medical conditions, weighing benefits/burdens of treatment options, for clarification of goals of treatment. Additionally will assist with any symptoms of palliative concern. . Attestation To help prompt me to consider important information that might be impacting today's encounter and assessment, information from prior notes written by myself or my colleagues may have been "brought forward" into today's note. My signature on this note, however, is an attestation that I personally performed the exam, history, and/or decision-making noted today, and, unless otherwise indicated, the interactions with patient, family, and staff as well as the review of records all occurred today. I also attest that the listed assessment and stated plan reflect my best clinical judgment today based on the combination of historical information, prior notes, and today's exam/ interactions. When time spent is documented, it refers only to time spent today by the signer, or if indicated, combined time spent today by collaborating physician/nurse practitioner. . Aleja Rai July 13, 2017 5:11 pm
[2017-07-13] MEDS: WARFARIN SOD 1 MG TAB PO SCH (17:35)
--- NOTE | 2017-07-13 19:02 | HHI.PR ---
Subjective Remarks 81 YOWF from [place] with RF,Hypoxia Does't tolerate weaning Fi02 Weak, mild sob No fever or chills Was on 100% high flow Using BIPAP, Fi02 80% Objective Vital Signs Vital Signs Date Time Temp Pulse Resp B/P (MAP) Pulse Ox O2 Delivery O2 Flow Rate FiO2 07/13/17 18:02 97.2 90 44 157/84 (108) 84 07/13/17 18:00 91 07/13/17 17:02 80 27 117/65 (82) 94 07/13/17 16:02 78 19 119/54 (75) 97 07/13/17 16:00 93 07/13/17 16:00 Bi-Pap 15.00 80 07/13/17 15:02 98.3 80 16 117/57 (77) 94 07/13/17 14:19 92 80 07/13/17 14:02 80 34 114/62 (79) 90 07/13/17 14:02 80 34 114/62 (79) 90 07/13/17 14:00 89 07/13/17 13:45 82 35 90 07/13/17 13:02 86 35 130/65 (86) 81 07/13/17 13:00 97.9 84 43 130/65 (86) 80 07/13/17 12:45 84 39 81 07/13/17 12:02 76 30 113/70 (84) 89 07/13/17 12:02 76 30 113/70 (84) 89 07/13/17 12:00 96 07/13/17 12:00 93 Bi-Pap 15.00 80 07/13/17 11:45 78 38 87 07/13/17 11:02 74 24 110/55 (73) 92 07/13/17 10:30 74 27 88 07/13/17 10:20 84 80 07/13/17 10:02 78 36 118/43 (68) 80 07/13/17 10:02 81 25 123/55 (77) 96 07/13/17 10:00 83 07/13/17 09:02 97.5 82 33 109/49 (69) 87 07/13/17 08:06 93 High Flow Nasal Cannula 30.00 100 07/13/17 08:02 72 23 104/48 (66) 94 07/13/17 08:00 91 07/13/17 08:00 92 30.00 100 07/13/17 07:02 72 24 106/53 (70) 97 07/13/17 06:13 72 07/13/17 06:02 70 24 106/51 (69) 96 07/13/17 06:00 88 Bi-Pap 80 07/13/17 05:02 72 17 127/55 (79) 93 07/13/17 04:36 75 07/13/17 04:21 97 Bi-Pap 70 07/13/17 04:06 96 80 07/13/17 04:02 97.3 72 17 118/56 (76) 97 07/13/17 03:02 72 22 113/57 (75) 94 07/13/17 02:02 76 17 140/63 (88) 94 07/13/17 01:02 74 23 131/60 (83) 93 07/13/17 00:02 97.9 76 23 130/61 (84) 97 07/13/17 00:00 76 07/13/17 00:00 94 Bi-Pap 80 07/12/17 23:41 97 80 07/12/17 23:02 98.0 76 29 128/62 (84) 92 07/12/17 22:02 78 18 129/57 (81) 95 07/12/17 22:00 80 07/12/17 21:02 80 18 126/55 (78) 95 07/12/17 20:22 93 80 07/12/17 20:02 82 29 133/63 (86) 92 07/12/17 20:00 92 Bi-Pap 80 07/12/17 20:00 81 07/12/17 19:44 99.2 84 35 136/57 (83) 92 07/12/17 19:02 86 40 141/59 (86) 92 I/O 07/12/17 07/12/17 07/12/17 07/13/17 07/13/17 07/13/17 07:00 15:00 23:00 07:00 15:00 23:00 Intake Total 480 ml 250 ml 380 ml Output Total 1000 ml 800 ml 700 ml 750 ml Balance -1000 ml -320 ml -450 ml -370 ml Intake Oral 480 ml 250 ml 380 ml Output Urine Total 1000 ml 800 ml 700 ml 750 ml # Bowel Movements 0 0 Result Diagram: 07/12/17 0427 07/12/17 0427 Objective Remarks GENERAL: Frail elderly WF, SOB, on high flow SKIN: Warm and dry. HEAD: Normocephalic. EYES: No scleral icterus. No injection or drainage. NECK: Supple, trachea midline. No JVD or lymphadenopathy. CARDIOVASCULAR: Regular rate and rhythm without murmurs, gallops, or rubs. RESPIRATORY: Breath sounds equal bilaterally. No accessory muscle use. GASTROINTESTINAL: Abdomen soft, non-tender, nondistended. MUSCULOSKELETAL: No cyanosis, ++ edema. BACK: Nontender without obvious deformity. No CVA tenderness. A/P Assessment and Plan IMPRESSION: 1. Respiratory failure. 2. Lung infiltrate, possible sepsis. 3. Diabetes mellitus. 4. Chronic obstructive pulmonary disease. 5. Non-ST elevation myocardial infarction. 6. Renal insufficiency. PLAN: Supplement 02 with high flow 02 Use BIPAP at night and prn Diurease with Lasix prednisone 20 mg daily Aerosol nebs Cont Abx monitor renal functions Prognosis gaurded DNR Tobias Lowe MD July 13, 2017 19:02
[2017-07-13] MEDS ORDERED: LORazepam 2 MG/ML VIAL IV ONE (19:15)
[2017-07-13] MEDS: MELATONIN 5 MG TAB PO SCH (20:43)
[2017-07-14] VITALS (42 sets, daily range): BP systolic 111–145; BP diastolic 47–77; PULSE 80–99; RESP 14–58; TEMP 97.9–98.7; O2SAT 85–98
[2017-07-14] MEDS: DILTIAZEM HCL 60 MG TAB PO SCH ×4 (00:48→17:26)
[2017-07-14] MEDS: INSULIN ASPART SUPPLEMENTAL SCALE SQ SCH ×4 (00:49→17:27)
[2017-07-14] MEDS: CHLORHEXIDINE GLUCONATE 2 % 1 PACK (2 CLOTHS) TOP SCH (04:00)
[2017-07-14 05:21] LABS: AUTOMATED NEUTROPHIL # 27.8 TH/MM3 (1.8-7.7); EOSINOPHIL # 0.1 TH/MM3 (0-0.4); EOSINOPHIL % 0.2 % (0.0-4.0); LYMPH % 1.3 % (9.0-44.0); LYMPHOCYTE # 0.4 TH/MM3 (1.0-4.8); MEAN CELL VOLUME 83.2 FL (80.0-100.0); MEAN CORPUSCULAR HEMOGLOBIN 26.6 PG (27.0-34.0); MEAN PLATELET VOLUME 9.4 FL (7.0-11.0); MONO % 0.9 % (0.0-8.0); MONOCYTE # 0.3 TH/MM3 (0-0.9); NEUT % 97.6 % (16.0-70.0); PLATELET COUNT 128 TH/MM3 (150-450); RED BLOOD COUNT 3.01 MIL/MM3 (4.00-5.30); RED CELL DISTRIBUTION WIDTH 16.5 % (11.6-17.2); WHITE BLOOD COUNT 28.6 TH/MM3 (4.0-11.0)
[2017-07-14 05:24] LABS: INTERNATIONAL NORMALIZED RATIO 2.6 RATIO; PROTHROMBIN TIME - PATIENT 25.9 SEC (9.8-11.6)
[2017-07-14] MEDS: INSULIN DETEMIR 100 UNITS/ML VIAL SQ SCH ×2 (06:12→17:26)
[2017-07-14 06:22] LABS: BICARBONATE 29.5 MEQ/L (21.0-32.0); CALCIUM 7.6 MG/DL (8.5-10.1); CREATININE 1.4 MG/DL (0.50-1.00)
[2017-07-14] MEDS: RESP: ALBUTEROL 2.5 MG/IPRATROPIUM 0.5 MG NEB (SCH) NEB ×2 (07:29→13:51)
[2017-07-14] MEDS: METOPROLOL TARTRATE 25 MG TAB PO SCH ×2 (08:43→20:33)
[2017-07-14] MEDS: AMIODARONE 200 MG TAB PO SCH ×2 (08:43→20:33)
[2017-07-14] MEDS: ATORVASTATIN 40 MG TAB PO SCH (08:43)
[2017-07-14] MEDS: DOCUSATE SODIUM 50 MG/SENNA 8.6 MG TAB PO SCH ×2 (08:43→20:33)
[2017-07-14] MEDS: NYSTATIN 100,000 UNIT/GM CREAM 15 GM TOPICAL SCH ×2 (08:44→20:34)
[2017-07-14] MEDS: predniSONE 20 MG TAB PO SCH ×2 (08:44→20:33)
[2017-07-14] MEDS: LORazepam 2 MG/ML VIAL IV PUSH SCH ×2 (08:44→20:34)
[2017-07-14] MEDS: FUROSEMIDE 20 MG TAB PO SCH ×2 (08:44→17:26)
[2017-07-14] MEDS: ASPIRIN EC 81 MG TABEC PO SCH (08:44)
--- NOTE | 2017-07-14 12:07 | HHI.PR ---
Subjective Remarks Patient seen and evaluated in follow-up for respiratory failure, end-stage. Care plan discussed with family at bedside and with patient who is short of breath and dyspneic while eating breakfast. Family expected to continue with plans for comfort care measures and possible withdrawal this week. Objective Vitals Vital Signs Date Time Temp Pulse Resp B/P (MAP) Pulse Ox O2 Delivery O2 Flow Rate FiO2 07/14/17 10:02 82 31 119/49 (72) 94 07/14/17 10:00 86 07/14/17 09:02 94 31 115/54 (74) 96 07/14/17 08:38 95 High Flow Nasal Cannula 30.00 100 07/14/17 08:02 98.1 90 21 120/50 (73) 94 07/14/17 08:00 99 07/14/17 08:00 30.00 100 07/14/17 07:30 93 80 07/14/17 07:02 84 33 117/59 (78) 91 07/14/17 06:18 92 07/14/17 06:02 82 28 117/50 (72) 90 07/14/17 05:02 98.3 82 29 114/50 (71) 90 07/14/17 04:04 93 80 07/14/17 04:02 82 20 123/59 (80) 93 07/14/17 04:00 95 Bi-Pap 30.00 80 07/14/17 04:00 80 07/14/17 03:02 82 20 121/56 (77) 93 07/14/17 02:02 86 14 121/60 (80) 93 07/14/17 02:01 82 07/14/17 01:02 86 25 131/68 (89) 92 07/14/17 00:35 95 Bi-Pap 30.00 80 07/14/17 00:15 89 80 07/14/17 00:02 98.2 86 28 132/47 (75) 85 07/14/17 00:00 85 07/13/17 23:02 90 38 123/59 (80) 86 07/13/17 23:00 90 High Flow Nasal Cannula 30.00 100 07/13/17 22:02 86 35 119/62 (81) 92 07/13/17 22:00 84 07/13/17 21:02 84 22 128/54 (78) 94 07/13/17 20:19 93 80 07/13/17 20:02 82 23 127/65 (85) 93 07/13/17 20:00 85 07/13/17 20:00 95 Bi-Pap 30.00 80 07/13/17 19:02 98.7 86 31 138/61 (86) 93 07/13/17 18:02 97.2 90 44 157/84 (108) 84 07/13/17 18:00 91 07/13/17 17:02 80 27 117/65 (82) 94 07/13/17 16:02 78 19 119/54 (75) 97 07/13/17 16:00 93 07/13/17 16:00 Bi-Pap 15.00 80 07/13/17 15:02 98.3 80 16 117/57 (77) 94 07/13/17 14:19 92 80 07/13/17 14:02 80 34 114/62 (79) 90 07/13/17 14:02 80 34 114/62 (79) 90 07/13/17 14:00 89 07/13/17 13:45 82 35 90 07/13/17 13:02 86 35 130/65 (86) 81 07/13/17 13:00 97.9 84 43 130/65 (86) 80 07/13/17 12:45 84 39 81 07/13/17 12:02 76 30 113/70 (84) 89 07/13/17 12:02 76 30 113/70 (84) 89 07/13/17 12:00 96 07/13/17 12:00 93 Bi-Pap 15.00 80 I/O 07/13/17 07/13/17 07/13/17 07/14/17 07/14/17 07/14/17 07:00 15:00 23:00 07:00 15:00 23:00 Intake Total 250 ml 380 ml Output Total 700 ml 750 ml 1775 ml 300 ml Balance -450 ml -370 ml -1775 ml -300 ml Intake Oral 250 ml 380 ml Output Urine Total 700 ml 750 ml 1775 ml 300 ml Bladder Scan Volume Amount 561 ml # Bowel Movements 0 Result Diagram: 07/14/17 0445 07/14/17 0445 Imaging Last Impressions Chest X-Ray 07/11/17 0600 Signed Impressions: Service Date/Time: Tuesday, July 11, 2017 03:24 - CONCLUSION: Chronic interstitial opacities remain in both lungs. Bill Lopes MD Abdomen X-Ray 07/05/17 0000 Signed Impressions: Service Date/Time: Wednesday, July 05, 2017 16:08 - CONCLUSION: Negative KUB. Timothy Cummings MD Renal Ultrasound 07/04/17 0000 Signed Impressions: Service Date/Time: Tuesday, July 04, 2017 10:58 - CONCLUSION: 1. Abnormal increased echotexture of the renal parenchyma indicating medical renal disease. There is no hydronephrosis. 2. Bilateral renal cysts are identified, as above. Timothy Johnston MD Objective Remarks GENERAL: Well-developed, frail elderly female, short of breath with tachypnea and pursed lip breathing while eating breakfast HEENT: Head is normocephalic without any lesions or masses noted. Facial features are symmetric. Eyes: Extraocular muscles are intact. Conjunctivae were clear. NECK: Supple without any masses. Trachea midline no deviation. No JVD, CARDIAC: Regular rhythm, regular rate. S1/S2 are heard. No gallops or rubs. LUNGS: Persistently tachypneic, diminished breath sounds noted throughout. No wheeze, rhonchi or rales. Working hard to breathe with minimal accessory muscle use ABDOMEN: Soft, nontender. Nondistended. Bowel sounds heard in all 4 quadrants. No organomegaly or masses. Negative rebound, negative guarding EXTREMITIES: No edema, pulses are equal bilaterally. No cyanosis or clubbing NEUROLOGY: Mood and affect appear appropriate. Cranial nerves II through XII grossly intact. Moving all extremities, speech is clear Date of Insertion: June 29, 2017 Date of Removal: July 11, 2017 A/P Problem List: (1) Acute respiratory failure ICD Code: J96.00 - Acute respiratory failure, unspecified whether with hypoxia or hypercapnia Plan: We will continue with BiPAP at night and as needed, continue high flow O2 for now, continue supportive care. Patient on prednisone, nebulized bronchodilators and IV antibiotics. Patient has a DO NOT RESUSCITATE and is expected to continue with comfort care measures and possible hospice. Patient and family would like to de-escalate therapy at this time and withdrawal is in progress Assessment and Plan Continue management of diabetes and renal function No further labs Patient has not had a bowel movement in several days, will give milk of mag Continue diabetic management Maty Paige MD July 14, 2017 12:07
[2017-07-14] MEDS ORDERED: MAGNESIUM HYDROXIDE SUSP 30 ML CUP PO ONE (12:15)
[2017-07-14] MEDS: WARFARIN SOD 1 MG TAB PO SCH (17:32)
[2017-07-14] MEDS ORDERED: LORazepam 2 MG/ML VIAL IM PRN (17:45)
--- NOTE | 2017-07-14 17:45 | HHI.HCPN ---
Reason for visit a. To assist with evaluation and management of symptoms including:dyspnea, anxiety. b. To assist medical decision maker(s) with: better understanding of current medical conditions; weighing benefits/burdens of medical treatment options; making medical treatment decisions. Subjective/Interval History Patient seen to evaluate symptom management for dyspnea and anxiety. She remains dyspneic and is tachypneic at rest, worsening with conversation. She remains on high flow oxygen at 100% FiO2 for brief periods during the day to be able to eat but otherwise is requiring BiPAP. Her dyspnea and high load of prednisone is increasing her anxiety and causing her tremors. She is anxious regarding air hunger, being away from home and impending . She is aware that her condition is not improving but is indeed declining and is now considering withdrawal of life support. . Family/friend interactions Discussed with patient, and sons, Miladis and Will, clinical course and the lack of remaining options for treatment. Patient adamantly refuses intubation and states that she is aware she is at the end of her life and is tired of living like this. She wishes to spend tonight and tomorrow morning with her family at which time they all plan to withdraw oxygen and treat her symptoms with opiates and benzodiazepines for comfort. She requested that her signed the consent form as her hands tremble too much to be able to do so. The request was made in the presence of both sons and her . Her did sign a consent form and the son requested to wait until morning. He will call me when the family is assembled and ready to have orders placed. . Advance Directives Living Will: Completed, but not made available Health Care Surrogate: Completed, but not made available Durable Power of Mud Temperer: Completed, but not made available Advance Directive Specifics Health Care Surrogate(s): Not completed. . Documented care wishes: No living will available. . Objective Vital Signs Date Time Temp Pulse Resp B/P (MAP) Pulse Ox O2 Delivery O2 Flow Rate FiO2 07/14/17 16:02 93 29 133/62 (85) 92 07/14/17 16:00 92 07/14/17 16:00 30.00 100 07/14/17 15:02 90 24 133/59 (83) 91 07/14/17 14:02 94 29 133/53 (79) 92 07/14/17 14:00 91 07/14/17 13:02 98.5 90 30 140/60 (86) 90 07/14/17 12:02 97.9 92 34 132/77 (95) 92 07/14/17 12:00 30.00 100 07/14/17 12:00 98 07/14/17 11:02 86 26 134/66 (88) 91 07/14/17 10:02 82 31 119/49 (72) 94 07/14/17 10:00 86 07/14/17 09:02 94 31 115/54 (74) 96 07/14/17 08:38 95 High Flow Nasal Cannula 30.00 100 07/14/17 08:02 98.1 90 21 120/50 (73) 94 07/14/17 08:00 99 07/14/17 08:00 30.00 100 07/14/17 07:30 93 80 07/14/17 07:02 84 33 117/59 (78) 91 07/14/17 06:18 92 07/14/17 06:02 82 28 117/50 (72) 90 07/14/17 05:02 98.3 82 29 114/50 (71) 90 07/14/17 04:04 93 80 07/14/17 04:02 82 20 123/59 (80) 93 07/14/17 04:00 95 Bi-Pap 30.00 80 07/14/17 04:00 80 07/14/17 03:02 82 20 121/56 (77) 93 07/14/17 02:02 86 14 121/60 (80) 93 07/14/17 02:01 82 07/14/17 01:02 86 25 131/68 (89) 92 07/14/17 00:35 95 Bi-Pap 30.00 80 07/14/17 00:15 89 80 07/14/17 00:02 98.2 86 28 132/47 (75) 85 07/14/17 00:00 85 07/13/17 23:02 90 38 123/59 (80) 86 07/13/17 23:00 90 High Flow Nasal Cannula 30.00 100 07/13/17 22:02 86 35 119/62 (81) 92 07/13/17 22:00 84 07/13/17 21:02 84 22 128/54 (78) 94 07/13/17 20:19 93 80 07/13/17 20:02 82 23 127/65 (85) 93 07/13/17 20:00 85 07/13/17 20:00 95 Bi-Pap 30.00 80 07/13/17 19:02 98.7 86 31 138/61 (86) 93 07/13/17 18:02 97.2 90 44 157/84 (108) 84 07/13/17 18:00 91 Intake & Output 07/14/17 07/14/17 07:00 19:00 Output Total 1775 ml 300 ml Balance -1775 ml -300 ml Output Urine Total 1775 ml 300 ml Bladder Scan Volume Amount 561 ml Physical Exam CONSTITUTIONAL/GENERAL: This is an elderly, obese patient, sitting up in bed on a BiPAP mask, arousable, lethargic. TUBES/LINES/DRAINS:on BiPAP, piv/ montague. SKIN: No jaundice, rashes, or lesions. Ecchymoses on upper extremities and chest. No wounds seen anteriorly. Skin temperature appropriate. Not diaphoretic. HEAD: Atraumatic. Normocephalic. EYES: Pupils equal and round and reactive. Extraocular motions intact. No scleral icterus. No injection or drainage. Fundi not examined. ENT: Hearing diminished. Nose without bleeding or purulent drainage. Throat without visible erythema, exudates, masses, or lesions. NECK: Trachea midline. Supple, nontender. No palpable thyroid enlargement or nodularity. CARDIOVASCULAR: S1, S2, irregular rhythm, tachycardic rate, 2/6 systolic ejection murmur at LSB. RESPIRATORY/CHEST: Lungs sounds coarse with scattered wheezes both inspiratory and expiratory. GASTROINTESTINAL: Abdomen soft, non-tender, nondistended. No hepato-splenomegaly , or palpable masses. No guarding. Bowel sounds present. GENITOURINARY: Without palpable bladder distension. Montague catheter in place. MUSCULOSKELETAL: Extremities without clubbing, cyanosis, or edema. No joint tenderness or effusion noted. No calf tenderness. No mottling or clubbing. LYMPHATICS: No palpable cervical or supraclavicular adenopathy. NEUROLOGICAL: Alert, oriented 4, cognitively sharp. Moves all extremities. PSYCHIATRIC: Mildly anxious with arousal. . Diagnostic Tests Laboratory Laboratory Tests Test 07/12/17 04:27 07/12/17 13:10 5/15/18 04:27 07/13/17 13:55 White Blood Count 23.0 TH/MM3 (4.0-11.0) Red Blood Count 3.27 MIL/MM3 (4.00-5.30) Hemoglobin 8.9 GM/DL (11.6-15.3) Hematocrit 27.0 % (35.0-46.0) Mean Corpuscular Volume 82.7 FL (80.0-100.0) Mean Corpuscular Hemoglobin 27.1 PG (27.0-34.0) Mean Corpuscular Hemoglobin Concent 32.7 % (32.0-36.0) Red Cell Distribution Width 16.4 % (11.6-17.2) Platelet Count 108 TH/MM3 (150-450) Mean Platelet Volume 9.5 FL (7.0-11.0) Neutrophils (%) (Auto) 93.5 % (16.0-70.0) Lymphocytes (%) (Auto) 0.7 % (9.0-44.0) Monocytes (%) (Auto) 3.3 % (0.0-8.0) Eosinophils (%) (Auto) 0.1 % (0.0-4.0) Basophils (%) (Auto) 2.4 % (0.0-2.0) Neutrophils # (Auto) 21.4 TH/MM3 (1.8-7.7) Lymphocytes # (Auto) 0.2 TH/MM3 (1.0-4.8) Monocytes # (Auto) 0.8 TH/MM3 (0-0.9) Eosinophils # (Auto) 0.0 TH/MM3 (0-0.4) Basophils # (Auto) 0.6 TH/MM3 (0-0.2) CBC Comment DIFF FINAL Differential Comment Prothrombin Time 32.7 SEC (9.8-11.6) 24.8 SEC (9.8-11.6) Prothromb Time International Ratio 3.2 RATIO 2.5 RATIO Blood Urea Nitrogen 84 MG/DL (7-18) Creatinine 1.80 MG/DL (0.50-1.00) Random Glucose 149 MG/DL (74-106) Total Protein 5.4 GM/DL (6.4-8.2) Calcium Level 7.1 MG/DL (8.5-10.1) Magnesium Level 2.6 MG/DL (1.5-2.5) Sodium Level 138 MEQ/L (136-145) Potassium Level 4.9 MEQ/L (3.5-5.1) Chloride Level 103 MEQ/L (98-107) Carbon Dioxide Level 30.7 MEQ/L (21.0-32.0) Anion Gap 4 MEQ/L (5-15) Estimat Glomerular Filtration Rate 27 ML/MIN (>89) Protein Corrected Calcium 8.0 MG/DL (8.5-10.1) Urine Collection Type CLEAN CATCH Urine Color YELLOW (YELLW/STRAW) Urine Turbidity CLEAR (CLEAR) Urine pH 5.5 (5.0-8.5) Urine Specific [place] 1.010 (1.002-1.035) Urine Protein NEG mg/dL (NEG-TRACE) Urine Glucose (UA) NEG mg/dL (NEG) Urine Ketones NEG mg/dL (NEG) Urine Occult Blood TRACE (NEG) Urine Nitrite NEG (NEG) Urine Bilirubin NEG (NEG) Urine Urobilinogen 0.2 MG/DL (LESS THAN Urine Leukocyte Esterase SMALL (NEG) Urine RBC 0-3 /hpf (0-3) Urine WBC 3-5 /hpf (0-5) Urine Squamous Epithelial Cells 0-5 /hpf (0-5) Urine Bacteria FEW /hpf (NONE) Microscopic Urinalysis Comment CULT NOT INDICATED Urine Collection Time 13:10 Blood Gas Puncture Site RT BRACHIAL Blood Gas Patient Temperature 37.0 Blood Gas HCO3 29 mmol/L (22-26) Blood Gas Base Excess 4.2 mmol/L (-2-2) Blood Gas Oxygen Saturation 88 % (90-100) Arterial Blood pH 7.42 (7.380-7.420) Arterial Blood Partial Pressure CO2 45 mmHg (38-42) Arterial Blood Partial Pressure O2 60 mmHg (61-120) Arterial Blood Oxygen Content 11.0 Vol % (12.0-20.0) Arterial Blood Carboxyhemoglobin 2.5 % (0-4) Arterial Blood Methemoglobin 1.4 % (0-2) Blood Gas Hemoglobin 8.8 G/DL (12.0-16.0) Oxygen Delivery Device BiPAP Blood Gas Ventilator Setting IPAP 15 EPAP5 Blood Gas Inspired Oxygen 80 % Test 07/14/17 04:45 White Blood Count 28.6 TH/MM3 (4.0-11.0) Red Blood Count 3.01 MIL/MM3 (4.00-5.30) Hemoglobin 8.0 GM/DL (11.6-15.3) Hematocrit 25.0 % (35.0-46.0) Mean Corpuscular Volume 83.2 FL (80.0-100.0) Mean Corpuscular Hemoglobin 26.6 PG (27.0-34.0) Mean Corpuscular Hemoglobin Concent 32.0 % (32.0-36.0) Red Cell Distribution Width 16.5 % (11.6-17.2) Platelet Count 128 TH/MM3 (150-450) Mean Platelet Volume 9.4 FL (7.0-11.0) Neutrophils (%) (Auto) 97.6 % (16.0-70.0) Lymphocytes (%) (Auto) 1.3 % (9.0-44.0) Monocytes (%) (Auto) 0.9 % (0.0-8.0) Eosinophils (%) (Auto) 0.2 % (0.0-4.0) Basophils (%) (Auto) 0.0 % (0.0-2.0) Neutrophils # (Auto) 27.8 TH/MM3 (1.8-7.7) Lymphocytes # (Auto) 0.4 TH/MM3 (1.0-4.8) Monocytes # (Auto) 0.3 TH/MM3 (0-0.9) Eosinophils # (Auto) 0.1 TH/MM3 (0-0.4) Basophils # (Auto) 0.0 TH/MM3 (0-0.2) CBC Comment DIFF FINAL Differential Comment Prothrombin Time 25.9 SEC (9.8-11.6) Prothromb Time International Ratio 2.6 RATIO Blood Urea Nitrogen 86 MG/DL (7-18) Creatinine 1.40 MG/DL (0.50-1.00) Random Glucose 165 MG/DL (74-106) Calcium Level 7.6 MG/DL (8.5-10.1) Sodium Level 141 MEQ/L (136-145) Potassium Level 5.9 MEQ/L (3.5-5.1) Chloride Level 105 MEQ/L (98-107) Carbon Dioxide Level 29.5 MEQ/L (21.0-32.0) Anion Gap 7 MEQ/L (5-15) Estimat Glomerular Filtration Rate 36 ML/MIN (>89) Result Diagram: 07/14/17 0445 07/14/17 0445 Imaging Last Impressions Chest X-Ray 07/11/17 0600 Signed Impressions: Service Date/Time: Tuesday, July 11, 2017 03:24 - CONCLUSION: Chronic interstitial opacities remain in both lungs. Bill Lopes MD Abdomen X-Ray 07/05/17 0000 Signed Impressions: Service Date/Time: Wednesday, July 05, 2017 16:08 - CONCLUSION: Negative KUB. Timothy Cummings MD Renal Ultrasound 07/04/17 0000 Signed Impressions: Service Date/Time: Tuesday, July 04, 2017 10:58 - CONCLUSION: 1. Abnormal increased echotexture of the renal parenchyma indicating medical renal disease. There is no hydronephrosis. 2. Bilateral renal cysts are identified, as above. Timothy Johnston MD Assessment and Plan Disease Oriented Problem List: (1) COPD (chronic obstructive pulmonary disease) (2) CHF (congestive heart failure) (3) Rapid atrial fibrillation Symptom Scale: (1) Dyspnea 0-10 Scale: Unable to quantify Pertinent Non-Medical Issues Psychosocial:From [place], to Jeff [place]. Spiritual:Denominational Legal:had living will, but unavailable in [place]. Jeff Torres, pt's spouse would be health care proxy. Ethical issues impacting care: no Important Contacts Jeff Torres (spouse ) [phone] Yakov Torres (son) [phone] Prognosis Prognosis is very poor. 81 year old with end-stage COPD, admitted with NSTEMI, renal insufficiency, uncontrolled atrial fibrillation in spite of maximum medication. Requiring high flow oxygen with frequent rests on BiPAP and continually escalating oxygen requirements. She is now requiring 90% FiO2 on high flow nasal cannula and maintaining saturations of 90-92. Code Status: No Code Plan PLAN: Legal decision maker: Patient is capacitated for decision-making but has been made aware that her , Jeff, would be the legal decision making proxy by [place] statutes if she became incapacitated. She states this would be her wish if she were to choose. Goals: Aggressive short of no code CODE STATUS: DNR SYMPTOMS: * Dyspnea: She is on chronic oxygen at home. Her dyspnea is likely multifactorial to include atrial fibrillation, end-stage COPD, congestive heart failure and obesity. She is currently requiring high flow oxygen at 90% and is not tolerating weaning. She is currently receiving albuterol, Robitussin, Ativan as needed and prednisone. She remains at risk for decline as her disease appears to be end-stage and she has multiple comorbidities to exacerbate lung function. Ativan has now been scheduled twice daily as a baseline to evaluate her tolerance given her very fragile respiratory status. She has additional medication for as needed symptoms. As we have approached the limit of medical therapy, would recommend treating her symptoms with benzodiazepines and opiates as tolerated, as the family's request is that she be made comfortable. Plan for withdrawal of life support in the next 24-36 hours. . * Anxiety: Complaining of some anxiety related to her extended hospital stay, worsening condition, dyspnea and tachycardia. She is receiving Ativan 0.5 mg IV twice daily. As needed dosing is being requested through the physician for each necessary dose due to her extremely fragile respiratory condition to monitor for respiratory depression. Her anxiety is likely to worsen as her dyspnea increases. Due to her impending withdrawal, I will add Ativan 0.5 mg every 6 hours as needed for anxiety at patient and family's request. Palliative care will continue to follow the patient during hospital course as condition evolves, to assist patient/decision-maker with understanding of their medical conditions, weighing benefits/burdens of treatment options, for clarification of goals of treatment. Additionally will assist with any symptoms of palliative concern. . Attestation To help prompt me to consider important information that might be impacting today's encounter and assessment, information from prior notes written by myself or my colleagues may have been "brought forward" into today's note. My signature on this note, however, is an attestation that I personally performed the exam, history, and/or decision-making noted today, and, unless otherwise indicated, the interactions with patient, family, and staff as well as the review of records all occurred today. I also attest that the listed assessment and stated plan reflect my best clinical judgment today based on the combination of historical information, prior notes, and today's exam/ interactions. When time spent is documented, it refers only to time spent today by the signer, or if indicated, combined time spent today by collaborating physician/nurse practitioner. . Aleja Rai July 14, 2017 5:45 pm
--- NOTE | 2017-07-14 18:04 | HHI.NPPN ---
Subjective History of Present Illness 81-year-old with COPD oxygen dependent and increasing shortness of breath with acute renal failure Additional Remarks Patient is alert, now with high flow O2, 100% FiO2 Objective Data Data 07/14/17 07/15/17 19:00 07:00 Output Total 300 ml Balance -300 ml Output Urine Total 300 ml Vital Signs Date Time Temp Pulse Resp B/P (MAP) Pulse Ox O2 Delivery O2 Flow Rate FiO2 07/14/17 16:02 93 29 133/62 (85) 92 07/14/17 16:00 92 07/14/17 16:00 30.00 100 07/14/17 15:02 90 24 133/59 (83) 91 07/14/17 14:02 94 29 133/53 (79) 92 07/14/17 14:00 91 07/14/17 13:02 98.5 90 30 140/60 (86) 90 07/14/17 12:02 97.9 92 34 132/77 (95) 92 07/14/17 12:00 30.00 100 07/14/17 12:00 98 07/14/17 11:02 86 26 134/66 (88) 91 07/14/17 10:02 82 31 119/49 (72) 94 07/14/17 10:00 86 07/14/17 09:02 94 31 115/54 (74) 96 07/14/17 08:38 95 High Flow Nasal Cannula 30.00 100 07/14/17 08:02 98.1 90 21 120/50 (73) 94 07/14/17 08:00 99 07/14/17 08:00 30.00 100 07/14/17 07:30 93 80 07/14/17 07:02 84 33 117/59 (78) 91 07/14/17 06:18 92 07/14/17 06:02 82 28 117/50 (72) 90 07/14/17 05:02 98.3 82 29 114/50 (71) 90 07/14/17 04:04 93 80 07/14/17 04:02 82 20 123/59 (80) 93 07/14/17 04:00 95 Bi-Pap 30.00 80 07/14/17 04:00 80 07/14/17 03:02 82 20 121/56 (77) 93 07/14/17 02:02 86 14 121/60 (80) 93 07/14/17 02:01 82 07/14/17 01:02 86 25 131/68 (89) 92 07/14/17 00:35 95 Bi-Pap 30.00 80 07/14/17 00:15 89 80 07/14/17 00:02 98.2 86 28 132/47 (75) 85 07/14/17 00:00 85 07/13/17 23:02 90 38 123/59 (80) 86 07/13/17 23:00 90 High Flow Nasal Cannula 30.00 100 07/13/17 22:02 86 35 119/62 (81) 92 07/13/17 22:00 84 07/13/17 21:02 84 22 128/54 (78) 94 07/13/17 20:19 93 80 07/13/17 20:02 82 23 127/65 (85) 93 07/13/17 20:00 85 07/13/17 20:00 95 Bi-Pap 30.00 80 07/13/17 19:02 98.7 86 31 138/61 (86) 93 -: 07/14/17 0445 07/14/17 0445 Physical Exam General Appearance: Well Nourished, Anxious Neck Neck Exam: Neck Supple Pulmonary Resp Exam: Crackles, Rhonchi, Sputum, Decreased Bases Cardiology CV Exam: Arrhythmia Gastrointestinal/Abdomen GI Exam: Soft, Non-Tender, Bowel Sounds Present Musculoskeletal MS Exam: Joints Intact Integumentary Skin Exam: Clear Extremeties Extremities Exam: Trace Edema Neurologic Neuro Exam: Alert, Awake Assessment/Plan Problem List: (1) Acute renal failure ICD Codes: N17.9 - Acute kidney failure, unspecified Plan: Patient has improved urine output with Lasix Monitor renal functions Continue with Lasix 20 mg PO Q 12 doing poorly Afib on Diltiazem/Amiodarone poor prognosis Palliative care following DNR now UTI with E. coli treated with Levaquin finished Creatinine is 1.4, urine out put is adequate. Continue Lasix, poor prognosis due to COPD Palliative following I checked potassium and it was high 5.9 Kayexalate 30 gm ordered (2) CHF (congestive heart failure) ICD Codes: I50.9 - Heart failure, unspecified Status: Acute Plan: Diuretics as above (3) COPD (chronic obstructive pulmonary disease) ICD Codes: J44.9 - Chronic obstructive pulmonary disease, unspecified Plan: Patient is getting IV antibiotics steroids and pulmonary care with nebulization (4) Rapid atrial fibrillation ICD Codes: I48.91 - Unspecified atrial fibrillation Status: Acute Plan: On amiodarone/Diltiazem (5) UTI (lower urinary tract infection) ICD Codes: N39.0 - Urinary tract infection, site not specified Plan: On Levaquin (6) Diabetes ICD Codes: E11.9 - Type 2 diabetes mellitus without complications Plan: Continue to monitor blood sugars patient is getting steroid Problem Qualifiers (1) Acute renal failure: Qualified Codes: N17.0 - Acute kidney failure with tubular necrosis (2) CHF (congestive heart failure): (3) Diabetes: Celia Galvan MD July 14, 2017 18:04
[2017-07-14] MEDS ORDERED: SODIUM POLYSTYRENE SULFONATE SUSP 15 GM/60 ML CUP PO ONE ×2 (18:15→20:00)
[2017-07-14] MEDS: MELATONIN 5 MG TAB PO SCH (20:33)
[2017-07-14] MEDS: RESP: ALBUTEROL 2.5 MG/IPRATROPIUM 0.5 MG NEB (PRN) INH (20:43)
[2017-07-15] VITALS (41 sets, daily range): BP systolic 70–122; BP diastolic 35–74; PULSE 78–114; RESP 16–51; TEMP 97.3–98.6; O2SAT 64–100
[2017-07-15] MEDS: INSULIN ASPART SUPPLEMENTAL SCALE SQ SCH ×3 (00:35→11:25)
[2017-07-15] MEDS: DILTIAZEM HCL 60 MG TAB PO SCH ×2 (00:35→06:12)
[2017-07-15] MEDS: CHLORHEXIDINE GLUCONATE 2 % 1 PACK (2 CLOTHS) TOP SCH (03:31)
[2017-07-15 05:09] LABS: CALCIUM 7.7 MG/DL (8.5-10.1); INTERNATIONAL NORMALIZED RATIO 2.5 RATIO; PROTHROMBIN TIME - PATIENT 25.4 SEC (9.8-11.6)
[2017-07-15 05:10] LABS: BICARBONATE 31.8 MEQ/L (21.0-32.0)
[2017-07-15 05:15] LABS: CREATININE 1.4 MG/DL (0.50-1.00)
[2017-07-15] MEDS: INSULIN DETEMIR 100 UNITS/ML VIAL SQ SCH (06:13)
[2017-07-15] MEDS: NYSTATIN 100,000 UNIT/GM CREAM 15 GM TOPICAL SCH (09:00)
[2017-07-15] MEDS: ASPIRIN EC 81 MG TABEC PO SCH (10:19)
[2017-07-15] MEDS: AMIODARONE 200 MG TAB PO SCH (10:19)
[2017-07-15] MEDS: LORazepam 2 MG/ML VIAL IV PUSH SCH ×5 (10:19→22:39)
[2017-07-15] MEDS: predniSONE 20 MG TAB PO SCH (10:19)
[2017-07-15] MEDS: DOCUSATE SODIUM 50 MG/SENNA 8.6 MG TAB PO SCH (10:20)
[2017-07-15] MEDS: METOPROLOL TARTRATE 25 MG TAB PO SCH (10:20)
[2017-07-15] MEDS: FUROSEMIDE 20 MG TAB PO SCH (10:20)
[2017-07-15] MEDS: ATORVASTATIN 40 MG TAB PO SCH (10:20)
[2017-07-15] MEDS ORDERED: SODIUM POLYSTYRENE SULFONATE SUSP 15 GM/60 ML CUP PO ONE (11:00)
[2017-07-15] MEDS ORDERED: LORazepam 2 MG/ML VIAL IV PUSH ONE ×2 (11:45→12:00)
[2017-07-15] MEDS ORDERED: MORPHINE SULFATE 8 MG/ML INJ IV PUSH ONE (11:45)
[2017-07-15] MEDS: MORPHINE SULFATE 4 MG/ML INJ IV PUSH SCH ×5 (12:00→23:45)
[2017-07-15] MEDS ORDERED: MORPHINE SULFATE 4 MG/ML INJ IV PUSH ONE (12:00)
[2017-07-15] MEDS ORDERED: FUROSEMIDE 20 MG/2 ML VIAL IV PUSH PRN (12:15)
[2017-07-15] MEDS ORDERED: MORPHINE SULFATE 8 MG/ML INJ IV PUSH PRN ×2 (12:15→19:00)
[2017-07-15] MEDS ORDERED: BISACODYL 10 MG SUPP RECTAL PRN (12:15)
[2017-07-15] MEDS ORDERED: MORPHINE SULFATE 4 MG/ML INJ IV PUSH PRN (12:15)
[2017-07-15] MEDS ORDERED: ACETAMINOPHEN 650 MG SUPP RECTAL PRN (12:15)
[2017-07-15] MEDS ORDERED: LORazepam 2 MG/ML VIAL IV PUSH PRN ×5 (12:15→19:15)
[2017-07-15] MEDS ORDERED: HYOSCYAMINE 0.5 MG/ML AMP IV PUSH PRN (12:15)
--- NOTE | 2017-07-15 14:23 | HHI.NPPN ---
Subjective History of Present Illness 81-year-old with COPD oxygen dependent and increasing shortness of breath with acute renal failure Additional Remarks Patient is alert, now with high flow O2, 100% FiO2 Objective Data Data Vital Signs Date Time Temp Pulse Resp B/P (MAP) Pulse Ox O2 Delivery O2 Flow Rate FiO2 07/15/17 13:03 88 21 115/53 (73) 91 07/15/17 12:03 97.6 78 20 107/74 (85) 99 07/15/17 12:00 97 Nasal Cannula 35.00 100 Humidified 07/15/17 12:00 78 07/15/17 11:03 82 23 103/64 (77) 98 07/15/17 11:00 84 07/15/17 10:03 90 51 96/52 (67) 95 07/15/17 10:03 95 Nasal Cannula 35.00 100 Humidified 07/15/17 10:00 86 07/15/17 09:20 98 High Flow Nasal Cannula 35.00 100 07/15/17 09:03 90 46 107/47 (67) 100 07/15/17 09:00 88 07/15/17 08:03 97.3 92 33 107/51 (69) 96 07/15/17 08:00 98.6 110 20 100/50 (67) 96 115/60 (78) 07/15/17 08:00 92 07/15/17 08:00 95 Bi-Pap 90 07/15/17 07:40 98 90 07/15/17 07:00 90 07/15/17 06:03 88 23 110/57 (74) 96 07/15/17 06:00 90 07/15/17 05:02 86 23 109/53 (71) 94 07/15/17 05:00 94 90 07/15/17 04:10 92 Bi-Pap 80 07/15/17 04:09 93 07/15/17 04:02 97.3 84 20 122/58 (79) 98 07/15/17 03:02 88 20 117/58 (77) 99 07/15/17 02:02 88 31 121/55 (77) 97 07/15/17 02:00 88 07/15/17 01:02 88 29 115/58 (77) 95 07/15/17 00:16 92 Bi-Pap 80 07/15/17 00:13 92 07/15/17 00:02 98.5 86 38 111/57 (75) 98 07/15/17 00:00 98 90 07/14/17 23:02 90 58 116/61 (79) 96 07/14/17 22:02 88 21 113/54 (73) 98 07/14/17 22:00 90 07/14/17 21:20 93 100 07/14/17 21:02 98.7 96 25 129/55 (79) 88 07/14/17 20:43 89 High Flow Nasal Cannula 35.00 100 07/14/17 20:02 111/60 (77) 86 07/14/17 20:00 92 Bi-Pap 80 07/14/17 20:00 94 07/14/17 19:02 92 34 145/70 (95) 88 07/14/17 18:02 86 20 145/61 (89) 94 07/14/17 18:00 87 07/14/17 17:02 98.3 92 27 141/73 (95) 89 07/14/17 16:02 93 29 133/62 (85) 92 07/14/17 16:02 39 133/62 (85) 92 07/14/17 16:00 92 07/14/17 16:00 30.00 100 07/14/17 15:02 90 24 133/59 (83) 91 -: 07/14/17 0445 07/15/17 1238 Physical Exam General Appearance: Well Nourished, Anxious Neck Neck Exam: Neck Supple Pulmonary Resp Exam: Rhonchi, Decreased Bases Cardiology CV Exam: Arrhythmia Gastrointestinal/Abdomen GI Exam: Soft, Non-Tender, Bowel Sounds Present Musculoskeletal MS Exam: Joints Intact Integumentary Skin Exam: Clear Extremeties Extremities Exam: Trace Edema Neurologic Neuro Exam: Alert, Awake Assessment/Plan Problem List: (1) Acute renal failure ICD Codes: N17.9 - Acute kidney failure, unspecified Plan: Patient has improved urine output with Lasix Monitor renal functions Continue with Lasix 20 mg PO Q 12 doing poorly Afib on Diltiazem/Amiodarone poor prognosis Palliative care following DNR now UTI with E. coli treated with Levaquin finished Creatinine is 1.4, urine out put is adequate. Continue Lasix, poor prognosis due to COPD Palliative following I checked potassium and it was high 5.5 Kayexalate 30 gm given earlier moved her bowels palliative team following (2) CHF (congestive heart failure) ICD Codes: I50.9 - Heart failure, unspecified Status: Acute Plan: Diuretics as above (3) COPD (chronic obstructive pulmonary disease) ICD Codes: J44.9 - Chronic obstructive pulmonary disease, unspecified Plan: Patient is getting IV antibiotics steroids and pulmonary care with nebulization (4) Rapid atrial fibrillation ICD Codes: I48.91 - Unspecified atrial fibrillation Status: Acute Plan: On amiodarone/Diltiazem (5) UTI (lower urinary tract infection) ICD Codes: N39.0 - Urinary tract infection, site not specified Plan: On Levaquin (6) Diabetes ICD Codes: E11.9 - Type 2 diabetes mellitus without complications Plan: Continue to monitor blood sugars patient is getting steroid Problem Qualifiers (1) Acute renal failure: Qualified Codes: N17.0 - Acute kidney failure with tubular necrosis (2) CHF (congestive heart failure): (3) Diabetes: Celia Galvan MD July 15, 2017 14:23
[2017-07-15] MEDS ORDERED: guaiFENesin/CODEINE SYRUP 200 MG/20 MG/10 ML CUP PO PRN (14:30)
[2017-07-15] MEDS ORDERED: PROMETHAZINE HCL 25 MG SUPP RECTAL ONE (14:30)
--- NOTE | 2017-07-15 14:39 | HHI.HCPN ---
Contacted by patient's son, Miladis, at 11: 40 a.m. He is requesting that the previously planned withdrawal of oxygen support be initiated with comfort medications for symptom management. He wished to start the procedure in 1-2 hours but wanted to make sure all preparations had been made. Withdrawal medications entered for pharmacy review prior to initiation of protocol. Discussed with the nurse, David, with the family's wishes were to include waiting to withdraw oxygen support until family was gathered, but did wish to have any uncomfortable symptoms treated. She verbalized understanding, all questions were answered. Withdrawal will commence at the time the family is ready. All consents have been signed, witnessed and are placed on chart. Aleja Rai July 15, 2017 2:39 pm
--- NOTE | 2017-07-15 15:35 | PD.WCN.NOT ---
Wound Consult Description: Wound consult ordered by Nomei HUYNH for wound management. Communicated with: Brooks [facility], Noemi HUYNH Recommendation: 1.Reposition patient every 2 hours for comfort and offloading. 2. Please reframe from using solid cotton underpad to reduce moisture/friction. 3. Cleanse buttocks with Remedy soft wipes with barrier protection. 4. Encrust left buttocks wound BID or as needed for loose stools. (To encrust apply thin layer of stoma powder to wound base wipe away excess spray with Cavilon skin prep repeat x2 creating artificial scab on wound) Additional Information: Patient was seen today in [facility] ICU by sql report writer and CESAR Guy for wound assessment /management.Patient alert in bed with bipap mask on .no complaint of distress or discomfort.Patient required 2 person minimal assistance to reposition to right side were sql report writer was able to visualize entire buttocks. Foam dressing removed from left upper buttocks with out difficulty.Wound cleansed with Remedy soft wipes.Loss Prevention Officer was able to visualize partial thickness DTI to left upper buttocks measuring 5cm x3.3cm x<0.1cm wound base is 75% purple/black intact skin with 25% beefy red non granular partial thickness skin loss.Scant bloody drainage noted with out odor.Periwound intact blanchable to touch.Wound was encrusted and left open to air .Cotton underpad removed and replaced with UltraSorb moisture wicking underpad.Patient noted to have severely poor skin turgor and skin integrity with bruising noted to bilateral upper extremities and left flank area.moisturizing lotion applied.patient tolerated wound care well.Patient was repositioned to right side with pillows. Eden Willoughby [facility] July 15, 2017 15:35
--- NOTE | 2017-07-15 15:49 | HHI.PR ---
Subjective Remarks patient seen today in follow up for comfort care measures and for withdrawal plans family at bedside patient comfortable Objective Vitals Vital Signs Date Time Temp Pulse Resp B/P (MAP) Pulse Ox O2 Delivery O2 Flow Rate FiO2 07/15/17 13:03 88 21 115/53 (73) 91 07/15/17 12:03 97.6 78 20 107/74 (85) 99 07/15/17 12:00 97 Nasal Cannula 35.00 100 Humidified 07/15/17 12:00 78 07/15/17 11:03 82 23 103/64 (77) 98 07/15/17 11:00 84 07/15/17 10:03 90 51 96/52 (67) 95 07/15/17 10:03 95 Nasal Cannula 35.00 100 Humidified 07/15/17 10:00 86 07/15/17 09:20 98 High Flow Nasal Cannula 35.00 100 07/15/17 09:03 90 46 107/47 (67) 100 07/15/17 09:00 88 07/15/17 08:03 97.3 92 33 107/51 (69) 96 07/15/17 08:00 98.6 110 20 100/50 (67) 96 115/60 (78) 07/15/17 08:00 92 07/15/17 08:00 95 Bi-Pap 90 07/15/17 07:40 98 90 07/15/17 07:00 90 07/15/17 06:03 88 23 110/57 (74) 96 07/15/17 06:00 90 07/15/17 05:02 86 23 109/53 (71) 94 07/15/17 05:00 94 90 07/15/17 04:10 92 Bi-Pap 80 07/15/17 04:09 93 07/15/17 04:02 97.3 84 20 122/58 (79) 98 07/15/17 03:02 88 20 117/58 (77) 99 07/15/17 02:02 88 31 121/55 (77) 97 07/15/17 02:00 88 07/15/17 01:02 88 29 115/58 (77) 95 07/15/17 00:16 92 Bi-Pap 80 07/15/17 00:13 92 07/15/17 00:02 98.5 86 38 111/57 (75) 98 07/15/17 00:00 98 90 07/14/17 23:02 90 58 116/61 (79) 96 07/14/17 22:02 88 21 113/54 (73) 98 07/14/17 22:00 90 07/14/17 21:20 93 100 07/14/17 21:02 98.7 96 25 129/55 (79) 88 07/14/17 20:43 89 High Flow Nasal Cannula 35.00 100 07/14/17 20:02 111/60 (77) 86 07/14/17 20:00 92 Bi-Pap 80 07/14/17 20:00 94 07/14/17 19:02 92 34 145/70 (95) 88 07/14/17 18:02 86 20 145/61 (89) 94 07/14/17 18:00 87 07/14/17 17:02 98.3 92 27 141/73 (95) 89 07/14/17 16:02 93 29 133/62 (85) 92 07/14/17 16:02 39 133/62 (85) 92 07/14/17 16:00 92 07/14/17 16:00 30.00 100 I/O 07/14/17 07/14/17 07/14/17 07/15/17 07/15/17 07/15/17 07:00 15:00 23:00 07:00 15:00 23:00 Intake Total 520 ml 500 ml Output Total 1775 ml 300 ml 1200 ml 1550 ml Balance -1775 ml -300 ml -680 ml -1050 ml Intake Oral 520 ml 500 ml Output Urine Total 1775 ml 300 ml 1200 ml 1550 ml Bladder Scan Volume Amount 561 ml 561 ml # Bowel Movements 2 Result Diagram: 07/14/17 0445 07/15/17 1238 Objective Remarks GENERAL: Well-developed, frail elderly female, short of breath with tachypnea and pursed lip breathing HEENT: Head is normocephalic without any lesions or masses noted. Facial features are symmetric. Eyes: Extraocular muscles are intact. Conjunctivae were clear. NECK: Supple without any masses. Trachea midline no deviation. No JVD, CARDIAC: Regular rhythm, regular rate. S1/S2 are heard. No gallops or rubs. LUNGS: Persistently tachypneic, diminished breath sounds noted throughout. No wheeze, rhonchi or rales. Working hard to breathe with minimal accessory muscle use ABDOMEN: Soft, nontender. Nondistended. Bowel sounds heard in all 4 quadrants. No organomegaly or masses. Negative rebound, negative guarding EXTREMITIES: No edema, pulses are equal bilaterally. No cyanosis or clubbing NEUROLOGY: Mood and affect appear appropriate. Cranial nerves II through XII grossly intact. Moving all extremities, speech is clear Date of Insertion: June 29, 2017 Date of Removal: July 11, 2017 A/P Problem List: (1) Acute respiratory failure ICD Code: J96.00 - Acute respiratory failure, unspecified whether with hypoxia or hypercapnia Plan: We will continue with BiPAP at night and as needed, continue high flow O2 for now, continue supportive care. Patient on prednisone, nebulized bronchodilators and IV antibiotics. Patient has a DO NOT RESUSCITATE and is expected to continue with comfort care measures and possible hospice. Patient and family would like to de-escalate therapy at this time and withdrawal is in progress this afternoon Assessment and Plan Continue management of diabetes and renal function No further labs Patient has not had a bowel movement in several days, will give milk of mag Continue diabetic management Maty Paige MD July 15, 2017 15:49
--- NOTE | 2017-07-15 16:55 | HHI.PR ---
Subjective Remarks Alert , NAD ON HIGH FLOW NASAL 02 C/O NAUSEA Objective Vital Signs Date Time Temp Pulse Resp B/P (MAP) Pulse Ox O2 Delivery O2 Flow Rate FiO2 07/15/17 16:03 108 24 113/52 (72) 96 07/15/17 16:00 106 07/15/17 16:00 95 Nasal Cannula 35.00 100 Humidified 07/15/17 15:03 114 33 103/54 (70) 97 07/15/17 14:03 92 24 117/51 (73) 98 07/15/17 14:00 90 07/15/17 13:03 88 21 115/53 (73) 91 07/15/17 12:03 97.6 78 20 107/74 (85) 99 07/15/17 12:00 97 Nasal Cannula 35.00 100 Humidified 07/15/17 12:00 78 07/15/17 11:03 82 23 103/64 (77) 98 07/15/17 11:00 84 07/15/17 10:03 90 51 96/52 (67) 95 07/15/17 10:03 95 Nasal Cannula 35.00 100 Humidified 07/15/17 10:00 86 07/15/17 09:20 98 High Flow Nasal Cannula 35.00 100 07/15/17 09:03 90 46 107/47 (67) 100 07/15/17 09:00 88 07/15/17 08:03 97.3 92 33 107/51 (69) 96 07/15/17 08:00 98.6 110 20 100/50 (67) 96 115/60 (78) 07/15/17 08:00 92 07/15/17 08:00 95 Bi-Pap 90 07/15/17 07:40 98 90 07/15/17 07:00 90 07/15/17 06:03 88 23 110/57 (74) 96 07/15/17 06:00 90 07/15/17 05:02 86 23 109/53 (71) 94 07/15/17 05:00 94 90 07/15/17 04:10 92 Bi-Pap 80 07/15/17 04:09 93 07/15/17 04:02 97.3 84 20 122/58 (79) 98 07/15/17 03:02 88 20 117/58 (77) 99 07/15/17 02:02 88 31 121/55 (77) 97 07/15/17 02:00 88 07/15/17 01:02 88 29 115/58 (77) 95 07/15/17 00:16 92 Bi-Pap 80 07/15/17 00:13 92 07/15/17 00:02 98.5 86 38 111/57 (75) 98 07/15/17 00:00 98 90 07/14/17 23:02 90 58 116/61 (79) 96 07/14/17 22:02 88 21 113/54 (73) 98 07/14/17 22:00 90 07/14/17 21:20 93 100 07/14/17 21:02 98.7 96 25 129/55 (79) 88 07/14/17 20:43 89 High Flow Nasal Cannula 35.00 100 07/14/17 20:02 111/60 (77) 86 07/14/17 20:00 92 Bi-Pap 80 07/14/17 20:00 94 07/14/17 19:02 92 34 145/70 (95) 88 07/14/17 18:02 86 20 145/61 (89) 94 07/14/17 18:00 87 07/14/17 17:02 98.3 92 27 141/73 (95) 89 I/O 07/14/17 07/14/17 07/14/17 07/15/17 07/15/17 07/15/17 07:00 15:00 23:00 07:00 15:00 23:00 Intake Total 520 ml 500 ml Output Total 1775 ml 300 ml 1200 ml 1550 ml Balance -1775 ml -300 ml -680 ml -1050 ml Intake Oral 520 ml 500 ml Output Urine Total 1775 ml 300 ml 1200 ml 1550 ml Bladder Scan Volume Amount 561 ml 561 ml # Bowel Movements 2 Result Diagram: 07/14/17 0445 07/15/17 1238 Objective Remarks GENERAL: SKIN: Warm and dry. HEAD: Atraumatic. Normocephalic. EYES: Pupils equal and round. No scleral icterus. No injection or drainage. ENT: No nasal bleeding or discharge. Mucous membranes pink and moist. NECK: Trachea midline. No JVD. CARDIOVASCULAR: Regular rate and rhythm. RESPIRATORY: No accessory muscle use. Clear to auscultation. Breath sounds equal bilaterally. GASTROINTESTINAL: Abdomen soft, non-tender, nondistended. Hepatic and splenic margins not palpable. MUSCULOSKELETAL: Extremities without clubbing, cyanosis, or edema. No obvious deformities. NEUROLOGICAL: Awake and alert. No obvious cranial nerve deficits. Motor grossly within normal limits. Five out of 5 muscle strength in the arms and legs. Normal speech. PSYCHIATRIC: Appropriate mood and affect; insight and judgment normal. Assessment and Plan Assessment and Plan impression RESPIRATORY FAILURE COPD CHF CAD RENAL INSUFFICIENCY PLAN O2 NEEDED BRONCHODILATOR THERAPY\ DR BALES TO FOLLOW Lynn Bailey MD July 15, 2017 16:55
[2017-07-16] VITALS (20 sets, daily range): BP systolic 65–78; BP diastolic 34–43; PULSE 0–96; RESP 0–21; TEMP 97.6; O2SAT 54–88
[2017-07-16] MEDS: LORazepam 2 MG/ML VIAL IV PUSH SCH ×3 (01:46→08:20)
[2017-07-16] MEDS: MORPHINE SULFATE 4 MG/ML INJ IV PUSH SCH ×4 (01:46→08:19)
--- NOTE | 2017-07-16 09:02 | HHI.DS ---
Summary Note Date of : July 16, 2017 Time Of : 09:00 Admission Date Jun 28, 2017 at 11:40 Admitting Diagnosis RAPID ATRIAL FIBRILLATION, HYPOXIA Diagnosis at Time of : (1) Acute respiratory failure ICD Code: J96.00 - Acute respiratory failure, unspecified whether with hypoxia or hypercapnia Procedures none Brief History This is an 81yF who is vacationing from [place] with a history of o2 dependent COPD (2L continuous), who presents to the ED with complaints of SOB since last night. Per her and her son, her oxygen concentrator stopped working yesterday and she has not had any oxygen since that time. She has developed since that time progressive shortness of breath. Overnight, she also had intermittent substernal chest pain, though currently she is chest pain free. She denies any fever, chills, cough, sputum production, abdominal pain, n/v/c/d , or any other symptoms associated with the SOB and intermittent chest pain. No sick contacts. In the emergency department, she had spo2 89% on NRB and was placed on BIPAP and quickly increased fio2 to 90%. She was also found to be in rapid atrial fibrillation, but with no history of afib. Laboratory data significant for wbc 16k, Cr 1.8, lactate 4, Trop 0.33, BNP 1307. CXR demonstrates bilateral infiltrate suggestive of pulmonary edema. CBC/BMP: 07/14/17 0445 07/15/17 1238 Significant Findings Laboratory Tests Test 07/13/17 13:55 07/14/17 04:45 07/15/17 04:17 07/15/17 12:38 Blood Gas HCO3 29 mmol/L (22-26) Blood Gas Base Excess 4.2 mmol/L (-2-2) Blood Gas Oxygen Saturation 88 % (90-100) Arterial Blood Partial Pressure CO2 45 mmHg (38-42) Arterial Blood Partial Pressure O2 60 mmHg (61-120) Arterial Blood Oxygen Content 11.0 Vol % (12.0-20.0) Blood Gas Hemoglobin 8.8 G/DL (12.0-16.0) White Blood Count 28.6 TH/MM3 (4.0-11.0) Red Blood Count 3.01 MIL/MM3 (4.00-5.30) Hemoglobin 8.0 GM/DL (11.6-15.3) Hematocrit 25.0 % (35.0-46.0) Mean Corpuscular Hemoglobin 26.6 PG (27.0-34.0) Platelet Count 128 TH/MM3 (150-450) Neutrophils (%) (Auto) 97.6 % (16.0-70.0) Lymphocytes (%) (Auto) 1.3 % (9.0-44.0) Neutrophils # (Auto) 27.8 TH/MM3 (1.8-7.7) Lymphocytes # (Auto) 0.4 TH/MM3 (1.0-4.8) Prothrombin Time 25.9 SEC (9.8-11.6) 25.4 SEC (9.8-11.6) Blood Urea Nitrogen 86 MG/DL (7-18) 102 MG/DL (7-18) Creatinine 1.40 MG/DL (0.50-1.00) 1.40 MG/DL (0.50-1.00) Random Glucose 165 MG/DL (74-106) 190 MG/DL (74-106) Calcium Level 7.6 MG/DL (8.5-10.1) 7.7 MG/DL (8.5-10.1) Potassium Level 5.9 MEQ/L (3.5-5.1) 6.1 MEQ/L (3.5-5.1) 5.5 MEQ/L (3.5-5.1) Estimat Glomerular Filtration Rate 36 ML/MIN (>89) 36 ML/MIN (>89) Chloride Level 108 MEQ/L (98-107) Anion Gap 4 MEQ/L (5-15) Imaging Last Impressions Chest X-Ray 07/02/17 0913 Signed Impressions: Service Date/Time: Sunday, July 02, 2017 13:49 - CONCLUSION: Progression of airspace disease as described above. Akhil Chavez MD FACR Last Impressions Chest X-Ray 06/28/17 1103 Signed Impressions: Service Date/Time: Wednesday, June 28, 2017 11:29 - CONCLUSION: Bilateral diffuse interstitial opacities in both lungs and possible left pleural effusion. Juan Carlos Stover MD Hospital Course This patient was seen and treated for acute on chronic hypoxic respiratory failure secondary to acute exacerbation of COPD, with history of bony fibrosis, chronic obstructive pulmonary disease,ptn continued to decline and hospice and palliative services were rendered. She was seen also by pulmonary services, cardiology services and was treated for acute exacerbation of chronic systolic CHF, acute renal failure and non-ST elevation NE medically. The patient's family was at the bedside at time of . Comfort care was provided Maty Paige MD July 16, 2017 09:02
== END 2017-07-16 12:14 | disposition expired | DRG 189 ==
LOC: PHED 10:56 → PHEDA 11:40 → PHICU 14:05
PROVIDERS: ADMIT Hospitalist; ATTEND Hospitalist
PROC: 5A09357 Assistance with Respiratory Ventilation, Less than 24 Consecutive Hours, Continuous Positive Airway Pressure (ICD-10-PCS; principal; 2017-06-28)
PROC: 30233N1 Transfusion of Nonautologous Red Blood Cells into Peripheral Vein, Percutaneous Approach (ICD-10-PCS; 2017-07-11)
DX: J96.21 Acute and chronic respiratory failure with hypoxia (principal); I21.4 Non-ST elevation (NSTEMI) myocardial infarction; N17.0 Acute kidney failure with tubular necrosis; R57.0 Cardiogenic shock; I50.33 Acute on chronic diastolic (congestive) heart failure; A41.9 Sepsis, unspecified organism; J18.9 Pneumonia, unspecified organism; I13.0 Hypertensive heart and chronic kidney disease with heart failure and stage 1 through stage 4 chronic kidney disease, or unspecified chronic kidney disease; D64.9 Anemia, unspecified; S31.829A Unspecified open wound of left buttock, initial encounter; J44.1 Chronic obstructive pulmonary disease with (acute) exacerbation; E87.2 Acidosis; N39.0 Urinary tract infection, site not specified; J44.0 Chronic obstructive pulmonary disease with (acute) lower respiratory infection; I48.91 Unspecified atrial fibrillation; I50.9 Heart failure, unspecified; E11.65 Type 2 diabetes mellitus with hyperglycemia; Z99.81 Dependence on supplemental oxygen; Z87.891 Personal history of nicotine dependence; E78.5 Hyperlipidemia, unspecified; N18.9 Chronic kidney disease, unspecified; Z79.82 Long term (current) use of aspirin; Z79.84 Long term (current) use of oral hypoglycemic drugs; E11.22 Type 2 diabetes mellitus with diabetic chronic kidney disease; E66.9 Obesity, unspecified; Z68.31 Body mass index [BMI] 31.0-31.9, adult; Z82.49 Family history of ischemic heart disease and other diseases of the circulatory system; Z51.5 Encounter for palliative care; B96.20 Unspecified Escherichia coli [E. coli] as the cause of diseases classified elsewhere; K59.00 Constipation, unspecified; Z66 Do not resuscitate; I07.1 Rheumatic tricuspid insufficiency; H91.90 Unspecified hearing loss, unspecified ear; I27.20 Pulmonary hypertension, unspecified; I25.10 Atherosclerotic heart disease of native coronary artery without angina pectoris; F06.4 Anxiety disorder due to known physiological condition; R25.1 Tremor, unspecified; R79.1 Abnormal coagulation profile
CPT/HCPCS: 36430; 36600; 71045; 74018; 76775; 76937; 80048; 80053; 81001; 82805; 82947; 82948; 83605; 83735; 83880; 84100; 84132; 84155; 84439; 84443; 84484; 85007; 85025; 85027; 85610; 85730; 86850; 86900; 86901; 86920; 87040; 87077; 87086; 87186; 87449; 87633; 87641; 87804; 93005; 93306; 94002; 94003; 94150; 94640; 94664; 94668; J0282; J0610; J1644; J1815; J1940; J1956; J2060; J2270; J2405; J2930; J3475; J7030; J7050; J7060; J7512; J7644; P9016